=== PATIENT | female | born 1945 | race Caucasian/White ===

== ENCOUNTER → 2017-03-28 11:06 | Outpatient (CLI) | payer MEDICARE, MEDICAID, SELFPAY ==
[2017-03-28 11:49] LABS: Basophils % 0.7 % (0.1-2.0); Eosinophils # 0.1 K/mm3 (0.0-0.4); Eosinophils % 2.3 % (0.1-12.0); Hematocrit 35.1 % (37.0-47.0); Lymphocytes # 1.5 K/mm3 (0.7-4.5); Lymphocytes % 30.1 K/mm3 (10-50); Mean Corpuscular HGB Conc 31.4 g/dL (31.8-35.4); Mean Corpuscular Hemoglobin 24.8 pg (27.0-31.2); Mean Corpuscular Volume 79.1 fl (81-99); Mean Platelet Volume 8.7 fl (7.4-10.4); Monocytes # 0.4 K/mm3 (0.1-1.0); Monocytes % 7.1 % (1.7-9.3); Neutrophils # 2.9 K/mm3 (1.8-7.8); Neutrophils % 59.7 % (37.0-80.0); Platelet Count 171 K/mm3 (142-424); Red Blood Count 4.44 M/mm3 (4.20-5.40); Red Cell Distribution Width 15.2 % (11.5-17.5); White Blood Count 4.9 K/mm3 (4.8-10.8)
[2017-03-28 11:57] LABS: INR 0.99 (0.9-1.1); Prothrombin Time 10.7 seconds (9.4-11.8)
[2017-03-28 12:48] LABS: Alanine Aminotransferase 32 U/L (12-78); Albumin Level 3.7 gm/dL (3.4-5.0); Albumin/Globulin Ratio 1.1 (1.1-1.8); Alkaline Phosphatase 86 U/L (46-116); Anion Gap 10.6 mEq/L (5-15); Aspartate Amino Transferase 28 U/L (15-37); Bilirubin,Total 0.4 mg/dL (0.2-1.0); Blood Urea Nitrogen 10 mg/dL (7-18); Carbon Dioxide 30 mmol/L (21.0-32.0); Chloride 94 mmol/L (98-107); Creatinine,Serum 0.64 mg/dL (0.55-1.02); Estimated Glomerular Filt Rate > 60 ml/min (>60); GFR (African American) > 60 ML/MIN (>60); Globulin 3.5 gm/dl (1.3-3.2); Glucose 144 mg/dL (74-106); Potassium 4.6 mmoL/L (3.5-5.1); Sodium 130 mmol/L (136-145); Total Protein,Serum 7.2 gm/dL (6.4-8.2)
== END ==
PROVIDERS: PCP Nurse Practitioner Acute Care; Visit Provider Nurse Practitioner Acute Care
DX: B18.2 Chronic viral hepatitis C (principal)
CPT/HCPCS: 36415; 80053; 85025; 85610

== ENCOUNTER → 2017-04-11 14:09 | Outpatient (POV) | payer MEDICARE, MEDICAID, SELFPAY | PROVIDERS: PCP Nurse Practitioner Acute Care; Visit Provider Nurse Practitioner Acute Care | DX: Z00.00 Encounter for general adult medical examination without abnormal findings (principal) ==

== ENCOUNTER → 2017-04-19 08:02 | Outpatient (CLI) | payer MEDICARE, MEDICAID, SELFPAY ==
--- NOTE | 2017-04-19 08:07 | US_ITS ---
HISTORY: ITS.REASON: HEP C ORDERING PHYSICIAN: Symone García PATIENT AGE: 72 years COMPARISON: 01/05/2016 FINDINGS: PANCREAS: Unremarkable. No obvious mass or abnormal fluid collection. No ductal dilatation LIVER: There is heterogeneous echogenicity of the liver which may be seen with hepatitis. No focal liver lesions are evident. There is appropriate direction of blood flow within the portal vein. Portal vein is upper normal at 13 mm. RIGHT KIDNEY: 1 cm right renal cyst. No hydronephrosis GALLBLADDER: Gallbladder is filled with stones with borderline wall thickening of 4 mm. No pericholecystic fluid. Common bile duct is normal at 4 mm. IMPRESSION: 1. Heterogeneous echogenicity of the liver which may be seen with's hepatitis. Similar to 01/05/2016. 2. Cholelithiasis
== END ==
PROVIDERS: PCP Nurse Practitioner Acute Care; Visit Provider Nurse Practitioner Acute Care
DX: B18.2 Chronic viral hepatitis C (principal)
CPT/HCPCS: 76705

== ENCOUNTER 2017-05-09 07:50 | Day surgery (SDC) | payer MEDICARE, MEDICAID, SELFPAY ==
[2017-05-09] VITALS (7 sets, daily range): BP systolic 112–135; BP diastolic 54–78; PULSE 62–75; RESP 18; TEMP 36.4–36.6; O2SAT 97–100; BMI 23.8
--- NOTE | 2017-05-09 09:30 | HMH.PROC ---
[facility] Procedure Note Procedure Note:: Upper Endoscopy Procedure Report: Esophagogastroduodenoscopy with cold biopsies and TTS balloon dilation Endoscopost: Rodriguez Rajput II, MD Referring Physician: Gustavo Villagomez MD Date of Procedure: May 09, 2017 Equipment: Olympus GIF 180 standard upper endoscope Sedation: MAC sedation Indications: Mrs. Mendoza is a 72-year-old female who is here for diagnostic upper endoscopy secondary to anemia. The patient does have stage III-IV fibrosis of the liver secondary to chronic hepatitis C. She did undergo treatment with Epclusa and is in virologic/biochemical remission. She does have a history of carotid stenosis. She is on aspirin 325 mg daily. She does have intermittent dysphagia but reports no heartburn, reflux, abdominal pain or weight loss. She reports no melena. The patient has not had a colonoscopy even though she has iron deficiency. The patient's recent ultrasound of the abdomen did show evidence of probable cirrhosis as well as gallstones. Procedure: Prior to the procedure, a history and physical exam was performed, and patient's medications and allergies were reviewed. The risks, benefits and alternatives of the sedation and procedure were discussed with the patient. All questions were answered and informed consent was obtained. The patient was brought to the procedure room. Patient identification and proposed procedure were verified by the physician and the nurse. The patient was placed in a left lateral decubitus position and the scope was passed under direct vision. Throughout the procedure, the patient's blood pressure, pulse, and oxygen saturations were monitored continuously. The upper GI endoscopy was accomplished without difficulty. The patient tolerated the procedure well. Findings: The scope was passed directly into the upper esophagus and advanced to the third portion of the duodenum. The post bulbar duodenum and duodenal bulb were normal with normal mucosa and conniventes. Cold biopsies were taken from the duodenum to rule out celiac disease because of her iron deficiency anemia. The scope was withdrawn through a normal duodenal bulb and pylorus into the stomach. There was chronic gastritis of the body and fundus consistent with type A gastritis and certainly this is possibly related to H pylori. 2 biopsies were taken in the antrum and along the lesser curvature for histology to rule out gastritis and/or H pylori. The scope was then withdrawn into the esophagus. There was a serrated Z line with one tongue of salmon colored mucosa that was biopsied to rule out intestinal metaplasia. The entire esophagus was dilated to 60 German/20 mm with a TTS hydrostatic balloon was some resistance at the cricopharyngeus. The remainder of the esophageal mucosa was normal. Impression: 1. Cricopharyngeal spasm with nonerosive GERD 2. Chronic type A gastritis-rule out H. pylori Plan: I will follow up the biopsies. I do feel that the patient may have colonic pathology causing her iron deficiency and I would not rely on Cologuard testing. We will discuss need for colonoscopy.
--- NOTE | 2017-05-09 09:47 | P.PN_ITS ---
[facility] Anesthesia Checklist - Patient Identification Patient Identification: Arm Band, Verbal (Name & ) - Structural Data Admitted From: Home Planned Operative Procedure/s: egd Consent for Planned Operative Procedure(s) Verified: Yes Verified Documents: Surgical Consent - Additional verifications Patient : No Anesthesia Reactions: No Hx Blood Transfusions: No Blood Transfusion Reaction: No Cephalosporin Allergy: No Previous Colonoscopy: No - Cardiovascular Assessment Heart Sounds: S1 & S2 Pulse Strength: Baseline Pulse Rhythm: Regular Peripheral Edema: No - Airway Assessment C-Spine Mobility Assessed: Yes TMJ Mobility Assessed: Yes Dentition: Edentulous - Neurological Assessment Level of Consciousness: Awake, Alert, Appropriate Hx Seizures: No Numbness or tingling in extremities: No - Anesthesia Plan Anesthesia Risk discussed: Yes ASA Class: III Anesthesia Type: MAC [facility] Anesthesia HX I have reviewed the patient's past medical history: Yes Medical History: Reports:: Arrhythmia, Coronary Artery Disease, Diabetes Mellitus Type 2, Hepatitis, Hypertension Denies:: Diabetes Mellitus Type 1, Internal Pacemaker, Lung Disease, Seizures Other Medical History: Reports: Anemia, Liver Disease Laterality Cases: Right: Total Hip Replacement Other Surgeries: Yes: Hysterectomy-Total, Other (Jaw Sx, Eye Sx). No: Pacemaker Fractures: Yes *Family Hx:: Diabetes, Hypertension
--- NOTE | 2017-05-09 09:48 | P.PN_ITS ---
[facility] Anesthesia Checklist - Patient Identification Patient Identification: Arm Band, Verbal (Name & ) - Structural Data Admitted From: Home Planned Operative Procedure/s: egd/colon Consent for Planned Operative Procedure(s) Verified: Yes Verified Documents: Surgical Consent - NPO Status Verified Time NPO: 00:00 - Additional verifications Patient : No Anesthesia Reactions: No Hx Blood Transfusions: No Blood Transfusion Reaction: No Cephalosporin Allergy: No Previous Colonoscopy: No - Cardiovascular Assessment Heart Sounds: S1 & S2 Pulse Strength: Baseline Pulse Rhythm: Regular Peripheral Edema: No - Airway Assessment C-Spine Mobility Assessed: Yes TMJ Mobility Assessed: Yes Dentition: Edentulous - Neurological Assessment Level of Consciousness: Awake, Alert, Appropriate Hx Seizures: No Numbness or tingling in extremities: No - Anesthesia Plan Anesthesia Risk discussed: Yes ASA Class: III Anesthesia Type: MAC [facility] Anesthesia HX I have reviewed the patient's past medical history: Yes Medical History: Reports:: Arrhythmia, Coronary Artery Disease, Diabetes Mellitus Type 2, Hepatitis, Hypertension Denies:: Diabetes Mellitus Type 1, Internal Pacemaker, Lung Disease, Seizures Other Medical History: Reports: Anemia, Liver Disease. Denies: Blood Transfusion Reaction Laterality Cases: Right: Total Hip Replacement Other Surgeries: Yes: Hysterectomy-Total, Other (Jaw Sx, Eye Sx). No: Pacemaker Fractures: Yes *Family Hx:: Diabetes, Hypertension
[2017-05-19 14:59] LABS: POC Glucose,Bedside 128 mg/dL (70-110)
== END 2017-05-09 10:25 | disposition home or self-care (01) ==
LOC: OUTP 07:52
PROVIDERS: PCP Emergency Medicine; Visit Provider Internal Medicine Gastroenterology
PROC: 0DJ08ZZ Inspection of Upper Intestinal Tract, Via Natural or Artificial Opening Endoscopic (ICD-10-PCS; CPT 43235; principal; 2017-05-09 09:00)
DX: J39.2 Other diseases of pharynx (principal); K21.9 Gastro-esophageal reflux disease without esophagitis; K29.40 Chronic atrophic gastritis without bleeding; E11.9 Type 2 diabetes mellitus without complications
CPT/HCPCS: 43239; 43249; 82962; 88305; C1726

== ENCOUNTER → 2017-05-17 12:43 | Outpatient (CLI) | payer MEDICARE, MEDICAID, SELFPAY ==
--- NOTE | 2017-05-17 12:47 | XR_ITS ---
XR hip RT 2-3V w/pelvis HISTORY: ITS.REASON: right hip pain ORDERING PHYSICIAN: Liam Josue MD PATIENT AGE: 72 years COMPARISON: 10/16/2015 FINDINGS: Gamma no with long intramedullary fawad is present within the right proximal femur with the right extending to the distal femur. There is widening of the proximal aspect of the femur consistent with an old fracture. No acute fracture or dislocation evident. No evidence of orthopedic complication of the fawad. There is generalized vascular calcification. IMPRESSION: 1. No acute finding. 2. Prior ORIF old right hip fracture
== END ==
PROVIDERS: PCP Emergency Medicine; Visit Provider Orthopaedic Surgery
DX: M25.551 Pain in right hip (principal)
CPT/HCPCS: 73502

== ENCOUNTER → 2017-06-29 09:04 | Outpatient (CLI) | payer MEDICARE, MEDICAID, SELFPAY ==
[2017-06-29 09:36] LABS: Basophils % 0.5 % (0.1-2.0); Eosinophils # 0.1 K/mm3 (0.0-0.4); Eosinophils % 1.8 % (0.1-12.0); Hematocrit 33.2 % (37.0-47.0); Hemoglobin 10.5 g/dL (12.2-16.2); Lymphocytes % 27.1 K/mm3 (10-50); Mean Corpuscular HGB Conc 31.6 g/dL (31.8-35.4); Mean Corpuscular Hemoglobin 25.4 pg (27.0-31.2); Mean Corpuscular Volume 80.5 fl (81-99); Mean Platelet Volume 9.4 fl (7.4-10.4); Monocytes # 0.4 K/mm3 (0.1-1.0); Monocytes % 9.7 % (1.7-9.3); Neutrophils # 2.3 K/mm3 (1.8-7.8); Neutrophils % 60.9 % (37.0-80.0); Platelet Count 179 K/mm3 (142-424); Red Blood Count 4.13 M/mm3 (4.20-5.40); Red Cell Distribution Width 14.8 % (11.5-17.5); White Blood Count 3.8 K/mm3 (4.8-10.8)
[2017-06-29 09:42] LABS: Alanine Aminotransferase 32 U/L (12-78); Albumin Level 3.5 gm/dL (3.4-5.0); Albumin/Globulin Ratio 0.9 (1.1-1.8); Alkaline Phosphatase 80 U/L (46-116); Anion Gap 11.8 mEq/L (5-15); Aspartate Amino Transferase 30 U/L (15-37); Bilirubin,Total 0.3 mg/dL (0.2-1.0); Blood Urea Nitrogen 13 mg/dL (7-18); Calcium 9.3 mg/dL (8.5-10.1); Carbon Dioxide 30 mmol/L (21.0-32.0); Chloride 98 mmol/L (98-107); Creatinine,Serum 0.76 mg/dL (0.55-1.02); Estimated Glomerular Filt Rate 75 ml/min (>60); GFR (African American) 91 ML/MIN (>60); Globulin 3.9 gm/dl (1.3-3.2); Glucose 252 mg/dL (74-106); Potassium 4.8 mmoL/L (3.5-5.1); Sodium 135 mmol/L (136-145); Total Protein,Serum 7.4 gm/dL (6.4-8.2)
== END ==
PROVIDERS: Visit Provider Internal Medicine Gastroenterology
DX: B18.2 Chronic viral hepatitis C (principal)
CPT/HCPCS: 36415; 80053; 85025; 87522

== ENCOUNTER → 2017-08-17 12:35 | Outpatient (POV) | payer MEDICARE, MEDICAID, SELFPAY | PROVIDERS: PCP Emergency Medicine | DX: Z00.00 Encounter for general adult medical examination without abnormal findings (principal) ==

== ENCOUNTER → 2017-08-22 10:09 | Outpatient (POV) | payer MEDICARE, MEDICAID, SELFPAY | PROVIDERS: Visit Provider Nurse Practitioner Acute Care | DX: Z00.00 Encounter for general adult medical examination without abnormal findings (principal) ==

== ENCOUNTER → 2017-08-23 07:44 | Outpatient (CLI) | payer MEDICARE, MEDICAID, SELFPAY ==
[2017-08-23 08:39] LABS: Basophils % 0.9 % (0.1-2.0); Eosinophils # 0.1 K/mm3 (0.0-0.4); Eosinophils % 2.4 % (0.1-12.0); Lymphocytes # 1.2 K/mm3 (0.7-4.5); Lymphocytes % 39.5 K/mm3 (10-50); Mean Corpuscular HGB Conc 30.6 g/dL (31.8-35.4); Mean Corpuscular Volume 78.4 fl (81-99); Mean Platelet Volume 8.7 fl (7.4-10.4); Monocytes # 0.2 K/mm3 (0.1-1.0); Monocytes % 7.3 % (1.7-9.3); Neutrophils # 1.6 K/mm3 (1.8-7.8); Neutrophils % 49.9 % (37.0-80.0); Platelet Count 169 K/mm3 (142-424); Red Cell Distribution Width 15.4 % (11.5-17.5); White Blood Count 3.1 K/mm3 (4.8-10.8)
[2017-08-23 09:10] LABS: Red Blood Count 4.12 M/mm3 (4.20-5.40)
[2017-08-23 09:11] LABS: Hematocrit 32.3 % (37.0-47.0)
[2017-08-23 09:43] LABS: Alanine Aminotransferase 31 U/L (12-78); Albumin Level 3.6 gm/dL (3.4-5.0); Albumin/Globulin Ratio 1.1 (1.1-1.8); Alkaline Phosphatase 82 U/L (46-116); Anion Gap 8.9 mEq/L (5-15); Aspartate Amino Transferase 31 U/L (15-37); Bilirubin,Total 0.6 mg/dL (0.2-1.0); Blood Urea Nitrogen 11 mg/dL (7-18); Calcium 9.3 mg/dL (8.5-10.1); Carbon Dioxide 30 mmol/L (21.0-32.0); Chloride 98 mmol/L (98-107); Creatinine,Serum 0.53 mg/dL (0.55-1.02); Estimated Glomerular Filt Rate 114 ml/min (>60); GFR (African American) 138 ML/MIN (>60); Globulin 3.2 gm/dl (1.3-3.2); Glucose 111 mg/dL (74-106); Potassium 3.9 mmoL/L (3.5-5.1); Sodium 133 mmol/L (136-145); Total Protein,Serum 6.8 gm/dL (6.4-8.2)
[2017-08-25 06:29] LABS: H. pylori Breath Test Negative (Negative)
== END ==
PROVIDERS: Surgery; Visit Provider Nurse Practitioner Acute Care
DX: B19.20 Unspecified viral hepatitis C without hepatic coma (principal); B96.81 Helicobacter pylori [H. pylori] as the cause of diseases classified elsewhere
CPT/HCPCS: 36415; 80053; 82378; 83013; 85025; 87522

== ENCOUNTER → 2017-09-01 08:18 | Outpatient (CLI) | payer MEDICARE, MEDICAID, SELFPAY ==
--- NOTE | 2017-09-01 08:20 | CT_ITS ---
CT abdomen pelvis w con CLINICAL INDICATION: Status post polypectomy. Evaluate Hemoclip ITS.REASON: polypectomy hemoclip evaulation ORDERING PHYSICIAN: Gustavo Villagomez MD PATIENT AGE: 72 years COMPARISON: None TECHNIQUE: Axial images obtained with sagittal and coronal reformats. All CT scans at the facility use one or more dose reduction, viz: automated exposure control; ma/kV adjustment per patient size (including targeted exams where dose is matched to indication; i.e. head); or iterative reconstruction technique. PROCEDURE: Oral Contrast: Redicat IV Contrast: 75 mL's of Isovue-370. FINDINGS: No acute finding in the lung bases. There is dense calcification of the mitral valve annulus. Coronary artery calcification also noted. The liver, spleen, adrenal glands, and pancreas have a unremarkable appearance. Small hiatal hernia. The gallbladder is contracted with stones and mild thickening of the gallbladder wall. There is a 9 mm calcific density in the region of the neck of the gallbladder or cystic duct There is mild prominence of both renal pelves nonspecific. There is also minimal ectasia right ureter to the pelvic inlet. No intestinal obstruction or free air. There is a mild amount of retained colonic feces. There is a metallic density noted in the proximal to mid transverse colon may represent a Hemoclip. This is at the level of the umbilicus. No intestinal obstruction or free air. No evidence of diverticulitis or appendicitis. There is a small umbilical hernia which contains a blood vessel. Prior hysterectomy. No pelvic mass abnormal fluid collection or focal inflammatory change. Artifact is present from right hip decompression screw. IMPRESSION: 1. Metallic density is present in the proximal to mid transverse colon consistent with a Hemoclip 2. Constipation. 3. Cholelithiasis with contracted gallbladder and thickened gallbladder wall. A stone is also suspected in the region of the neck of the gallbladder versus cystic duct.
== END ==
PROVIDERS: PCP Emergency Medicine; Visit Provider Surgery
DX: Z86.010 Personal history of colon polyps (principal)
CPT/HCPCS: 74177; Q9967

== ENCOUNTER → 2018-01-04 14:03 | Outpatient (REF) | payer MEDICARE, MEDICAID, SELFPAY ==
[2018-01-04 20:53] LABS: Anion Gap 12.1 mEq/L (5-15); Blood Urea Nitrogen 13 mg/dL (7-18); Calcium 9.2 mg/dL (8.5-10.1); Carbon Dioxide 26 mmol/L (21.0-32.0); Chloride 100 mmol/L (98-107); Creatinine,Serum 0.74 mg/dL (0.55-1.02); Estimated Glomerular Filt Rate 77 ml/min (>60); GFR (African American) 94 ML/MIN (>60); Glucose 214 mg/dL (74-106); Potassium 5.1 mmoL/L (3.5-5.1); Sodium 133 mmol/L (136-145)
== END ==
LOC: LAB 14:03
PROVIDERS: PCP Emergency Medicine; Visit Provider Emergency Medicine
DX: E11.9 Type 2 diabetes mellitus without complications (principal)
CPT/HCPCS: 80048

== ENCOUNTER → 2018-02-15 14:31 | Outpatient (CLI) | payer MEDICARE, MEDICAID, SELFPAY ==
[2018-02-15 14:52] LABS: Basophils % 0.2 % (0.1-2.0); Eosinophils % 0.6 % (0.1-12.0); Hematocrit 27.9 % (37.0-47.0); Hemoglobin 8.6 g/dL (12.2-16.2); Lymphocytes # 0.7 K/mm3 (0.7-4.5); Lymphocytes % 19.7 % (10-50); Mean Corpuscular HGB Conc 30.8 g/dL (31.8-35.4); Mean Corpuscular Hemoglobin 23.2 pg (27.0-31.2); Mean Corpuscular Volume 75.4 fl (81-99); Mean Platelet Volume 9.3 fl (7.4-10.4); Monocytes # 0.2 K/mm3 (0.1-1.0); Monocytes % 6.7 % (1.7-9.3); Neutrophils # 2.6 K/mm3 (1.8-7.8); Neutrophils % 72.9 % (37.0-80.0); Platelet Count 175 K/mm3 (142-424); Red Cell Distribution Width 16.8 % (11.5-17.5); White Blood Count 3.5 K/mm3 (4.8-10.8)
[2018-02-15 15:15] LABS: Alanine Aminotransferase 44 U/L (12-78); Albumin Level 3.1 gm/dL (3.4-5.0); Albumin/Globulin Ratio 0.8 (1.1-1.8); Alkaline Phosphatase 117 U/L (46-116); Anion Gap 12.5 mEq/L (5-15); Aspartate Amino Transferase 33 U/L (15-37); Bilirubin,Total 0.3 mg/dL (0.2-1.0); Blood Urea Nitrogen 10 mg/dL (7-18); Carbon Dioxide 29 mmol/L (21.0-32.0); Chloride 95 mmol/L (98-107); Chol/HDL Ratio 1.9 (1-3.5); Cholesterol 127 mg/dL (140-200); Creatinine,Serum 0.59 mg/dL (0.55-1.02); Estimated Glomerular Filt Rate 100 ml/min (>60); GFR (African American) 121 ML/MIN (>60); Globulin 3.9 gm/dl (1.3-3.2); Glucose 83 mg/dL (74-106); HDL Cholesterol 66 mg/dL (29-89); LDL Cholesterol 52 mg/dL (0-130); Potassium 4.5 mmoL/L (3.5-5.1); Sodium 132 mmol/L (136-145); T4 (Thyroxine) 6.2 ug/dl (4.7-13.3); Thyroid Stimulating Hormone 0.53 uIU/ml (0.358-3.740); Triglycerides 46 mg/dL (30-200); VLDL Cholesterol 9 mg/dL (0-40)
[2018-02-17 10:54] LABS: Vitamin D 25 Hydroxy 23.7 ng/mL (30.0-100.0)
[2018-02-17 10:58] LABS: Microalbumin, Urine <3.0 ug/mL (Not Estab.)
== END ==
PROVIDERS: Visit Provider Emergency Medicine
DX: E11.9 Type 2 diabetes mellitus without complications (principal); I10 Essential (primary) hypertension; Z98.890 Other specified postprocedural states; C17.9 Malignant neoplasm of small intestine, unspecified; I63.9 Cerebral infarction, unspecified
CPT/HCPCS: 80053; 80061; 82043; 82652; 83036; 84436; 84443; 85025

== ENCOUNTER → 2018-02-20 08:38 | Outpatient (POV) | payer MEDICARE, MEDICAID, SELFPAY ==
[2018-02-20 10:28] LABS: Ammonia 17 umol/L (19-54)
[2018-02-20 10:32] LABS: INR 1.11 (0.9-1.1); Prothrombin Time 11.4 seconds (9.4-11.8)
[2018-02-20 11:39] LABS: Ferritin 21 ng/mL (8-388)
[2018-02-21 08:26] LABS: Iron 22 ug/dL (27-139); UIBC 417 ug/dL (118-369)
[2018-02-21 10:32] LABS: Iron Saturation 5 % (15-55)
[2018-02-22 06:26] LABS: AFP, Tumor Marker 1.6 ng/mL (0.0-8.3)
== END ==
PROVIDERS: Visit Provider Nurse Practitioner Acute Care
DX: K74.60 Unspecified cirrhosis of liver (principal)
CPT/HCPCS: 36415; 82105; 82140; 82728; 83540; 83550; 85610

== ENCOUNTER → 2018-02-21 10:14 | Outpatient (CLI) | payer MEDICARE, MEDICAID, SELFPAY ==
--- NOTE | 2018-02-21 10:15 | XR_ITS ---
XR DEXA axial skeleton HISTORY: ITS.REASON: post menopausal ORDERING PHYSICIAN: Maksim Mcfadden MD PATIENT AGE: 73 years COMPARISON: None FINDINGS: The BMD measured at the Forearm radius 33%t is 0.528 g/cm squared with a T score of -4.1. This is considered Osteoporotic according to the World Health Organization criteria. Fracture risk is High. Treatment is advised. L1 L4 density has a T score of -2.6. Left hip density is 0.607 with a T score of -3.2 IMPRESSION: Osteoporosis with high fracture risk. Treatment is suggested. Recommend follow-up exam February 2019.
== END ==
PROVIDERS: PCP Emergency Medicine; Visit Provider Emergency Medicine
DX: E11.9 Type 2 diabetes mellitus without complications (principal); Z78.0 Asymptomatic menopausal state
CPT/HCPCS: 77080

== ENCOUNTER → 2018-02-27 09:08 | Outpatient (CLI) | payer MEDICARE, MEDICAID, SELFPAY ==
--- NOTE | 2018-02-27 09:14 | US_ITS ---
US abdomen limited History: Cirrhosis Ordering Physician:Symone García Patient Age: 73 years Comparison:None Findings: Pancreas:Unremarkable. No obvious mass or abnormal fluid collection. No ductal dilatation Liver:No focal liver lesions demonstrated. Homogeneous echogenicity. No intrahepatic biliary ductal dilatation evident. There is appropriate direction of blood flow within the portal vein and the portal vein is upper normal at 13 mm. Common bile duct is normal at 2 mm. There is some coarse echogenicity of the liver. No focal liver lesions are evident. Right Kidney:Unremarkable. Normal size and echogenicity. No hydronephrosis Gallbladder: The gallbladder has an abnormal appearance with heterogeneous echogenicity fills the lumen of the gallbladder with some areas of increased echogenicity. This may be due to stones and sludge filling the gallbladder. No pericholecystic fluid. A small amount of free fluid is present along the anterior edge of the liver. IMPRESSION: 1. Coarse echogenicity of the liver suggesting cirrhosis. There is appropriate directional blood flow within the mildly prominent portal vein. 2. The gallbladder has an abnormal appearance and may be related to sludge filled gallbladder with stones. Consider follow-up with abdominal CT without and with contrast and with delayed images as neoplasm could have a similar appearance and to better compared to the previous CT scan of 09/01/17
== END ==
PROVIDERS: PCP Emergency Medicine; Visit Provider Nurse Practitioner Acute Care
DX: K74.60 Unspecified cirrhosis of liver (principal); Z85.038 Personal history of other malignant neoplasm of large intestine
CPT/HCPCS: 76705

== ENCOUNTER → 2018-03-24 08:19 | Outpatient (CLI) | payer MEDICARE, MEDICAID, SELFPAY ==
[2018-03-24 08:50] LABS: Blood Urea Nitrogen 13 mg/dL (7-18); Creatinine,Serum 0.63 mg/dL (0.55-1.02); Estimated Glomerular Filt Rate 93 ml/min (>60); GFR (African American) 112 ML/MIN (>60)
--- NOTE | 2018-03-24 09:10 | CT_ITS ---
CT abdomen w con CLINICAL INDICATION: Cancer of the intestines, Cirrhosis, colon polyps ITS.REASON: ABNORMAL FINDINGS GI TRACT,CIRRHOSIS ORDERING PHYSICIAN: Rodriguez Rajput MD PATIENT AGE: 73 years COMPARISON: None TECHNIQUE: 30 seconds, 60 seconds, and 5 minute delayed post enhanced images are obtained Axial images obtained with sagittal and coronal reformats. All CT scans at the facility use one or more dose reduction, viz: automated exposure control, ma/kV adjustment per patient size (including targeted exams where dose is matched to indication, i.e. head), or iterative reconstruction technique. PROCEDURE: Oral Contrast: None IV Contrast: 75 mL's of Isovue-370. FINDINGS: No acute finding in the lung bases. Coronary artery calcifications are noted There are findings consistent with cirrhosis and portal hypertension with irregularity of the liver margin as well as enlarged portal vein measuring 19 mm. There is splenomegaly at 13 cm. Gallstones are present. Gallbladder wall is slightly thickened. No focal liver lesion is evident. The adrenal glands and pancreas have an unremarkable appearance. No obvious renal mass. There is mild prominence of the right renal collecting system and ureter. The distal ureter and pelvis are included in this exam. There has been an interval right hemicolectomy with right lower quadrant ileostomy. All amount fluid is present in the perisplenic region and perihepatic area consistent with mild ascites. No obvious upper abdominal adenopathy or retroperitoneal adenopathy. Degenerative changes are present in the lumbar spine. The pelvis is not included in this exam. There are postsurgical changes of the anterior abdominal wall. Mild stranding of the subcutaneous fat is noted. IMPRESSION: 1. Cirrhosis and portal hypertension with small amount of ascites. No focal liver lesion. 2. Cholelithiasis with mildly thickened gallbladder wall. 3. Interval right hemicolectomy with right lower quadrant ileostomy
== END ==
PROVIDERS: Visit Provider Internal Medicine Gastroenterology
DX: R93.3 Abnormal findings on diagnostic imaging of other parts of digestive tract (principal); K74.60 Unspecified cirrhosis of liver
CPT/HCPCS: 36415; 74160; 82565; 84520; Q9967

== ENCOUNTER → 2018-04-17 14:32 | Outpatient (POV) | payer MEDICARE, MEDICAID, SELFPAY ==
[2018-04-17 16:02] LABS: Basophils % 0.5 % (0.1-2.0); Eosinophils # 0.1 K/mm3 (0.0-0.4); Eosinophils % 1.9 % (0.1-12.0); Hematocrit 32.7 % (37.0-47.0); Hemoglobin 10.2 g/dL (12.2-16.2); Lymphocytes # 1.2 K/mm3 (0.7-4.5); Lymphocytes % 31.5 % (10-50); Mean Corpuscular HGB Conc 31.1 g/dL (31.8-35.4); Mean Corpuscular Hemoglobin 25.4 pg (27.0-31.2); Mean Corpuscular Volume 81.6 fl (81-99); Mean Platelet Volume 9.9 fl (7.4-10.4); Monocytes # 0.2 K/mm3 (0.1-1.0); Monocytes % 5.6 % (1.7-9.3); Neutrophils # 2.3 K/mm3 (1.8-7.8); Neutrophils % 60.5 % (37.0-80.0); Platelet Count 119 K/mm3 (142-424); Red Blood Count 4.01 M/mm3 (4.20-5.40); Red Cell Distribution Width 18.6 % (11.5-17.5); White Blood Count 3.9 K/mm3 (4.8-10.8)
[2018-04-17 16:15] LABS: INR 1.07 (0.9-1.1)
[2018-04-17 18:13] LABS: Alanine Aminotransferase 33 U/L (12-78); Albumin Level 3.6 gm/dL (3.4-5.0); Albumin/Globulin Ratio 1.1 (1.1-1.8); Alkaline Phosphatase 84 U/L (46-116); Anion Gap 12.3 mEq/L (5-15); Aspartate Amino Transferase 26 U/L (15-37); Bilirubin,Total 0.6 mg/dL (0.2-1.0); Blood Urea Nitrogen 13 mg/dL (7-18); Carbon Dioxide 29 mmol/L (21.0-32.0); Chloride 95 mmol/L (98-107); Creatinine,Serum 0.72 mg/dL (0.55-1.02); Estimated Glomerular Filt Rate 80 ml/min (>60); Ferritin 27 ng/mL (8-388); GFR (African American) 96 ML/MIN (>60); Globulin 3.4 gm/dl (1.3-3.2); Glucose 183 mg/dL (74-106); Potassium 4.3 mmoL/L (3.5-5.1); Sodium 132 mmol/L (136-145)
[2018-04-19 05:11] LABS: Iron 44 ug/dL (27-139); UIBC 357 ug/dL (118-369)
[2018-04-19 08:38] LABS: Iron Saturation 11 % (15-55)
== END ==
PROVIDERS: Visit Provider Nurse Practitioner Acute Care
DX: D64.9 Anemia, unspecified (principal); K74.60 Unspecified cirrhosis of liver
CPT/HCPCS: 36415; 80053; 82728; 83540; 83550; 85025; 85610

== ENCOUNTER 2018-04-26 09:00 | Outpatient (RCR) | payer MEDICARE, MEDICAID, SELFPAY ==
--- NOTE | 2018-02-21 09:46 | HMH.PTOPWND ---
Rehab Outpt Wound Evaluation Rehab OP Wound Evaluation Start: 02/21/18 09:22 Freq: Status: Active Protocol: Document 02/21/18 09:31 FLORENCIO (Rec: 02/21/18 09:46 FLORENCIO [id number]) Electronically Signed By Jason Hansene, PT 02/21/18 09:31 Subjective/History History History Pt is a 73 yowf who presents with c/o sena LE edema x ~ 5 mos after long hospital/rehab stay. 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 She had prior polyp removals during colonoscopy with one polyp positive for adenocarcinoma and she was apparently scheduled for a possible hemicolectomy. She is very unsure of what procedure she had due to multiple complications after her surgery. 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 She was immobile for some time due to all of her complications, but is now walking again. She reports pain in sena lower legs when her edema is increased. She has PMH of hysterectomy x 2, right hip IMN due to fx, HTN, poorly controlled DM, remission of HEP-C, left LE DVT, former smoker x 50 yrs. Subjective Subjective Currently only mild c/o pain, but does reports pain increases with edema, 6/10 at worst. Lymphedema Eval Classification of Lymphedema Secondary Lymphedema Yes Stemmer's sign Stemmer's Sign no Stage of Lymphedema Lymphedema stages Stage I (Pitting edema, reduces w/ elevation, no fibrosis) Skin Changes Dry Skin Yes Taut, Shiny Skin Yes Redness Yes Wounds Yes Brittle Uneven Nails Yes Discoloration of Skin Yes Pain Sc
== END 2018-04-26 09:05 | disposition home or self-care (01) ==
LOC: PT 09:00
PROVIDERS: Visit Provider Emergency Medicine
DX: R60.0 Localized edema (principal); E11.9 Type 2 diabetes mellitus without complications
CPT/HCPCS: 97140; 97163; 97760

== ENCOUNTER → 2018-05-16 14:40 | Outpatient (CLI) | payer MEDICARE, MEDICAID, SELFPAY ==
[2018-05-18 09:20] LABS: Creatinine, Urine 29.1 mg/dL (Not Estab.); Microalbumin, Urine <3.0 ug/mL (Not Estab.)
== END ==
PROVIDERS: Visit Provider Emergency Medicine
DX: E11.9 Type 2 diabetes mellitus without complications (principal); Z79.4 Long term (current) use of insulin; Z79.84 Long term (current) use of oral hypoglycemic drugs
CPT/HCPCS: 82043; 82570

== ENCOUNTER → 2018-05-17 13:59 | Outpatient (POV) | payer MEDICARE, MEDICAID, SELFPAY | DX: Z00.00 Encounter for general adult medical examination without abnormal findings (principal) ==

== ENCOUNTER → 2018-06-01 13:21 | Outpatient (CLI) | payer MEDICARE, MEDICAID, SELFPAY ==
--- NOTE | 2018-06-01 13:27 | XR_ITS ---
XR wrist LT min 3V HISTORY ITS.REASON: left wrist pain ORDERING PHYSICIAN: Mars Cadet MD PATIENT AGE: 73 years Comparison: None FINDINGS: No fracture or dislocation. No lytic or blastic change. Lucency is noted at the tip of the ulnar styloid process. No other significant anomalies are evident. IMPRESSION: There is lucency/erosion at the tip of the ulnar styloid process. This may be seen with rheumatoid arthritis. Transient ulnar styloid erosion is also a consideration.
== END ==
PROVIDERS: PCP Emergency Medicine; Visit Provider Orthopaedic Surgery
DX: M25.532 Pain in left wrist (principal)
CPT/HCPCS: 73110

== ENCOUNTER → 2018-06-22 14:57 | Outpatient (CLI) | payer MEDICARE, MEDICAID, SELFPAY ==
--- NOTE | 2018-06-22 15:11 | XR_ITS ---
XR chest 2V HISTORY: Hypertension previous. Smoker. ITS.REASON: HTN ORDERING PHYSICIAN: Mars Cadet MD PATIENT AGE: 73 years Technique: PA and lateral chest. COMPARISON: No previous chest film . Reviewing PACS there is a previous CT chest from December [address] abdomen which includes lung bases from March 2018. FINDINGS: Nothing definitely acute. Mild chronic changes bilaterally... Mild hyperexpansion. Calcified granuloma towards left base as well as medial right base. Upper normal markings at the right infrahilar region I believe merely reflect the slight crowding of vessels markings here with some minimal scarring. This area appeared satisfactory on the March 2015 CT abdomen which included the lung bases The heart appears normal in size thea and mediastinal structures satisfactory. Calcified aortic knob. Chest wall unremarkable. No pleural effusion. IMPRESSION. Nothing definitely acute.. Lungs clear Mild chronic changes.. Heart upper normal size.
[2018-06-22 15:28] LABS: Basophils % 0.3 % (0.1-2.0); Eosinophils # 0.1 K/mm3 (0.0-0.4); Eosinophils % 1.7 % (0.1-12.0); Hematocrit 35.1 % (37.0-47.0); Hemoglobin 12.1 g/dL (12.2-16.2); Lymphocytes # 1.3 K/mm3 (0.7-4.5); Lymphocytes % 25.9 % (10-50); Mean Corpuscular HGB Conc 34.4 g/dL (31.8-35.4); Mean Corpuscular Hemoglobin 27.8 pg (27.0-31.2); Mean Corpuscular Volume 80.8 fl (81-99); Mean Platelet Volume 8.5 fl (7.4-10.4); Monocytes # 0.4 K/mm3 (0.1-1.0); Monocytes % 6.9 % (1.7-9.3); Neutrophils # 3.3 K/mm3 (1.8-7.8); Neutrophils % 65.2 % (37.0-80.0); Platelet Count 120 K/mm3 (142-424); Red Blood Count 4.34 M/mm3 (4.20-5.40); Red Cell Distribution Width 15.5 % (11.5-17.5)
[2018-06-22 17:58] LABS: Anion Gap 15.9 mEq/L (5-15); Blood Urea Nitrogen 15 mg/dL (7-18); Calcium 9.3 mg/dL (8.5-10.1); Carbon Dioxide 26 mmol/L (21.0-32.0); Chloride 94 mmol/L (98-107); Creatinine,Serum 0.68 mg/dL (0.55-1.02); Estimated Glomerular Filt Rate 85 ml/min (>60); GFR (African American) 103 ML/MIN (>60); Glucose 92 mg/dL (74-106); Potassium 3.9 mmoL/L (3.5-5.1); Sodium 132 mmol/L (136-145)
[2018-06-23 10:03] LABS: Hemoglobin A1C 6.9 % (0.0-7.0)
== END ==
PROVIDERS: Visit Provider Orthopaedic Surgery
DX: Z01.818 Encounter for other preprocedural examination (principal); S52.561A Barton's fracture of right radius, initial encounter for closed fracture; E11.9 Type 2 diabetes mellitus without complications; Z79.4 Long term (current) use of insulin
CPT/HCPCS: 36415; 71046; 80048; 83036; 85025

== ENCOUNTER → 2018-07-06 09:01 | Outpatient (CLI) | payer MEDICARE, MEDICAID, SELFPAY ==
--- NOTE | 2018-07-06 09:08 | XR_ITS ---
XR wrist RT min 3V HISTORY follow-up fracture ITS.REASON: sp ORIF right distal radius ORDERING PHYSICIAN: Mars Cadet MD PATIENT AGE: 73 years Comparison: 06/21/2018 FINDINGS: Status post ORIF radial fracture with anterior bone plate placed with good alignment of the fracture fragments. IMPRESSION: Good alignment nondisplaced comminuted distal radial fracture status post ORIF
== END ==
PROVIDERS: PCP Emergency Medicine; Visit Provider Orthopaedic Surgery
DX: S52.501A Unspecified fracture of the lower end of right radius, initial encounter for closed fracture (principal); Z48.89 Encounter for other specified surgical aftercare
CPT/HCPCS: 73110

== ENCOUNTER → 2018-07-28 08:41 | Outpatient (CLI) | payer MEDICARE, MEDICAID, SELFPAY ==
--- NOTE | 2018-07-28 09:04 | XR_ITS ---
XR wrist RT min 3V HISTORY follow-up fracture ITS.REASON: ORIF wrist/ XRAYS OUT OF CAST ORDERING PHYSICIAN: Mars Cadet MD PATIENT AGE: 73 years Comparison: 07/06/2018 FINDINGS: Anterior bone plate once again noted stabilizing the comminuted distal radial fracture. Longitudinal anterior fracture line is once again noted which extends into the articular surface. On the frontal view there is some lucency around the most superior and lateral screw raising the question of loosening or infection. Fracture line is also somewhat more prominent on the frontal view laterally. IMPRESSION: Comminuted distal radial fracture is in good alignment with the fracture lines appear slightly more prominent. While this could be technical factors, nonunion is also a consideration. There is some lucency around the most distal and radial screw which may also be due to loosening or infection. Follow-up is suggested.
== END ==
PROVIDERS: PCP Emergency Medicine; Visit Provider Orthopaedic Surgery
DX: S62.101A Fracture of unspecified carpal bone, right wrist, initial encounter for closed fracture (principal)
CPT/HCPCS: 73110

== ENCOUNTER 2018-07-28 09:39 | Outpatient (RCR) | payer MEDICARE, MEDICAID, SELFPAY | END 2018-07-28 09:45 | disposition home or self-care (01) | LOC: OT 09:39 | PROVIDERS: Visit Provider Orthopaedic Surgery | DX: M25.531 Pain in right wrist (principal) | CPT/HCPCS: 97763 ==

== ENCOUNTER → 2018-08-31 08:32 | Outpatient (CLI) | payer MEDICARE, MEDICAID, SELFPAY ==
--- NOTE | 2018-08-31 08:43 | XR_ITS ---
XR wrist RT min 3V HISTORY follow-up surgery/fracture, pain ITS.REASON: sp ORIF RT wrist sx 06/27/18 ORDERING PHYSICIAN: Mars Cadet MD PATIENT AGE: 73 years Comparison: 07/28/2018 FINDINGS Status post ORIF comminuted distal radial fracture. Bone plate remains in place. There remains a zone of lucency around the most distal screws at the radial and ulnar margins. This does raise a question of prosthesis loosening or infection. Fracture lines are still visible. There is good alignment. IMPRESSION: Status post ORIF distal radial fracture with zone of lucency around the distal most screws in the distal radius raising the question of prosthesis loosening or infection.
[2018-08-31 10:01] LABS: Basophils % 0.5 % (0.1-2.0); Eosinophils # 0.1 K/mm3 (0.0-0.4); Eosinophils % 2.4 % (0.1-12.0); Hematocrit 37.4 % (37.0-47.0); Lymphocytes # 1.3 K/mm3 (0.7-4.5); Lymphocytes % 27.5 % (10-50); Mean Corpuscular HGB Conc 31.9 g/dL (31.8-35.4); Mean Corpuscular Hemoglobin 28.6 pg (27.0-31.2); Mean Corpuscular Volume 89.7 fl (81-99); Mean Platelet Volume 10.2 fl (7.4-10.4); Monocytes # 0.3 K/mm3 (0.1-1.0); Monocytes % 5.8 % (1.7-9.3); Neutrophils # 2.9 K/mm3 (1.8-7.8); Neutrophils % 63.7 % (37.0-80.0); Platelet Count 126 K/mm3 (142-424); Red Blood Count 4.17 M/mm3 (4.20-5.40); Red Cell Distribution Width 14.7 % (11.5-17.5); White Blood Count 4.6 K/mm3 (4.8-10.8)
[2018-08-31 10:33] LABS: Erythrocyte Sedimentation Rate 19 mm/hr (0-30)
[2018-08-31 10:49] LABS: Alanine Aminotransferase 38 U/L (12-78); Albumin Level 3.8 gm/dL (3.4-5.0); Albumin/Globulin Ratio 1.2 (1.1-1.8); Alkaline Phosphatase 73 U/L (46-116); Anion Gap 8.5 mEq/L (5-15); Aspartate Amino Transferase 27 U/L (15-37); Bilirubin,Total 0.7 mg/dL (0.2-1.0); Blood Urea Nitrogen 13 mg/dL (7-18); C-Reactive Protein < 0.2 mg/L (0.0-0.9); Calcium 9.2 mg/dL (8.5-10.1); Carbon Dioxide 32 mmol/L (21.0-32.0); Chloride 96 mmol/L (98-107); Creatinine,Serum 0.63 mg/dL (0.55-1.02); Estimated Glomerular Filt Rate 93 ml/min (>60); GFR (African American) 112 ML/MIN (>60); Globulin 3.3 gm/dl (1.3-3.2); Glucose 96 mg/dL (74-106); Potassium 4.5 mmoL/L (3.5-5.1); Sodium 132 mmol/L (136-145); Total Protein,Serum 7.1 gm/dL (6.4-8.2)
[2018-08-31 11:02] LABS: Hemoglobin A1C 6.5 % (0.0-7.0)
== END ==
PROVIDERS: PCP Emergency Medicine; Visit Provider Orthopaedic Surgery
DX: Z09 Encounter for follow-up examination after completed treatment for conditions other than malignant neoplasm (principal); B99.9 Unspecified infectious disease; E11.9 Type 2 diabetes mellitus without complications; Z79.4 Long term (current) use of insulin
CPT/HCPCS: 36415; 73110; 80053; 83036; 85025; 85651; 86140

== ENCOUNTER → 2018-08-31 09:47 | Outpatient (CLI) | payer MEDICARE, MEDICAID, SELFPAY | PROVIDERS: Visit Provider Orthopaedic Surgery | DX: Z79.899 Other long term (current) drug therapy (principal) | CPT/HCPCS: 36415; 73110; 80053; 83036; 85025; 85651; 86140 ==

== ENCOUNTER → 2018-09-07 10:39 | Outpatient (CLI) | payer MEDICARE, MEDICAID, SELFPAY ==
--- NOTE | 2018-09-07 10:41 | CT_ITS ---
CT wrist RT wo con HISTORY status post ORIF of the wrist with developing lucency at the screws. Evaluate for any areas of bony union. ITS.REASON: sp ORIF rt wrist dos06/27/18 ORDERING PHYSICIAN: Mars Cadet MD PATIENT AGE: 73 years Comparison: 08/31/2018 TECHNIQUE: Axial images were obtained. Sagittal and coronal reformatted images are reviewed as well. All CT scans at the facility use one or more dose reduction, viz: automated exposure control, ma/kV adjustment per patient size (including targeted exams where dose is matched to indication, i.e. head), or iterative reconstruction technique. FINDINGS: There is an anterior bone plate present with multiple stabilizing screws. A sonolucency is present around the lateral and distal screw and the distal and most medial screw. There is also lucency noted along the most distal and central screw. This lucency however is along the proximal aspect of the longitudinal axis of the screw in good be related to residual fracture line. There does appear to be some bony union noted along H aspect of the cortex on the sagittal reformatted image #22. There is considerable artifact from the prosthesis. Persistent fracture lines are noted some of which are extending into the articular surface There is a small well-circumscribed lucency along the anterior aspect of the trapezium suggesting a nondisplaced fracture. IMPRESSION: 1. Persistent lucency surrounding the most distal lateral and medial screw at the bone plate suggesting loosening or infection. 2. There may be some minimal bony union anteriorly at the fracture site. Persistent fracture lines are noted some which extend into the articular surface 3. Possible nondisplaced fracture of the trapezium anteriorly
== END ==
PROVIDERS: PCP Emergency Medicine; Visit Provider Orthopaedic Surgery
DX: S52.501A Unspecified fracture of the lower end of right radius, initial encounter for closed fracture (principal); Z09 Encounter for follow-up examination after completed treatment for conditions other than malignant neoplasm
CPT/HCPCS: 73200

== ENCOUNTER → 2018-09-27 11:24 | Outpatient (CLI) | payer MEDICARE, MEDICAID, SELFPAY ==
--- NOTE | 2018-09-27 11:29 | XR_ITS ---
XR wrist RT min 3V HISTORY follow-up ORIF/fracture ITS.REASON: sp ORIF RT distal radius, dos 06/27/18 ORDERING PHYSICIAN: Mars Cadet MD PATIENT AGE: 73 years Comparison: 08/31/2018 FINDINGS: Status post ORIF comminuted distal radial fracture. There remains good alignment with anterior bone plate present. Fracture line still visible with some persistent lucency noted around the distal 2 most screws as previously described. IMPRESSION: No change status post ORIF distal radial fracture with persistent lucency around the distal 2 most screws as previously described not significant changed
[2018-09-27 12:00] LABS: Basophils % 0.7 % (0.1-2.0); Eosinophils # 0.1 K/mm3 (0.0-0.4); Eosinophils % 3.3 % (0.1-12.0); Hematocrit 34.5 % (37.0-47.0); Hemoglobin 10.9 g/dL (12.2-16.2); Lymphocytes # 0.9 K/mm3 (0.7-4.5); Lymphocytes % 29.3 % (10-50); Mean Corpuscular HGB Conc 31.6 g/dL (31.8-35.4); Mean Corpuscular Hemoglobin 29.2 pg (27.0-31.2); Mean Corpuscular Volume 92.4 fl (81-99); Mean Platelet Volume 9.9 fl (7.4-10.4); Monocytes # 0.2 K/mm3 (0.1-1.0); Monocytes % 7.2 % (1.7-9.3); Neutrophils # 1.9 K/mm3 (1.8-7.8); Neutrophils % 59.4 % (37.0-80.0); Platelet Count 102 K/mm3 (142-424); Red Blood Count 3.73 M/mm3 (4.20-5.40); Red Cell Distribution Width 14.5 % (11.5-17.5); White Blood Count 3.2 K/mm3 (4.8-10.8)
[2018-09-27 12:11] LABS: C-Reactive Protein < 0.2 mg/L (0.0-0.9)
[2018-09-27 12:27] LABS: Erythrocyte Sedimentation Rate 19 mm/hr (0-30)
== END ==
PROVIDERS: PCP Emergency Medicine; Visit Provider Orthopaedic Surgery
DX: Z09 Encounter for follow-up examination after completed treatment for conditions other than malignant neoplasm (principal); S52.501A Unspecified fracture of the lower end of right radius, initial encounter for closed fracture
CPT/HCPCS: 36415; 73110; 85025; 85651; 86140

== ENCOUNTER → 2018-09-27 11:42 | Outpatient (CLI) | payer MEDICARE, MEDICAID, SELFPAY | PROVIDERS: Visit Provider Orthopaedic Surgery | DX: S52.502A Unspecified fracture of the lower end of left radius, initial encounter for closed fracture (principal) | CPT/HCPCS: 36415; 85025; 85651; 86140 ==

== ENCOUNTER → 2018-10-10 10:08 | Outpatient (CLI) | payer MEDICARE, MEDICAID, SELFPAY ==
--- NOTE | 2018-10-10 10:17 | XR_ITS ---
XR wrist RT min 3V CLINICAL INDICATION: ITS.REASON: sp ORIF RT wrist sx 06/27/18 ORDERING PHYSICIAN: Mars Cadet MD PATIENT AGE: 73 years Comparison: 09/27/2018. FINDINGS: The degree of osteopenia stable. The appearance of the compression plate and fixation screws along the ventral aspect of the distal radius remains stable. There appears to be some mild interval osseous fusion across the visualized fracture sites at the distal radius. The remainder of the right wrist and visualized portions of the right hand are stable. IMPRESSION: Interval evidence of some healing of the distal radial fractures. Stable osteopenia. No other change.
[2018-10-10 10:38] LABS: Basophils % 0.2 % (0.1-2.0); Eosinophils # 0.1 K/mm3 (0.0-0.4); Eosinophils % 2.2 % (0.1-12.0); Hematocrit 33.9 % (37.0-47.0); Hemoglobin 11.2 g/dL (12.2-16.2); Lymphocytes # 1.1 K/mm3 (0.7-4.5); Lymphocytes % 32.1 % (10-50); Mean Corpuscular Hemoglobin 28.2 pg (27.0-31.2); Mean Corpuscular Volume 85.4 fl (81-99); Mean Platelet Volume 9.4 fl (7.4-10.4); Monocytes # 0.2 K/mm3 (0.1-1.0); Monocytes % 6.4 % (1.7-9.3); Neutrophils # 2.1 K/mm3 (1.8-7.8); Platelet Count 107 K/mm3 (142-424); Red Blood Count 3.97 M/mm3 (4.20-5.40); Red Cell Distribution Width 13.7 % (11.5-17.5); White Blood Count 3.6 K/mm3 (4.8-10.8)
[2018-10-10 11:03] LABS: Erythrocyte Sedimentation Rate 19 mm/hr (0-30)
[2018-10-10 11:07] LABS: C-Reactive Protein < 0.2 mg/L (0.0-0.9)
== END ==
PROVIDERS: PCP Emergency Medicine; Visit Provider Orthopaedic Surgery
DX: Z09 Encounter for follow-up examination after completed treatment for conditions other than malignant neoplasm (principal); S52.501A Unspecified fracture of the lower end of right radius, initial encounter for closed fracture
CPT/HCPCS: 36415; 73110; 85025; 85651; 86140

== ENCOUNTER 2018-10-12 10:00 | Outpatient (RCR) | payer MEDICARE, MEDICAID, SELFPAY ==
--- NOTE | 2018-08-04 09:33 | HMH.OTOPEV ---
OT Inpatient Evaluation Rehab OT Outpatient Eval Start: 08/03/18 11:12 Freq: Status: Active Protocol: Document 08/03/18 11:13 TFRY (Rec: 08/03/18 11:31 TFRY [id number]) Electronically Signed By Karine Welch, OT 08/03/18 11:13 Outpatient Therapy Subjective History Subjective History This is a 73 year old left handed female referred to occupational therapy as she is s/p ORIF of right wrist. Patient reports that she fell on 06/20/18 but did not come to the hospital to the following day. She saw doctor on 06/21/18 . Patient underwent surgery on 06/27/18. Patient reports that her cast was just removed approximately 1 week ago. Chief Complaint Pain Symptom Type Ache,Throb,Sharp,Numbness, Tingling,Shooting Symptoms Relieved By Rest/Positioning Symptoms Aggravated By Physical Activity Prior Functional Limitations None Current Functional Limitations Dressing Symptom Description Constant but Variable Level of pain today (0-10) 6 Pain scale - at its best (0-10) 4 Pain scale - at its worst (0-10) 10 Wrist/Hand Eval Palpation Tenderness/Visual Exam thenar eminence atrophy hand/finger exam right standard Wrist Range of Motion Right Wrist Extension Active Range of Motion ( 40 degrees) Wrist Extension Passive Range of Motion 50 (degrees) Wrist Flexion Active Range of Motion ( 48 degrees) Wrist Flexion Passive Range of Motion ( 65 degrees) Wrist Radial Deviation Active Range of 30 Motion (degrees) Wrist Radial Deviation Passive Range of 40 Motion (degrees) Wrist Ulnar Deviation Active Range of 20 Motion (degrees) Wrist Ulnar Deviation Passive Range of 28 Motion (degrees) Wrist Manual Muscle Testing Right Wrist Extension Strength Grade 3 Fair Wrist Flexion Strength Grade 3 Fair Wrist Radial Deviation Strength Grade 3 Fair Wrist Ulnar Deviation Strength Grade 3 Fair Business Office Coordinator/Pinch Strength Business Office Coordinator Strength Measurement (lbs) 2 Palmar Pinch (3-point) Ability Normal Performance Palmar Pinch (3-point) Strength 1 Measurement (lbs) Tip Pinch (2-point) Ability Normal Performance Tip Pinch (2-point) Strength Measurement 0 (lbs) Lateral Pinch Ability Normal Performance Lateral Pinch Strength Measurement (lbs) 1 OT Outpatient Assessment Impair
--- NOTE | 2018-09-14 11:43 | HMH.RHREAS ---
Rehab Reassessment Rehab OP Re-assessment Start: 09/14/18 10:45 Freq: Status: Active Protocol: Document 09/14/18 10:46 TFRY (Rec: 09/14/18 11:43 TFRY [id number]) Electronically Signed By Karine Welch OT 09/14/18 10:46 Rehab Re-assessment Subjective Subjective It's better I really don't have what I call pain. Objective Objective Notes Patient seen this date for skilled occupational therapy services. See exercise flow sheet for exercises. Reassessment of right wrist AROM: flexion - 0-73; extension - 0-54; ulnar deviation - 0-32; radial deviation - 0- 50. Reassessment right wrist strength: flexion - 4-/5; extension - 4-/5; ulnar deviation - 3+/5; radial deviation - 3+/5. Right staff nurse anesthetist strength - 10 lbs; right tip pinch - 1 lb; right palmar pinch - 2 lbs, right lateral pinch - 3 lbs. Patient reports that pain at worse is 4 on 0-10 scale. Assessment Progress Assessment Progressing as Expected Assessment Notes AROM and strength have improved with a decrease in pain report. Patient goals met STG's - 5/8 LTG's - 5/8 Goals Not Met strength goals Revised Goals Continue with all unmet goals with revised goal of right staff nurse anesthetist strength to 12 lbs. Plan Plan Continue occupational therapy working on all established goals and revised goal to improve staff nurse anesthetist strength. Frequency of Therapy 2 times per week Duration of therapy 4 weeks Time and Billing Re-Eval Time 5 Re-Eval Billing Units 0 PHYSICIAN CERTIFICATION: I certify the specified therapy services for Melissa Mendoza are required, authorized, and reviewed every 30 days.
== END 2018-10-12 10:05 | disposition home or self-care (01) ==
LOC: OT 10:00
PROVIDERS: Visit Provider Orthopaedic Surgery
DX: S62.101A Fracture of unspecified carpal bone, right wrist, initial encounter for closed fracture (principal)
CPT/HCPCS: 97014; 97110; 97140; 97164; 97165; G0283

== ENCOUNTER → 2018-10-16 11:05 | Outpatient (POV) | payer MEDICARE, MEDICAID, SELFPAY | PROVIDERS: PCP Emergency Medicine; Visit Provider Nurse Practitioner Family | DX: Z00.00 Encounter for general adult medical examination without abnormal findings (principal) ==

== ENCOUNTER → 2018-10-20 07:55 | Outpatient (CLI) | payer MEDICARE, MEDICAID, SELFPAY ==
--- NOTE | 2018-10-20 08:30 | US_ITS ---
US abdomen limited History:7 month follow-up suspected cirrhosis Ordering Physician:Kari Murillo APRN Patient Age: 73 years Comparison:[address] Findings: Pancreas:Unremarkable. No obvious mass or abnormal fluid collection. No ductal dilatation Liver: The liver is normal in size and shows somewhat coarsened and overall increased echogenicity similar to the previous exam. There is no significant nodularity of the liver capsule. The portal vein is upper limits of normal caliber and flow is hepatopedal. The gallbladder is contracted containing calcified and partially calcified gallstones and/or sludge. The common bile duct is upper lung is a normal 5 mm in diameter. There is a positive Zarate's sign. The right kidney measures 12.6 x 5.5 x 6.4 cm and appears sonographically normal. Impression: 1. Moderate hepatic steatosis without other obvious signs of cirrhosis 2. Contracted gallbladder with gallstones and/or sludge with positive Zarate's sign
[2018-10-20 09:26] LABS: Basophils % 0.6 % (0.1-2.0); Eosinophils # 0.1 K/mm3 (0.0-0.4); Eosinophils % 3.5 % (0.1-12.0); Hematocrit 36.7 % (37.0-47.0); Hemoglobin 11.7 g/dL (12.2-16.2); Lymphocytes # 0.8 K/mm3 (0.7-4.5); Lymphocytes % 23.7 % (10-50); Mean Corpuscular HGB Conc 31.9 g/dL (31.8-35.4); Mean Corpuscular Hemoglobin 28.8 pg (27.0-31.2); Mean Corpuscular Volume 90.3 fl (81-99); Mean Platelet Volume 9.4 fl (7.4-10.4); Monocytes # 0.2 K/mm3 (0.1-1.0); Neutrophils # 2.1 K/mm3 (1.8-7.8); Neutrophils % 66.2 % (37.0-80.0); Platelet Count 123 K/mm3 (142-424); Red Blood Count 4.07 M/mm3 (4.20-5.40); Red Cell Distribution Width 13.7 % (11.5-17.5); White Blood Count 3.2 K/mm3 (4.8-10.8)
[2018-10-20 09:35] LABS: INR 1.05 (0.9-1.1); Prothrombin Time 10.9 seconds (9.4-11.8)
[2018-10-20 09:37] LABS: Ammonia 14 umol/L (19-54)
[2018-10-20 11:58] LABS: Alanine Aminotransferase 39 U/L (12-78); Albumin Level 3.9 gm/dL (3.4-5.0); Albumin/Globulin Ratio 1.1 (1.1-1.8); Alkaline Phosphatase 75 U/L (46-116); Aspartate Amino Transferase 33 U/L (15-37); Bilirubin,Total 0.6 mg/dL (0.2-1.0); Blood Urea Nitrogen 10 mg/dL (7-18); Calcium 9.2 mg/dL (8.5-10.1); Carbon Dioxide 29 mmol/L (21.0-32.0); Chloride 91 mmol/L (98-107); Creatinine,Serum 0.84 mg/dL (0.55-1.02); Estimated Glomerular Filt Rate 67 ml/min (>60); Ferritin 67 ng/mL (8-388); GFR (African American) 81 ML/MIN (>60); Globulin 3.6 gm/dl (1.3-3.2); Glucose 118 mg/dL (74-106); Sodium 129 mmol/L (136-145); Total Protein,Serum 7.5 gm/dL (6.4-8.2)
[2018-10-21 08:13] LABS: Iron 97 ug/dL (27-139); Iron Saturation 25 % (15-55); UIBC 286 ug/dL (118-369)
[2018-10-21 18:47] LABS: AFP, Tumor Marker 1.4 ng/mL (0.0-8.3)
== END ==
PROVIDERS: PCP Emergency Medicine; Visit Provider Nurse Practitioner Family
DX: K74.60 Unspecified cirrhosis of liver (principal); K22.70 Barrett's esophagus without dysplasia; Z85.038 Personal history of other malignant neoplasm of large intestine
CPT/HCPCS: 36415; 76705; 80053; 82105; 82140; 82728; 83540; 83550; 85025; 85610

== ENCOUNTER → 2018-10-23 13:41 | Outpatient (POV) | payer MEDICARE, MEDICAID, SELFPAY | PROVIDERS: Visit Provider Specialist | DX: M79.601 Pain in right arm (principal); M79.602 Pain in left arm; R20.0 Anesthesia of skin | CPT/HCPCS: 95886; 95908 ==

== ENCOUNTER → 2018-10-24 08:08 | Outpatient (CLI) | payer MEDICARE, MEDICAID, SELFPAY ==
--- NOTE | 2018-10-24 08:10 | CI_ITS ---
Cerebrovascular Exam Indications: 433.10 Occlusion/stenosis of carotid artery without cerebral infarction. IMPRESSIONS 1. The bilateral vertebral arteries are patent with normal antegrade flow. 2. Study suggests less than 20% stenosis involving the right internal carotid artery and the left internal carotid artery. No change from the study of 09-Jan-2016. History: Transient ischemic attack. Risk factors: Current tobacco use. Hypertension. Carotid duplex study. Complete study and Doppler flow study including spectral analysis, color and gtz scale imaging. Height: Height: 167.6cm. Height: 66in. Weight: Weight: 66.7kg. Weight: 146.7lb. Body mass index: BMI: 23.7kg/m^2. Body surface area: BSA: 1.77m^2. Location: Vascular laboratory. Patient status: Outpatient. Tables: Arterial flow: + +--------+--------+ Location V sys V ed + +--------+--------+ Right CCA - proximal 91.9cm/s 18.9cm/s + +--------+--------+ Right CCA - distal 91.9cm/s 22cm/s + +--------+--------+ Right ECA 127cm/s -------- + +--------+--------+ Right ICA - proximal 57.9cm/s 16.5cm/s + +--------+--------+ Right ICA - mid 77.2cm/s 19.3cm/s + +--------+--------+ Right ICA - distal 83.6cm/s 22cm/s + +--------+--------+ Right vertebral 63.5cm/s -------- + +--------+--------+ Left CCA - proximal 124cm/s 16.1cm/s + +--------+--------+ Left CCA - distal 90.1cm/s 18.2cm/s + +--------+--------+ Left ECA 101cm/s -------- + +--------+--------+ Left ICA - proximal 59.9cm/s 13.3cm/s + +--------+--------+ Left ICA - mid 89.4cm/s 20.6cm/s + +--------+--------+ Left ICA - distal 89.9cm/s 25cm/s + +--------+--------+ Left vertebral 57.3cm/s -------- + +--------+--------+ Velocity ratios: + + + + + + Right, V sys Right, V ed Left, V sys Left, V ed + + + + + + Max ICA/dist CCA 0.91 1 1 1.37 + + + + + + (Report amended ) Electronically signed by: Nathan Waller [id number]
== END ==
PROVIDERS: PCP Emergency Medicine; Visit Provider Internal Medicine Cardiovascular Disease
DX: I48.91 Unspecified atrial fibrillation (principal); R09.89 Other specified symptoms and signs involving the circulatory and respiratory systems; I65.23 Occlusion and stenosis of bilateral carotid arteries
CPT/HCPCS: 93880

== ENCOUNTER → 2018-11-07 08:39 | Outpatient (CLI) | payer MEDICARE, MEDICAID, SELFPAY ==
--- NOTE | 2018-11-07 08:46 | XR_ITS ---
PROCEDURE: XR WRIST RT MIN 3V CLINICAL INDICATION: sp ORIF right wrist dos 06/27/18 Follow-up fracture, pain COMPARISON: from 10/10/2018 FINDINGS: Anterior bone plate remains in place with multiple screws stabilizing the distal radial fracture with good alignment. Lucency around the distal aspect of the screws and along the distal bone plate once again noted IMPRESSION: Good alignment status post ORIF. No change in the lucency at the distal aspect of the screws and along the distal aspect of the bone plate Dictated by: Nathan Waller MD 11/07/2018 15:26 Signed by: <Electronically signed by Nathan Waller MD in [facility]> 11/07/2018 15:26
== END ==
PROVIDERS: PCP Emergency Medicine; Visit Provider Orthopaedic Surgery
DX: Z09 Encounter for follow-up examination after completed treatment for conditions other than malignant neoplasm (principal)
CPT/HCPCS: 73110

== ENCOUNTER → 2018-11-10 08:50 | Outpatient (CLI) | payer MEDICARE, MEDICAID, SELFPAY ==
[2018-11-10 09:30] LABS: Basophils % 0.3 % (0.1-2.0); Eosinophils # 0.1 K/mm3 (0.0-0.4); Eosinophils % 2.5 % (0.1-12.0); Hematocrit 35.4 % (37.0-47.0); Hemoglobin 11.4 g/dL (12.2-16.2); Lymphocytes # 0.9 K/mm3 (0.7-4.5); Lymphocytes % 27.7 % (10-50); Mean Corpuscular HGB Conc 32.2 g/dL (31.8-35.4); Mean Corpuscular Hemoglobin 29.2 pg (27.0-31.2); Mean Corpuscular Volume 90.8 fl (81-99); Mean Platelet Volume 8.7 fl (7.4-10.4); Monocytes # 0.2 K/mm3 (0.1-1.0); Monocytes % 7.6 % (1.7-9.3); Neutrophils % 61.9 % (37.0-80.0); Platelet Count 96 K/mm3 (142-424); Red Blood Count 3.89 M/mm3 (4.20-5.40); White Blood Count 3.2 K/mm3 (4.8-10.8)
[2018-11-10 10:56] LABS: C-Reactive Protein < 0.2 mg/dL (0.0-0.9)
[2018-11-10 11:24] LABS: Hemoglobin A1C 7.1 % (0.0-7.0)
[2018-11-10 13:07] LABS: Erythrocyte Sedimentation Rate 134 mm/hr (0-30)
== END ==
PROVIDERS: Visit Provider Orthopaedic Surgery
DX: Z01.818 Encounter for other preprocedural examination (principal); G56.01 Carpal tunnel syndrome, right upper limb; E11.9 Type 2 diabetes mellitus without complications; Z79.84 Long term (current) use of oral hypoglycemic drugs
CPT/HCPCS: 36415; 83036; 85025; 85651; 86140

== ENCOUNTER → 2019-01-02 10:09 | Outpatient (CLI) | payer MEDICARE, MEDICAID, SELFPAY ==
--- NOTE | 2019-01-02 11:02 | CT_ITS ---
PROCEDURE: CT ABDOMEN PELVIS W CON CLINICAL INDICATION: COLON CA Follow-up colon cancer COMPARISON: ABDW CT abdomen w con from 03/24/2018 TECHNIQUE: IV Contrast: 75ML OPTIRAY 350 Oral Contrast 450ml Redicat Axial images obtained with sagittal and coronal reformats. All CT scans at the facility use one or more dose reduction, viz: automated exposure control, ma/kV adjustment per patient size (including targeted exams where dose is matched to indication, i.e. head), or iterative reconstruction technique. FINDINGS: There is dense calcification of the mitral valve annulus Prominent portal vein once again noted. There is mild periportal adenopathy. There is splenomegaly with upper abdominal varices. Gallbladder wall is thickened with gallbladder contracted with a stone present in the region of the neck of the gallbladder There appears to been a prior abdominal hernia repair with a small defect within the mesh in the right paracentral region of the upper abdomen with the defect containing fat. No liver lesions are evident. The adrenal glands are unremarkable. There is mild prominence of the renal pelves on both sides. No renal mass evident. There is right lower quadrant ileostomy which may be a diverting ileostomy. There are some scattered air-fluid levels within the small bowel in the mid abdominal region with some fluid-filled loops of small bowel. These are nonspecific. Artifact is present from right hip gamma nail. There is mild lumbar scoliosis convex right with facet arthritic changes with lumbar scoliosis convex right IMPRESSION: 1. No convincing evidence of metastatic disease. 2. Cirrhosis with portal hypertension 3. Cholelithiasis 4. Right hemicolectomy with right lower quadrant ileostomy. Bowel gas pattern is nonspecific with a scattered fluid-filled small bowel loops. This could be seen with ileus/enteritis or even partial obstruction. A transition point however is not identified Dictated by: Nathan Waller MD 01/03/2019 16:16 Electronically signed by Nathan Waller MD in [facility] 01/03/2019 16:16
--- NOTE | 2019-01-02 11:02 | CT_ITS ---
PROCEDURE: CT CHEST W CON CLINCAL INDICATION: COLON CA Metastatic colon cancer follow-up COMPARISON: W CT CHEST W/ CONTRAST from 01/08/2016 CT ABDOMEN PELVIS W CON from 01/02/2019 TECHNIQUE: IV Contrast: 75ml Optiray 350 Axial images obtained with sagittal and coronal reformats. All CT scans at the facility use one or more dose reduction, viz: automated exposure control, ma/kV adjustment per patient size (including targeted exams where dose is matched to indication, i.e. head), or iterative reconstruction technique. Normal heart size. Mitral annular calcification noted along with coronary artery calcification. FINDINGS: HEART: Unremarkable. Normal heart size. No significant pericardial effusion. MEDIASTINAL AND HILAR STRUCTURES: No mediastinal or hilar mass evident. No dominant adenopathy. PULMONARY ARTERIES: No pulmonary embolus evident. AORTA: No acute finding. No thoracic aortic aneurysm or dissection evident. LUNGS: There are 2 faint opacities involving the right upper lobe anteriorly on image number 32 and 35. These are similar compared to the previous exam. Small bleb is present in the left apex. No new nodules are evident. Calcified granulomas present in the left lower lobe PLEURAL SPACES: No significant effusion. No evidence of pneumothorax. BONY STRUCTURES: There is degenerative disc disease with bony sclerosis involving the anterior aspect of T7 and T8 LYMPH NODES: No enlarged lymph nodes evident. UPPER ABDOMEN: Please see abdomen CT report ADDITIONAL FINDINGS: No other significant abnormalities. IMPRESSION: No convincing evidence of metastatic disease Dictated by: Nathan Waller MD 01/03/2019 15:29 Electronically signed by Nathan Waller MD in [facility] 01/03/2019 15:29
[2019-01-02 11:39] LABS: Anion Gap 11.6 mEq/L (5-15); Blood Urea Nitrogen 12 mg/dL (7-18); Calcium 9.5 mg/dL (8.5-10.1); Carbon Dioxide 28 mmol/L (21.0-32.0); Chloride 92 mmol/L (98-107); Estimated Glomerular Filt Rate 82 ml/min (>60); GFR (African American) 100 ML/MIN (>60); Glucose 179 mg/dL (74-106); Potassium 4.6 mmoL/L (3.5-5.1); Sodium 127 mmol/L (136-145)
== END ==
PROVIDERS: PCP Emergency Medicine; Visit Provider Surgery
DX: C18.9 Malignant neoplasm of colon, unspecified (principal)
CPT/HCPCS: 36415; 71260; 74177; 80048

== ENCOUNTER → 2019-01-26 09:13 | Outpatient (CLI) | payer MEDICARE, MEDICAID, SELFPAY ==
--- NOTE | 2019-01-26 09:17 | CA_ITS ---
APPROVED REPORT EXAM: Comprehensive 2D, Doppler, and color-flow Echocardiogram Splash Line Operator: Karina Elizabeth RT(R) Ht: 5 ft 6 in Wt: 149lbs BSA: 1.76 BP: 122/45 mmHg Indications: MR, PAF, HTN, Hyperlipidemia 2D Dimensions Aortic Root 3.00 cm F: 2.7 - 3.3 Left Atrium 4.60 cm F: 2.7 - 3.8 LVOT 1.74 cm (M/F) 1.5-2.5 M-Mode Dimensions RVDd 2.25 cm (0.9-2.6) LVDd 4.65 cm (3.5-5.7) LVDs 3.22 cm (3.5-5.7) IVSd 0.82 cm (0.6-1.1) PWd 0.93 cm (0.6-1.1) EF (Teich) 58.30% FS 30.80% EDV (Teich) 99.80 mL ESV (Teich) 41.60 mL LV Diastology E/A Ratio 0.72 Mitral Valve MV A Velocity 144.00 (40-130 cm/s) Left Ventricle Left atrium is moderately enlarged, left ventricle is normal size, mild concentric left ventricular hypertrophy, visually estimated ejection fraction 55% with no regional wall motion abnormality. Doppler evidence of impaired relaxation seen, there is no tissue Doppler performed. Right Ventricle Right atrium and right ventricle mildly enlarged with normal contractility. Aortic Valve Aortic valve is thickened and calcified, there is no aortic stenosis, or significant aortic insufficiency seen. Mitral Valve Mitral valve has mitral calcification, which extends in both anterior posterior mitral leaflet. There is no mitral stenosis, there is mild mitral regurgitation. Tricuspid Valve Tricuspid valve leaflets are minimally thickened, there is mild tricuspid regurgitation, tricuspid regurgitation jet velocity is inadequate for calculation of the right ventricular systolic pressure. Pulmonic Valve Pulmonic valve is poorly visualized. Great Vessels Aortic root is normal size. Pericardium No significant pericardial effusion noted. Conclusion 1. Biatrial enlargement, normal left ventricular size, mild concentric left ventricular hypertrophy, visually estimated ejection fraction 55% with no regional wall motion abnormality, Doppler evidence of impaired LV relaxation seen, there is no tissue Doppler performed. 2. Mildly enlarged right ventricle with normal contractility. 3. Thickened and calcified aortic valve without aortic stenosis or aortic insufficiency. 4. Mild mitral and tricuspid regurgitation 5. No significant pericardial effusion noted. Electronically signed by : Ramu Cummins, 01/26/2019 12:10:51
== END ==
PROVIDERS: PCP Emergency Medicine; Visit Provider Urology
DX: E78.5 Hyperlipidemia, unspecified (principal); I05.9 Rheumatic mitral valve disease, unspecified; I10 Essential (primary) hypertension; I25.10 Atherosclerotic heart disease of native coronary artery without angina pectoris; I48.91 Unspecified atrial fibrillation; I63.9 Cerebral infarction, unspecified; I65.29 Occlusion and stenosis of unspecified carotid artery; Z98.890 Other specified postprocedural states
CPT/HCPCS: 93306

== ENCOUNTER → 2019-08-07 15:04 | Outpatient (CLI) | payer MEDICARE, MEDICAID, SELFPAY ==
[2019-08-07 15:39] LABS: Alanine Aminotransferase 19 U/L (12-78); Albumin Level 4.7 g/dl (3.5-5.0); Albumin/Globulin Ratio 1.5 (1.1-1.8); Alkaline Phosphatase 46 U/L (38-126); Anion Gap 14.2 mEq/L (5-15); Aspartate Amino Transferase 45 U/L (14-36); Bilirubin,Total 0.7 mg/dl (0.2-1.3); Blood Urea Nitrogen 12 mg/dl (7-17); Calcium 10.2 mg/dl (8.4-10.2); Carbon Dioxide 29 mmol/L (22.0-30.0); Chloride 90 mmol/L (98-107); Chol/HDL Ratio 1.7 (1-3.5); Cholesterol 104 mg/dl (140-200); Estimated Glomerular Filt Rate 98 ml/min (>60); GFR (African American) 119 ML/MIN (>60); Globulin 3.2 g/dL (1.3-3.2); Glucose 113 mg/dl (74-100); HDL Cholesterol 60 mg/dl (40-60); Potassium 5.2 mmoL/L (3.5-5.1); Sodium 128 mmol/L (136-145); Total Protein,Serum 7.9 g/dl (6.3-8.2); Triglycerides 105 mg/dl (30-150); VLDL Cholesterol 21 mg/dL (0-40)
[2019-08-07 15:45] LABS: Basophils % 0.4 % (0.1-2.0); Eosinophils # 0.1 K/mm3 (0.0-0.4); Eosinophils % 1.9 % (0.1-12.0); Hematocrit 37.4 % (37.0-47.0); Lymphocytes # 1.2 K/mm3 (0.7-4.5); Lymphocytes % 27.4 % (10-50); Mean Corpuscular HGB Conc 32.1 g/dL (31.8-35.4); Mean Corpuscular Volume 81.1 fl (81-99); Mean Platelet Volume 11.8 fl (7.4-10.4); Monocytes # 0.3 K/mm3 (0.1-1.0); Monocytes % 7.7 % (1.7-9.3); Neutrophils # 2.7 K/mm3 (1.8-7.8); Neutrophils % 62.6 % (37.0-80.0); Platelet Count 154 K/mm3 (142-424); Red Blood Count 4.62 M/mm3 (4.20-5.40); Red Cell Distribution Width 14.9 % (11.5-17.5); White Blood Count 4.4 K/mm3 (4.8-10.8)
[2019-08-07 15:57] LABS: Free T4 (Free Thyroxine) 1.05 ng/dl (0.78-2.19)
[2019-08-07 17:28] LABS: Hemoglobin A1C 6.5 % (4.0-6.0)
== END ==
PROVIDERS: Visit Provider Emergency Medicine
DX: E03.9 Hypothyroidism, unspecified (principal); E11.9 Type 2 diabetes mellitus without complications; I48.91 Unspecified atrial fibrillation; E87.6 Hypokalemia; Z79.4 Long term (current) use of insulin
CPT/HCPCS: 80053; 80061; 83036; 84439; 85025

== ENCOUNTER → 2019-11-12 08:52 | Outpatient (CLI) | payer MEDICARE, MEDICAID, SELFPAY ==
--- NOTE | 2019-11-12 08:59 | XR_ITS ---
PROCEDURE: XR FEMUR RT 2V CLINICAL INDICATION: RIGHT HIP PAIN, PREVIOUS FEMUR NAILING COMPARISON: CR XR HIP RT 2-3V W/PELVIS from 11/12/2019 FINDINGS: There is a gamma nail with a long intramedullary fawad in place which appears be in good position. There is some cortical thickening involving the proximal aspect of the femur laterally. No acute fracture or dislocation is evident. Hypertrophic changes are present at the lesser trochanter. On the AP view of the pelvis there is degenerative disc disease at L4-5. There is generalized vascular calcification. IMPRESSION: 1. No acute fracture. 2. Prior ORIF right femur with good alignment Dictated by: Nathan Waller MD 11/12/2019 11:03 Nathan Waller MD in [facility] 11/12/2019 11:03
== END ==
PROVIDERS: PCP Emergency Medicine; Visit Provider Emergency Medicine
DX: M25.551 Pain in right hip (principal)
CPT/HCPCS: 73502; 73552

== ENCOUNTER → 2019-11-26 09:42 | Outpatient (CLI) | payer MEDICARE, MEDICAID, SELFPAY ==
[2019-11-26 12:11] LABS: Coronavirus 19 IgG Antibody Negative (Negative); Coronavirus 19 IgM Antibody Negative (Negative)
== END ==
PROVIDERS: Visit Provider Ophthalmology
DX: Z01.818 Encounter for other preprocedural examination (principal)
CPT/HCPCS: 36415; 86328

== ENCOUNTER 2019-11-27 08:35 | Day surgery (SDC) | payer MEDICARE, MEDICAID, SELFPAY ==
[2019-11-22 11:14] VITALS: BMI 26.9
[2019-11-27 08:55] VITALS: BP 125/59; PULSE 58; RESP 18; TEMP 36.4; O2SAT 98
[2019-11-27 09:17] LABS: POC Glucose,Bedside 181 (70-110)
[2019-11-27 09:50] VITALS: BP 144/73; PULSE 59; RESP 20; TEMP 36.3; O2SAT 99
== END 2019-11-27 10:00 | disposition home or self-care (01) ==
LOC: OUTP 08:37
PROVIDERS: PCP Emergency Medicine; Visit Provider Ophthalmology
PROC: (CPT 66821; principal; 2019-11-27 10:00)
DX: H26.491 Other secondary cataract, right eye (principal); Z96.1 Presence of intraocular lens; H31.10 Unspecified choroidal degeneration; E11.8 Type 2 diabetes mellitus with unspecified complications; I25.10 Atherosclerotic heart disease of native coronary artery without angina pectoris; Z86.73 Personal history of transient ischemic attack (TIA), and cerebral infarction without residual deficits; Z85.038 Personal history of other malignant neoplasm of large intestine; R03.0 Elevated blood-pressure reading, without diagnosis of hypertension; K21.9 Gastro-esophageal reflux disease without esophagitis; Z82.49 Family history of ischemic heart disease and other diseases of the circulatory system; Z83.3 Family history of diabetes mellitus; Z83.518 Family history of other specified eye disorder
CPT/HCPCS: 66821; 82962

== ENCOUNTER → 2020-01-16 10:32 | Outpatient (CLI) | payer MEDICARE, MEDICAID, SELFPAY ==
--- NOTE | 2020-01-16 10:38 | XR_ITS ---
PROCEDURE: XR WRIST LT MIN 3V CLINICAL INDICATION: LT wrist pain COMPARISON: No exams were available for comparison FINDINGS: There is mild generalized osteopenia. There is no evidence of recent or old fracture. The pronator quadratus fat pad is well seen which would tend to exclude an effusion within the joint. IMPRESSION: No acute findings. Dictated by: Dr. Ryan Padgett MD 01/16/2020 11:11 Dr. Ryan Padgett MD in [facility] 01/16/2020 11:11
== END ==
PROVIDERS: PCP Emergency Medicine; Visit Provider Orthopaedic Surgery
DX: M25.532 Pain in left wrist (principal)
CPT/HCPCS: 73110

== ENCOUNTER 2020-01-16 11:43 | Outpatient (RCR) | payer MEDICARE, MEDICAID, SELFPAY | END 2020-01-16 11:45 | disposition home or self-care (01) | LOC: OT 11:43 | PROVIDERS: Visit Provider Orthopaedic Surgery | DX: G56.02 Carpal tunnel syndrome, left upper limb (principal) | CPT/HCPCS: 97763 ==

== ENCOUNTER 2020-02-06 08:00 | Outpatient (RCR) | payer MEDICARE, MEDICAID, SELFPAY | END 2020-02-06 09:00 | disposition home or self-care (01) | LOC: OT 08:00 | PROVIDERS: PCP Emergency Medicine; Visit Provider Orthopaedic Surgery | DX: G56.02 Carpal tunnel syndrome, left upper limb (principal) | CPT/HCPCS: 97014; 97018; 97035; 97110; 97140; 97165; 97530; G0283 ==

== ENCOUNTER → 2020-08-22 13:46 | Outpatient (CLI) | payer MEDICARE, MEDICAID, SELFPAY ==
[2020-08-22 13:58] LABS: Basophils % 0.7 % (0.1-2.0); Eosinophils # 0.1 K/mm3 (0.0-0.4); Eosinophils % 1.8 % (0.1-12.0); Hematocrit 39.9 % (37.0-47.0); Hemoglobin 13.7 g/dL (12.2-16.2); Lymphocytes # 1.2 K/mm3 (0.7-4.5); Lymphocytes % 28.6 % (10-50); Mean Corpuscular HGB Conc 34.4 g/dL (31.8-35.4); Mean Corpuscular Hemoglobin 28.6 pg (27.0-31.2); Mean Corpuscular Volume 83.2 fl (81-99); Mean Platelet Volume 10.2 fl (7.4-10.4); Monocytes # 0.2 K/mm3 (0.1-1.0); Monocytes % 5.7 % (1.7-9.3); Neutrophils # 2.6 K/mm3 (1.8-7.8); Neutrophils % 63.3 % (37.0-80.0); Platelet Count 158 K/mm3 (142-424); Red Blood Count 4.79 M/mm3 (4.20-5.40); White Blood Count 4.2 K/mm3 (4.8-10.8)
[2020-08-22 14:04] LABS: Alanine Aminotransferase 16 U/L (12-78); Albumin Level 4.7 g/dl (3.5-5.0); Albumin/Globulin Ratio 1.5 (1.1-1.8); Alkaline Phosphatase 66 U/L (38-126); Anion Gap 16.4 mEq/L (5-15); Aspartate Amino Transferase 33 U/L (14-36); Bilirubin,Total 1.2 mg/dl (0.2-1.3); Blood Urea Nitrogen 8 mg/dl (7-17); Calcium 9.4 mg/dl (8.4-10.2); Carbon Dioxide 28 mmol/L (22.0-30.0); Chloride 89 mmol/L (98-107); Chol/HDL Ratio 2.3 (1-3.5); Cholesterol 147 mg/dl (140-200); Estimated Glomerular Filt Rate 121 ml/min (>60); GFR (African American) 146 ML/MIN (>60); Globulin 3.1 g/dL (1.3-3.2); Glucose 140 mg/dl (74-100); HDL Cholesterol 65 mg/dl (40-60); Potassium 4.4 mmoL/L (3.5-5.1); Sodium 129 mmol/L (136-145); Total Protein,Serum 7.8 g/dl (6.3-8.2); Triglycerides 106 mg/dl (30-150); VLDL Cholesterol 21 mg/dL (0-40)
[2020-08-22 14:15] LABS: Direct LDL Cholesterol 56.11 mg/dL (100-129); Hemoglobin A1C 6.7 % (4.0-6.0)
[2020-08-22 14:23] LABS: 25-OH Vitamin D, Total 51.6 ng/mL (30-100)
[2020-08-22 14:24] LABS: Free T4 (Free Thyroxine) 1.37 ng/dl (0.78-2.19)
[2020-08-22 14:38] LABS: Thyroid Stimulating Hormone 0.83 uIU/mL (0.465-4.68)
== END ==
PROVIDERS: Visit Provider Emergency Medicine
DX: E11.9 Type 2 diabetes mellitus without complications (principal); E55.9 Vitamin D deficiency, unspecified; Z79.4 Long term (current) use of insulin
CPT/HCPCS: 80053; 80061; 82306; 83036; 84439; 84443; 85025

== ENCOUNTER → 2020-10-08 09:08 | Outpatient (CLI) | payer MEDICARE, MEDICAID, SELFPAY | PROVIDERS: Visit Provider Internal Medicine Gastroenterology | DX: Z01.812 Encounter for preprocedural laboratory examination (principal); Z20.822 Contact with and (suspected) exposure to COVID-19; Z12.11 Encounter for screening for malignant neoplasm of colon | CPT/HCPCS: U0003 ==

== ENCOUNTER 2020-10-10 09:13 | Day surgery (SDC) | payer MEDICARE, MEDICAID, SELFPAY ==
[2020-10-07 12:05] VITALS: BMI 24.7
[2020-10-10] VITALS (7 sets, daily range): BP systolic 85–168; BP diastolic 40–78; PULSE 60–72; RESP 16–18; TEMP 36.2–36.3; O2SAT 96–98
[2020-10-10 10:15] LABS: POC Glucose,Bedside 143 (70-110)
--- NOTE | 2020-10-10 10:47 | HMH.ANESCL ---
[facility] Anesthesia Checklist - Structural Data Admitted From: Home Planned Operative Procedure/s: colonoscopy Consent for Planned Operative Procedure(s) Verified: Yes - Additional verifications Anesthesia Reactions: No Hx Blood Transfusions: No Blood Transfusion Reaction: No - Airway Assessment C-Spine Mobility Assessed: Yes TMJ Mobility Assessed: Yes Dentition: Poor Dentition - Neurological Assessment Level of Consciousness: Awake, Alert, Appropriate - Anesthesia Plan Anesthesia Risk discussed: Yes Anesthesia Plan: Verified ASA Class: III Anesthesia Type: MAC [facility] History I have reviewed the patient's past medical history: Yes Medical History: Reports:: Arrhythmia, Atrial Fibrillation, Cancer, Carotid Stenosis, Coronary Artery Disease, Cerebrovascular Accident, Diabetes Mellitus Type 2, Gastroesophageal Reflux Disease(GERD), Hepatitis, Hyperlipidemia, Hypertension, Myocardial Infarction, Valvular Heart Disease Denies:: Diabetes Mellitus Type 1, Internal Pacemaker, Lung Disease, MRSA, Seizures *Have you ever received a pneumonia vaccine?: Yes *Have you received a flu vaccine this season?: Yes Other Medical History: Reports: Anemia, Cataracts, Glaucoma, Liver Disease. Denies: Blood Transfusion Reaction Anesthesia experience/problems:: none Laterality Cases: Right: Arthroscopy Hip, Carpal Tunnel Release, Total Hip Replacement, Other Other Surgeries: Yes: Cancer Surgery, Cardiac Catheterization, Colonoscopy, Colon Resection, Colostomy, Coronary Stent, Hysterectomy-Total, Other (Jaw Sx, Eye Sx). No: Pacemaker Amputation: No Fractures: Yes - *Social History Last grade of school completed: High school graduate Smoking Status: Former smoker Tobacco Type: cigarettes # Packs/Day (cigarettes): 1 #Yrs smoked (if former smoker): 40 Smoking End Date: 09/20/2015 Alcohol Intake: never Alcohol Intake Frequency:: other Substance Use Type: denies use *Occupational Status:: retired Housing: house Household Members: none *Travel in the last 8 weeks: None Family Hx:: Diabetes, Hypertension
--- NOTE | 2020-10-10 11:08 | P.PCN_ITS ---
[facility] Procedure Note Procedure Note:: Colonoscopy Procedure Report: Colonoscopy with cold snare polypectomy Endoscopist: Rodriguez Rajput II, MD Referring physician: Maksim Mcfadden MD Date of Procedure: October 10, 2020 Equipment: Olympus 190 variable stiffness pediatric colonoscope Sedation: MAC sedation Indication: Mrs. Mendoza is a 75-year-old female with a history of a malignant polyp and very advanced adenomatous polyps. The patient did have a colonoscopy with me in July 2017 and had 9 colon polyps. The largest of these was near the h epatic flexure and biopsy showed invasive adenocarcinoma. One of the cecal polyps was a tubular adenoma with high-grade dysplasia. The patient did undergo right hemicolectomy (Dr. Babar Gastelum) on October 12, 2017 and this was complicated by anastomotic dehiscence. The patient did have intra-abdominal sepsis/peritonitis and had reexploration with diverting ileostomy/colostomy. She later saw Dr. Victor Hugo Bhatti and then had reversal of the ileostomy by Dr. Kaela Lee. The patient reports normal bowel function. She has had no significant abdominal pain, weight loss, change in her bowel habits or rectal bleeding. She did have cholecystectomy at the time of her ileostomy takedown. Procedure: Prior to the procedure, a history and physical exam was performed, and patient's medications and allergies were reviewed. The risks, benefits and alternatives of the sedation and procedure were discussed with the patient. All questions were answered and informed consent was obtained. The patient was brought to the procedure room. Patient identification and proposed procedure were verified by the physician and the nurse. The patient was placed in a left lateral decubitus position and the scope was passed under direct vision. Throughout the procedure, the patient's blood pressure, pulse, and oxygen saturations were monitored continuously. The colonoscopy was accomplished without difficulty. The patient tolerated the procedure well. Findings: On digital rectal examination there was normal rectal tone. There were no external hemorrhoids. The colonoscope was introduced through the anal canal to the rectum and advanced to the ileocolonic anastomosis (side to side anastomosis). The scope was advanced a short distance into the ileum which was normal. The scope was then withdrawn. The remaining ascending and transverse colon was normal. There was a diminutive 5 to 6 mm descending colon polyp that was removed via cold snare polypectomy. There were a few scattered diverticuli in the distal descending and sigmoid colon. Upon retroflexion within the rectum there were grade 1-2 internal hemorrhoids.The preparation was excellent throughout with Neche Preparation Score of 9. Impression: 1. Diminutive descending colon polyp 2. Left-sided diverticulosis 3. Grade 1-2 internal hemorrhoids Plan: Based upon the patient's personal history of colon cancer and multiple adenomatous polyps/advanced adenomatous polyps, I would continue surveillance at a 3-year interval. I would like to determine whether prior pathology specimen was sent for MSI (microsatellite instability) testing. If not I may request that this prior tissue be sent for this to rule out Sanchez syndrome.
== END 2020-10-10 12:27 | disposition home or self-care (01) ==
LOC: OUTP 09:15
PROVIDERS: PCP Emergency Medicine; Visit Provider Internal Medicine Gastroenterology
PROC: 0DJD8ZZ Inspection of Lower Intestinal Tract, Via Natural or Artificial Opening Endoscopic (ICD-10-PCS; CPT 45378; principal; 2020-10-10 10:30)
DX: K63.5 Polyp of colon (principal); K57.30 Diverticulosis of large intestine without perforation or abscess without bleeding; K64.0 First degree hemorrhoids; Z90.49 Acquired absence of other specified parts of digestive tract; E11.9 Type 2 diabetes mellitus without complications; E78.5 Hyperlipidemia, unspecified; I10 Essential (primary) hypertension; I48.91 Unspecified atrial fibrillation; K21.9 Gastro-esophageal reflux disease without esophagitis; I25.2 Old myocardial infarction; I49.9 Cardiac arrhythmia, unspecified; Z85.038 Personal history of other malignant neoplasm of large intestine
CPT/HCPCS: 45385; 82962; 88305

== ENCOUNTER → 2020-12-20 08:58 | Outpatient (CLI) | payer MEDICARE, MEDICAID, SELFPAY ==
[2020-12-20 09:23] LABS: Basophils % 0.5 % (0.1-2.0); Eosinophils # 0.1 K/mm3 (0.0-0.4); Eosinophils % 2.3 % (0.1-12.0); Hematocrit 36.3 % (37.0-47.0); Lymphocytes # 1.1 K/mm3 (0.7-4.5); Lymphocytes % 24.2 % (10-50); Mean Corpuscular HGB Conc 33.1 g/dL (31.8-35.4); Mean Corpuscular Hemoglobin 28.5 pg (27.0-31.2); Mean Platelet Volume 9.6 fl (7.4-10.4); Monocytes # 0.3 K/mm3 (0.1-1.0); Monocytes % 7.2 % (1.7-9.3); Neutrophils # 2.9 K/mm3 (1.8-7.8); Neutrophils % 65.7 % (37.0-80.0); Platelet Count 167 K/mm3 (142-424); Red Blood Count 4.22 M/mm3 (4.20-5.40); Red Cell Distribution Width 13.7 % (11.5-17.5); White Blood Count 4.5 K/mm3 (4.8-10.8)
[2020-12-20 10:40] LABS: Anion Gap 12.9 mEq/L (5-15); Blood Urea Nitrogen 7 mg/dl (7-17); Calcium 9.1 mg/dl (8.4-10.2); Carbon Dioxide 31 mmol/L (22.0-30.0); Chloride 94 mmol/L (98-107); Estimated Glomerular Filt Rate 156 ml/min (>60); GFR (African American) 189 ML/MIN (>60); Glucose 166 mg/dl (74-100); Potassium 4.9 mmoL/L (3.5-5.1); Sodium 133 mmol/L (136-145)
== END ==
PROVIDERS: Visit Provider Surgery
DX: L72.9 Follicular cyst of the skin and subcutaneous tissue, unspecified (principal); E87.6 Hypokalemia; Z01.812 Encounter for preprocedural laboratory examination; Z20.822 Contact with and (suspected) exposure to COVID-19
CPT/HCPCS: 36415; 80048; 85025; C9803; U0003; U0005

== ENCOUNTER 2020-12-23 07:18 | Day surgery (SDC) | payer MEDICARE, MEDICAID, SELFPAY ==
[2020-12-22 09:03] VITALS: BMI 25.7
[2020-12-23] VITALS (9 sets, daily range): BP systolic 121–167; BP diastolic 56–87; PULSE 65–83; RESP 14–20; TEMP 35.9–36.9; O2SAT 95–99
[2020-12-23 07:57] LABS: POC Glucose,Bedside 152 (70-110)
--- NOTE | 2020-12-23 09:10 | P.PN_ITS ---
[facility] Anesthesia Checklist - Patient Identification Patient Identification: Arm Band - Structural Data Admitted From: Home Planned Operative Procedure/s: Excision Sebaceous Cyst Left Upper Chest Consent for Planned Operative Procedure(s) Verified: Yes Verified Documents: Surgical Consent, History and Physical - NPO Status Verified Time NPO: 00:00 - Additional verifications Anesthesia Reactions: No Hx Blood Transfusions: No Blood Transfusion Reaction: No - Airway Assessment C-Spine Mobility Assessed: Yes (mp2) TMJ Mobility Assessed: Yes Dentition: Good Dentition (Upper Dentures Removed) - Neurological Assessment Level of Consciousness: Awake, Alert - Anesthesia Plan Anesthesia Risk discussed: Yes Anesthesia Plan: Verified ASA Class: III Anesthesia Type: General [facility] History I have reviewed the patient's past medical history: Yes Medical History: Reports:: Arrhythmia, Atrial Fibrillation, Carotid Stenosis, Coronary Artery Disease, Cerebrovascular Accident, Diabetes Mellitus Type 2, Gastroesophageal Reflux Disease(GERD), Hepatitis, Hyperlipidemia, Hypertension, MRSA (ileostomy site), Myocardial Infarction, Valvular Heart Disease Denies:: Cancer, Diabetes Mellitus Type 1, Internal Pacemaker, Lung Disease, Seizures *Have you ever received a pneumonia vaccine?: Yes *Have you received a flu vaccine this season?: Yes Other Medical History: Reports: Anemia, Cataracts, Glaucoma, Liver Disease. Denies: Blood Transfusion Reaction Anesthesia experience/problems:: nac Laterality Cases: Right: Arthroscopy Hip, Carpal Tunnel Release, Total Hip Replacement, Other Other Surgeries: Yes: Cancer Surgery, Cardiac Catheterization, Colonoscopy, Colon Resection, Colostomy, Coronary Stent, Hysterectomy-Total, Other (Jaw Sx, Eye Sx). No: Pacemaker Amputation: No Fractures: Yes (jaw) - *Social History Last grade of school completed: High school graduate Smoking Status: Former smoker Tobacco Type: cigarettes # Packs/Day (cigarettes): 1 #Yrs smoked (if former smoker): 40 Alcohol Intake: former Alcohol Intake Frequency:: other Substance Use Type: marijuana *Occupational Status:: retired Housing: house Household Members: none *Travel in the last 8 weeks: None Family Hx:: Diabetes, Hypertension
--- NOTE | 2020-12-23 09:25 | HMH.OPNOTE ---
Date of procedure: 12/23/20 Pre-op Diagnosis:: Sebaceous cyst left upper chest Post-op Diagnosis:: Same Procedure performed:: Excision of sebaceous cyst left upper chest (excisional length 4 cm) with intermediate complexity closure Surgeon:: Gustavo Villagomez MD IMAGING ACCOUNT MANAGER:: Jimi Le Anesthesia: LMA Estimated blood loss (mL): 5 Clinical Note:: Patient is a 75-year-old female with a history of coronary artery disease, valvular heart disease, atrial fibrillation, carotid artery stenosis, previous stroke (left eye blindness), history of DVT, diabetes mellitus, hypertension, patent foramen ovale, 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 Of note, she has a complex history of numerous colon polyps which ultimately led to her undergoing a laparoscopic right hemicolectomy on 10/12/2017 at [facility] which was complicated by ileocolic anastomotic dehiscence with intra-abdominal sepsis which required laparotomy and creation of end ileostomy on 10/24/2017. She ultimately did have ileostomy reversal with takedown on 02/01/2019. She also had ventral hernia and open cholecystectomy performed at that time. She now presents for a cyst on her left upper chest. She states that she has had an area present for a couple of years. She states that her doctor [id number] had told her that it was an inflamed milk duct. It has occasionally somewhat enlarged in size but never to the point that it is now. She denies any purulent drainage. Patient does state that she has had some visual changes in her right eye and is seeing an cnc cutting operator. Operative findings:: Consistent with noninfected sebaceous cyst Operative note:: Patient was taken the operating room. She was positioned in supine position. General anesthesia was induced via LMA. Area was prepped and draped in the standard surgical fashion. Lesion was marked with a skin marker for planned crescent-shaped elliptical incision excising the overlying skin punctum. Local anesthetic was infiltrated. Skin incision was performed and dissection was carried down to the cyst capsule. The sebaceous cyst was dissected free from the underlying subcutaneous tissues using Metzenbaum dissection with the adherent overlying skin ellipse. It was sent off as specimen. Hemostasis was achieved with electrocautery. Local anesthetic was infiltrated. Subdermal tissues were closed with interrupted 3-0 Vicryl. Skin was closed with interrupted 4-0 nylon. Clean dry sterile dressing was applied. Condition: stable Disposition: PACU Specimens:: Sebaceous cysts Complications:: None immediate
--- NOTE | 2020-12-23 09:28 | HMH.ANESI ---
[facility] Anesthesia Record Part I Intake, IV Amount: 800 Estimated blood loss (mL): 5 Urine output (mL): 0 Blood Pressure: 134/63 SaO2: 98 Pulse Rate: 65 Respiratory Rate: 16 Temperature: 98.4 F Patient is:: Drowsy, Stable Stable to PACU at:: 09:25
--- NOTE | 2020-12-23 09:32 | SUR.PHASEI ---
0930- blood sugar taken- 154
[2020-12-23 09:34] LABS: POC Glucose,Bedside 154 (70-110)
--- NOTE | 2020-12-24 08:27 | P.PN_ITS ---
[facility] Anesthesia Record Part II Discharge Time: 09:55 Destination: [facility] PACU nurse assessment reviewed?: Yes Patient Condition:: Good Anesthesia Complications:: None Swallowing reflex intact?: Yes Cyanosis?: No Blood Pressure: 136/72 Pulse Rate: 73 Temperature: 97.2 F Mental Status: Alert & Oriented Pain level:: 0 Nausea and/or vomitting:: None Intake, IV Amount: 1,000
[2020-12-24 08:28] VITALS: BP 136/72; PULSE 73; TEMP 36.2
== END 2020-12-23 10:30 | disposition home or self-care (01) ==
LOC: OR 07:21
PROVIDERS: PCP Emergency Medicine; Visit Provider Surgery
DX: L72.3 Sebaceous cyst (principal); R52 Pain, unspecified; I48.91 Unspecified atrial fibrillation; I25.10 Atherosclerotic heart disease of native coronary artery without angina pectoris; E11.9 Type 2 diabetes mellitus without complications; K21.9 Gastro-esophageal reflux disease without esophagitis; E78.5 Hyperlipidemia, unspecified; I10 Essential (primary) hypertension; I25.2 Old myocardial infarction; I65.29 Occlusion and stenosis of unspecified carotid artery; Z86.73 Personal history of transient ischemic attack (TIA), and cerebral infarction without residual deficits; Z86.14 Personal history of Methicillin resistant Staphylococcus aureus infection; K75.9 Inflammatory liver disease, unspecified
CPT/HCPCS: 11404; 12031; 82962; 88304; 96374; J2405

== ENCOUNTER → 2021-12-21 16:09 | Outpatient (CLI) | payer MEDICARE, MEDICAID, SELFPAY ==
[2021-12-21 16:28] LABS: Basophils % 0.7 % (0.1-2.0); Eosinophils # 0.1 K/mm3 (0.0-0.4); Eosinophils % 2.1 % (0.1-12.0); Hematocrit 32.3 % (37.0-47.0); Hemoglobin 10.5 g/dL (12.2-16.2); Lymphocytes % 21.6 % (10-50); Mean Corpuscular HGB Conc 32.4 g/dL (31.8-35.4); Mean Corpuscular Hemoglobin 24.1 pg (27.0-31.2); Mean Corpuscular Volume 74.2 fl (81-99); Mean Platelet Volume 11.7 fl (7.4-10.4); Monocytes # 0.3 K/mm3 (0.1-1.0); Monocytes % 7.1 % (1.7-9.3); Neutrophils # 3.2 K/mm3 (1.8-7.8); Neutrophils % 68.6 % (37.0-80.0); Platelet Count 169 K/mm3 (142-424); Red Blood Count 4.36 M/mm3 (4.20-5.40); Red Cell Distribution Width 16.3 % (11.5-17.5); White Blood Count 4.7 K/mm3 (4.8-10.8)
[2021-12-21 16:43] LABS: Chloride 90 mmol/L (98-107); Potassium 4.5 mmoL/L (3.5-5.1); Sodium 132 mmol/L (136-145)
[2021-12-21 16:57] LABS: Direct LDL Cholesterol 49.36 mg/dL (100-129)
[2021-12-21 17:04] LABS: Free T4 (Free Thyroxine) 1.03 ng/dl (0.78-2.19)
[2021-12-21 17:14] LABS: Hemoglobin A1C 7.1 % (4.0-6.0)
[2021-12-21 17:39] LABS: Alanine Aminotransferase 18 U/L (12-78); Albumin Level 4.4 g/dl (3.5-5.0); Albumin/Globulin Ratio 1.6 (1.1-1.8); Alkaline Phosphatase 60 U/L (38-126); Anion Gap 15.5 mEq/L (5-15); Aspartate Amino Transferase 36 U/L (14-36); Bilirubin,Total 0.6 mg/dl (0.2-1.3); Blood Urea Nitrogen 9 mg/dl (7-17); Calcium 9.1 mg/dl (8.4-10.2); Carbon Dioxide 31 mmol/L (22.0-30.0); Cholesterol 129 mg/dl (140-200); Estimated Glomerular Filt Rate 97 ml/min (>60); GFR (African American) 118 ML/MIN (>60); Globulin 2.7 g/dL (1.3-3.2); Glucose 65 mg/dl (74-100); Total Protein,Serum 7.1 g/dl (6.3-8.2); Triglycerides 94 mg/dl (30-150); VLDL Cholesterol 19 mg/dL (0-40)
[2021-12-21 17:40] LABS: Chol/HDL Ratio 2.3 (1-3.5); HDL Cholesterol 56 mg/dl (40-60)
[2021-12-21 18:07] LABS: Thyroid Stimulating Hormone 0.99 uIU/mL (0.465-4.68)
== END ==
PROVIDERS: PCP Emergency Medicine; Visit Provider Emergency Medicine
DX: E11.9 Type 2 diabetes mellitus without complications (principal); Z79.4 Long term (current) use of insulin
CPT/HCPCS: 80053; 80061; 83036; 84439; 84443; 85025

== ENCOUNTER → 2022-02-03 14:24 | Outpatient (CLI) | payer MEDICARE, MEDICAID, SELFPAY ==
[2022-02-03 15:00] LABS: Basophils % 0.7 % (0.1-2.0); Eosinophils # 0.1 K/mm3 (0.0-0.4); Eosinophils % 1.7 % (0.1-12.0); Hematocrit 31.3 % (37.0-47.0); Lymphocytes # 0.8 K/mm3 (0.7-4.5); Mean Corpuscular HGB Conc 32.1 g/dL (31.8-35.4); Mean Corpuscular Volume 74.8 fl (81-99); Mean Platelet Volume 11.3 fl (7.4-10.4); Monocytes # 0.2 K/mm3 (0.1-1.0); Monocytes % 5.5 % (1.7-9.3); Neutrophils % 72.1 % (37.0-80.0); Platelet Count 181 K/mm3 (142-424); Red Blood Count 4.18 M/mm3 (4.20-5.40); Red Cell Distribution Width 17.3 % (11.5-17.5); White Blood Count 4.2 K/mm3 (4.8-10.8)
[2022-02-03 15:34] LABS: Anion Gap 15.8 mEq/L (5-15); Blood Urea Nitrogen 9 mg/dl (7-17); Calcium 9.7 mg/dl (8.4-10.2); Carbon Dioxide 31 mmol/L (22.0-30.0); Chloride 90 mmol/L (98-107); Estimated Glomerular Filt Rate 97 ml/min (>60); GFR (African American) 118 ML/MIN (>60); Glucose 259 mg/dl (74-100); Potassium 4.8 mmoL/L (3.5-5.1); Sodium 132 mmol/L (136-145)
== END ==
PROVIDERS: PCP Emergency Medicine; Visit Provider Emergency Medicine
DX: E87.1 Hypo-osmolality and hyponatremia (principal); I10 Essential (primary) hypertension; D72.9 Disorder of white blood cells, unspecified
CPT/HCPCS: 80048; 85025

== ENCOUNTER → 2022-04-19 10:37 | Outpatient (CLI) | payer MEDICARE, MEDICAID, SELFPAY ==
--- NOTE | 2022-04-19 10:42 | XR_ITS ---
FINAL REPORT CLINICAL HISTORY: back pain FINDINGS: THORACIC SPINE SERIES. AP and lateral views were obtained. There is no acute fracture. There are mild and moderate degenerative changes. There is dextroscoliosis centered in the upper lumbar spine. There is no malalignment. IMPRESSION: Mild and moderate degenerative changes. Reviewed, Interpreted and Dictated by Gustavo Ty III, MD Transcribed by Alban Quiñonez Authenticated and [facility]
--- NOTE | 2022-04-19 10:42 | XR_ITS ---
FINAL REPORT TECHNIQUE: Chest PA & Lateral CLINICAL HISTORY: shortness of breath FINDINGS: 2 views of the chest were performed. The heart size is normal. The mediastinum is within normal limits. There is no acute cardiopulmonary process. There are no pleural effusions. There is no pneumothorax. The bony thorax appears intact. IMPRESSION: No acute cardiopulmonary process. Reviewed, Interpreted and Dictated by Gustavo Ty III, MD Transcribed by Alban Quiñonez Authenticated and [facility]
[2022-04-19 12:10] LABS: Basophils % 0.7 % (0.1-2.0); Eosinophils # 0.1 K/mm3 (0.0-0.4); Eosinophils % 1.7 % (0.1-12.0); Hematocrit 31.7 % (37.0-47.0); Hemoglobin 9.9 g/dL (12.2-16.2); Lymphocytes % 24.9 % (10-50); Mean Corpuscular HGB Conc 31.3 g/dL (31.8-35.4); Mean Corpuscular Hemoglobin 22.2 pg (27.0-31.2); Mean Corpuscular Volume 70.8 fl (81-99); Mean Platelet Volume 10.3 fl (7.4-10.4); Monocytes # 0.3 K/mm3 (0.1-1.0); Monocytes % 6.4 % (1.7-9.3); Neutrophils # 2.8 K/mm3 (1.8-7.8); Neutrophils % 66.3 % (37.0-80.0); Platelet Count 177 K/mm3 (142-424); Red Blood Count 4.48 M/mm3 (4.20-5.40); Red Cell Distribution Width 17.1 % (11.5-17.5); White Blood Count 4.1 K/mm3 (4.8-10.8)
[2022-04-19 12:37] LABS: Erythrocyte Sedimentation Rate 11 mm/hr (0-30)
[2022-04-19 12:41] LABS: Chloride 98 mmol/L (98-107); Sodium 134 mmol/L (136-145)
[2022-04-19 12:44] LABS: Blood Urea Nitrogen 10 mg/dl (7-17); Estimated Glomerular Filt Rate 120 ml/min (>60); GFR (African American) 145 ML/MIN (>60); Potassium 4.3 mmoL/L (3.5-5.1)
[2022-04-19 12:45] LABS: Alanine Aminotransferase 20 U/L (12-78); Albumin Level 4.5 g/dl (3.5-5.0); Albumin/Globulin Ratio 1.9 (1.1-1.8); Alkaline Phosphatase 55 U/L (38-126); Anion Gap 11.3 mEq/L (5-15); Aspartate Amino Transferase 31 U/L (14-36); Bilirubin,Total 0.8 mg/dl (0.2-1.3); Calcium 8.9 mg/dl (8.4-10.2); Carbon Dioxide 29 mmol/L (22.0-30.0); Globulin 2.4 g/dL (1.3-3.2); Glucose 138 mg/dl (74-100); Total Protein,Serum 6.9 g/dl (6.3-8.2)
== END ==
PROVIDERS: PCP Emergency Medicine; Visit Provider Emergency Medicine
DX: R06.02 Shortness of breath (principal); M54.6 Pain in thoracic spine; R53.83 Other fatigue
CPT/HCPCS: 36415; 71046; 72072; 80053; 85025; 85651

== ENCOUNTER → 2022-11-05 14:34 | Outpatient (CLI) | payer MEDICARE, SELFPAY ==
[2022-11-05 18:51] LABS: Microalbumin/Creatinine Ratio 273.3
[2022-11-05 19:07] LABS: Creatinine,Urine Random 183 mg/dL (Not Estab.)
== END ==
PROVIDERS: PCP Emergency Medicine; Visit Provider Emergency Medicine
DX: E11.9 Type 2 diabetes mellitus without complications (principal); Z79.4 Long term (current) use of insulin
CPT/HCPCS: 82043; 82570

== ENCOUNTER → 2022-11-12 13:32 | Outpatient (CLI) | payer MEDICARE, SELFPAY ==
--- NOTE | 2022-11-12 13:34 | US_ITS ---
FINAL REPORT CLINICAL HISTORY: Claudication DM LEG WEAKNESS COMPARISON: None FINDINGS: ANKLE-BRACHIAL PRESSURE INDICES Pressure indices are as follows: RIGHT LOWER EXTREMITY: Ankle-brachial pressure index: 1.0 Comments: Normal LEFT LOWER EXTREMITY: Ankle-brachial pressure index: 0.8 Comments: Moderately depressed. IMPRESSION: Moderately depressed GUANACO on the left concerning for underlying arterial occlusive disease. Consider CT or catheter directed angiogram. Reviewed, Interpreted and Dictated by Isidro Garcia MD Transcribed by Martha Gómez Authenticated and [facility]
== END ==
PROVIDERS: PCP Emergency Medicine; Visit Provider Nurse Practitioner Family
DX: E11.9 Type 2 diabetes mellitus without complications (principal); E78.5 Hyperlipidemia, unspecified; I10 Essential (primary) hypertension; I48.91 Unspecified atrial fibrillation; R29.898 Other symptoms and signs involving the musculoskeletal system; Z87.891 Personal history of nicotine dependence; I70.213 Atherosclerosis of native arteries of extremities with intermittent claudication, bilateral legs; Z79.4 Long term (current) use of insulin
CPT/HCPCS: 93923

== ENCOUNTER → 2022-11-23 10:26 | Outpatient (CLI) | payer MEDICARE, SELFPAY | PROVIDERS: PCP Emergency Medicine; Visit Provider Nurse Practitioner Family | DX: I48.91 Unspecified atrial fibrillation (principal) | CPT/HCPCS: 93225 ==

== ENCOUNTER → 2022-12-17 11:31 | Outpatient (CLI) | payer MEDICARE, SELFPAY ==
--- NOTE | 2022-12-17 | CA_ITS ---
APPROVED REPORT Exam: Pharmacologic Technologist: Maria Elena Almazan, Ht: 5 ft 5 in Wt: 147 lbs BSA: 1.74 m2 HR: 82 bpm BP: 145/69 mmHg Rhythm: NSR,RIGHTWARD AXIS,IVCD,ST-T ABNORMALITIES INFERIORLY AND LATERALLY,PAC,PVC'S Medical History Medical History: HTN, Hyperlipidemia, Diabetic ??? Insulin Medications: Omeprazole,,,,, Metoprolol,,,,, Asa,,,,, Losartan,,,,, Atorvastatin,,,,, HCTZ,,,,, Farxiga,,,,, XaRELTO,,,,, INSULIN,,,,, Alendonate,,,,, MVA,,,,, Loperamide,,,,, Allergies: CODEINE,PCN,LISINOPRIL Cardiac Risk Factors: HTN, Hyperlipidemia, Diabetes (insulin) Stress Test Details Test: LEXISCAN HR Resting HR: 81 bpm Max Heart Rate (APMHR): 144 bpm Max HR Achieved: 102 bpm Target HR (85% APMHR): 122 bpm % of APMHR: 71 Recovery HR: 96 bpm BP Resting BP: 145.0/69.0 mmHg Max BP: 159.0/62.0 mmHg Recovery BP: 134.0/53.0 mmHg ECG Resting ECG: Normal sinus rhythm, right axis deviation, IVCD, PACs, PVCs, nonspecific T wave changes in inferolateral leads. Stress ECG: No significant ST changes Arrhythmia: PACs, PVCs Clinical Exercise duration: 04:03 min Highest Stage Achieved: Stress ECG Conclusion DURING INFUSION PATIENT HAD MILD SOA,HEADACHE AND STOMACH DISCOMFORT. NO CP. OCCASIONAL PAC,PVC. EXAGGERATION OF BASELINE ABNORMALITIES. CONCLUSION NON-DIAGNOSTIC LEXISCAN STRESS DUE TO BASELINE ABNORMALITIES. MYOVIEW IMAGES REPORTED SEPARATELY. Test Summary REST . . . . . . . Sitting REST 05:14 . . 81 . 145/ 69 . . Stage 1 . . . . . . . Myoview Injected Stage 1 01:00 . . 96 . . . . Stage 2 01:00 . . 98 . 117/ 58 . . Stage 3 01:00 . . 94 . 134/ 59 . . Stage 4 01:00 . . 93 . . . . Stage 4 01:03 . . 93 . . . Stop exercise at 04:03 RECOVERY 01:00 . . 97 . . . . RECOVERY 02:00 . . 96 . 149/ 68 . . RECOVERY 03:00 . . 92 . 159/ 62 . . RECOVERY 03:32 . . 90 . 159/ 62 . . Electronically signed by : Denise Lu MD 12/19/2022 22:50:52
--- NOTE | 2022-12-17 11:39 | NM_ITS ---
APPROVED REPORT Exam: Nuclear Stress Test Indication: M/O IL, HTN, DM, FORMER TOB USER, fm hx, sob Patient Location: Outpatient Stress Tech: Yumiko Almazan NM Tech:JUAN M Dick RT(R)(N) Ht: 5 ft 3 in Wt: 146 lbs Bra Size: 40D HR: 82 bpm BP: 145/69 mmHg BSA: 1.69 m2 Rhythm: NSR TID: 1.05 BMI: 25.8 History: M/O IL, HTN, DM, FORMER TOB USER, FM HX, SOB PT COULD NOT LAY ON STOMACH FOR PRONE IMAGES Procedure: Patient received 0.4 mg of intravenous Lexiscan, resting heart rate 82 bpm, resting blood pressure 145/69 mmHg, with Lexiscan maximum heart rate achieved was 98 bpm which is % of the maximum predicted heart rate and blood pressure was 134/59 mmHg. With Lexiscan, patient denied any complaint of chest pain. Cardiac Stress and Resting SPECT Images: Cardiac Stress and Resting SPECT images were obtained using technetium 99m Myoview 32.8 mCi stress and 10.63 mCi at rest. The patient could not lie on her abdomen. Therefore, prone stress imaging could not be performed. Also, raw images demonstrate significant radiotracer GI uptake in close proximity to the inferior LV wall. This may affect the diagnostic interpretation of the study findings. Resting and stress imaging in supine position demonstrate no definite evidence of fixed or reversible perfusion defects. Gated imaging demonstrates normal global and regional LV systolic function. LVEF is calculated at 66%. Conclusion: The patient could not lie on her abdomen. Therefore, prone stress imaging could not be performed. Also, raw images demonstrate significant radiotracer GI uptake in close proximity to the inferior LV wall. This may affect the diagnostic interpretation of the study findings. No definite evidence of fixed or reversible perfusion defects. Gated imaging demonstrates normal global and regional LV systolic function. LVEF is calculated at 66%. Electronically signed by : Denise Lu MD 12/19/2022 22:52:53
== END ==
PROVIDERS: PCP Emergency Medicine; Visit Provider Nurse Practitioner Family
DX: E11.9 Type 2 diabetes mellitus without complications (principal); E78.5 Hyperlipidemia, unspecified; I10 Essential (primary) hypertension; I48.91 Unspecified atrial fibrillation; I65.29 Occlusion and stenosis of unspecified carotid artery; I73.9 Peripheral vascular disease, unspecified; R29.898 Other symptoms and signs involving the musculoskeletal system; R94.31 Abnormal electrocardiogram [ECG] [EKG]; Z87.891 Personal history of nicotine dependence; R06.02 Shortness of breath; Z79.4 Long term (current) use of insulin
CPT/HCPCS: 78452; 93017; A9502; J2785

== ENCOUNTER → 2023-03-03 23:59 | Outpatient (CLI) | payer MEDICARE, SELFPAY | PROVIDERS: PCP Family Medicine; Visit Provider Family Medicine | DX: E11.9 Type 2 diabetes mellitus without complications (principal); Z79.4 Long term (current) use of insulin | CPT/HCPCS: 80048; 80061; 80076; 84439; 84443; 85025 ==

== ENCOUNTER 2023-05-25 08:35 | Outpatient (CLI) | payer MEDICARE, SELFPAY ==
--- NOTE | 2023-05-25 08:52 | XR_ITS ---
FINAL REPORT CLINICAL HISTORY: Right hip limited rotation..pain..surgery 10 years ago COMPARISON: None FINDINGS: RIGHT HIP 3 views of the right hip demonstrate postoperative changes with right femoral intramedullary fawad. The hardware is intact. There is no acute fracture or dislocation. There is mild degenerative change. The visualized bony structures are well aligned. Vascular calcifications are noted. No acute soft tissue abnormality is seen. IMPRESSION: Postoperative and degenerative changes without acute bony abnormality. Reviewed, Interpreted and Dictated by Gustavo Ty III, MD Transcribed by Martha Gómez Authenticated and [facility]
[2023-05-25 09:21] LABS: Basophils # 0.1 K/mm3 (0-0.2); Basophils % 1.3 % (0.1-2.0); Eosinophils # 0.1 K/mm3 (0.0-0.4); Eosinophils % 3.1 % (0.1-12.0); Hematocrit 34.2 % (37.0-47.0); Hemoglobin 10.4 g/dL (12.2-16.2); Lymphocytes # 0.9 K/mm3 (0.7-4.5); Lymphocytes % 25.2 % (10-50); Mean Corpuscular HGB Conc 30.3 g/dL (31.8-35.4); Mean Corpuscular Hemoglobin 20.6 pg (27.0-31.2); Mean Corpuscular Volume 67.8 fl (81-99); Mean Platelet Volume 7.8 fl (7.4-10.4); Monocytes # 0.2 K/mm3 (0.1-1.0); Monocytes % 6.3 % (1.7-9.3); Neutrophils # 2.3 K/mm3 (1.8-7.8); Neutrophils % 64.2 % (37.0-80.0); Platelet Count 106 K/mm3 (142-424); Red Blood Count 5.04 M/mm3 (4.20-5.40); Red Cell Distribution Width 18.6 % (11.5-17.5); White Blood Count 3.6 K/mm3 (4.8-10.8)
[2023-05-25 09:48] LABS: Hemoglobin A1C 9.9 % (4.0-6.0)
[2023-05-25 09:49] LABS: 25-OH Vitamin D, Total 31.5 ng/mL (30-100)
[2023-05-25 10:22] LABS: Thyroid Stimulating Hormone 0.45 uIU/mL (0.465-4.68)
[2023-05-25 10:41] LABS: Vitamin B12 211 pg/mL (239-931)
[2023-05-27 08:42] LABS: Peripheral Smear Review Scanned Result
== END 2023-05-25 23:59 ==
LOC: LAB 08:36
PROVIDERS: PCP Internal Medicine; Visit Provider Internal Medicine
DX: R53.83 Other fatigue (principal); D64.9 Anemia, unspecified; E05.90 Thyrotoxicosis, unspecified without thyrotoxic crisis or storm; R73.09 Other abnormal glucose; E55.9 Vitamin D deficiency, unspecified; E53.8 Deficiency of other specified B group vitamins; M25.551 Pain in right hip; R79.0 Abnormal level of blood mineral
CPT/HCPCS: 36415; 73502; 82306; 82607; 82728; 83036; 84443; 85025

== ENCOUNTER 2023-06-01 10:36 | Emergency (ER) | payer MEDICARE, SELFPAY ==
--- NOTE | 2023-06-01 10:54 | EXP.UTC ---
Discharge Plan Disposition Patient Disposition: Home, Self-Care Condition: Good Prescriptions Prescriptions: New cyanocobalamin (vitamin B-12) [Vitamin B-12] 1,000 mcg tablet 1,000 mcg PO DAILY 30 Days Qty: 30 5RF No Action vit C,E,Zn,Am--ngo-zeax 250-2.5-0.5 mg capsule 250 cap PO BID loperamide 2 mg capsule 2 mg PO BID Qty: 180 3RF atorvastatin 10 mg tablet See Rx Instructions .ROUTE .COMPLEX Qty: 90 3RF Dose Instruction: TAKE 1 TABLET BY MOUTH DAILY FOR CHOLESTEROL Rx Instructions: TAKE 1 TABLET BY MOUTH DAILY FOR CHOLESTEROL insulin asp prt-insulin aspart 100 unit/mL (70-30) insulin pen 11 unit SQ BID Qty: 15 3RF losartan 50 mg tablet See Rx Instructions .ROUTE .COMPLEX Qty: 90 0RF Dose Instruction: TAKE 1/2 TABLET BY MOUTH ONCE DAILY FOR HYPERTENSION Rx Instructions: TAKE 1/2 TABLET BY MOUTH ONCE DAILY FOR HYPERTENSION omeprazole 20 mg capsule,delayed release(DR/EC) 20 mg PO DAILY Qty: 90 3RF Xarelto 20 mg tablet See Rx Instructions .ROUTE .COMPLEX Qty: 90 0RF Dose Instruction: TAKE 1 TABLET BY MOUTH DAILY FOR BLOOD THINNER Rx Instructions: TAKE 1 TABLET BY MOUTH DAILY FOR BLOOD THINNER hydrochlorothiazide 25 mg tablet See Rx Instructions .ROUTE .COMPLEX Qty: 90 0RF Dose Instruction: TAKE 1 TABLET BY MOUTH DAILY Rx Instructions: TAKE 1 TABLET BY MOUTH DAILY Farxiga 10 mg tablet 10 mg PO DAILY Qty: 30 2RF metoprolol tartrate 50 mg tablet See Rx Instructions .ROUTE .COMPLEX Qty: 90 0RF Dose Instruction: TAKE 1 TABLET BY MOUTH DAILY FOR BLOOD PRESSURE Rx Instructions: TAKE 1 TABLET BY MOUTH DAILY FOR BLOOD PRESSURE (DME) pen needle, diabetic [BD Ultra-Fine Leena Pen Needle] 32 gauge x 5/32 needle See Rx Instructions .ROUTE .COMPLEX Qty: 100 12RF Dose Instruction: USE DIRECTED TWICE DAILY Rx Instructions: USE DIRECTED TWICE DAILY Referrals Follow up/Referrals: Aaron Gilliland DO [Staff Physician] - See instructions Kiko Gaines DO [Primary Care Provider] - See instructions Activity Restrictions/Add. Instructions Additional Instructions/Restrictions: Rest the extremity, Wear the julio césar wrap for compression, Elevate the extremity as tolerated while you are resting. Take tylenol for pain (or what you normally take for pain). Follow up with Dr. Gilliland (orthopedics her at [facility]) regarding your knee, leg and hip pain. I put in a referral but you need to call his office and schedule an appointment. His office phone number will be on this paperwork. Follow up with your regular doctor. If you don't already have a follow up appointment scheduled please call them today to get one so they can go over your labs with you and assess you further. GO TO THE ER FOR ANY WORSENING SYMPTOMS Clinical Impressions Clinical Impression: Right knee pain, Anemia, Pain of right leg, Pain in right hip, Fatigue, Vitamin B12 deficiency, Diabetes Instructions Patient Instructions: Vitamin B12 Deficiency, DI for Fatigue, DI for Knee Pain, DI for Leg Pain, How to Apply an Elastic Wrap on Knee Discharge ED Provider: Liam Marshall [facility] General Stated complaint: Pain in legs, she has had hip replacement in past Time Seen by Provider: 06/01/23 10:54 History of Present Illness Provider Complaint: She states that for the past 1 week she has had worsening bilateral leg pain. She states that her right leg hurts worse that her left. She has a history of having right hip replacement about 20 years ago. She thinks that is what makes her right leg hurt worse. She denies any injury or falls. She states that at times her legs seem to swell. The both swell equally. She states that she also has been feeling more fatigued than normal. Her pcp recently checked her vitamin b12 level and it was low. She would like to be started on vitamin b12 because her pcp has not done this yet. Related Data Home Medications Medication Instructions Recorded Confirmed vit 250 cap PO BID Supplement 07/10/21 05/24/23 C,E,zinc,Fy-lxula-5-lutein-zeaxanthin 250 mg-2.5 mg-0.5 mg capsule Previous Rx's Medication Instructions Recorded loperamide 2 mg capsule 2 mg PO BID bowels #180 caps 03/16/21 atorvastatin 10 mg tablet See Rx Instructions .Route 08/10/22 .COMPLEX #90 tabs insulin aspar prot-insulin aspart 11 unit (0.11 mL) SQ BID #15 mL 08/10/22 100 unit/mL (70-30) subcutaneous pen losartan 50 mg tablet See Rx Instructions .Route 08/10/22 .COMPLEX #90 tabs omeprazole 20 mg capsule,delayed 20 mg PO DAILY GERD #90 caps 08/10/22 release rivaroxaban 20 mg tablet (Xarelto) See Rx Instructions .Route 11/23/22 .COMPLEX #90 tabs hydrochlorothiazide 25 mg tablet See Rx Instructions .Route 12/07/22 .COMPLEX #90 tabs dapagliflozin propanediol 10 mg 10 mg PO DAILY Diabetes #30 tabs 02/28/23 tablet (Farxiga) metoprolol tartrate 50 mg tablet See Rx Instructions .Route 03/02/23 .COMPLEX #90 tabs cyanocobalamin (vitamin B-12) 1,000 mcg PO DAILY 30 days #30 tabs 06/01/23 1,000 mcg tablet (Vitamin B-12) pen needle, diabetic 32 gauge x #100 ea 06/01/23 (BD Ultra-Fine Leena Pen Needle) Allergies Allergy/AdvReac Type Severity Reaction Status Date / Time codeine [CODEINE] Allergy Unknown hallucinati Verified 06/01/23 11:13 ons Penicillins [PENICILLINS] Allergy Unknown Verified 06/01/23 11:13 lisinopril AdvReac Severe Cough Verified 06/01/23 11:13 [facility] Disclaimer: The information contained in this section may have been updated after the patient was seen, as this information can be updated by other users. Medical History Claudication Bilateral leg weakness Macular degeneration Abnormal EKG Dyspnea Recurrent falls Atrial fibrillation HLD (hyperlipidemia) Lipid panel done February 2023 reveals a triglyceride 115, total cholesterol 120, LDL of 54, and HDL 56. Will follow this is an excellent panel. She is to continue her current therapy. Carotid artery stenosis Osteoporosis This patient to my knowledge has not had a pathologic fracture from her osteoporosis. Unfortunately I was unable to put that into the diagnosis here. She does have osteoporosis, she clearly has thin bones on the x-ray she brought from 2003. She had a DEXA scan which supports a diagnosis of osteoporosis numerous years ago and has not had one since. I think a repeat would be in order and we will get that. She needs to be on vitamin D and calcium. She has stopped her vitamin D is not taking calcium will start this now. Social History Smoking Status: Former smoker tobacco type: cigarettes packs per day: 1 second hand exposure: No alcohol intake: former counseling provided: none substance use type: marijuana current occupational status: retired Travel in the last 8 weeks: None household members: none housing: house current occupational exposures/hazards: No caffeine: No ROS Obtained: Yes All systems reviewed & no additional complaints except as documented Constitutional Constitutional: Denies chills and Denies fever(s) Eyes Eyes: Denies eye discharge ENT Ears, Nose, Mouth, and Throat: Denies dizziness, Denies otalgia and Denies sore throat Cardiovascular Cardiovascular: Denies chest pain Respiratory Respiratory: Denies shortness of breath, Denies chest congestion, Denies cough, Denies stridor and Denies wheezing Gastrointestinal Gastrointestingal: Denies nausea or vomiting Musculoskeletal Musculoskeletal: Reports as per HPI Integumentary/Breasts Skin/Breast: Denies redness and Denies rash Neurologic Neurologic: Denies dizziness and Denies paresthesias Allergic/Immunologic Allergic/Immunologic: Denies wheezing Physical Exam General General appearance: alert and in no apparent distress Head Head exam: atraumatic, normocephalic and normal inspection Eye Eye exam: Present normal appearance, PERRL and EOMI ENT ENT exam: Present normal exam, normal oropharynx, mucous membranes moist, TM's normal bilaterally and normal external ear exam Neck Neck exam: Present normal inspection, full ROM and trachea midline; Absent meningismus or lymphadenopathy Chest Chest inspection: Present normal inspection and symmetric chest wall rise; Absent tenderness Respiratory Respiratory exam: Present normal lung sounds bilaterally; Absent respiratory distress Cardiovascular Cardiovascular exam: Present regular rate and normal rhythm; Absent JVD Abdominal Exam Abdominal exam: Present soft and normal bowel sounds; Absent distention, tenderness or guarding Extremities Exam Extremities exam: Present normal capillary refill; Absent calf tenderness Expanded Lower Extremity Exam Left: Hip/Pelvis exam: Present normal inspection, full ROM and pelvis stable; Absent tenderness, swelling, ecchymosis, deformity, dislocation, external rotation, internal rotation, shortening of leg, pain on hip/pelvis palpation, hip pain on leg movement, erythema, crepitus, laceration or abrasion Upper leg exam: Present normal inspection and full ROM; Absent tenderness, swelling, abrasion, laceration, ecchymosis, deformity, crepitus, dislocation or erythema Knee exam: Present normal inspection, full ROM and knee extension intact; Absent tenderness, swelling, abrasion, laceration, ecchymosis, deformity, crepitus, dislocation, erythema, effusion, anterior drawer sign, posterior draw sign, pain with valgus, laxity with valgus, pain with varus or laxity with varus Lower leg exam: Present normal inspection, full ROM and Achilles tendon intact; Absent tenderness, swelling, abrasion, laceration, ecchymosis, deformity, crepitus, dislocation, erythema, palpable cord or Homans' sign Ankle exam: Present normal inspection and full ROM; Absent tenderness, swelling, abrasion, laceration, ecchymosis, deformity, crepitus, dislocation, erythema, tenderness over talofibular lig or anterior draw sign Foot/toe exam: Present normal inspection and full ROM; Absent tenderness, swelling, abrasion, laceration or ecchymosis Neurovascular/Tendon exam: Present normal capillary refill; Absent pulse deficit, motor deficit, sensory deficit or tendon deficit Gait: observed and normal Back Exam Back exam: Present normal inspection; Absent tenderness Neurological Exam Neurological exam: Present alert and oriented X3 Psychiatric Psychiatric exam: Present normal affect and normal mood Skin Skin exam: Present warm, dry, intact and normal color Lymphatic Lymphatic Findings: no adenopathy Medical Decision Making Medical Records Medical records reviewed: No I reviewed the patient's medical records. Federico Inquiry Pt receiving controlled substance: No Lab Data Lab results reviewed: Yes I reviewed the patient's lab results.
[2023-06-01 11:00] VITALS: BP 156/74; PULSE 68; RESP 18; TEMP 36.7; O2SAT 100; BMI 24.7
[2023-06-01 11:51] LABS: Apearance,Urine Clear (Clear); Color,Urine Yellow (Yellow); PH,Urine 5.5 (5.0-8.5)
[2023-06-01 11:52] LABS: Bilirubin,Urine Negative (Negative); Blood, Urine Negative (Negative); Glucose,Urine (UA) 1000 (Negative); Ketones,Urine Negative (Negative); Protein,Urine Negative (Negative); Specific Gravity, Urine 1.005 (1.005-1.030); UTC Leukocyte Esterase,Urine Negative (Negative); UTC Nitrate,Urine Negative (Negative); Urobilinogen,Urine 0.2 EU/dl (0.2)
[2023-06-01 12:32] VITALS: BP 156/74; PULSE 68; RESP 19; TEMP 36.7; O2SAT 100
== END 2023-06-01 12:32 | disposition home or self-care (01) ==
PROVIDERS: Emergency Provider Nurse Practitioner Family; PCP Internal Medicine
DX: D51.9 Vitamin B12 deficiency anemia, unspecified (principal); M25.561 Pain in right knee; M79.604 Pain in right leg; M25.551 Pain in right hip; R53.83 Other fatigue; E11.9 Type 2 diabetes mellitus without complications; I48.91 Unspecified atrial fibrillation; E78.5 Hyperlipidemia, unspecified; I65.29 Occlusion and stenosis of unspecified carotid artery; M81.8 Other osteoporosis without current pathological fracture; Z87.891 Personal history of nicotine dependence
CPT/HCPCS: 81003; 99204; 99212; G0463

== ENCOUNTER 2023-06-09 14:18 | Outpatient (CLI) | payer MEDICARE, SELFPAY ==
--- NOTE | 2023-06-09 14:32 | XR_ITS ---
FINAL REPORT CLINICAL HISTORY: left tib fib pain FINDINGS: LEFT TIBIA AND FIBULA There is no acute fracture or dislocation. The joint spaces are intact. There are mild degenerative changes. Bones are osteopenic. There is no soft tissue abnormality. IMPRESSION: No acute fracture Reviewed, Interpreted and Dictated by Gustavo Ty III, MD Transcribed by Tena Hogan Authenticated and . [facility]
--- NOTE | 2023-06-09 14:32 | XR_ITS ---
FINAL REPORT CLINICAL HISTORY: right tib fib pain FINDINGS: RIGHT TIBIA AND FIBULA There is no acute fracture or dislocation. The joint spaces are intact. There are mild degenerative changes. There is mild osteopenia. There is no soft tissue abnormality. IMPRESSION: No acute fracture Reviewed, Interpreted and Dictated by Gustavo Ty III, MD Transcribed by Tena Hogan Authenticated and [facility]
== END 2023-06-09 23:59 ==
LOC: RAD 14:20
PROVIDERS: PCP Internal Medicine; Visit Provider Internal Medicine
DX: R29.898 Other symptoms and signs involving the musculoskeletal system (principal); M79.661 Pain in right lower leg
CPT/HCPCS: 73590

== ENCOUNTER 2023-07-03 13:48 | Emergency (ER) | payer MEDICARE, SELFPAY ==
[2023-07-03 14:30] VITALS: BP 130/75; PULSE 76; RESP 18; TEMP 36.6; O2SAT 98; BMI 25.5
--- NOTE | 2023-07-03 15:16 | EXP.UTC ---
Discharge Plan Disposition Patient Disposition: Home, Self-Care Condition: Good Prescriptions Prescriptions: No Action vit C,E,Zn,Bz-ercnv9-dhn-zeax 250-2.5-0.5 mg capsule 250 cap PO BID loperamide 2 mg capsule 2 mg PO BID Qty: 180 3RF atorvastatin 10 mg tablet See Rx Instructions .ROUTE .COMPLEX Qty: 90 3RF Dose Instruction: TAKE 1 TABLET BY MOUTH DAILY FOR CHOLESTEROL Rx Instructions: TAKE 1 TABLET BY MOUTH DAILY FOR CHOLESTEROL insulin asp prt-insulin aspart 100 unit/mL (70-30) insulin pen 11 unit SQ BID Qty: 15 3RF losartan 50 mg tablet See Rx Instructions .ROUTE .COMPLEX Qty: 90 0RF Dose Instruction: TAKE 1/2 TABLET BY MOUTH ONCE DAILY FOR HYPERTENSION Rx Instructions: TAKE 1/2 TABLET BY MOUTH ONCE DAILY FOR HYPERTENSION omeprazole 20 mg capsule,delayed release(DR/EC) 20 mg PO DAILY Qty: 90 3RF Xarelto 20 mg tablet See Rx Instructions .ROUTE .COMPLEX Qty: 90 0RF Dose Instruction: TAKE 1 TABLET BY MOUTH DAILY FOR BLOOD THINNER Rx Instructions: TAKE 1 TABLET BY MOUTH DAILY FOR BLOOD THINNER hydrochlorothiazide 25 mg tablet See Rx Instructions .ROUTE .COMPLEX Qty: 90 0RF Dose Instruction: TAKE 1 TABLET BY MOUTH DAILY Rx Instructions: TAKE 1 TABLET BY MOUTH DAILY Farxiga 10 mg tablet 10 mg PO DAILY Qty: 30 2RF metoprolol tartrate 50 mg tablet See Rx Instructions .ROUTE .COMPLEX Qty: 90 0RF Dose Instruction: TAKE 1 TABLET BY MOUTH DAILY FOR BLOOD PRESSURE Rx Instructions: TAKE 1 TABLET BY MOUTH DAILY FOR BLOOD PRESSURE (DME) pen needle, diabetic [BD Ultra-Fine Leena Pen Needle] 32 gauge x 5/32 needle See Rx Instructions .ROUTE .COMPLEX Qty: 100 12RF Dose Instruction: USE DIRECTED TWICE DAILY Rx Instructions: USE DIRECTED TWICE DAILY cyanocobalamin (vitamin B-12) [Vitamin B-12] 1,000 mcg tablet 1,000 mcg PO DAILY 30 Days Qty: 30 5RF Referrals Follow up/Referrals: Kiko Gaines DO [Primary Care Provider] - See instructions Activity Restrictions/Add. Instructions Additional Instructions/Restrictions: Follow up with your Eye Doctor for further evaluation and exam Call tomorrow for appointment Follow up immediately if any pain or vision changes Return if needed Over the counter Eye Drops like artificial tears may help if you have dryness or irritation Clinical Impressions Clinical Impression: Subconjunctival hemorrhage Instructions Patient Instructions: DI for Subconjunctival Hemorrhage Discharge ED Provider: Amy Gutierrez [facility] General Stated complaint: left eye redness Mode of Arrival: Ambulatory Source of Information: Patient Limitations: No Limitations Time Seen by Provider: 07/03/23 15:16 Description of Symptoms (Recalled from Triage Doc. by RN): PATIENT C/O REDNESS TO LEFT EYE HEENT Symptoms (Recalled from RN notes): Yes Resp Symptoms (Recalled from RN notes): No Skin Symptoms (Recalled from RN notes): No MS Symptoms (Recalled from RN notes): No Functional Status (Recalled from RN notes): WNL History of Present Illness Provider Complaint: Patient states that she has been having redness in her left eye since she was straining the other night having a bowel movement states doesnt hurt, denies drainage, denies itching just looks bad Related Data Home Medications Medication Instructions Recorded Confirmed vit 250 cap PO BID Supplement 07/10/21 06/29/23 C,E,zinc,Uu-krpyi-2-lutein-zeaxanthin 250 mg-2.5 mg-0.5 mg capsule Previous Rx's Medication Instructions Recorded loperamide 2 mg capsule 2 mg PO BID bowels #180 caps 03/16/21 atorvastatin 10 mg tablet See Rx Instructions .Route 08/10/22 .COMPLEX #90 tabs insulin aspar prot-insulin aspart 11 unit (0.11 mL) SQ BID #15 mL 08/10/22 100 unit/mL (70-30) subcutaneous pen losartan 50 mg tablet See Rx Instructions .Route 08/10/22 .COMPLEX #90 tabs omeprazole 20 mg capsule,delayed 20 mg PO DAILY GERD #90 caps 08/10/22 release rivaroxaban 20 mg tablet (Xarelto) See Rx Instructions .Route 11/23/22 .COMPLEX #90 tabs hydrochlorothiazide 25 mg tablet See Rx Instructions .Route 12/07/22 .COMPLEX #90 tabs dapagliflozin propanediol 10 mg 10 mg PO DAILY Diabetes #30 tabs 02/28/23 tablet (Farxiga) metoprolol tartrate 50 mg tablet See Rx Instructions .Route 03/02/23 .COMPLEX #90 tabs cyanocobalamin (vitamin B-12) 1,000 mcg PO DAILY 30 days #30 tabs 06/01/23 1,000 mcg tablet (Vitamin B-12) pen needle, diabetic 32 gauge x #100 ea 06/01/23 (BD Ultra-Fine Leena Pen Needle) Allergies Allergy/AdvReac Type Severity Reaction Status Date / Time codeine [CODEINE] Allergy Unknown hallucinati Verified 06/01/23 11:13 ons Penicillins [PENICILLINS] Allergy Unknown Verified 06/01/23 11:13 lisinopril AdvReac Severe Cough Verified 06/01/23 11:13 Worker's Comp Is this a Worker's Comp case?: No PFSH [facility] Disclaimer: The information contained in this section may have been updated after the patient was seen, as this information can be updated by other users. Medical History Claudication Bilateral leg weakness Macular degeneration Abnormal EKG Dyspnea Recurrent falls Atrial fibrillation HLD (hyperlipidemia) Lipid panel done February 2023 reveals a triglyceride 115, total cholesterol 120, LDL of 54, and HDL 56. Will follow this is an excellent panel. She is to continue her current therapy. Carotid artery stenosis Osteoporosis This patient to my knowledge has not had a pathologic fracture from her osteoporosis. Unfortunately I was unable to put that into the diagnosis here. She does have osteoporosis, she clearly has thin bones on the x-ray she brought from 2003. She had a DEXA scan which supports a diagnosis of osteoporosis numerous years ago and has not had one since. I think a repeat would be in order and we will get that. She needs to be on vitamin D and calcium. She has stopped her vitamin D is not taking calcium will start this now. Social History Smoking Status: Former smoker tobacco type: cigarettes packs per day: 1 second hand exposure: No alcohol intake: former counseling provided: none substance use type: marijuana current occupational status: retired Travel in the last 8 weeks: None household members: none housing: house current occupational exposures/hazards: No caffeine: No ROS Obtained: Yes All systems reviewed & no additional complaints except as documented and Yes Systems reviewed as appropriate & no additional complaints except as documented Constitutional Constitutional: Reports system reviewed and no additional complaints, except as documented, Reports as per HPI and Denies headache(s) Eyes Eyes: Reports system reviewed and no additional complaints, except as documented, Reports as per HPI, Denies blurry vision, Denies eye discharge, Denies irritation, Denies itchy eyes, Denies loss of vision and Reports other (redness to the white on inside corner of her left eye) ENT Ears, Nose, Mouth, and Throat: Reports system reviewed and no additional complaints, except as documented, Reports as per HPI, Denies dizziness and Denies headache(s) Cardiovascular Cardiovascular: Reports system reviewed and no additional complaints, except as documented and Reports as per HPI Respiratory Respiratory: Reports system reviewed and no additional complaints, except as documented and Reports as per HPI Gastrointestinal Gastrointestingal: Reports system reviewed and no additional complaints, except as documented and as per HPI Musculoskeletal Musculoskeletal: Denies numbness Neurologic Neurologic: Reports system reviewed and no additional complaints, except as documented, Reports as per HPI, Denies abnormal movements, Denies abnormal speech, Denies dizziness, Denies headache(s), Denies lack of coordination, Denies loss of vision, Denies numbness and Denies other visual disturbances Allergic/Immunologic Allergic/Immunologic: Denies itchy eyes Physical Exam General General appearance: alert and in no apparent distress Eye Eye exam: Present other (redness noted to white of left eye appears like conjunctival hemorrhage); Absent conjunctival redness, discharge, periorbital swelling or periorbital tenderness Respiratory Respiratory exam: Present normal lung sounds bilaterally; Absent respiratory distress or wheezes Cardiovascular Cardiovascular exam: Present regular rate, normal rhythm and normal heart sounds Neurological Exam Neurological exam: Present alert, oriented X3 and normal gait Medical Decision Making Federico Inquiry Pt receiving controlled substance: No Federico was queried for this patient: No Vital Signs: 07/03/23 14:30 Temperature 97.9 F Temperature Source Oral Pulse Rate [Left Brachial] 76 Respiratory Rate 18 Blood Pressure [Left Arm] 130/75 Blood Pressure Mean [Left Arm] 93 Blood Pressure Source [Left Arm] Automatic Cuff Blood Pressure Position [Left Arm] Sitting 02 Sat by Pulse Oximetry 98 Oxygen Delivery Method Room Air Medical Decision Narrative: Patient denies vision changes, denies pain, denies itching, denies drainage or matting states notice redness after she woke up yesterday and does state that she did strain to have BM the night before
[2023-07-03 15:27] VITALS: BP 130/75; PULSE 76; RESP 18; TEMP 36.6; O2SAT 98
== END 2023-07-03 15:29 | disposition home or self-care (01) ==
PROVIDERS: Emergency Provider Nurse Practitioner; PCP Internal Medicine
DX: H11.32 Conjunctival hemorrhage, left eye (principal); I48.91 Unspecified atrial fibrillation; E78.5 Hyperlipidemia, unspecified; I65.29 Occlusion and stenosis of unspecified carotid artery; M81.8 Other osteoporosis without current pathological fracture; H35.30 Unspecified macular degeneration; F17.210 Nicotine dependence, cigarettes, uncomplicated
CPT/HCPCS: 99212; 99213; G0463

== ENCOUNTER 2023-07-06 06:42 | Outpatient (CLI) | payer MEDICARE, SELFPAY ==
[2023-07-06 18:18] LABS: Basophils % 0.3 % (0.1-2.0); Eosinophils % 1.2 % (0.1-12.0); Hematocrit 29.6 % (37.0-47.0); Lymphocytes # 0.6 K/mm3 (0.7-4.5); Lymphocytes % 18.7 % (10-50); Mean Corpuscular HGB Conc 30.2 g/dL (31.8-35.4); Mean Corpuscular Hemoglobin 20.8 pg (27.0-31.2); Mean Corpuscular Volume 68.9 fl (81-99); Mean Platelet Volume 8.9 fl (7.4-10.4); Monocytes # 0.1 K/mm3 (0.1-1.0); Monocytes % 4.2 % (1.7-9.3); Neutrophils # 2.5 K/mm3 (1.8-7.8); Neutrophils % 75.7 % (37.0-80.0); Platelet Count 147 K/mm3 (142-424); Red Cell Distribution Width 19.6 % (11.5-17.5); White Blood Count 3.3 K/mm3 (4.8-10.8)
[2023-07-06 18:25] LABS: Alanine Aminotransferase 22 U/L (12-78); Albumin/Globulin Ratio 1.8 (1.1-1.8); Alkaline Phosphatase 56 U/L (38-126); Anion Gap 10.5 mEq/L (5-15); Aspartate Amino Transferase 37 U/L (14-36); Bilirubin,Total 1.2 mg/dl (0.2-1.3); Blood Urea Nitrogen 13 mg/dl (7-17); Carbon Dioxide 25 mmol/L (22.0-30.0); Chloride 107 mmol/L (98-107); Estimated Glomerular Filt Rate 97 ml/min (>60); GFR (African American) 117 ML/MIN (>60); Globulin 2.2 g/dL (1.3-3.2); Glucose 168 mg/dl (74-100); Potassium 3.5 mmoL/L (3.5-5.1); Sodium 139 mmol/L (136-145); Total Protein,Serum 6.2 g/dl (6.3-8.2)
[2023-07-06 19:04] LABS: Iron 25 ug/dL (37-170)
[2023-07-06 19:14] LABS: Total Iron Binding Capacity 424 ug/dL (265-497); Vitamin B12 410 pg/mL (239-931)
[2023-07-06 21:20] LABS: Folate > 20.00 ng/mL
== END 2023-07-06 23:59 | disposition home or self-care (01) ==
LOC: LAB.DROPOF 07-08 06:42
PROVIDERS: PCP Family Medicine; Visit Provider Family Medicine
DX: M79.604 Pain in right leg (principal); Z79.899 Other long term (current) drug therapy; I65.29 Occlusion and stenosis of unspecified carotid artery; E11.9 Type 2 diabetes mellitus without complications; D50.9 Iron deficiency anemia, unspecified
CPT/HCPCS: 80053; 82607; 82746; 83540; 83550; 85025

== ENCOUNTER 2023-08-08 14:08 | Inpatient (IN) | payer MEDICARE, SELFPAY ==
[2023-08-08] VITALS (12 sets, daily range): BP systolic 97–118; BP diastolic 52–61; PULSE 80–161; RESP 16–18; TEMP 36.7–36.9; O2SAT 94–99; BMI 22.2
--- NOTE | 2023-08-08 14:17 | ED_ITS ---
<Statement entered by Madison Moore MD - 08/10/23 14:58> I was consulted by the EMILY, and we discussed the complexity of the problems being addressed. I approved the treatment and management plan for this patient's care in the emergency department, thus performing a substantive portion of the medical decision making. Madison Moore MD, NGOZI, FACEP Discharge Plan Disposition Patient Disposition: Admitted Condition: Serious Clinical Impressions Clinical Impression: Atrial fibrillation with rapid ventricular response, Hypomagnesemia Discharge ED Provider: Renzo Pina HPI General Chief Complaint: Arrhythmia/Palpitations Stated Complaint: headache, High HR, sent from PT Time Seen by Provider: 08/08/23 14:17 History of Present Illness HPI narrative: Patient was sent from physical therapy for a high heart rate. Patient has a previous history of atrial fibrillation maintained on Xarelto chronically, history of colon cancer, atherosclerotic cardiovascular disease, hyperlipidemia, diabetes mellitus, history of hypertension. Patient himself is asymptomatic and denies chest pain shortness of breath fever chills hemoptysis hematochezia melena nausea vomiting diarrhea. Patient does not know how long she has been in atrial fibrillation nor with a high rate. My review of her home meds only shows losartan for hypertension but no rate controlling medications. She is also on atorvastatin Farxiga hydrochlorothiazide insulin and metformin. Related Data Home Medications Medication Instructions Recorded Confirmed alendronate 10 mg tablet 5 mg PO DAILY 08/08/23 08/08/23 atorvastatin 10 mg tablet 10 mg PO DAILY 08/08/23 08/08/23 cyanocobalamin (vitamin B-12) 1,000 mcg PO DAILY 08/08/23 08/08/23 1,000 mcg tablet dapagliflozin propanediol 10 mg 10 mg PO DAILY 08/08/23 08/08/23 tablet (Farxiga) ferrous sulfate 325 mg (65 mg 325 mg PO DAILY 08/08/23 08/08/23 iron) tablet (FeroSul) hydrochlorothiazide 25 mg tablet 25 mg PO DAILY 08/08/23 08/08/23 insulin aspar prot-insulin aspart 11 unit SQ BID 08/08/23 08/08/23 100 unit/mL (70-30) subcutaneous pen (Novolog Mix 70-30FlexPen U-100) losartan 50 mg tablet 25 mg PO DAILY 08/08/23 08/08/23 metformin 1,000 mg tablet 1,000 mg PO BID 08/08/23 08/08/23 omeprazole 20 mg capsule,delayed 20 mg PO DAILY 08/08/23 08/08/23 release rivaroxaban 20 mg tablet (Xarelto) 20 mg PO QPMWITHMEAL 08/08/23 08/08/23 Allergies Allergy/AdvReac Type Severity Reaction Status Date / Time codeine [CODEINE] Allergy Unknown hallucinati Verified 07/28/23 13:56 ons Penicillins [PENICILLINS] Allergy Unknown Verified 07/28/23 13:56 lisinopril AdvReac Severe Cough Verified 07/28/23 13:56 [facility] Disclaimer: The information contained in this section may have been updated after the patient was seen, as this information can be updated by other users. Medical History Claudication Bilateral leg weakness Macular degeneration Abnormal EKG Dyspnea Recurrent falls Atrial fibrillation HLD (hyperlipidemia) Lipid panel done February 2023 reveals a triglyceride 115, total cholesterol 120, LDL of 54, and HDL 56. Will follow this is an excellent panel. She is to continue her current therapy. Carotid artery stenosis Osteoporosis This patient to my knowledge has not had a pathologic fracture from her osteoporosis. Unfortunately I was unable to put that into the diagnosis here. She does have osteoporosis, she clearly has thin bones on the x-ray she brought from 2003. She had a DEXA scan which supports a diagnosis of osteoporosis numerous years ago and has not had one since. I think a repeat would be in order and we will get that. She needs to be on vitamin D and calcium. She has stopped her vitamin D is not taking calcium will start this now. Social History Smoking Status: Never smoker second hand exposure: No alcohol intake: former counseling provided: none substance use type: marijuana current occupational status: retired Travel in the last 8 weeks: None household members: none housing: house current occupational exposures/hazards: No caffeine: No ROS Obtained: Yes Systems reviewed as appropriate & no additional complaints except as documented Physical Exam General General appearance: alert and in no apparent distress Head Head exam: atraumatic and normal inspection Eye Eye exam: Present normal appearance, PERRL and EOMI ENT ENT exam: Present normal exam, normal oropharynx and mucous membranes moist Neck Neck exam: Present normal inspection, full ROM and trachea midline Chest Chest inspection: Present normal inspection and symmetric chest wall rise Respiratory Respiratory exam: Present normal lung sounds bilaterally and respiratory distress Cardiovascular Cardiovascular exam: Present tachycardia, irregular rhythm, normal heart sounds, +S1 and +S2 Abdominal Exam Abdominal exam: Present soft and normal bowel sounds; Absent tenderness, guarding or rebound Extremities Exam Extremities exam: Present normal inspection and full ROM; Absent edema Back Exam Back exam: Present normal inspection and full ROM Neurological Exam Neurological exam: Present alert, oriented X3 and CN II-XII intact Psychiatric Psychiatric exam: Present normal affect and normal mood Skin Skin exam: Present warm, dry and normal color HEART Score HEART Score HEART Score assessment performed?: No Critical Care Critical Care Time Critical Care Time: Yes Attestation: On 08/08/23, the high probability of a clinically significant, sudden or life threatening deterioration of the following system(cardiac) required my full and direct attention, intervention and personal management. The time I documented below is in addition to time spent performing reported procedures but includes the following listed in this critical care notation. Total Time Total Critical Care Time: 30 Medical Decision Making Medical Records Medical records reviewed: Yes I reviewed the patient's medical records. Federico Inquiry Pt receiving controlled substance: No Vital Signs Vital Signs: 08/08/23 14:10 08/08/23 14:24 08/08/23 14:29 Temperature 98.2 F Temperature Source Oral Pulse Rate 130 H 132 H Pulse Rate [Left] 161 H Respiratory Rate 18 18 18 Blood Pressure 100/57 L 104/55 L Blood Pressure [Right Arm] 97/57 L Blood Pressure Mean [Right Arm] 70 Blood Pressure Source Automatic Cuff Automatic Cuff Blood Pressure Source [Right Arm] Automatic Cuff Blood Pressure Position Sitting Sitting Blood Pressure Position [Right Arm] Sitting 02 Sat by Pulse Oximetry 96 95 95 Oxygen Delivery Method Room Air Room Air Room Air 08/08/23 14:35 08/08/23 14:39 08/08/23 14:45 Temperature Temperature Source Pulse Rate 125 H 118 H 117 H Pulse Rate [Left] Respiratory Rate 18 18 17 Blood Pressure 104/61 L 100/52 L 114/57 L Blood Pressure [Right Arm] Blood Pressure Mean [Right Arm] Blood Pressure Source Automatic Cuff Automatic Cuff Automatic Cuff Blood Pressure Source [Right Arm] Blood Pressure Position Sitting Sitting Sitting Blood Pressure Position [Right Arm] 02 Sat by Pulse Oximetry 94 L 95 95 Oxygen Delivery Method Room Air Room Air Room Air 08/08/23 16:01 Temperature 98.5 F Temperature Source Oral Pulse Rate 80 Pulse Rate [Left] Respiratory Rate 16 Blood Pressure 101/52 L Blood Pressure [Right Arm] Blood Pressure Mean [Right Arm] Blood Pressure Source Automatic Cuff Blood Pressure Source [Right Arm] Blood Pressure Position Sitting Blood Pressure Position [Right Arm] 02 Sat by Pulse Oximetry Oxygen Delivery Method Room Air Lab Data Lab results reviewed: Yes I reviewed the patient's lab results. Labs: Lab Results 08/08/23 14:25: WBC 3.9 L, RBC 5.20, Hgb 11.6 L, Hct 36.5 L, MCV 70.3 L, MCH 22.3 L, MCHC 31.8, RDW 21.3 H, Plt Count 144, MPV 11.6 H, Neut % (Auto) 66.1, Lymph % (Auto) 23.9, [place] % (Auto) 6.1, Eos % (Auto) 2.8, Baso % (Auto) 1.1, Neut # (Auto) 2.6, Lymph # (Auto) 0.9, [place] # (Auto) 0.2, Eos # (Auto) 0.1, Baso # (Auto) 0.0, PT 11.4, INR 1.06, Sodium 135 L, Potassium 3.5, Chloride 102, Carbon Dioxide 26, Anion Gap 10.5, BUN 16, Creatinine 0.50 L, Estimated Creat Clear 48, Estimated GFR 120, Est GFR ( Amer) 145, Glucose 245 H, Calcium 9.4, Magnesium 1.3 L, Total Bilirubin 1.0, AST 36, ALT 23, Alkaline Phosphatase 52, Troponin I 0.02, Total Protein 6.9, Albumin 4.5, Globulin 2.4, A lbumin/Globulin Ratio 1.9 H, TSH 0.31 L 08/08/23 14:25 08/08/23 14:25 Response Orders (Tests/Meds): ED MEDICATIONS Generic Name Dose Route Start Last Admin Trade Name Freq PRN Reason Stop Dose Admin Diltiazem HCl 100 mg/ Sodium 100 mls @ 5 mls/hr 08/08/23 15:30 08/08/23 16:03 Chloride IV 09/07/23 15:29 5 mg/hr .Q20H MARTIR 5 mls/hr Titration Protocol 5 MG/HR Discontinued Medications Generic Name Dose Route Start Last Admin Trade Name Freq PRN Reason Stop Dose Admin Acetaminophen 1,000 mg 08/08/23 14:19 08/08/23 14:26 Acetaminophen 1,000mg/100ml Vial IV 08/08/23 14:20 1,000 mg ONCE ONE Administration Diltiazem HCl 17.5 mg 08/08/23 15:03 08/08/23 15:17 Diltiazem 25mg/5ml Vial IV 08/08/23 15:04 17.5 mg ONCE ONE Administration Lactated Ringer's 1,000 mls @ 999 mls/hr 08/08/23 14:19 08/08/23 14:26 Lactated Ringer's 1000 Ml Bag IV 08/08/23 15:19 999 mls/hr .Q1H1M ONE Administration Magnesium Sulfate 2 gm in 50 mls @ 50 mls/hr 08/08/23 14:47 08/08/23 15:09 Magnesium Sulfate 2gm/50ml Premix IV 08/08/23 15:46 50 mls/hr ONCE ONE Administration Metoprolol Tartrate 5 mg 08/08/23 14:19 08/08/23 14:24 Metoprolol Tartrate 5mg/5ml Vial IV 08/08/23 14:20 5 mg ONCE ONE Administration Metoprolol Tartrate 5 mg 08/08/23 14:30 08/08/23 14:29 Metoprolol Tartrate 5mg/5ml Vial IV 08/08/23 14:31 5 mg ONCE ONE Administration Metoprolol Tartrate 5 mg 08/08/23 14:31 08/08/23 14:34 Metoprolol Tartrate 5mg/5ml Vial IV 08/08/23 14:32 5 mg ONCE ONE Administration ORDERS Category Date Time Status Consult to Cardiology [CONS] Routine Cons 08/08/23 15:33 Active Chest XR -- portable [XR chest portable] Stat Exams 08/08/23 14:19 Taken CBC w/Auto Diff [Complete Blood Count Auto Diff] Stat Lab 08/08/23 14:25 Completed CMP [Comprehensive Metabolic Panel] Stat Lab 08/08/23 14:25 Completed INR [Prothrombin Time INR] Stat Lab 08/08/23 14:25 Completed Magnesium Stat Lab 08/08/23 14:25 Completed TSH [Thyroid Stimulating Hormone] Stat Lab 08/08/23 14:25 Completed Trop I [Troponin I] Stat Lab 08/08/23 14:25 Completed Troponin I Q3H Lab 08/08/23 17:30 Ordered Troponin I Q3H Lab 08/08/23 20:30 Ordered MDM Narrative Medical Decision Narrative: In summary patient is a 78-year-old female who presents to the emergency department for evaluation of rapid heart rate. Patient is dynamically stable but in atrial fibrillation with rapid ventricular response on the heart monitor upon arrival, afebrile. Physical exam is unremarkable and nonfocal putting no chest pain or shortness of breath no adventitious sounds heard on auscultation.. Differential diagnosis includes atrial fibrillation with rapid ventricular response versus ACS versus electrolyte abnormality etc. Initial workup will be conducted with hematologic labs twelve-lead EKG chest x-ray. Initial interventions include metoprolol 5 mg IV push x 3 doses 5 minutes apart continuous cardiac monitoring and continuous pulse oximetry. Initial workup reviewed by me hypomagnesemia for which have ordered repletion. Upon repeat evaluation patient remains in atrial fibrillation with rapid ventricular response and has now been initiated with the diltiazem and bolus and then diltiazem drip. Given this I had interactive discussion with Dr. Ponce of cardiology who recommended admission and then had an interactive discussion with hospital medicine who is accepted the patient for admission
--- NOTE | 2023-08-08 14:19 | XR_ITS ---
FINAL REPORT TECHNIQUE: Single view chest CLINICAL HISTORY: Atrial fibrillation with rapid ventricular respons FINDINGS: A single view of the chest was obtained. The heart and mediastinum are within normal limits. There are mild chronic changes of the lung bases. There is no pneumothorax. Osseous structures are unremarkable. IMPRESSION: No acute cardiopulmonary process. Reviewed, Interpreted and Dictated by Isidro Garcia MD Transcribed by Tena Hogan Authenticated and [facility]
--- NOTE | 2023-08-08 14:19 | ECG_ITS ---
APPROVED REPORT Exam: Resting ECG HR:151 bpm ECG Measurements Heart Rate 151 AXES QRSd 102 QRS 79 QT 300 T 25 QTc 386 Conclusion ATRIAL FLUTTER/TACHYCARDIA WITH RAPID VENTRICULAR RESPONSE NONSPECIFIC ST & T-WAVE ABNORMALITY CRITICAL TEST RESULT Electronically signed by : SHWETA FERREIRA, 08/08/2023 17:06:11
[2023-08-08] MEDS: METOPROLOL TARTRATE 5MG/5ML VIAL 5 MG IV ×3 (14:24→14:34)
[2023-08-08] MEDS: LACTATED RINGERS 1000ML 1,000 ML 999 ML IV (14:26)
[2023-08-08] MEDS: ACETAMINOPHEN 1,000MG/100ML VIAL 1000 MG IV (14:26)
[2023-08-08 14:40] LABS: Chloride 102 mmol/L (98-107); Potassium 3.5 mmoL/L (3.5-5.1); Sodium 135 mmol/L (136-145)
[2023-08-08 14:43] LABS: Alanine Aminotransferase 23 U/L (12-78); Albumin Level 4.5 g/dl (3.5-5.0); Albumin/Globulin Ratio 1.9 (1.1-1.8); Alkaline Phosphatase 52 U/L (38-126); Anion Gap 10.5 mEq/L (5-15); Aspartate Amino Transferase 36 U/L (14-36); Blood Urea Nitrogen 16 mg/dl (7-17); Calcium 9.4 mg/dl (8.4-10.2); Carbon Dioxide 26 mmol/L (22.0-30.0); Creatinine Clearance Estimated 48 mL/min (50-200); Estimated Glomerular Filt Rate 120 ml/min (>60); GFR (African American) 145 ML/MIN (>60); Globulin 2.4 g/dL (1.3-3.2); Glucose 245 mg/dl (74-100); Magnesium 1.3 mg/dl (1.6-2.3); Total Protein,Serum 6.9 g/dl (6.3-8.2)
[2023-08-08 14:46] LABS: Basophils % 1.1 % (0.1-2.0); Eosinophils # 0.1 K/mm3 (0.0-0.4); Eosinophils % 2.8 % (0.1-12.0); Hematocrit 36.5 % (37.0-47.0); Hemoglobin 11.6 g/dL (12.2-16.2); Lymphocytes # 0.9 K/mm3 (0.7-4.5); Lymphocytes % 23.9 % (10-50); Mean Corpuscular HGB Conc 31.8 g/dL (31.8-35.4); Mean Corpuscular Hemoglobin 22.3 pg (27.0-31.2); Mean Corpuscular Volume 70.3 fl (81-99); Mean Platelet Volume 11.6 fl (7.4-10.4); Monocytes # 0.2 K/mm3 (0.1-1.0); Monocytes % 6.1 % (1.7-9.3); Neutrophils # 2.6 K/mm3 (1.8-7.8); Neutrophils % 66.1 % (37.0-80.0); Platelet Count 144 K/mm3 (142-424); Red Cell Distribution Width 21.3 % (11.5-17.5); White Blood Count 3.9 K/mm3 (4.8-10.8)
--- NOTE | 2023-08-08 14:50 | PC.NURSE ---
Metoprolol x3 IVP 5mg given per PAZeferino. No significant changes to heart rate per vitals tab. Verbally reported this to MEENA Guerrero. Pending new orders place.d
[2023-08-08 14:53] LABS: INR 1.06 (0.9-1.1); Prothrombin Time 11.4 seconds (10.1-12.5)
[2023-08-08 14:55] LABS: Troponin I 0.02 ng/ml (0.00-0.034)
[2023-08-08] MEDS: MAGNESIUM SULFATE IN WATER 2 GM/50 ML PIGGYBACK IV (15:09)
[2023-08-08 15:14] LABS: Thyroid Stimulating Hormone 0.31 uIU/mL (0.465-4.68)
--- NOTE | 2023-08-08 15:16 | HMH.PHAINT1 ---
Pharmacy Intervention Comments: MEDICATION RECONCILIATION COMPLETED ON PATIENT USING EXTERNAL FILL HISTORY FROM PHARMACY AND LIST FROM PCP OFFICE. -MINNA PEARSON, ISAUROD
[2023-08-08] MEDS: dilTIAZem 25MG/5ML VIAL 17.5 MG IV (15:17)
[2023-08-08] MEDS: dilTIAZem HCL 100 MG in 0.9 % SODIUM CHLORIDE 100 ML IV (15:20)
--- NOTE | 2023-08-08 15:45 | PC.NURSE ---
House notified for admission
--- NOTE | 2023-08-08 15:50 | PC.NURSE ---
Attempted report at 1550. Nurse not available and will call me back
--- NOTE | 2023-08-08 16:00 | PC.NURSE ---
Cardizem stopped for HR <100 per order policy.
--- NOTE | 2023-08-08 16:01 | PC.NURSE ---
Report called to Amy Castro RN at this time
--- NOTE | 2023-08-08 16:36 | PC.NURSE ---
arrived by stretcher from ED
--- NOTE | 2023-08-08 17:37 | EXP.HP ---
History of Present Illness *Admission Date: 08/08/23 *Reason for visit:: Afib RVR *History of present illness: Patient is a 78-year-old female with past medical history of atrial fibrillation CAD hypertension hyperlipidemia who presented to hospital due to elevated heart rate, palpitations. Patient also has a history of diabetes mellitus. Patient otherwise denied chest pain nausea vomiting diarrhea constipation dysuria. Patient was started on Cardizem drip, cardiology was consulted from the emergency department was recommended inpatient admission. [facility] Disclaimer: The information contained in this section may have been updated after the patient was seen, as this information can be updated by other users. Medical History Claudication Bilateral leg weakness Macular degeneration Abnormal EKG Dyspnea Recurrent falls Atrial fibrillation HLD (hyperlipidemia) Carotid artery stenosis Osteoporosis Surgical History History of appendectomy History of bowel resection Family History (Updated 08/08/23 @ 18:14 by Parul Ramos RN) Other COPD exacerbation Social History Smoking Status: Former smoker tobacco type: cigarettes packs per day: 1 years smoked: 50 smoking status stop date: 2015 second hand exposure: No alcohol intake: former counseling provided: none substance use type: marijuana current occupational status: retired Travel in the last 8 weeks: None household members: none housing: house marital status: current occupational exposures/hazards: No caffeine: No Review of Systems Review of Systems Review of systems:: pertinent systems reviewed and negative unless documented below Meds Home Medications and Allergies Home Medications Medication Instructions Recorded Confirmed Type alendronate 10 mg tablet 5 mg PO DAILY 08/08/23 08/08/23 History atorvastatin 10 mg tablet 10 mg PO DAILY 08/08/23 08/08/23 History cyanocobalamin (vitamin B-12) 1,000 mcg PO DAILY 08/08/23 08/08/23 History 1,000 mcg tablet dapagliflozin propanediol 10 mg 10 mg PO DAILY 08/08/23 08/08/23 History tablet (Farxiga) ferrous sulfate 325 mg (65 mg 325 mg PO DAILY 08/08/23 08/08/23 History iron) tablet (FeroSul) hydrochlorothiazide 25 mg tablet 25 mg PO DAILY 08/08/23 08/08/23 History insulin aspar prot-insulin aspart 11 unit SQ BID 08/08/23 08/08/23 History 100 unit/mL (70-30) subcutaneous pen (Novolog Mix 70-30FlexPen U-100) losartan 50 mg tablet 25 mg PO DAILY 08/08/23 08/08/23 History metformin 1,000 mg tablet 1,000 mg PO BID 08/08/23 08/08/23 History omeprazole 20 mg capsule,delayed 20 mg PO DAILY 08/08/23 08/08/23 History release rivaroxaban 20 mg tablet (Xarelto) 20 mg PO QPMWITHMEAL 08/08/23 08/08/23 History New Prescriptions to Start Prescriptions: Allergies Allergy/AdvReac Type Severity Reaction Status Date / Time codeine [CODEINE] Allergy Unknown hallucinati Verified 07/28/23 13:56 ons Penicillins [PENICILLINS] Allergy Unknown Verified 07/28/23 13:56 lisinopril AdvReac Severe Cough Verified 07/28/23 13:56 Exam Data for Last 24 hours Vital signs and Labs for Last 24 Hours: Temp Pulse Resp BP Pulse Ox O2 Del Method 98.5 F 80 16 101/52 L 95 Room Air 08/08/23 16:01 08/08/23 16:01 08/08/23 16:01 08/08/23 16:01 08/08/23 14:45 08/08/23 16:01 Laboratory Results - last 24 hr 08/08/23 14:25: WBC 3.9 L, RBC 5.20, Hgb 11.6 L, Hct 36.5 L, MCV 70.3 L, MCH 22.3 L, MCHC 31.8, RDW 21.3 H, Plt Count 144, MPV 11.6 H, Neut % (Auto) 66.1, Lymph % (Auto) 23.9, [place] % (Auto) 6.1, Eos % (Auto) 2.8, Baso % (Auto) 1.1, Neut # (Auto) 2.6, Lymph # (Auto) 0.9, [place] # (Auto) 0.2, Eos # (Auto) 0.1, Baso # (Auto) 0.0, PT 11.4, INR 1.06, Sodium 135 L, Potassium 3.5, Chloride 102, Carbon Dioxide 26, Anion Gap 10.5, BUN 16, Creatinine 0.50 L, Estimated Creat Clear 48, Estimated GFR 120, Est GFR ( Amer) 145, Glucose 245 H, Calcium 9.4, Magnesium 1.3 L, Total Bilirubin 1.0, AST 36, ALT 23, Alkaline Phosphatase 52, Troponin I 0.02, Total Protein 6.9, Albumin 4.5, Globulin 2.4, Albumin/Globulin Ratio 1.9 H, TSH 0.31 L I & O for Last 24 hours: Intake & Output 08/05/23 08/06/23 08/07/23 08/08/23 23:59 23:59 23:59 23:59 Intake Total 3.583 / 3.583 Balance 3.583 / 3.583 Weight 62.624 kg Constitutional Constitutional: no acute distress *Routine HEENT Exam Head: Present normocephalic Eye: Present EOMI and PERRL ENT: Present mucous membranes moist *Routine Neck Exam Neck: Present supple; Absent lymphadenopathy *Routine Respiratory Exam Respiratory: Present CTA bilaterally *Routine Cardiovascular Exam Cardiovascular: Present RRR *Routine Abdominal Exam Abdominal: Present soft and normoactive bowel sounds; Absent tenderness *Routine Rectal Exam Rectal:: deferred *Routine Genitalia Exam Genitalia:: deferred *Routine Extremities Exam Extremities: Absent cyanosis, clubbing or edema *Routine Skin Exam Skin: Present warm; Absent rash *Routine Neurological Exam Neurological: Present alert and oriented X3 Assessment and Plan *Assessment and plan (1) Hypomagnesemia: Status: Acute Category: Medical Code(s): E83.42 - Hypomagnesemia (2) Atrial fibrillation with rapid ventricular response: Status: Acute Category: Medical Code(s): I48.91 - Unspecified atrial fibrillation (3) Diabetes type 2, controlled: Problem Comment: Will increase her insulin to 13 units of the aspartate 100 units/mL twice daily subcu. last HbA1c was done May 24 and was 9.9. We need to be a little more aggressive in her blood sugar controls. I would shoot for in this patient who is 78 years old and may have some dementia. They are to check her blood sugars on a regular basis and bring those records back to us. Status: Acute Qualifiers: Diabetes mellitus complication status: with unspecified complications Diabetes mellitus shelter insulin use: with manager terminal use Qualified Code(s): E11.8 - Type 2 diabetes mellitus with unspecified complications; Z79.4 - exterminator termite (current) use of insulin Category: Medical Code(s): E11.9 - Type 2 diabetes mellitus without complications (4) HLD (hyperlipidemia): Problem Comment: Lipid panel done February 2023 reveals a triglyceride 115, total cholesterol 120, LDL of 54, and HDL 56. Will follow this is an excellent panel. She is to continue her current therapy. Status: Chronic Qualifiers: Hyperlipidemia type: mixed hyperlipidemia Qualified Code(s): E78.2 - Mixed hyperlipidemia Category: Medical Code(s): E78.5 - Hyperlipidemia, unspecified Plan Patient is a 78-year-old female with past medical history of atrial fibrillation CAD hypertension hyperlipidemia who presented to hospital due to elevated heart rate, palpitations. Patient also has a history of diabetes mellitus. Patient otherwise denied chest pain nausea vomiting diarrhea constipation dysuria. Patient was started on Cardizem drip, cardiology was consulted from the emergency department was recommended inpatient admission. Assessment and plan A-fib with RVR Started on IV Cardizem, continue Monitor on cardiac telemetry Consult cardiology Check TSH Resume home Xarelto Insulin sliding scale Diabetic diet Hypertension Hyperlipidemia Continue statin, HCTZ DVT PPx- xarelto
[2023-08-08 18:18] LABS: Troponin I 0.08 ng/ml (0.00-0.034)
[2023-08-08] MEDS: PANTOPRAZOLE 40MG TABLET 40 MG PO (20:47)
[2023-08-08] MEDS: humaLOG MIX 75/25 3ML FLEXPEN 11 UNIT SQ (20:48)
[2023-08-08] MEDS: PATIENT'S OWN HOME MEDICATION (Metformin 1,000 mg tablet) 1000 EACH PO (20:48)
[2023-08-08 20:53] LABS: Troponin I 0.12 ng/ml (0.00-0.034)
[2023-08-08 20:56] LABS: POC Glucose,Bedside 243 (70-110)
[2023-08-09] VITALS (13 sets, daily range): BP systolic 107–136; BP diastolic 52–67; PULSE 65–113; RESP 14–25; TEMP 36.6–37.1; O2SAT 95–99; BMI 21.9
[2023-08-09 06:14] LABS: Basophils % 1.1 % (0.1-2.0); Eosinophils # 0.1 K/mm3 (0.0-0.4); Eosinophils % 3.2 % (0.1-12.0); Hematocrit 35.2 % (37.0-47.0); Hemoglobin 10.9 g/dL (12.2-16.2); Lymphocytes % 35.7 % (10-50); Mean Corpuscular Hemoglobin 22.1 pg (27.0-31.2); Mean Corpuscular Volume 71.3 fl (81-99); Mean Platelet Volume 11.4 fl (7.4-10.4); Monocytes # 0.2 K/mm3 (0.1-1.0); Monocytes % 7.2 % (1.7-9.3); Neutrophils # 1.5 K/mm3 (1.8-7.8); Neutrophils % 52.8 % (37.0-80.0); Platelet Count 116 K/mm3 (142-424); Red Blood Count 4.94 M/mm3 (4.20-5.40); Red Cell Distribution Width 21.4 % (11.5-17.5); White Blood Count 2.8 K/mm3 (4.8-10.8)
[2023-08-09 06:52] LABS: Anion Gap 9.2 mEq/L (5-15); Blood Urea Nitrogen 12 mg/dl (7-17); Calcium 8.5 mg/dl (8.4-10.2); Carbon Dioxide 28 mmol/L (22.0-30.0); Chloride 105 mmol/L (98-107); Creatinine Clearance Estimated 46 mL/min (50-200); Estimated Glomerular Filt Rate 120 ml/min (>60); GFR (African American) 145 ML/MIN (>60); Glucose 122 mg/dl (74-100); Potassium 3.2 mmoL/L (3.5-5.1); Sodium 139 mmol/L (136-145)
--- NOTE | 2023-08-09 08:19 | CA_ITS ---
APPROVED REPORT EXAM: Comprehensive 2D, Doppler, and color-flow Echocardiogram Joiner Helper: Donna Bradford CRT Ht: 5 ft 6 in Wt: 136lbs BSA: 1.70 BP: 101/52 mmHg Indications: Murmur, Atrial Fibrillation, Diabetes, Palpitations, Peripheral Edema, CAD, Hyperlipidemia, Hypertension/HDD 2D Dimensions LA Volume 90.30 mL LA Volume Index 51.90 mL/m2 (M/F) 16-34 M-Mode Dimensions RVDd 2.44 cm (0.9-2.6) LA Diam 4.35 cm (1.9-4.0) LVDd 3.78 cm (3.5-5.7) LVDs 2.61 cm (3.5-5.7) IVSd 2.68 cm (0.6-1.1) PWd 0.50 cm (0.6-1.1) EF (Teich) 59.50% FS 31.00% EDV (Teich) 61.20 mL TAPSE 1.65 (<1.7) ESV (Teich) 24.80 mL LV Diastology E Decel Time 390 (160-240 msec) E/A Ratio 9.12 MED A' 4.10 cm/s LAT A' 3.50 cm/s Aortic Valve AO Peak GR. 6.60 mmHg Mitral Valve MV A Velocity 18.0 (40-130 cm/s) E/A Ratio 9.12 Pulmonary Valve PV Peak Velocity 83.0 (50-150 cm/s) Tricuspid Valve TR P. Velocity 304.00 cm/s RAP Estimate 10.00 mmHg RVSP 46.90 mmHg Left Ventricle The left ventricle is normal size. The left ventricular systolic function is hyperdynamic. There is marked increase in LV wall thickness. IVSd is 1.5 cm. Intracavitary gradient is present. No evidence of LVOT obstruction at rest. Diastolic function is indeterminate. LVEF is 70%. Right Ventricle The right ventricle is normal size. The right ventricular systolic function is normal. Atria The left atrium is severely dilated. Right atrium is moderately dilated. There is no Doppler evidence of interatrial shunt. Aortic Valve The aortic valve is mildly thickened. There is no aortic valvular stenosis. Trace aortic regurgitation. Mitral Valve Severe mitral annular calcification. The mitral valve leaflets are mildly thickened. There is systolic anterior motion (SILVESTRE) of the MV leaflets. Intermittent septal contact is present. Mild mitral stenosis. Mean MV gradient 6 mmHg (72 bpm). Mild mitral regurgitation. Tricuspid Valve The tricuspid valve leaflets are thin and pliable. Mild tricuspid regurgitation. RVSP is normal. Pulmonic Valve The pulmonary valve is normal in structure. Trace pulmonic regurgitation. Great Vessels The aortic root is normal in size. The ascending aorta is normal in size. IVC is normal in size and collapses >50% with inspiration. Pericardium There is no pericardial effusion. Other Information Study Quality: Fair Conclusion Hyperdynamic LV systolic funcion (LVEF 70%). Marked increase in LV wall thickness. IVSd is 1.5 cm. Intracavitary gradient is present. No evidence of LVOT obstruction at rest. Biatrial dilation. SILVESTRE of the MV leaflets, intermittent septal contact. Severe MAC. Mild MS (mean MV gradient 6 mmHg at HR 72 bpm). Mild TR. In the setting of marked increase in LV wall thickness, intracavitary gradient, and SILVESTRE, further evaluation with outpatient cardiac MRI (HCM protocol) is recommended. Electronically signed by : Denise Lu MD 08/09/2023 12:42:51
[2023-08-09] MEDS: dilTIAZem 25MG/5ML VIAL 15 MG IV (08:32)
[2023-08-09] MEDS: IRBESARTAN 75MG TABLET 37.5 MG PO (08:36)
[2023-08-09] MEDS: ATORVASTATIN 10MG TABLET 10 MG PO (08:37)
[2023-08-09] MEDS: DAPAGLIFLOZIN PROPANEDIOL 10 MG TABLET PO (08:37)
[2023-08-09] MEDS: FERROUS SULFATE 325MG TABLET 325 MG PO (08:37)
[2023-08-09] MEDS: hydroCHLOROthiazide 25MG TABLET 25 MG PO (08:37)
[2023-08-09] MEDS: METFORMIN 500MG TABLET 1000 MG PO (08:37)
[2023-08-09] MEDS: RIVAROXABAN 10MG TABLET 20 MG PO (08:38)
[2023-08-09] MEDS: humaLOG MIX 75/25 3ML FLEXPEN 11 UNIT SQ (08:39)
--- NOTE | 2023-08-09 09:02 | [facility].PTEV ---
Physical Therapy Evaluation Rehab PT IP Evaluation Start: 08/09/23 07:53 Freq: ONCE Status: Active Protocol: Document 08/09/23 08:52 LALY (Rec: 08/09/23 08:57 LALY [id number]) Subjective/History History History Per H&P: Patient is a 78-year-old female with past medical history of atrial fibrillation CAD hypertension hyperlipidemia who presented to hospital due to elevated heart rate, palpitations. Patient also has a history of diabetes mellitus. Patient otherwise denied chest pain nausea vomiting diarrhea constipation dysuria. Patient was started on Cardizem drip, cardiology was consulted from the emergency department was recommended inpatient admission. Subjective Subjective PLOF per pt report: Lives in a mobile home next to her sister. Denies falls in past 30 days. IND with mobility with use of cane and RW. Not driving prior to admission. New diagnosis of cancer in past 12 No months? Rehab PT IP Eval Objective Appearance Patient Behavior Appropriate,Cooperative Patient Orientation Person,Birthday Difficulty following instructions none Speech Pattern Clear Ambulation Patient Able to Ambulate Yes Ambulation Observation IP General Gait Pattern Observation Antalgic Gait Ambulation Distance (feet) 15 Ambulation Assistive Device Rolling Walker Ambulation Ability Supervision/Stand by,Contact Guard/Hand Hold Balance Ability to Arise Able, uses arms to help Sitting Balance Steady, safe Standing Balance Steady, wide stance Dynamic Sitting Balance Ability Good Transfers Bed Transfer Ability Contact Guard/Hand Hold Sit to Stand Bed Transfer Ability Contact Guard/Hand Hold Rehab PT IP prob,goals,plan Problems Date of Evaluation: 08/09/23 PT IP Problems Transfers,Gait,Balance,Self care,Safety Rehab Potential Rehab Potential Good Equipment Needs Assistive Devices Rolling / Wheeled Walker Plan PT Intervention Plan Transfers,Gait,Balance,Safety, Therapeutic Exercise Other Intervention Plan 1-2 times PT Plan Frequency Daily Duration LOS Discharge Goals Bed Transfer Ability Independent Sit to Stand Chair Transfer Ability Independent Ambulation Assistive Device Rolling Walker Ambulation Distance (feet) 30 Discharge Plan PT Discharge Plan Pt presents below baseline in functional mobility, strength, endurance, and gait. Pt would benefit from skilled acute care PT to address deficits and prevent further functional decline. Pt safe to d/c home when deemed medically necessary d/t current level of mobility, family support, and home set-up. PT recommending PT services upon d/c from [facility]. Eval Complexity Eval Charge Codes 21916 - Moderate Complexity PHYSICIAN CERTIFICATION: I certify the specified therapy services for Melissa D Kelly are required, authorized, and reviewed every 30 days.
[2023-08-09] MEDS: POTASSIUM CHLORIDE 20MEQ TAB 20 MEQ PO ×2 (09:30→12:15)
[2023-08-09] MEDS: dilTIAZem HCL 100 MG in 0.9 % SODIUM CHLORIDE 100 ML 10 MG IV (09:32)
--- NOTE | 2023-08-09 09:59 | EXP.CARD.CON ---
History of Present Illness History of Present Illness Consult date: 08/09/23 Requesting physician: Maryse Lock Consult reason: atrial fibrillation Chief complaint: A. fib with RVR Additional Medical History:: 1. History of hepatitis C A. Status post treatment in 2018 through [facility]. 2. Hypertension A. Echocardiogram, 01/2019, mild concentric LVH, EF 55% with no regional WMA. Diastolic dysfunction noted. Mild RV enlargement. Aortic calcification without stenosis. 3. History of patent foramen ovale A. LAYLA, 2016, left to right shunt. No evidence of right to left shunt. EF 55% with minimally thickened and fibrosed aortic valve and mitral annular calcification without stenosis noted. 4. Type 2 diabetes mellitus, treated for at least 20 years 5. History of tobacco use discontinued after 50 years 6. GERD A. EGD, Dr. Rajput, 2018, cricopharyngeal spasm with nonerosive GERD. Chronic type a gastritis 7. Diverticulosis A. Colonoscopy, 2018, Dr. Rajput, 9 colonic polyps, left-sided diverticulosis, grade 1 internal hemorrhoids. 8. History of atrial fibrillation A. Xarelto therapy B. 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 Holter monitor, 2022, sinus rhythm with PACs/PVCs, runs of SVT. 9. History of colonic mass/cancer, 2018 A. Temporary colostomy status post reversal in 2018 B. Colonoscopy through stoma and rectal, Dr. Rajput, 2018, normal C. Colonoscopy, Dr. Rajput, 2020, diminutive descending colon polyp, left-sided diverticulosis. Grade 1-2 internal hemorrhoids. 10. History of DVT A. Chronic anticoagulation 11. History of SC perioperatively around colon surgery for colon cancer A. Reported cardiac cath at that time in 2018 with no need for stenting per patient B. Lexiscan Myoview, 12/2022, no definite evidence of fixed or reversible defects. EF 66%. 12. ROCÍO A. Carotid ultrasoun, 2018, less than 20% ICA stenosis bilaterally. 13. PAD A. GUANACO showing concern for left-sided PAD, 2022 14. Iron deficiency anemia, 2023 A. Heme-onc evaluation by Dr. Lafleur felt related to chronic anticoagulation use with low-grade blood loss through the bowels. Treated with chronic iron supplementation. 15. Abnormal EKG with septal infarct noted dating back to 2019 History of present illness: 78-year-old white female sent to the ER from physical therapy due to high heart rate yesterday. Previous history of A-fib noted for which she is on chronic Xarelto therapy. Patient noted to be in A-fib for which she had no idea how long she has been in it. She was started on IV Cardizem for rate control. She denies any chest pain, pressure or tightness. She is actually concerned about going home today. Troponins are increasing from 0.02-0.08 and then 0.12 EKG from the ER shows atrial fibrillation at a rate of 151 bpm, no acute ST segment changes. Compared to 2022 tracing no significant change except heart rate. Septal infarct noted on both EKGs. This a.m. patient sitting in bed in no acute distress. Heart rate is around 100-110 bpm on diltiazem drip. [facility] Disclaimer: The information contained in this section may have been updated after the patient was seen, as this information can be updated by other users. Medical History (Updated 08/09/23 @ 10:37 by CHERELLE Stone) Claudication Bilateral leg weakness Macular degeneration Abnormal EKG Dyspnea Recurrent falls Atrial fibrillation HLD (hyperlipidemia) Carotid artery stenosis Osteoporosis Surgical History History of appendectomy History of bowel resection Family History (Updated 08/08/23 @ 18:14 by Parul Ramos RN) Other COPD exacerbation Social History Smoking Status: Former smoker tobacco type: cigarettes packs per day: 1 years smoked: 50 smoking status stop date: 2015 second hand exposure: No alcohol intake: former counseling provided: none substance use type: marijuana current occupational status: retired Travel in the last 8 weeks: None household members: none housing: house marital status: current occupational exposures/hazards: No caffeine: No Review of Systems Review of Systems Review of systems:: pertinent systems reviewed and negative unless documented below *Cardiovascular Cardiovascular: Denies chest pain and Reports dyspnea on exertion *Respiratory Respiratory: Reports dyspnea on exertion Exam Data for Last 24 hours Vital signs and Labs for Last 24 Hours: Temp Pulse Resp BP Pulse Ox O2 Del Method 97.9 F 92 H 20 129/56 L 96 Room Air 08/09/23 08:00 08/09/23 08:00 08/09/23 08:00 08/09/23 08:00 08/09/23 08:00 08/09/23 09:00 Laboratory Results - last 24 hr 08/08/23 14:25: WBC 3.9 L, RBC 5.20, Hgb 11.6 L, Hct 36.5 L, MCV 70.3 L, MCH 22.3 L, MCHC 31.8, RDW 21.3 H, Plt Count 144, MPV 11.6 H, Neut % (Auto) 66.1, Lymph % (Auto) 23.9, [place] % (Auto) 6.1, Eos % (Auto) 2.8, Baso % (Auto) 1.1, Neut # (Auto) 2.6, Lymph # (Auto) 0.9, [place] # (Auto) 0.2, Eos # (Auto) 0.1, Baso # (Auto) 0.0, PT 11.4, INR 1.06, Sodium 135 L, Potassium 3.5, Chloride 102, Carbon Dioxide 26, Anion Gap 10.5, BUN 16, Creatinine 0.50 L, Estimated Creat Clear 48, Estimated GFR 120, Est GFR ( Amer) 145, Glucose 245 H, Calcium 9.4, Magnesium 1.3 L, Total Bilirubin 1.0, AST 36, ALT 23, Alkaline Phosphatase 52, Troponin I 0.02, Total Protein 6.9, Albumin 4.5, Globulin 2.4, Albumin/Globulin Ratio 1.9 H, TSH 0.31 L 08/08/23 17:30: Troponin I 0.08 H 08/08/23 20:15: Troponin I 0.12 H 08/08/23 20:45: POC Glucose 243 H 08/09/23 05:54: WBC 2.8 L D, RBC 4.94, Hgb 10.9 L, Hct 35.2 L, MCV 71.3 L, MCH 22.1 L, MCHC 31.0 L, RDW 21.4 H, Plt Count 116 L, MPV 11.4 H, Neut % (Auto) 52.8, Lymph % (Auto) 35.7, [place] % (Auto) 7.2, Eos % (Auto) 3.2, Baso % (Auto) 1.1, Neut # (Auto) 1.5 L, Lymph # (Auto) 1.0, [place] # (Auto) 0.2, Eos # (Auto) 0.1, Baso # (Auto) 0.0, Sodium 139, Potassium 3.2 L, Chloride 105, Carbon Dioxide 28, Anion Gap 9.2, BUN 12, Creatinine 0.50 L, Estimated Creat Clear 46, Estimated GFR 120, Est GFR ( Amer) 145, Glucose 122 H D, Calcium 8.5 I & O for Last 24 hours: Intake & Output 08/06/23 08/07/23 08/08/23 08/09/23 11:59 11:59 11:59 11:59 Intake Total 1328.500 / 1328.500 Output Total 2300 / 2300 Balance -971.500 / -971.500 Weight 136 lb 6.4 oz Constitutional Constitutional: no acute distress *Routine Respiratory Exam Respiratory: Present CTA bilaterally *Routine Cardiovascular Exam Cardiovascular: Present murmur and tachycardia; Absent gallop or rubs *Routine Extremities Exam Extremities: Absent cyanosis, clubbing or edema *Routine Neurological Exam Neurological: Present alert, oriented X3 and CN II-XII intact Meds Home Medications and Allergies Home Medications Medication Instructions Recorded Confirmed Type alendronate 10 mg tablet 5 mg PO DAILY 08/08/23 08/08/23 History atorvastatin 10 mg tablet 10 mg PO DAILY 08/08/23 08/08/23 History cyanocobalamin (vitamin B-12) 1,000 mcg PO DAILY 08/08/23 08/08/23 History 1,000 mcg tablet dapagliflozin propanediol 10 mg 10 mg PO DAILY 08/08/23 08/08/23 History tablet (Farxiga) ferrous sulfate 325 mg (65 mg 325 mg PO DAILY 08/08/23 08/08/23 History iron) tablet (FeroSul) hydrochlorothiazide 25 mg tablet 25 mg PO DAILY 08/08/23 08/08/23 History insulin aspar prot-insulin aspart 11 unit SQ BID 08/08/23 08/08/23 History 100 unit/mL (70-30) subcutaneous pen (Novolog Mix 70-30FlexPen U-100) losartan 50 mg tablet 25 mg PO DAILY 08/08/23 08/08/23 History metformin 1,000 mg tablet 1,000 mg PO BID 08/08/23 08/08/23 History omeprazole 20 mg capsule,delayed 20 mg PO DAILY 08/08/23 08/08/23 History release rivaroxaban 20 mg tablet (Xarelto) 20 mg PO QPMWITHMEAL 08/08/23 08/08/23 History New Prescriptions to Start Prescriptions: Allergies Allergy/AdvReac Type Severity Reaction Status Date / Time codeine [CODEINE] Allergy Unknown hallucinati Verified 07/28/23 13:56 ons Penicillins [PENICILLINS] Allergy Unknown Verified 07/28/23 13:56 lisinopril AdvReac Severe Cough Verified 07/28/23 13:56 Assessment and Plan *Assessment and plan (1) Atrial fibrillation with rapid ventricular response: Status: Acute Category: Medical Code(s): I48.91 - Unspecified atrial fibrillation (2) Iron deficiency anemia due to chronic blood loss: Problem Comment: Patient did have a low ferritin when last checked. B12 and folate have not been checked recently but she is on B12 supplementation. She is on ferrous sulfate at 325 mg/day. Will check a CBC today. Status: Acute Category: Medical Code(s): D50.0 - Iron deficiency anemia secondary to blood loss (chronic) (3) Hypomagnesemia: Status: Acute Category: Medical Code(s): E83.42 - Hypomagnesemia (4) Hypokalemia: Status: Acute Category: Medical Code(s): E87.6 - Hypokalemia (5) Microcytic anemia: Status: Acute Category: Medical Code(s): D50.9 - Iron deficiency anemia, unspecified (6) History of colon cancer: Problem Comment: Patient was getting yearly colonoscopies. We had meant to send her to GI back in May. Apparently this has not been done. Will double check this referral. Status: Acute Category: Medical Code(s): Z85.038 - Personal history of other malignant neoplasm of large intestine (7) Diabetes type 2, controlled: Problem Comment: Will increase her insulin to 13 units of the aspartate 100 units/mL twice daily subcu. last HbA1c was done May 24 and was 9.9. We need to be a little more aggressive in her blood sugar controls. I would shoot for in this patient who is 78 years old and may have some dementia. They are to check her blood sugars on a regular basis and bring those records back to us. Status: Acute Qualifiers: Diabetes mellitus complication status: with unspecified complications Diabetes mellitus intermediate school teacher insulin use: with chcf use Qualified Code(s): E11.8 - Type 2 diabetes mellitus with unspecified complications; Z79.4 - termite control representative (current) use of insulin Category: Medical Code(s): E11.9 - Type 2 diabetes mellitus without complications (8) Coronary artery calcification seen on CAT scan: Problem Comment: Being followed by cardiology. Status: Chronic Category: Medical Code(s): I25.10 - Atherosclerotic heart disease of [place] coronary artery without angina pectoris (9) Mitral valve annular calcification: Status: Chronic Category: Medical Code(s): I05.9 - Rheumatic mitral valve disease, unspecified (10) Ex-smoker: Status: Acute Category: Social Hx Code(s): Z87.891 - Personal history of nicotine dependence (11) Hyperthyroidism: Status: Acute Category: Medical Code(s): E05.90 - Thyrotoxicosis, unspecified without thyrotoxic crisis or storm Plan 1. A. fib with RVR -improved on IV diltiazem -continue Xarelto 2. Elevated troponins -likely due to A. fib -check echo for wall motion abnormalities -recent deirdre myoview (11/2022) shows no ischemia with normal EF 3. Chronic anemia, iron deficiency, with Hgb around 10-11 -on iron replacement 4. DM, type 2 -defer to hospitalist -Hgb A1C 8.7 5. Hypokalemia and hypomagnesemia -replacement in progress 6. Hyperthyroidism -TSH 0.31 -check thyroid ultrasound Echo shows hyperdynamic EF of greater than 70% with marked increase in LV wall thickness with interventricular septal measurement in diastole 1.5 cm. Intracavitary gradient is present but no evidence of LVOT obstruction noted. Biatrial enlargement with systolic anterior motion of the mitral valve leaflets noted intermittently with septal contact. Severe mitral annular calcification noted with mild mitral stenosis. Mild TR noted. Continue with rate control with plans to switch to oral ditiazem today and possibly home in the next 24 hours. If she doesn't convert on her own then consider outpatient LAYLA/Cardioversion in the future. Continue Xarelto Planned home meds: Diltiazem CD 240 mg daily Xarelto 20 mg daily Atorvastatin 10 mg daily Farxiga 10 mg daily Losartan 25 mg daily HCTZ 25 mg daily Follow-up in our office in 1 week.
--- NOTE | 2023-08-09 10:35 | HMH.OTEV ---
OT Inpatient Evaluation Rehab OT IP Evaluation Start: 08/09/23 07:53 Freq: ONCE Status: Active Protocol: Document 08/09/23 10:05 MARLEN (Rec: 08/09/23 10: MARLEN [id number]) Rehab OT IP Assessment Subjective History Pt was admitted to this facility on 08/08/2023. Patient is a 78-year-old female with past medical history of atrial fibrillation CAD hypertension hyperlipidemia who presented to hospital due to elevated heart rate, palpitations. Patient also has a history of diabetes mellitus. Patient otherwise denied chest pain nausea vomiting diarrhea constipation dysuria. Patient was started on Cardizem drip, cardiology was consulted from the emergency department was recommended inpatient admission. PLOF: Pt lives in a mobile home with one step to enter home. Pt lives alone, but her sister lives within 20 feet from her and pt has a helper that comes 3 days a week from 9 AM-4PM. Pt was independent in all ADLs prior to being admitted. Pt has a helper to help assist in completing IADLs, home management and community mobility, along with sister. Pt states they have a standard walker and mx canes at their home and have been using them for the past month. Subjective I'm ready to go home. Pt was supine in bed when therapy entered room. Pt was agreeable to participate in initial therapy evaluation this morning. Pt was oriented x3. Pt agreed to move to EOB. Pt was able to go from supine to EOB with SBA. Pt was able to hold static sitting balance ~1 minute with SBA. Pt then completed a sit to stand transfer with walker, CGA. Pt then completed a functional mobility task of ~175 feet with walker, CGA. Therapist provided safety cues and education when using walker due to pt's use of walker. Pt was then able to sit back down EOB with walker, SBA. Pt then went from EOB to supine in bed with SBA. Pt was left with call light and all other needs within reach. Pt's sister was also present for last 4 minutes of evaluation. Objective Patient Orientation Person,Place,Age Right Upper Extremity Gross ROM WFL Left Upper Extremity Gross ROM WFL Bed Mobility bed mobility-scooting,bed mobility - supine/sit Assist Level Supervision/Stand by Transfer Training Sit/Stand Transfer Assist Level Contact Guard/Hand Hold Rehab OT IP prob,goals,plan Problems Date of Evaluation: 08/09/23 OT IP Problems Bed Mobility,Transfers,Balance ,Self care,Safety Rehab Potential Rehab Potential Good Equipment Needs Assistive Devices Straight Cane,Standard Walker, Rolling / Wheeled Walker Plan OT intervention Plan Bed Mobility,Transfers,Balance ,Self care,Safety,Therapeutic Exercise OT Plan Frequency Daily Duration LOS Discharge Goals Bed Mobility Ability Standby Assistance Sit to Stand Chair Transfer Ability Supervision/Stand by Discharge Plan OT Discharge Plan It is recommended at this time that pt can be discharged to home with home health services pending medical status and doctors orders. Pt will continue to be seen while at this facility to benefit from skilled OT services for length of stay. Eval Complexity Eval Charge Codes 12215 - Low Complexity PHYSICIAN CERTIFICATION: I certify the specified therapy services for Melissa Mendoza are required, authorized, and reviewed every 30 days.
--- NOTE | 2023-08-09 10:39 | US_ITS ---
FINAL REPORT TECHNIQUE: Limited sonographic images of the thyroid were obtained. CLINICAL HISTORY: Hyperthyroidism, A. fib with RVR FINDINGS: The right lobe of the thyroid measures 4.5 x 1.8 x 2.1 cm. The left lobe of the thyroid measures 3.7 x 1.6 x 1.1 cm. Multiple bilateral thyroid nodules are identified, the majority are subcentimeter. There is a cystic, solid nodule in the right lobe measuring 1.3 cm consistent with TI-RADS category 3. There is a 2nd nodule in the right mid thyroid lobe measuring 1.4 cm consistent with TI-RADS category 4. The isthmus measures 4 mm. IMPRESSION: Multinodular goiter as detailed above. Recommend follow-up in 1 year. Reviewed, Interpreted and Dictated by Isidro Garcia MD Transcribed by Miya Shaffer Authenticated and [facility]
[2023-08-09 10:54] LABS: Troponin I 0.09 ng/ml (0.00-0.034)
[2023-08-09 10:57] LABS: POC Glucose,Bedside 174 (70-110)
--- NOTE | 2023-08-09 12:15 | SW/DCPLANNER ---
Addendum entered by Nati Lu 08/10/23 08:13: Desiree w/ [facility] stated that services will resume for this patient. Addendum entered by Nati Lu 08/09/23 15:51: Patient information/order has been faxed to [facility]. Original Note: I spoke w/ patient, family and caregiver this AM regarding plans at time of discharge. PT evaluated patient and recommended home w/ home health services. Patient is agreeable to home health and prefers to use [facility]. I will set up home health services at time of discharge. Patient may discharge home later this afternoon.
[2023-08-09] MEDS: dilTIAZem ER 120MG CAPSULE 120 MG PO (12:16)
--- NOTE | 2023-08-09 14:29 | P.DS_ITS ---
General Admission date:: 08/08/23 Discharge date: 08/09/23 HPI HPI HPI: Patient is a 78-year-old female with past medical history of atrial fibrillation CAD hypertension hyperlipidemia who presented to hospital due to elevated heart rate, palpitations. Patient also has a history of diabetes mellitus. Patient otherwise denied chest pain nausea vomiting diarrhea constipation dysuria. Patient was started on Cardizem drip, cardiology was consulted from the emergency department was recommended inpatient admission. Hospital Course Hospital Course Hospital Course: Patient is a 78-year-old female with past medical history of atrial fibrillation CAD hypertension hyperlipidemia who presented to hospital due to elevated heart rate, palpitations. Patient also has a history of diabetes mellitus. Patient otherwise denied chest pain nausea vomiting diarrhea constipation dysuria. Patient was started on Cardizem drip, cardiology was consulted from the emergency department was recommended inpatient admission. Patient did well with improvement in heart rate. Transitioned to oral diltiazem. Patient remains asymptomatic. Given clinical stability, will discharge home to continue outpatient therapy with close follow-up with cardiology. Problems addressed as follows: A. fib with RVR -Admitted for A-fib with RVR. Heart rate improved with diltiazem drip. Transition to oral diltiazem. Will continue 240 mg orally once daily. Continue Xarelto on discharge. Asymptomatic, does not feel her heart rate when it is abnormal. Denies any PVCs or palpitations. Stable on room air Elevated troponins -likely due to A. fib. Echo obtained with no wall motion abnormalities. Echo does show EF greater than 70% with marked increase in LV wall thickness. Mild mitral stenosis. Recent myoview (11/2022) shows no ischemia with normal EF Chronic anemia, iron deficiency, with Hgb around 10-11, On iron replacement DM, type 2 -A1c 8.7. Given patient's age and comorbidities, goal of less than 8. Continue treatment with Farxiga 10 mg daily and home 70/30 combo 11 units twice daily. And metformin at 1000 mg twice daily. Defer further adjustment to PCP as outpatient. Hyperthyroidism: TSH 0.31. No treatment needed at this time. Extensive discussion with patient and sister on day of discharge about medical surrogacy and power of tax associate attorney. Discussed goals of care. Patient has cognitive impairment and early signs of dementia with memory loss. Expressed concern about her need to have surrogate decision maker in the future. She states she has a living will. Does not appear to have medical or financial POA however. Encouraged him to consider putting these in place and having conversations about these over the next couple weeks to months. Patient and sister stated understanding. Total time spent on discharge 35 minutes in counseling, documentation, chart review, and direct care with patient. Exam Data for Last 24 hours Vital signs and Labs for Last 24 Hours: Temp Pulse Resp BP Pulse Ox O2 Del Method 98.8 F 113 H 18 110/52 L 97 Room Air 08/09/23 13:00 08/09/23 14:00 08/09/23 14:00 08/09/23 14:00 08/09/23 14:00 08/09/23 14:00 Laboratory Results - last 24 hr 08/08/23 14:25: WBC 3.9 L, RBC 5.20, Hgb 11.6 L, Hct 36.5 L, MCV 70.3 L, MCH 22.3 L, MCHC 31.8, RDW 21.3 H, Plt Count 144, MPV 11.6 H, Neut % (Auto) 66.1, Lymph % (Auto) 23.9, [place] % (Auto) 6.1, Eos % (Auto) 2.8, Baso % (Auto) 1.1, Neut # (Auto) 2.6, Lymph # (Auto) 0.9, [place] # (Auto) 0.2, Eos # (Auto) 0.1, Baso # (Auto) 0.0, PT 11.4, INR 1.06, Sodium 135 L, Potassium 3.5, Chloride 102, Carbon Dioxide 26, Anion Gap 10.5, BUN 16, Creatinine 0.50 L, Estimated Creat Clear 48, Estimated GFR 120, Est GFR ( Amer) 145, Glucose 245 H, Calcium 9.4, Magnesium 1.3 L, Total Bilirubin 1.0, AST 36, ALT 23, Alkaline Phosphatase 52, Troponin I 0.02, Total Protein 6.9, Albumin 4.5, Globulin 2.4, Albumin/Globulin Ratio 1.9 H, TSH 0.31 L 08/08/23 17:30: Troponin I 0.08 H 08/08/23 20:15: Troponin I 0.12 H 08/08/23 20:45: POC Glucose 243 H 08/09/23 05:54: WBC 2.8 L D, RBC 4.94, Hgb 10.9 L, Hct 35.2 L, MCV 71.3 L, MCH 22.1 L, MCHC 31.0 L, RDW 21.4 H, Plt Count 116 L, MPV 11.4 H, Neut % (Auto) 52.8, Lymph % (Auto) 35.7, [place] % (Auto) 7.2, Eos % (Auto) 3.2, Baso % (Auto) 1.1, Neut # (Auto) 1.5 L, Lymph # (Auto) 1.0, [place] # (Auto) 0.2, Eos # (Auto) 0.1, Baso # (Auto) 0.0, Sodium 139, Potassium 3.2 L, Chloride 105, Carbon Dioxide 28, Anion Gap 9.2, BUN 12, Creatinine 0.50 L, Estimated Creat Clear 46, Estimated GFR 120, Est GFR ( Amer) 145, Glucose 122 H D, Calcium 8.5, Troponin I 0.09 H 08/09/23 10:46: POC Glucose 174 H I & O for Last 24 hours: Intake & Output 08/06/23 08/07/23 08/08/23 08/09/23 23:59 23:59 23:59 23:59 Intake Total 223.583 / 806.186 2777.250 / 1377.250 Output Total 1400 / 1400 1700 / 1700 Balance -1176.417 / -1176.417 -322.750 / -322.750 Weight 62.624 kg 61.87 kg Constitutional Constitutional: no acute distress, average body habitus and chronically ill appearing *Routine HEENT Exam Head: Present normocephalic Eye: Present EOMI and PERRL ENT: Present mucous membranes moist *Routine Neck Exam Neck: Present supple; Absent lymphadenopathy *Routine Respiratory Exam Respiratory: Present CTA bilaterally; Absent rhonchi *Routine Cardiovascular Exam Cardiovascular: Present RRR *Routine Abdominal Exam Abdominal: Present soft and normoactive bowel sounds; Absent tenderness *Routine Rectal Exam Patient deferred: visual exam *Routine Exam Patient deferred: external exam *Routine Extremities Exam Extremities: Absent cyanosis, clubbing or edema *Routine Skin Exam Skin: Present warm; Absent rash *Routine Neurological Exam Neurological: Present alert; Absent altered mental status Comments: Oriented to self and place. Results Data Completed and Pending Labs on day of discharge: Labs from last 24 hours 08/09/23 08/09/23 08/08/23 10:46 05:54 20:45 WBC 2.8 L D RBC 4.94 Hgb 10.9 L Hct 35.2 L MCV 71.3 L MCH 22.1 L MCHC 31.0 L RDW 21.4 H Plt Count 116 L MPV 11.4 H Neut % (Auto) 52.8 Lymph % (Auto) 35.7 [place] % (Auto) 7.2 Eos % (Auto) 3.2 Baso % (Auto) 1.1 Neut # (Auto) 1.5 L Lymph # (Auto) 1.0 [place] # (Auto) 0.2 Eos # (Auto) 0.1 Baso # (Auto) 0.0 PT INR Sodium 139 Potassium 3.2 L Chloride 105 Carbon Dioxide 28 Anion Gap 9.2 BUN 12 Creatinine 0.50 L Estimated Creat Clear 46 Estimated GFR 120 Est GFR ( Amer) 145 Glucose 122 H D POC Glucose 174 H 243 H Calcium 8.5 Magnesium Total Bilirubin AST ALT Alkaline Phosphatase Troponin I 0.09 H Total Protein Albumin Globulin Albumin/Globulin Ratio TSH 08/08/23 08/08/23 08/08/23 20:15 17:30 14:25 WBC 3.9 L RBC 5.20 Hgb 11.6 L Hct 36.5 L MCV 70.3 L MCH 22.3 L MCHC 31.8 RDW 21.3 H Plt Count 144 MPV 11.6 H Neut % (Auto) 66.1 Lymph % (Auto) 23.9 [place] % (Auto) 6.1 Eos % (Auto) 2.8 Baso % (Auto) 1.1 Neut # (Auto) 2.6 Lymph # (Auto) 0.9 [place] # (Auto) 0.2 Eos # (Auto) 0.1 Baso # (Auto) 0.0 PT 11.4 INR 1.06 Sodium 135 L Potassium 3.5 Chloride 102 Carbon Dioxide 26 Anion Gap 10.5 BUN 16 Creatinine 0.50 L Estimated Creat Clear 48 Estimated GFR 120 Est GFR ( Amer) 145 Glucose 245 H POC Glucose Calcium 9.4 Magnesium 1.3 L Total Bilirubin 1.0 AST 36 ALT 23 Alkaline Phosphatase 52 Troponin I 0.12 H 0.08 H 0.02 Total Protein 6.9 Albumin 4.5 Globulin 2.4 Albumin/Globulin Ratio 1.9 H TSH 0.31 L DS: Diagnosis Discharge Diagnosis (1) Atrial fibrillation with rapid ventricular response: Status: Acute Code(s): I48.91 - Unspecified atrial fibrillation (2) Iron deficiency anemia due to chronic blood loss: Status: Acute Code(s): D50.0 - Iron deficiency anemia secondary to blood loss (chronic) Problem details: Patient did have a low ferritin when last checked. B12 and folate have not been checked recently but she is on B12 supplementation. She is on ferrous sulfate at 325 mg/day. Will check a CBC today. (3) Hypomagnesemia: Status: Acute Code(s): E83.42 - Hypomagnesemia (4) Hypokalemia: Status: Acute Code(s): E87.6 - Hypokalemia (5) Microcytic anemia: Status: Acute Code(s): D50.9 - Iron deficiency anemia, unspecified (6) History of colon cancer: Status: Acute Code(s): Z85.038 - Personal history of other malignant neoplasm of large intestine Problem details: Patient was getting yearly colonoscopies. We had meant to send her to GI back in May. Apparently this has not been done. Will double check this referral. (7) Diabetes type 2, controlled: Status: Acute Code(s): E11.9 - Type 2 diabetes mellitus without complications Qualifiers: Diabetes mellitus complication status: with unspecified complications Diabetes mellitus tank terminal gauger insulin use: with residential use Qualified Code(s): E11.8 - Type 2 diabetes mellitus with unspecified complications; Z79.4 - terminal computer operator (current) use of insulin Problem details: Will increase her insulin to 13 units of the aspartate 100 units/mL twice daily subcu. last HbA1c was done May 24 and was 9.9. We need to be a little more aggressive in her blood sugar controls. I would shoot for in this patient who is 78 years old and may have some dementia. They are to check her blood sugars on a regular basis and bring those records back to us. (8) Coronary artery calcification seen on CAT scan: Status: Chronic Code(s): I25.10 - Atherosclerotic heart disease of [place] coronary artery without angina pectoris Problem details: Being followed by cardiology. (9) Mitral valve annular calcification: Status: Chronic Code(s): I05.9 - Rheumatic mitral valve disease, unspecified (10) Ex-smoker: Status: Acute Code(s): Z87.891 - Personal history of nicotine dependence (11) Hyperthyroidism: Status: Acute Code(s): E05.90 - Thyrotoxicosis, unspecified without thyrotoxic crisis or storm Meds Home Medications and Allergies Home Medications Medication Instructions Recorded Confirmed Type alendronate 10 mg tablet 5 mg PO DAILY 08/08/23 08/08/23 History atorvastatin 10 mg tablet 10 mg PO DAILY 08/08/23 08/08/23 History cyanocobalamin (vitamin B-12) 1,000 mcg PO DAILY 08/08/23 08/08/23 History 1,000 mcg tablet dapagliflozin propanediol 10 mg 10 mg PO DAILY 08/08/23 08/08/23 History tablet (Farxiga) ferrous sulfate 325 mg (65 mg 325 mg PO DAILY 08/08/23 08/08/23 History iron) tablet (FeroSul) hydrochlorothiazide 25 mg tablet 25 mg PO DAILY 08/08/23 08/08/23 History insulin aspar prot-insulin aspart 11 unit SQ BID 08/08/23 08/08/23 History 100 unit/mL (70-30) subcutaneous pen (Novolog Mix 70-30FlexPen U-100) losartan 50 mg tablet 25 mg PO DAILY 08/08/23 08/08/23 History metformin 1,000 mg tablet 1,000 mg PO BID 08/08/23 08/08/23 History omeprazole 20 mg capsule,delayed 20 mg PO DAILY 08/08/23 08/08/23 History release rivaroxaban 20 mg tablet (Xarelto) 20 mg PO QPMWITHMEAL 08/08/23 08/08/23 History diltiazem HCl 240 mg 240 mg PO DAILY 30 days #30 caps 08/09/23 Rx capsule,extended release 24 hr New Prescriptions to Start Prescriptions: diltiazem HCl Liam Horne Allergies Allergy/AdvReac Type Severity Reaction Status Date / Time codeine [CODEINE] Allergy Unknown hallucinati Verified 07/28/23 13:56 ons Penicillins [PENICILLINS] Allergy Unknown Verified 07/28/23 13:56 lisinopril AdvReac Severe Cough Verified 07/28/23 13:56 Discharge Plan Disposition Patient Disposition: Home Health Service Condition: Fair Discharge Order Discharge Orders: Discharge Order (Routine); Ordered 08/09/23 Ordered By: Liam Horne Follow up Plan Follow up with: Kiko Gaines DO [Primary Care Provider] - 08/16/23 11:30 am Chad Ponce MD [Staff Physician] - 08/17/23 2:30 pm Prescriptions/Medication Reconciliation: New diltiazem HCl 240 mg capsule,extended release 24hr 240 mg PO DAILY 30 Days Qty: 30 0RF Continued losartan 50 mg tablet 25 mg PO DAILY Patient Comments: TAKE 1/2 TABLET BY MOUTH ONCE DAILY FOR HYPERTENSION alendronate 10 mg tablet 5 mg PO DAILY Patient Comments: TAKE 1/2 TABLET BY MOUTH EVERY DAY atorvastatin 10 mg tablet 10 mg PO DAILY Patient Comments: TAKE 1 TABLET BY MOUTH DAILY FOR CHOLESTEROL cyanocobalamin (vitamin B-12) 1,000 mcg tablet 1,000 mcg PO DAILY Patient Comments: TAKE ONE TABLET BY MOUTH EVERY DAY ferrous sulfate [FeroSul] 325 mg (65 mg iron) tablet 325 mg PO DAILY Patient Comments: TAKE 1 TABLET BY MOUTH EVERY DAY metformin 1,000 mg tablet 1,000 mg PO BID Patient Comments: TAKE ONE TABLET BY MOUTH TWICE DAILY omeprazole 20 mg capsule,delayed release(DR/EC) 20 mg PO DAILY Patient Comments: TAKE 1 CAPSULE BY MOUTH DAILY FOR GERD hydrochlorothiazide 25 mg tablet 25 mg PO DAILY Patient Comments: TAKE ONE TABLET BY MOUTH EVERY DAY insulin asp prt-insulin aspart [Novolog Mix 70-30FlexPen U-100] 100 unit/mL (70-30) insulin pen 11 unit SQ BID Patient Comments: ADMINISTER 11 UNITS UNDER THE SKIN TWICE DAILY Xarelto 20 mg tablet 20 mg PO QPMWITHMEAL Patient Comments: TAKE 1 TABLET BY MOUTH DAILY FOR BLOOD THINNER dapagliflozin propanediol [Farxiga] 10 mg tablet 10 mg PO DAILY Patient Comments: TAKE 1 TABLET BY MOUTH DAILY FOR DIABETES Problem Reconciliation Problems Reviewed?: Yes Patient Discharge Instructions ACTIVITY: Continue current activity DIET: continue same diet Patient Instructions: Atrial Fibrillation, DI for Atrial Fibrillation Providers Primary Care Provider: Kiko Gaines Admit Provider: Maryse Lock Attending Provider: Maryse Lock
--- NOTE | 2023-08-10 13:17 | CARE MANAGER ---
Contacted patient related to hospital discharge. She is doing better and denies questions or concerns. She is aware of follow up appointments and has new medication. USAMA Kumar
== END 2023-08-09 15:47 | disposition home health service (06) | DRG 310 ==
LOC: ER 15:35 → 2ND 16:25
PROVIDERS: Physician Assistant; Admitting Provider Internal Medicine; Emergency Provider Emergency Medicine; PCP Internal Medicine; Visit Provider Internal Medicine
DX: I48.91 Unspecified atrial fibrillation (principal); I25.10 Atherosclerotic heart disease of native coronary artery without angina pectoris; I10 Essential (primary) hypertension; E78.5 Hyperlipidemia, unspecified; M81.0 Age-related osteoporosis without current pathological fracture; I65.29 Occlusion and stenosis of unspecified carotid artery; Z87.891 Personal history of nicotine dependence; E11.9 Type 2 diabetes mellitus without complications; E83.42 Hypomagnesemia; Z85.038 Personal history of other malignant neoplasm of large intestine; D50.0 Iron deficiency anemia secondary to blood loss (chronic); E87.6 Hypokalemia; I05.9 Rheumatic mitral valve disease, unspecified; E05.90 Thyrotoxicosis, unspecified without thyrotoxic crisis or storm; Z79.4 Long term (current) use of insulin; Z79.84 Long term (current) use of oral hypoglycemic drugs
CPT/HCPCS: 36415; 71045; 76536; 80048; 80053; 82962; 83735; 84443; 84484; 85025; 85610; 93005; 93306; 97162; 97165; 99291; J0131; J3475

== ENCOUNTER 2023-08-22 08:06 | Outpatient (CLI) | payer MEDICARE, SELFPAY ==
[2023-08-22 08:31] LABS: Basophils % 0.7 % (0.1-2.0); Eosinophils # 0.1 K/mm3 (0.0-0.4); Eosinophils % 1.7 % (0.1-12.0); Hematocrit 36.3 % (37.0-47.0); Hemoglobin 11.3 g/dL (12.2-16.2); Lymphocytes # 0.8 K/mm3 (0.7-4.5); Lymphocytes % 18.6 % (10-50); Mean Corpuscular HGB Conc 31.2 g/dL (31.8-35.4); Mean Corpuscular Hemoglobin 22.9 pg (27.0-31.2); Mean Corpuscular Volume 73.5 fl (81-99); Mean Platelet Volume 9.9 fl (7.4-10.4); Monocytes # 0.3 K/mm3 (0.1-1.0); Monocytes % 5.7 % (1.7-9.3); Neutrophils # 3.3 K/mm3 (1.8-7.8); Neutrophils % 73.2 % (37.0-80.0); Platelet Count 146 K/mm3 (142-424); Red Blood Count 4.94 M/mm3 (4.20-5.40); Red Cell Distribution Width 22.6 % (11.5-17.5); White Blood Count 4.5 K/mm3 (4.8-10.8)
[2023-08-22 09:42] LABS: Anion Gap 15.9 mEq/L (5-15); Blood Urea Nitrogen 15 mg/dl (7-17); Calcium 9.3 mg/dl (8.4-10.2); Carbon Dioxide 29 mmol/L (22.0-30.0); Chloride 99 mmol/L (98-107); Estimated Glomerular Filt Rate 97 ml/min (>60); GFR (African American) 117 ML/MIN (>60); Glucose 144 mg/dl (74-100); Potassium 3.9 mmoL/L (3.5-5.1); Sodium 140 mmol/L (136-145)
[2023-08-22 09:49] LABS: Magnesium 0.9 mg/dl (1.6-2.3)
[2023-08-22 09:57] LABS: Free Thyroxine Index 2.3 ug/dL (5.93-13.13); T4 (Thyroxine) 5.4 ug/dl (5.53-11.0); Triiodothryronine (T3) Uptake 42 % (23.5-40.5)
[2023-08-22 10:11] LABS: Thyroid Stimulating Hormone 0.27 uIU/mL (0.465-4.68)
== END 2023-08-22 23:59 | disposition home or self-care (01) ==
LOC: LAB 08:08
PROVIDERS: PCP Internal Medicine; Visit Provider Physician Assistant
DX: E05.90 Thyrotoxicosis, unspecified without thyrotoxic crisis or storm (principal); E83.42 Hypomagnesemia; E87.6 Hypokalemia; D50.0 Iron deficiency anemia secondary to blood loss (chronic)
CPT/HCPCS: 36415; 80048; 83735; 84436; 84443; 84479; 85025

== ENCOUNTER 2023-08-31 14:48 | Outpatient (CLI) | payer MEDICARE, SELFPAY ==
--- NOTE | 2023-08-31 14:55 | XR_ITS ---
FINAL REPORT CLINICAL HISTORY: bone loss COMPARISON: None FINDINGS: Using L1-4, the bone mineral density of the spine is 0.849 g/cm2, corresponding to T-score of -1.8 which is consistent with low bone density but is likely falsely elevated secondary to hypertrophic changes. Using the left hip, the bone mineral density of the femoral neck is 0.527 g/cm2, corresponding to a T-score of -3.4 which is consistent with osteoporosis. FRAX not reported because some T-score at or below-2.5. NOTE: T-score: Standard deviation compared with peak bone mass of young adult mean. *Following the recommendations of the International Society of Bone densitometry, classification of hip BMD is based on the lower of two T-scores; total hip or femoral neck. IMPRESSION: Diminished bone mineral density consistent with osteoporosis. Reviewed, Interpreted and Dictated by Gustavo Ty III, MD Transcribed by Martha Gómez Authenticated and [facility]
== END 2023-08-31 23:59 | disposition home or self-care (01) ==
LOC: RAD 14:50
PROVIDERS: PCP Internal Medicine; Visit Provider Internal Medicine
DX: M81.0 Age-related osteoporosis without current pathological fracture (principal); M19.90 Unspecified osteoarthritis, unspecified site
CPT/HCPCS: 77080

== ENCOUNTER 2023-09-15 19:30 | Outpatient (CLI) | payer MEDICARE, SELFPAY ==
[2023-09-15 20:34] LABS: Microalbumin < 6.000 mg/L (0-16.7)
[2023-09-15 21:04] LABS: Free Thyroxine Index 2.4 ug/dL (5.93-13.13); T4 (Thyroxine) 5.8 ug/dl (5.53-11.0); Triiodothryronine (T3) Uptake 42 % (23.5-40.5)
[2023-09-15 21:17] LABS: Thyroid Stimulating Hormone 0.59 uIU/mL (0.465-4.68)
[2023-09-15 22:14] LABS: Ferritin 12.1 ng/ml (11.1-264)
[2023-09-15 22:37] LABS: Vitamin B12 821 pg/mL (239-931)
[2023-09-15 22:38] LABS: Folate > 20.00 ng/mL
[2023-09-17 04:09] LABS: Thyroid Peroxidase Antibodies <9 IU/mL (0-34)
[2023-09-17 19:47] LABS: Peripheral Smear Review Scanned Result
== END 2023-09-15 23:59 | disposition home or self-care (01) ==
PROVIDERS: PCP Internal Medicine; Visit Provider Internal Medicine
DX: E61.1 Iron deficiency (principal); E07.9 Disorder of thyroid, unspecified; Z68.22 Body mass index [BMI] 22.0-22.9, adult
CPT/HCPCS: 82043; 82607; 82728; 82746; 84436; 84443; 84479; 86376

== ENCOUNTER 2023-10-10 07:29 | Outpatient (RCR) | payer MEDICARE, SELFPAY | END 2023-10-10 07:35 | disposition home or self-care (01) | LOC: PT 07:29 | PROVIDERS: Visit Provider Internal Medicine | DX: M25.561 Pain in right knee (principal) | CPT/HCPCS: 97760 ==

== ENCOUNTER 2023-10-20 13:17 | Observation (INO) | payer MEDICARE, SELFPAY ==
[2023-10-20] VITALS (12 sets, daily range): BP systolic 86–133; BP diastolic 50–70; PULSE 99–144; RESP 13–22; TEMP 36.7–37; O2SAT 93–100; BMI 21.2; BMI 21.8
--- NOTE | 2023-10-20 14:03 | PC.NURSE ---
have attempted to stick patient twice and with no success and have asked palma rn for help
--- NOTE | 2023-10-20 14:06 | PC.NURSE ---
palma rangel attempted to stick patient and ER MD notified for need of ultrasound iv access
--- NOTE | 2023-10-20 14:07 | HMH.EDGENADL ---
Discharge Plan Disposition Patient Disposition: Admitted Condition: Good Clinical Impressions Clinical Impression: Cellulitis, Atrial fibrillation with RVR, AMS (altered mental status) Discharge ED Provider: Raquel Hensley General Adult HPI <Noah Miller MD - Last Filed: 10/20/23 15:19> General Chief complaint: Altered Mental Status Stated complaint: Dementia, loss of bowels, weakness Time Seen by Provider: 10/20/23 13:29 Mode of Arrival: Wheelchair Source of Information: Patient, Relative and Medical Record Limitations: Altered Mental Status Description of Symptoms (Recalled from ER Triage Doc. by RN): pt and family are poor historians but apparently patient caregiver found patient this morning confused and hallucinating and has loss of bowels all over house, pt also had red inflamed swollen right ankle. pt has hx of afib however her and family are unable to give much info and just stated it should be in the computer History of Present Illness HPI narrative: Please note that above description of symptoms, in this electronic medical record under categorization of recalled from ER triage doctor by RN are reflective of an initial nursing assessment, however, is not reflective of my full history and physical exam that was personally taken and clarified. Consequentially, this preceding description of symptoms, which may include the patient's categorized chief complaint in the EMR, do not reflect my personal clinical impression, and the ultimate description of history of present illness and patient stated complaints should be deferred to this section of the note. Unless stated otherwise or congruent with this section of the note, additional signs, symptoms, or incongruence should be interpreted as inaccurate with my clinical impression. Related Data Home Medications ?Medication ?Instructions ?Recorded ?Confirmed cyanocobalamin (vitamin B-12) 1,000 mcg PO DAILY 08/08/23 10/20/23 1,000 mcg tablet insulin aspar prot-insulin aspart 11 unit SQ BID 08/08/23 10/20/23 100 unit/mL (70-30) subcutaneous pen (Novolog Mix 70-30FlexPen U-100) diltiazem HCl 240 mg 240 mg PO BID 09/20/23 10/20/23 capsule,extended release 24 hr, controlled (DILT-XR) magnesium oxide 400 mg (241.3 mg 400 mg PO DAILY 09/20/23 10/20/23 magnesium) tablet dapagliflozin propanediol 10 mg 10 mg PO DAILY 10/20/23 10/20/23 tablet (Farxiga) metformin 1,000 mg tablet 1,000 mg PO BID 10/20/23 10/20/23 omeprazole 20 mg capsule,delayed 20 mg PO DAILY 10/20/23 10/20/23 release Previous Rx's ?Medication ?Instructions ?Recorded apixaban 5 mg tablet (Eliquis) 5 mg PO BID #60 tabs 08/17/23 alendronate 10 mg tablet 10 mg PO DAILY #90 tabs 09/01/23 methimazole 5 mg tablet 5 mg PO TID 90 days #270 tabs 09/13/23 atorvastatin 10 mg tablet 10 mg PO DAILY #90 tabs 10/14/23 ferrous sulfate 325 mg (65 mg 325 mg PO DAILY #90 tabs 10/14/23 iron) tablet (Iron (ferrous sulfate)) hydrochlorothiazide 25 mg tablet See Rx Instructions .Route 10/14/23 .COMPLEX #90 tabs losartan 50 mg tablet 50 mg PO DAILY #90 tabs 10/14/23 Allergies Allergy/AdvReac Type Severity Reaction Status Date / Time codeine [CODEINE] Allergy Unknown hallucinati Verified 10/10/23 09:35 ons Penicillins [PENICILLINS] Allergy Unknown Verified 10/10/23 09:35 lisinopril AdvReac Severe Cough Verified 10/10/23 09:35 REPLACED BY [facility] <Noah Miller MD - Last Filed: 10/20/23 15:19> REPLACED BY [facility] Disclaimer: The information contained in this section may have been updated after the patient was seen, as this information can be updated by other users. Medical History Multinodular goiter Claudication Bilateral leg weakness Macular degeneration Abnormal EKG Dyspnea Recurrent falls Atrial fibrillation HLD (hyperlipidemia) Carotid artery stenosis Osteoporosis Surgical History History of appendectomy History of bowel resection Family History Other COPD exacerbation Social History Smoking Status: Former smoker tobacco type: cigarettes packs per day: 1 years smoked: 50 smoking status stop date: 2015 second hand exposure: No alcohol intake: former counseling provided: none substance use type: marijuana current occupational status: retired Travel in the last 8 weeks: None household members: none housing: house marital status: current occupational exposures/hazards: No caffeine: No <Noah Miller MD - Last Filed: 10/20/23 15:19> ROS Obtained: Yes All systems reviewed & no additional complaints except as documented Physical Exam <Noah Miller MD - Last Filed: 10/20/23 15:19> General General appearance: alert Head Head exam: atraumatic and normocephalic Eye Eye exam: Present normal appearance, PERRL and EOMI Neck Neck exam: Present normal inspection, full ROM and trachea midline Respiratory Respiratory exam: Present normal lung sounds bilaterally; Absent respiratory distress, wheezes, stridor, accessory muscle use or prolonged expiratory phase Cardiovascular Cardiovascular exam: Present tachycardia, irregular rhythm and other (Pulses equal symmetric in upper and lower extremities) Abdominal Exam Abdominal exam: Present soft; Absent distention, tenderness or pulsatile mass Extremities Exam Extremities exam: Present edema and other (Swelling, tenderness, erythema concern for cellulitis about dorsal aspect of right foot and ankle extending up to mid kline.) Neurological Exam Neurological exam: Present alert, oriented X3 and CN II-XII intact; Absent motor sensory deficit Skin Skin exam: Present warm, dry and erythema; Absent diaphoresis Medical Decision Making <Noah Miller MD - Last Filed: 10/20/23 15:19> Medical Records Medical records reviewed: Yes I reviewed the patient's medical records. Federico Inquiry Pt receiving controlled substance: No Federico was queried for this patient: No Vital Signs: 10/20/23 13:19 10/20/23 13:32 10/20/23 14:31 Temperature 98.4 F Temperature Source Oral Pulse Rate 120 H 144 H Pulse Rate [Right Radial] 130 H Respiratory Rate 20 18 16 Blood Pressure 133/63 104/61 L Blood Pressure [Right Arm] 133/63 Blood Pressure Mean 86 Blood Pressure Mean [Right Arm] 86 02 Sat by Pulse Oximetry 100 100 97 Oxygen Delivery Method Room Air 10/20/23 15:00 10/20/23 15:31 10/20/23 16:00 Temperature Temperature Source Pulse Rate 115 H 110 H 120 H Pulse Rate [Right Radial] Respiratory Rate 22 13 19 Blood Pressure 112/60 110/55 L 108/59 L Blood Pressure [Right Arm] Blood Pressure Mean 85 75 Blood Pressure Mean [Right Arm] 02 Sat by Pulse Oximetry 96 97 96 Oxygen Delivery Method 10/20/23 16:30 10/20/23 17:01 10/20/23 17:30 Temperature Temperature Source Pulse Rate 102 H 120 H 110 H Pulse Rate [Right Radial] Respiratory Rate 16 19 14 Blood Pressure 105/56 L 103/56 L 86/50 L Blood Pressure [Right Arm] Blood Pressure Mean 72 72 62 Blood Pressure Mean [Right Arm] 02 Sat by Pulse Oximetry 96 96 93 L Oxygen Delivery Method 10/20/23 17:54 Temperature 98.0 F Temperature Source Oral Pulse Rate 110 H Pulse Rate [Right Radial] Respiratory Rate 20 Blood Pressure 103/56 L Blood Pressure [Right Arm] Blood Pressure Mean Blood Pressure Mean [Right Arm] 02 Sat by Pulse Oximetry Oxygen Delivery Method Room Air Lab Data Lab Results 10/20/23 14:20: WBC 7.0, RBC 5.40, Hgb 13.9, Hct 43.1, MCV 79.7 L, MCH 25.7 L, MCHC 32.2, RDW 19.6 H, Plt Count 111 L, MPV 12.8 H, Neut % (Auto) 93.8 H, Lymph % (Auto) 3.5 L, Kimble % (Auto) 1.7, Eos % (Auto) 0.9, Baso % (Auto) 0.2, Neut # (Auto) 6.5, Lymph # (Auto) 0.2 L, Kimble # (Auto) 0.1, Eos # (Auto) 0.1, Baso # (Auto) 0.0, Total Counted 100, Neutrophils % (Manual) 88 H, Lymphocytes % (Manual) 10, Monocytes % (Manual) 2, Platelet Estimate Slight decrease, Hypochromasia 1+, PT 11.7, INR 1.05, APTT 24.2, Sodium 134 L, Potassium 4.0, Chloride 99, Carbon Dioxide 28, Anion Gap 11.0, BUN 27 H, Creatinine 0.60, Estimated Creat Clear 46, Estimated GFR 97, Est GFR ( Amer) 117, Glucose 133 H, Hemoglobin A1c 6.8 H, Lactate 1.7, Calcium 9.0, Total Bilirubin 1.4 H, AST 69 H, ALT 31, Alkaline Phosphatase 40, Troponin I 0.03, C-Reactive Protein 2.5, Total Protein 7.1, Albumin 4.3, Globulin 2.8, Albumin/Globulin Ratio 1.5, Lipase 24, Procalcitonin 0.146 10/20/23 14:57: Urine Color Yellow, Urine Appearance Clear, Urine pH 5.5, Ur Specific [place] >= 1.030, Urine Protein 2+, Urine Glucose (UA) 1+, Urine Ketones 1+, Urine Blood Trace-i, Urine Nitrate Negative, Urine Bilirubin Negative, Urine Urobilinogen 0.2, Ur Leukocyte Esterase Negative, Urine RBC Occasional, Urine WBC 3-5, Ur Squamous Epith Cells 5-10, Urine Bacteria Trace, Urine Mucus 1+ 10/20/23 17:00: Troponin I 0.03 10/20/23 14:20 10/20/23 14:20 Orders (Tests/Meds): ED MEDICATIONS Generic Name Dose Route Start Last Admin Trade Name Freq PRN Reason Stop Dose Admin Apixaban 5 mg 10/20/23 21:00 10/20/23 20:47 Apixaban 5mg Tablet PO 11/19/23 20:59 5 mg BID MARTIR Administration Atorvastatin Calcium 10 mg 10/21/23 09:00 Atorvastatin 10mg Tablet PO 11/20/23 08:59 DAILY MARTIR Calcium Polycarbophil 1,250 mg 10/21/23 09:00 Calcium Polycarbophil 625mg Tab PO 11/20/23 08:59 DAILY MARTIR Dapagliflozin 10 mg 10/21/23 09:00 Dapagliflozin Propanediol 10 Mg Tablet PO 11/20/23 08:59 DAILY MARTIR Furosemide 40 mg 10/21/23 09:00 Furosemide 40mg/4ml Vial IV 11/20/23 08:59 DAILY MARTIR Hydrochlorothiazide 25 mg 10/21/23 09:00 Hydrochlorothiazide 25mg Tablet PO 11/20/23 08:59 DAILY M[facility]IR Ceftriaxone Sodium 1 gm/ 50 mls @ 100 mls/hr 10/20/23 22:15 10/20/23 22:15 Sodium Chloride IV 10/30/23 22:14 100 mls/hr Q24H MARTIR Administration Insulin Human Lispro 0 unit 10/20/23 21:00 10/20/23 21:05 Humalog 100 Units/Ml 10ml Vial (Ssi) SQ 11/19/23 20:59 2 unit ACHS MARTIR Administration Protocol Magnesium Oxide 400 mg 10/21/23 09:00 Magnesium Oxide 400mg Tablet PO 11/20/23 08:59 DAILY [facility] Metoprolol Tartrate 5 mg 10/20/23 20:21 10/20/23 21:06 Metoprolol Tartrate 5mg/5ml Vial IV 10/20/23 20:22 5 mg ONCE ONE Administration Miscellaneous 1 each 10/20/23 14:15 10/20/23 14:35 Vancomycin Consult Request NOTAPPLIC 11/19/23 14:14 1 each CONSULT PHARMACY [facility] Administration Non-Formulary Medication 1,000 mg 10/20/23 21:00 10/20/23 20:48 Metformin PO 11/19/23 20:59 1,000 mg BID MARTIR Administration Pantoprazole Sodium 40 mg 10/20/23 21:00 10/20/23 20:47 Pantoprazole 40mg Tablet PO 11/19/23 20:59 40 mg HS MARTIR Administration Discontinued Medications Generic Name Dose Route Start Last Admin Trade Name Freq PRN Reason Stop Dose Admin Diltiazem HCl 10 mg 10/20/23 16:16 10/20/23 16:24 Diltiazem 25mg/5ml Vial IV 10/20/23 16:17 10 mg ONCE ONE Administration Diltiazem HCl 60 mg 10/20/23 16:16 10/20/23 16:24 Diltiazem 30mg Tablet PO 10/20/23 16:17 60 mg ONCE ONE Administration Cefepime HCl 2 gm/ Sodium 100 mls @ 200 mls/hr 10/20/23 14:02 10/20/23 14:34 Chloride IV 10/20/23 14:31 200 mls/hr ONCE ONE Administration Lactated Ringer's 1,000 mls @ 999 mls/hr 10/20/23 14:02 10/20/23 14:34 Lactated Ringer's 1000 Ml Bag IV 10/20/23 15:02 999 mls/hr .Q1H1M ONE Administration Vancomycin HCl 1,000 mg/ 250 mls @ 125 mls/hr 10/20/23 14:15 10/20/23 15:02 Sodium Chloride IV 10/20/23 16:14 125 mls/hr ONCE ONE Administration Non-Formulary Medication 5 mg 10/20/23 21:00 Methimazole PO 11/19/23 20:59 TID [facility] ORDERS Category Date Time Status CT head/brain wo con Stat Cat Scan 10/20/23 15:17 Completed Ankle XR -Right minimum 3 Views [XR ankle RT min 3V] Exams 10/20/23 14:10 Completed Stat CXR --portable [XR chest portable] Stat Exams 10/20/23 15:18 Completed CBC w/Auto Diff [Complete Blood Count Auto Diff] Stat Lab 10/20/23 14:20 Completed CMP [Comprehensive Metabolic Panel] Stat Lab 10/20/23 14:20 Completed CRP [C-Reactive Protein] Stat Lab 10/20/23 14:20 Completed Complete Blood Count Auto Diff AMLAB Lab 10/21/23 06:00 Ordered Comprehensive Metabolic Panel AMLAB Lab 10/21/23 06:00 Ordered Hemoglobin A1C Routine Lab 10/20/23 14:20 Completed Lactic Acid Stat Lab 10/20/23 14:20 Completed Lipase Stat Lab 10/20/23 14:20 Completed Magnesium AMLAB Lab 10/21/23 06:00 Ordered PT INR [Prothrombin Time INR] Stat Lab 10/20/23 14:20 Completed PTT [Activated Partial Thrombo Time] Stat Lab 10/20/23 14:20 Completed Procalcitonin Stat Lab 10/20/23 14:20 Completed Trop I [Troponin I] Stat Lab 10/20/23 14:20 Completed Troponin I Q3H Lab 10/20/23 17:00 Completed UA [Urinalysis and Microscopic] Stat Lab 10/20/23 14:57 Completed Blood Culture Stat Micro 10/20/23 14:20 Received CA venous doppler LE RT Stat Y 10/20/23 16:18 Completed Medical Decision Narrative: 78-year-old female history of hypertension, hyperlipidemia, CKD, atrial fibrillation on Eliquis, presenting with multiple complaints. Family states that patient is usually taken care of by her caregiver who visits every day. Today, patient caregiver arrived and patient was sitting in bowel movement, confused, house was a mess. Patient states she intermittently remembers the last few hours, but denies any other symptoms. Denies chest pain, shortness of breath, nausea, vomiting. She states that her stool today was black, but states this is completely normal for her. Has not taken any of her medications today. Patient also complaining of right lower extremity pain and swelling about her right ankle that is associated with redness. Difficult to bear weight, but no injury was sustained. History was obtained via conversation with patient and family. On arrival, patient hemodynamically stable, alert, oriented x4, appropriate, GCS 15, moving all extremities spontaneously, pupils equal and reactive to light. Full physical exam performed and significant for tachycardic woman in no acute distress. Chronically ill. Not acutely ill. Answering questions appropriately, but sluggish to respond. No murmurs, gallops, rubs. Patient's lungs are clear to auscultation anterior and posterior bilaterally. Pulses equal and symmetric in upper and lower extremities. Abdomen soft, nontender, nondistended. She does have swelling, redness, cellulitis of right ankle. Differential includes sepsis, medication noncompliance, ACS, NM, pneumothorax, pneumonia, UTI, among others. Patient placed on continuous cardiac monitoring and continuous pulse ox with initial blood pressure 112/60, heart rate A-fib 115, saturation 96% on room air. Ankle x-ray without acute bony abnormality. Chest x-ray pending. Independent rotation of workup with no leukocytosis. Patient's coags normal. Lactate negative. Prior to results and disposition, care ended up to oncoming physician. Hospice Spiritual Care Coordinator disclaimer Much of this encounter note is an electronic broadcast maintenance technician spoken language to printed text. Electronic broadcast maintenance technician of the spoken language may permit errors. Although I have reviewed the note, some errors may still exist. <Raquel Hensley, DO - Last Filed: 10/20/23 22:21> Vital Signs: 10/20/23 13:19 10/20/23 13:32 10/20/23 14:31 Temperature 98.4 F Temperature Source Oral Pulse Rate 120 H 144 H Pulse Rate [Right Radial] 130 H Respiratory Rate 20 18 16 Blood Pressure 133/63 104/61 L Blood Pressure [Right Arm] 133/63 Blood Pressure Mean 86 Blood Pressure Mean [Right Arm] 86 02 Sat by Pulse Oximetry 100 100 97 Oxygen Delivery Method Room Air 10/20/23 15:00 10/20/23 15:31 10/20/23 16:00 Temperature Temperature Source Pulse Rate 115 H 110 H 120 H Pulse Rate [Right Radial] Respiratory Rate 22 13 19 Blood Pressure 112/60 110/55 L 108/59 L Blood Pressure [Right Arm] Blood Pressure Mean 85 75 Blood Pressure Mean [Right Arm] 02 Sat by Pulse Oximetry 96 97 96 Oxygen Delivery Method 10/20/23 16:30 10/20/23 17:01 10/20/23 17:30 Temperature Temperature Source Pulse Rate 102 H 120 H 110 H Pulse Rate [Right Radial] Respiratory Rate 16 19 14 Blood Pressure 105/56 L 103/56 L 86/50 L Blood Pressure [Right Arm] Blood Pressure Mean 72 72 62 Blood Pressure Mean [Right Arm] 02 Sat by Pulse Oximetry 96 96 93 L Oxygen Delivery Method 10/20/23 17:54 Temperature 98.0 F Temperature Source Oral Pulse Rate 110 H Pulse Rate [Right Radial] Respiratory Rate 20 Blood Pressure 103/56 L Blood Pressure [Right Arm] Blood Pressure Mean Blood Pressure Mean [Right Arm] 02 Sat by Pulse Oximetry Oxygen Delivery Method Room Air Lab Data Lab Results 10/20/23 14:20: WBC 7.0, RBC 5.40, Hgb 13.9, Hct 43.1, MCV 79.7 L, MCH 25.7 L, MCHC 32.2, RDW 19.6 H, Plt Count 111 L, MPV 12.8 H, Neut % (Auto) 93.8 H, Lymph % (Auto) 3.5 L, Kimble % (Auto) 1.7, Eos % (Auto) 0.9, Baso % (Auto) 0.2, Neut # (Auto) 6.5, Lymph # (Auto) 0.2 L, Kimble # (Auto) 0.1, Eos # (Auto) 0.1, Baso # (Auto) 0.0, Total Counted 100, Neutrophils % (Manual) 88 H, Lymphocytes % (Manual) 10, Monocytes % (Manual) 2, Platelet Estimate Slight decrease, Hypochromasia 1+, PT 11.7, INR 1.05, APTT 24.2, Sodium 134 L, Potassium 4.0, Chloride 99, Carbon Dioxide 28, Anion Gap 11.0, BUN 27 H, Creatinine 0.60, Estimated Creat Clear 46, Estimated GFR 97, Est GFR ( Amer) 117, Glucose 133 H, Hemoglobin A1c 6.8 H, Lactate 1.7, Calcium 9.0, Total Bilirubin 1.4 H, AST 69 H, ALT 31, Alkaline Phosphatase 40, Troponin I 0.03, C-Reactive Protein 2.5, Total Protein 7.1, Albumin 4.3, Globulin 2.8, Albumin/Globulin Ratio 1.5, Lipase 24, Procalcitonin 0.146 10/20/23 14:57: Urine Color Yellow, Urine Appearance Clear, Urine pH 5.5, Ur Specific [place] >= 1.030, Urine Protein 2+, Urine Glucose (UA) 1+, Urine Ketones 1+, Urine Blood Trace-i, Urine Nitrate Negative, Urine Bilirubin Negative, Urine Urobilinogen 0.2, Ur Leukocyte Esterase Negative, Urine RBC Occasional, Urine WBC 3-5, Ur Squamous Epith Cells 5-10, Urine Bacteria Trace, Urine Mucus 1+ 10/20/23 17:00: Troponin I 0.03 Orders (Tests/Meds): ED MEDICATIONS Generic Name Dose Route Start Last Admin Trade Name Jeanq PRN Reason Stop Dose Admin Apixaban 5 mg 10/20/23 21:00 10/20/23 20:47 Apixaban 5mg Tablet PO 11/19/23 20:59 5 mg BID MARTIR Administration Atorvastatin Calcium 10 mg 10/21/23 09:00 Atorvastatin 10mg Tablet PO 11/20/23 08:59 DAILY [facility] Calcium Polycarbophil 1,250 mg 10/21/23 09:00 Calcium Polycarbophil 625mg Tab PO 11/20/23 08:59 DAILY [facility] Dapagliflozin 10 mg 10/21/23 09:00 Dapagliflozin Propanediol 10 Mg Tablet PO 11/20/23 08:59 DAILY [facility] Furosemide 40 mg 10/21/23 09:00 Furosemide 40mg/4ml Vial IV 11/20/23 08:59 DAILY [facility] Hydrochlorothiazide 25 mg 10/21/23 09:00 Hydrochlorothiazide 25mg Tablet PO 11/20/23 08:59 DAILY [facility] Ceftriaxone Sodium 1 gm/ 50 mls @ 100 mls/hr 10/20/23 22:15 10/20/23 22:15 Sodium Chloride IV 10/30/23 22:14 100 mls/hr Q24H MARTIR Administration Insulin Human Lispro 0 unit 10/20/23 21:00 10/20/23 21:05 Humalog 100 Units/Ml 10ml Vial (Ssi) SQ 11/19/23 20:59 2 unit ACHS MARTIR Administration Protocol Magnesium Oxide 400 mg 10/21/23 09:00 Magnesium Oxide 400mg Tablet PO 11/20/23 08:59 DAILY [facility] Metoprolol Tartrate 5 mg 10/20/23 20:21 10/20/23 21:06 Metoprolol Tartrate 5mg/5ml Vial IV 10/20/23 20:22 5 mg ONCE ONE Administration Miscellaneous 1 each 10/20/23 14:15 10/20/23 14:35 Vancomycin Consult Request NOTAPPLIC 11/19/23 14:14 1 each CONSULT PHARMACY [facility] Administration Non-Formulary Medication 1,000 mg 10/20/23 21:00 10/20/23 20:48 Metformin PO 11/19/23 20:59 1,000 mg BID MARTIR Administration Pantoprazole Sodium 40 mg 10/20/23 21:00 10/20/23 20:47 Pantoprazole 40mg Tablet PO 11/19/23 20:59 40 mg HS MARTIR Administration Discontinued Medications Generic Name Dose Route Start Last Admin Trade Name Freq PRN Reason Stop Dose Admin Diltiazem HCl 10 mg 10/20/23 16:16 10/20/23 16:24 Diltiazem 25mg/5ml Vial IV 10/20/23 16:17 10 mg ONCE ONE Administration Diltiazem HCl 60 mg 10/20/23 16:16 10/20/23 16:24 Diltiazem 30mg Tablet PO 10/20/23 16:17 60 mg ONCE ONE Administration Cefepime HCl 2 gm/ Sodium 100 mls @ 200 mls/hr 10/20/23 14:02 10/20/23 14:34 Chloride IV 10/20/23 14:31 200 mls/hr ONCE ONE Administration Lactated Ringer's 1,000 mls @ 999 mls/hr 10/20/23 14:02 10/20/23 14:34 Lactated Ringer's 1000 Ml Bag IV 10/20/23 15:02 999 mls/hr .Q1H1M ONE Administration Vancomycin HCl 1,000 mg/ 250 mls @ 125 mls/hr 10/20/23 14:15 10/20/23 15:02 Sodium Chloride IV 10/20/23 16:14 125 mls/hr ONCE ONE Administration Non-Formulary Medication 5 mg 10/20/23 21:00 Methimazole PO 11/19/23 20:59 TID [facility] ORDERS Category Date Time Status CT head/brain wo con Stat Cat Scan 10/20/23 15:17 Completed Ankle XR -Right minimum 3 Views [XR ankle RT min 3V] Exams 10/20/23 14:10 Completed Stat CXR --portable [XR chest portable] Stat Exams 10/20/23 15:18 Completed CBC w/Auto Diff [Complete Blood Count Auto Diff] Stat Lab 10/20/23 14:20 Completed CMP [Comprehensive Metabolic Panel] Stat Lab 10/20/23 14:20 Completed CRP [C-Reactive Protein] Stat Lab 10/20/23 14:20 Completed Complete Blood Count Auto Diff AMLAB Lab 10/21/23 06:00 Ordered Comprehensive Metabolic Panel AMLAB Lab 10/21/23 06:00 Ordered Hemoglobin A1C Routine Lab 10/20/23 14:20 Completed Lactic Acid Stat Lab 10/20/23 14:20 Completed Lipase Stat Lab 10/20/23 14:20 Completed Magnesium AMLAB Lab 10/21/23 06:00 Ordered PT INR [Prothrombin Time INR] Stat Lab 10/20/23 14:20 Completed PTT [Activated Partial Thrombo Time] Stat Lab 10/20/23 14:20 Completed Procalcitonin Stat Lab 10/20/23 14:20 Completed Trop I [Troponin I] Stat Lab 10/20/23 14:20 Completed Troponin I Q3H Lab 10/20/23 17:00 Completed UA [Urinalysis and Microscopic] Stat Lab 10/20/23 14:57 Completed Blood Culture Stat Micro 10/20/23 14:20 Received CA venous doppler LE RT Stat Y 10/20/23 16:18 Completed ECG Data Tracing #1: I reviewed this ECG and interpreted as documented below: Atrial fibrillation with rapid ventricular response with a ventricular rate of [address] changes concerning for ischemia. ECG initial impression date: 10/20/23 ECG initial impression time: 15:30 Medical Decision Narrative: 78-year-old female history of hypertension, hyperlipidemia, CKD, atrial fibrillation on Eliquis, presenting with multiple complaints. Family states that patient is usually taken care of by her caregiver who visits every day. Today, patient caregiver arrived and patient was sitting in bowel movement, confused, house was a mess. Patient states she intermittently remembers the last few hours, but denies any other symptoms. Denies chest pain, shortness of breath, nausea, vomiting. She states that her stool today was black, but states this is completely normal for her. Has not taken any of her medications today. Patient also complaining of right lower extremity pain and swelling about her right ankle that is associated with redness. Difficult to bear weight, but no injury was sustained. History was obtained via conversation with patient and family. On arrival, patient hemodynamically stable, alert, oriented x4, appropriate, GCS 15, moving all extremities spontaneously, pupils equal and reactive to light. Full physical exam performed and significant for tachycardic woman in no acute distress. Chronically ill. Not acutely ill. Answering questions appropriately, but sluggish to respond. No murmurs, gallops, rubs. Patient's lungs are clear to auscultation anterior and posterior bilaterally. Pulses equal and symmetric in upper and lower extremities. Abdomen soft, nontender, nondistended. She does have swelling, redness, cellulitis of right ankle. Differential includes sepsis, medication noncompliance, ACS, NM, pneumothorax, pneumonia, UTI, among others. Patient placed on continuous cardiac monitoring and continuous pulse ox with initial blood pressure 112/60, heart rate A-fib 115, saturation 96% on room air. Ankle x-ray without acute bony abnormality. Chest x-ray pending. Independent rotation of workup with no leukocytosis. Patient's coags normal. Lactate negative. Prior to results and disposition, care ended up to oncoming physician. Hospice Spiritual Care Coordinator disclaimer Much of this encounter note is an electronic broadcast maintenance technician spoken language to printed text. Electronic broadcast maintenance technician of the spoken language may permit errors. Although I have reviewed the note, some errors may still exist. DO Ayden: I assumed care of the patient at 1500. On my assessment, she is resting comfortably in bed. Right ankle is red, warm, and swollen. Patient notes that she has not been taking her medications as she ran out. She states she is been out of couple of days. This would explain why she is in atrial fibrillation with rapid ventricular response. This is confirmed on EKG. I gave her 10 mg of IV diltiazem and then gave her 60 mg of oral to make sure that she tolerates it well in the setting of acute infection. I did not give her her long-acting of 240 mg, as I did not want to risk taking her blood pressure potentially. Will continue to monitor her. Previous provider started her on broad-spectrum antibiotics with concern for cellulitis of the right ankle. I ordered a DVT ultrasound to further assess, especially since the patient has not been taking her Eliquis. She does have intact pulses distally and good perfusion, so doubt arterial thrombus. DVT ultrasound did not demonstrate any acute clot. It is concerning for cellulitis, independent interpretation. Please see radiology read for final interpretation. CT scan not concerning for any acute pathology, and x-ray does not demonstrate any significant pneumonia. At this time, I feel she likely has altered mental status in the setting of cellulitis as well as medication noncompliance. I feel she would benefit from admission for continued antibiotics and monitoring. I had an interactive discussion with the hospitalist who admitted the patient in stable condition. Critical Care <Noah Miller MD - Last Filed: 10/20/23 15:19> Critical Care Time Critical Care Time: No
--- NOTE | 2023-10-20 14:10 | XR_ITS ---
FINAL REPORT CLINICAL HISTORY: redness swelling FINDINGS: Right ankle Four views were obtained. There is no acute fracture or dislocation. The joint spaces appear normal. There is moderate diffuse soft tissue edema about the ankle. The mortise is intact. The bones are osteopenic. IMPRESSION: Soft tissue swelling without acute bony abnormality. Reviewed, Interpreted and Dictated by Isidro Garcia MD Transcribed by Miya Shaffer Authenticated and . [facility]
[2023-10-20] MEDS: LACTATED RINGERS 1000ML 1,000 ML 999 ML IV (14:34)
[2023-10-20] MEDS: CEFEPIME HCL 2 GM in 0.9 % SODIUM CHLORIDE 100 ML IV (14:34)
[2023-10-20] MEDS: VANCOMYCIN CONSULT REQUEST 1 EACH NOTAPPLIC (14:35)
[2023-10-20 14:43] LABS: Basophils % 0.2 % (0.1-2.0); Eosinophils # 0.1 K/mm3 (0.0-0.4); Eosinophils % 0.9 % (0.1-12.0); Hematocrit 43.1 % (37.0-47.0); Hemoglobin 13.9 g/dL (12.2-16.2); Lymphocytes # 0.2 K/mm3 (0.7-4.5); Lymphocytes % 3.5 % (10-50); Mean Corpuscular HGB Conc 32.2 g/dL (31.8-35.4); Mean Corpuscular Hemoglobin 25.7 pg (27.0-31.2); Mean Corpuscular Volume 79.7 fl (81-99); Mean Platelet Volume 12.8 fl (7.4-10.4); Monocytes # 0.1 K/mm3 (0.1-1.0); Monocytes % 1.7 % (1.7-9.3); Neutrophils # 6.5 K/mm3 (1.8-7.8); Neutrophils % 93.8 % (37.0-80.0); Platelet Count 111 K/mm3 (142-424); Red Cell Distribution Width 19.6 % (11.5-17.5)
[2023-10-20 14:46] LABS: MANUAL DIFFERENTIAL MANUAL DIFFERENTIAL (MANUAL DIFF)
[2023-10-20 14:49] LABS: Alanine Aminotransferase 31 U/L (12-78); Albumin Level 4.3 g/dl (3.5-5.0); Albumin/Globulin Ratio 1.5 (1.1-1.8); Alkaline Phosphatase 40 U/L (38-126); Aspartate Amino Transferase 69 U/L (14-36); Bilirubin,Total 1.4 mg/dl (0.2-1.3); Blood Urea Nitrogen 27 mg/dl (7-17); Carbon Dioxide 28 mmol/L (22.0-30.0); Chloride 99 mmol/L (98-107); Creatinine Clearance Estimated 46 mL/min (50-200); Estimated Glomerular Filt Rate 97 ml/min (>60); GFR (African American) 117 ML/MIN (>60); Globulin 2.8 g/dL (1.3-3.2); Glucose 133 mg/dl (74-100); Lipase 24 U/L (23-300); Sodium 134 mmol/L (136-145); Total Protein,Serum 7.1 g/dl (6.3-8.2)
[2023-10-20 14:50] LABS: Activated Partial Thrombo Time 24.2 seconds (22.8-30.6); INR 1.05 (0.9-1.1); Prothrombin Time 11.7 seconds (10.1-12.5)
[2023-10-20 14:51] LABS: Lactic Acid 1.7 mmol/L (0.7-2.1)
[2023-10-20 14:54] LABS: C-Reactive Protein 2.5 mg/L (0-4)
[2023-10-20 15:00] LABS: Microscopic, Urine URINE MICROSCOPIC (MICROSCOPIC)
[2023-10-20] MEDS: VANCOMYCIN HCL 1,000 MG in 0.9 % SODIUM CHLORIDE 250 ML 125 MG IV (15:02)
[2023-10-20 15:08] LABS: Procalcitonin 0.146 ng/mL (0.0-2.0)
[2023-10-20 15:08] LABS: Appearance,Urine CLEAR (Clear); Blood, Urine TRACE-I (Negative); Color,Urine YELLOW (Yellow); Glucose,Urine (UA) 1+ (Negative); Ketones,Urine 1+ (Negative); Leukocyte Esterase,Urine Negative (Negative); Nitrate,Urine Negative (Negative); PH,Urine 5.5 (5.0-8.5); Protein,Urine 2+ (Negative); Specific Gravity, Urine >= 1.030 (1.005-1.030); Urobilinogen,Urine 0.2 EU/dl (0.2)
--- NOTE | 2023-10-20 15:17 | CT_ITS ---
FINAL REPORT TECHNIQUE: multiple axial CT images were performed from the foramen magnum to the vertex without enhancement. CLINICAL HISTORY: AMS FINDINGS: There is mild atrophy with proportional ventriculomegaly. There is extensive decreased attenuation throughout the deep white matter which may represent chronic microvascular ischemia. There is asymmetric enlargement of the posterior horn and occipital horn of the right lateral ventricle. There is no evidence of hemorrhage. No masses are identified. No extra-axial fluid is seen. The sinuses are normal. IMPRESSION: Atrophy and chronic changes without acute process. Reviewed, Interpreted and Dictated by Isidro Garcia MD Transcribed by Miya Shaffer Authenticated and [facility]
--- NOTE | 2023-10-20 15:18 | XR_ITS ---
FINAL REPORT CLINICAL HISTORY: ams, tachycardia COMPARISON: 08/08/2023 FINDINGS: SINGLE-VIEW CHEST There is mild cardiomegaly. The mediastinum is normal. There are mild chronic changes at the lung bases. There is no pneumothorax. IMPRESSION: No acute cardiopulmonary process. Reviewed, Interpreted and Dictated by Isidro Garcia MD Transcribed by Miya Shaffer Authenticated and [facility]
[2023-10-20 15:27] LABS: Hypochromasia 1+; Lymphocytes % 10 % (10-50); Monocytes % 2 % (2-9); Neutrophils % 88 % (42-76); Total Cells Counted 100
--- NOTE | 2023-10-20 15:27 | ECG_ITS ---
APPROVED REPORT Exam: Resting ECG HR:120 bpm ECG Measurements Heart Rate 120 AXES QRSd 103 QRS 85 QT 327 T 88 QTc 398 Conclusion ATRIAL FIBRILLATION WITH RAPID VENTRICULAR RESPONSE NONSPECIFIC ST & T-WAVE ABNORMALITY ABNORMAL RHYTHM ECG Electronically signed by : RASHID SALAS, 10/20/2023 23:56:32
[2023-10-20 15:28] LABS: Platelet Estimate Slight Decrease
[2023-10-20 15:30] LABS: Bilirubin,Urine Negative (Negative)
[2023-10-20 15:32] LABS: RBC,Urine Occasional #/hpf (0-3)
[2023-10-20 15:33] LABS: Bacteria,Urine Trace /lpf; Mucus,Urine 1+ /lpf
[2023-10-20 16:14] LABS: Troponin I 0.03 ng/ml (0.00-0.034)
--- NOTE | 2023-10-20 16:18 | CA_ITS ---
FINAL REPORT TECHNIQUE: Multiple transverse and longitudinal images were performed of the right femoral-popliteal deep venous system with augmentation and compression maneuvers. CLINICAL HISTORY: swelling/redness. Patient is a poor historian with dementia. States her leg has been red for a few days but has had knee trouble for a long time. Presents to ER today with dementia, weakness, and swollen right lower leg. Family found her down possibly from fall. HLD, AFIB, ex smoker on Eliquis daily for AFIB. COMPARISON: None FINDINGS: Right lower extremity duplex ultrasound demonstrates normal flow in the deep venous system. There is no abnormal echogenicity to suggest thrombus. There is normal compression and augmentation. IMPRESSION: No evidence of visible thrombosis in the right lower extremity. Reviewed, Interpreted and Dictated by Isidro Garcia MD Transcribed by Martha Gómez Authenticated and [facility]
[2023-10-20] MEDS: dilTIAZem 30MG TABLET 60 MG PO (16:24)
[2023-10-20] MEDS: dilTIAZem 25MG/5ML VIAL 10 MG IV (16:24)
--- NOTE | 2023-10-20 16:54 | PC.NURSE ---
per dialysis equipment technician patient is negative for dvt per scan and patient sitting up in bed easting diabetic tray that nursing staff ordered for her
--- NOTE | 2023-10-20 17:11 | EXP.HP ---
History of Present Illness *Admission Date: 10/20/23 *Reason for visit:: confusion, fast heart rate *History of present illness: Ms. Mendoza is a 78-year-old female with history of hypertension, hyperlipidemia, CKD, A-fib on Eliquis. [place] with family close by. Has a caregiver that checks on her daily. There have been concerns previously about some cognitive impairment or memory changes. Patient presents with family to the ER after being found today by her caregiver and she was sitting on the floor having had bowel movements soiling the floor through her house. She seemed more confused and the house is a mess. States that she has been having some hallucinations at night and sleepwalking. Denies any chest pain, shortness of breath, nausea, vomiting. Has chronic diarrhea after abdominal surgeries due to cancer. Reports stool being dark. Afebrile. Reports her right ankle is also sore and swollen today. Family adds that she has been out of her meds for the past couple days and her caregivers bring her meds to her today. Workup in the ER with normal white count, right ankle with no fracture (just swelling). Found to be in A-fib with RVR. Initiated on antibiotics for possible cellulitis of ankle and medicine consulted for admission for further management and therapy eval. Upon arrival to the floor, patient is pleasant. She is oriented to self and place but forgets during our conversation that she is at the hospital and has been admitted to stay the night. Stated she would be able to come back tomorrow for further testing, reminded her she was at the hospital and admitted. She seemed confused by this. Family complaining of worsening weakness in her right leg, right knee soreness and stooped walking. Concern for declining functional status. On room air. [facility] Disclaimer: The information contained in this section may have been updated after the patient was seen, as this information can be updated by other users. Medical History Multinodular goiter Claudication Bilateral leg weakness Macular degeneration Abnormal EKG Dyspnea Recurrent falls Atrial fibrillation HLD (hyperlipidemia) Carotid artery stenosis Osteoporosis Surgical History History of appendectomy History of bowel resection Family History Other COPD exacerbation Social History Smoking Status: Former smoker tobacco type: cigarettes packs per day: 1 years smoked: 50 smoking status stop date: 2015 second hand exposure: No alcohol intake: former counseling provided: none substance use type: marijuana current occupational status: retired Travel in the last 8 weeks: None household members: none housing: house marital status: current occupational exposures/hazards: No caffeine: No Review of Systems Review of Systems Review of systems (narrative): 14 point review of systems performed, pertinent positives and negatives as per [facility] Meds Home Medications and Allergies Home Medications ?Medication ?Instructions ?Recorded ?Confirmed ?Type cyanocobalamin (vitamin B-12) 1,000 mcg PO DAILY 08/08/23 10/20/23 History 1,000 mcg tablet insulin aspar prot-insulin aspart 11 unit SQ BID 08/08/23 10/20/23 History 100 unit/mL (70-30) subcutaneous pen (Novolog Mix 70-30FlexPen U-100) apixaban 5 mg tablet (Eliquis) 5 mg PO BID #60 tabs 08/17/23 10/20/23 Rx alendronate 10 mg tablet 10 mg PO DAILY #90 tabs 09/01/23 10/20/23 Rx methimazole 5 mg tablet 5 mg PO TID 90 days #270 tabs 09/13/23 10/20/23 Rx diltiazem HCl 240 mg 240 mg PO BID 09/20/23 10/20/23 History capsule,extended release 24 hr, controlled (DILT-XR) magnesium oxide 400 mg (241.3 mg 400 mg PO DAILY 09/20/23 10/20/23 History magnesium) tablet atorvastatin 10 mg tablet 10 mg PO DAILY #90 tabs 10/14/23 10/20/23 Rx ferrous sulfate 325 mg (65 mg 325 mg PO DAILY #90 tabs 10/14/23 10/20/23 Rx iron) tablet (Iron (ferrous sulfate)) hydrochlorothiazide 25 mg tablet See Rx Instructions .Route 10/14/23 10/20/23 Rx .COMPLEX #90 tabs losartan 50 mg tablet 50 mg PO DAILY #90 tabs 10/14/23 10/20/23 Rx dapagliflozin propanediol 10 mg 10 mg PO DAILY 10/20/23 10/20/23 History tablet (Farxiga) metformin 1,000 mg tablet 1,000 mg PO BID 10/20/23 10/20/23 History omeprazole 20 mg capsule,delayed 20 mg PO DAILY 10/20/23 10/20/23 History release New Prescriptions to Start Prescriptions: Allergies Allergy/AdvReac Type Severity Reaction Status Date / Time codeine [CODEINE] Allergy Unknown hallucinati Verified 10/10/23 09:35 ons Penicillins [PENICILLINS] Allergy Unknown Verified 10/10/23 09:35 lisinopril AdvReac Severe Cough Verified 10/10/23 09:35 Exam Data for Last 24 hours Vital signs and Labs for Last 24 Hours: Temp Pulse Resp BP Pulse Ox O2 Del Method 98.4 F 115 H 22 112/60 96 Room Air 10/20/23 13:19 10/20/23 15:00 10/20/23 15:00 10/20/23 15:00 10/20/23 15:00 10/20/23 13:19 Laboratory Results - last 24 hr 10/20/23 14:20: WBC 7.0, RBC 5.40, Hgb 13.9, Hct 43.1, MCV 79.7 L, MCH 25.7 L, MCHC 32.2, RDW 19.6 H, Plt Count 111 L, MPV 12.8 H, Neut % (Auto) 93.8 H, Lymph % (Auto) 3.5 L, Beauregard % (Auto) 1.7, Eos % (Auto) 0.9, Baso % (Auto) 0.2, Neut # (Auto) 6.5, Lymph # (Auto) 0.2 L, Beauregard # (Auto) 0.1, Eos # (Auto) 0.1, Baso # (Auto) 0.0, Total Counted 100, Neutrophils % (Manual) 88 H, Lymphocytes % (Manual) 10, Monocytes % (Manual) 2, Platelet Estimate Slight decrease, Hypochromasia 1+, PT 11.7, INR 1.05, APTT 24.2, Sodium 134 L, Potassium 4.0, Chloride 99, Carbon Dioxide 28, Anion Gap 11.0, BUN 27 H, Creatinine 0.60, Estimated Creat Clear 46, Estimated GFR 97, Est GFR ( Amer) 117, Glucose 133 H, Lactate 1.7, Calcium 9.0, Total Bilirubin 1.4 H, AST 69 H, ALT 31, Alkaline Phosphatase 40, Troponin I 0.03, C-Reactive Protein 2.5, Total Protein 7.1, Albumin 4.3, Globulin 2.8, Albumin/Globulin Ratio 1.5, Lipase 24, Procalcitonin 0.146 10/20/23 14:57: Urine Color Yellow, Urine Appearance Clear, Urine pH 5.5, Ur Specific Gordon >= 1.030, Urine Protein 2+, Urine Glucose (UA) 1+, Urine Ketones 1+, Urine Blood Trace-i, Urine Nitrate Negative, Urine Bilirubin Negative, Urine Urobilinogen 0.2, Ur Leukocyte Esterase Negative, Urine RBC Occasional, Urine WBC 3-5, Ur Squamous Epith Cells 5-10, Urine Bacteria Trace, Urine Mucus 1+ I & O for Last 24 hours: Intake & Output 10/17/23 10/18/23 10/19/23 10/20/23 23:59 23:59 23:59 23:59 Weight 61.689 kg Constitutional Constitutional: no acute distress, average body habitus and cooperative *Routine HEENT Exam Head: Present normocephalic Eye: Present EOMI and PERRL ENT: Present mucous membranes moist *Routine Neck Exam Neck: Present supple; Absent lymphadenopathy *Routine Respiratory Exam Respiratory: Present CTA bilaterally; Absent rhonchi, wheezes or crackles *Routine Cardiovascular Exam Cardiovascular: Present tachycardia and irregularly irregular *Routine Abdominal Exam Abdominal: Present soft and normoactive bowel sounds; Absent tenderness *Routine Rectal Exam Rectal:: deferred *Routine Genitalia Exam Genitalia:: deferred *Routine Extremities Exam Extremities: Present edema (Right ankle with 2+ edema. Mild erythema but no warmth.); Absent cyanosis or clubbing *Routine Skin Exam Skin: Present intact and warm; Absent rash *Routine Neurological Exam Neurological: Present alert and moving all extremities; Absent altered mental status Comments: Alert and oriented x 2, conversational. Difficulty with recall, tangential speech. Forgetful from start of conversation to the end of conversation that she is at the hospital. Did not recall that she was told she was staying in the night/being admitted. Routine Psychiatric Exam Psychiatric: Present normal affect and cooperative; Absent good insight Assessment and Plan *Assessment and plan (1) Atrial fibrillation with RVR: Status: Acute Category: Medical Code(s): I48.91 - Unspecified atrial fibrillation (2) Cellulitis: Status: Acute Category: Medical Code(s): L03.90 - Cellulitis, unspecified (3) Diabetes type 2, controlled: Status: Acute Qualifiers: Diabetes mellitus complication status: with unspecified complications Diabetes mellitus skilled nursing insulin use: with skilled nursing use Qualified Code(s): E11.8 - Type 2 diabetes mellitus with unspecified complications; Z79.4 - intermediate designer (current) use of insulin Category: Medical Code(s): E11.9 - Type 2 diabetes mellitus without complications (4) HTN (hypertension): Status: Chronic Qualifiers: Hypertension type: essential hypertension Qualified Code(s): I10 - Essential (primary) hypertension Category: Medical Code(s): I10 - Essential (primary) hypertension (5) AMS (altered mental status): Status: Acute Category: Medical Code(s): R41.82 - Altered mental status, unspecified (6) Right knee pain: Status: Acute Qualifiers: Chronicity: acute Qualified Code(s): M25.561 - Pain in right knee Category: Medical Code(s): M25.561 - Pain in right knee Plan 78-year-old female who was found at home having increased confusion and having defecated around the house. Brought to the ER for evaluation. Found to have findings concerning for encephalopathy, questionable cellulitis of right ankle, and in A-fib with RVR. Discussed case with ER physician, request admission for further management and evaluation by therapy. I agreed to admit for further management. Received diltiazem 60 mg p.o. once in the ER, patient has missed her meds today. Has family with her at bedside after arriving to the floor. She is oriented to self but got confused during conversation that she was at the hospital and staying the night. Complaining of pain in her right knee and right ankle. No fever. Further workup pending. Therapy to evaluate in the morning. Problems addressed as follows: A-fib with RVR Hypertension Hyperlipidemia -Will admit for additional 5 mg dose IV metoprolol as rate is still above 100. -Resume home diltiazem 240 mg in the morning -Continue Eliquis 5 mg twice daily -Continue Lipitor 10 mg daily -Holding losartan due to soft blood pressure Patient started on methimazole 3 times a day, review of chart does not show antibodies consistent with Graves'. Unclear where her hyperthyroid diagnosis came from. Will hold methimazole at this time. TSH and T4 ordered and pending Diabetes: A1c ordered and pending. Continue sliding scale insulin with fingersticks ACHS. Continue metformin 100 mg twice daily and Farxiga 10 mg daily Chronic diarrhea Status post bowel surgery for colon cancer -Fiber supplement daily Right knee pain and right ankle swelling. Concern for edema in right ankle. Chest x-ray with no fracture per my review. Will obtain x-ray of right knee to evaluate for arthritis. Continue ceftriaxone 1 g daily for possible infection. Reevaluate need tomorrow. Diurese x 1 with Lasix in the morning 40 mg IV to help with swelling. Full code Eliquis 5 mg twice daily Cardiac diet Therapy to evaluate in the morning, concern patient needs placement. Case management to assist with next site of care
--- NOTE | 2023-10-20 17:12 | PC.NURSE ---
called subwarehouse supervisor for bed assignment patient is admitted per dr galvan for afib, ams, and cellulitis
[2023-10-20 17:28] LABS: Troponin I 0.03 ng/ml (0.00-0.034)
--- NOTE | 2023-10-20 18:46 | PC.NURSE ---
told nurse about heartrate
--- NOTE | 2023-10-20 18:56 | XR_ITS ---
FINAL REPORT CLINICAL HISTORY: pain COMPARISON: None FINDINGS: Two images of the right knee were obtained. An intramedullary fawad is present in the distal femur. There is no evidence of fracture or dislocation. The joint spaces are intact. Moderate vascular calcifications are present in the superficial femoral artery and popliteal artery. IMPRESSION: No acute bony abnormality. Intramedullary fawad is present in the distal femur. Reviewed, Interpreted and Dictated by Isidro Garcia MD Transcribed by Gi Palencia Authenticated and [facility]
[2023-10-20] MEDS: APIXABAN 5MG TABLET 5 MG PO (20:47)
[2023-10-20] MEDS: PANTOPRAZOLE 40MG TABLET 40 MG PO (20:47)
[2023-10-20] MEDS: PATIENT'S OWN HOME MEDICATION (Metformin 1,000 mg tablet) 1000 EACH PO (20:48)
[2023-10-20] MEDS: humaLOG 100 UNITS/ML 10ML VIAL (SSI) SQ (21:05)
[2023-10-20] MEDS: METOPROLOL TARTRATE 5MG/5ML VIAL 5 MG IV (21:06)
[2023-10-20 21:07] LABS: POC Glucose,Bedside 158 (70-110)
[2023-10-20 21:27] LABS: Hemoglobin A1C 6.8 % (4.0-6.0)
[2023-10-20] MEDS: CEFTRIAXONE SODIUM 1 GM in 0.9 % SODIUM CHLORIDE 50 ML IV (22:15)
[2023-10-21] VITALS (7 sets, daily range): BP systolic 92–123; BP diastolic 53–90; PULSE 81–135; RESP 16–20; TEMP 36.4–37.7; O2SAT 92–99; BMI 22.4; BMI 19.8
[2023-10-21] MEDS: ACETAMINOPHEN 325MG TAB 650 MG PO (01:44)
--- NOTE | 2023-10-21 04:09 | PC.NURSE ---
78 yo female pt admitted with encephalopathy, a fib with RVR and cellulitis . Pt has been confused most of the shift. She knows her name and where she is at times but has difficulty with word selection and stated her age as 67. Carmen was placed on pt on admission however, pt had difficulty understanding concept. She also was unable to void in brief. Assisted pt X 2 to [facility] where she was able to void without difficulty. Pt has been medicated for complaints of headache and backache X 1. Antibiotics given per MAY. RLE red with no open areas noted
[2023-10-21 06:28] LABS: POC Glucose,Bedside 104 (70-110)
[2023-10-21 07:01] LABS: Chloride 106 mmol/L (98-107)
[2023-10-21 07:02] LABS: Albumin Level 3.1 g/dl (3.5-5.0); Sodium 135 mmol/L (136-145)
[2023-10-21 07:04] LABS: Blood Urea Nitrogen 15 mg/dl (7-17); Creatinine Clearance Estimated 45 mL/min (50-200); Estimated Glomerular Filt Rate 120 ml/min (>60); GFR (African American) 145 ML/MIN (>60)
[2023-10-21 07:05] LABS: Alanine Aminotransferase 27 U/L (12-78); Albumin/Globulin Ratio 1.4 (1.1-1.8); Alkaline Phosphatase 47 U/L (38-126); Anion Gap 4.9 mEq/L (5-15); Aspartate Amino Transferase 54 U/L (14-36); Bilirubin,Total 0.7 mg/dl (0.2-1.3); Carbon Dioxide 27 mmol/L (22.0-30.0); Globulin 2.2 g/dL (1.3-3.2); Glucose 104 mg/dl (74-100); Magnesium 1.4 mg/dl (1.6-2.3); Total Protein,Serum 5.3 g/dl (6.3-8.2)
[2023-10-21 07:20] LABS: Basophils % 0.2 % (0.1-2.0); Eosinophils % 0.1 % (0.1-12.0); Hematocrit 39.6 % (37.0-47.0); Hemoglobin 12.6 g/dL (12.2-16.2); Lymphocytes # 0.3 K/mm3 (0.7-4.5); Lymphocytes % 8.3 % (10-50); Mean Corpuscular HGB Conc 31.9 g/dL (31.8-35.4); Mean Corpuscular Hemoglobin 25.8 pg (27.0-31.2); Mean Corpuscular Volume 80.8 fl (81-99); Mean Platelet Volume 9.9 fl (7.4-10.4); Monocytes # 0.1 K/mm3 (0.1-1.0); Monocytes % 3.4 % (1.7-9.3); Neutrophils # 3.2 K/mm3 (1.8-7.8); Platelet Count 78 K/mm3 (142-424); Red Cell Distribution Width 19.7 % (11.5-17.5); White Blood Count 3.7 K/mm3 (4.8-10.8)
[2023-10-21 07:23] LABS: Free T4 (Free Thyroxine) 0.83 ng/dl (0.78-2.19)
[2023-10-21 07:32] LABS: Potassium 2.9 mmoL/L (3.5-5.1)
[2023-10-21 07:37] LABS: MANUAL DIFFERENTIAL MANUAL DIFFERENTIAL (MANUAL DIFF)
--- NOTE | 2023-10-21 07:40 | HMH.PHAINT1 ---
Pharmacy Intervention Comments: MEDICATION RECONCILIATION COMPLETED ON PATIENT USING EXTERNAL FILL HISTORY FROM PHARMACY AND LIST FROM CARDIOLOGY OFFICE. -MINNA PEARSON, ISAUROD
[2023-10-21 08:18] LABS: Thyroid Stimulating Hormone 2.88 uIU/mL (0.465-4.68)
[2023-10-21] MEDS: CALCIUM POLYCARBOPHIL 625MG TAB 1250 MG PO (08:34)
[2023-10-21] MEDS: dilTIAZem ER 240MG CAPSULE 240 MG PO (08:34)
[2023-10-21] MEDS: METFORMIN 500MG TABLET 1000 MG PO ×2 (08:34→17:16)
[2023-10-21] MEDS: POTASSIUM CHLORIDE 20MEQ TAB 40 MEQ PO ×3 (08:34→20:31)
[2023-10-21] MEDS: FUROSEMIDE 40MG/4ML VIAL 40 MG IV (08:35)
[2023-10-21] MEDS: hydroCHLOROthiazide 25MG TABLET 25 MG PO (08:35)
[2023-10-21] MEDS: APIXABAN 5MG TABLET 5 MG PO ×2 (08:35→20:31)
[2023-10-21] MEDS: MAGNESIUM OXIDE 400MG TABLET 400 MG PO (08:35)
[2023-10-21] MEDS: DAPAGLIFLOZIN PROPANEDIOL 10 MG TABLET PO (08:35)
[2023-10-21] MEDS: MAGNESIUM SULFATE IN WATER 2 GM/50 ML PIGGYBACK IV ×2 (08:35→13:28)
[2023-10-21 08:57] LABS: Hypochromasia 1+; Lymphocytes % 12 % (10-50); Monocytes % 2 % (2-9); Neutrophils % 86 % (42-76); Platelet Estimate Moderate Decrease; Total Cells Counted 100
--- NOTE | 2023-10-21 09:53 | SW/DCPLANNER ---
Addendum entered by Nati Lu 10/21/23 15:06: Per Jace this patient has been approved SNF level of care. I have updated MD: plan of pending no setbacks discharge tomorrow. Addendum entered by Nati Lu 10/21/23 13:23: Jace w/ [facility] stated that she is able to accept this patient and start precert. Patient/family are agreeable w/ this plan. Original Note: I spoke w/ patient and her nephew this AM regarding plans once medically stable for discharge. PT/OT evaluated patient and recommended SNF level of care at time of discharge. Patient/nephew are agreeable to short term placement. Patient/nephew prefer [facility] but stated if [facility] could not accept they would be interested in [facility], [facility], [facility] or [facility]. I will fax patient information to all facilities and continue to follow up w/ MD and patient/family. Discharge date is unknown at this time.
--- NOTE | 2023-10-21 10:03 | HMH.PTEV ---
Physical Therapy Evaluation Rehab PT IP Evaluation Start: 10/20/23 17:32 Freq: ONCE Status: Active Protocol: Document 10/21/23 09:45 LALY (Rec: 10/21/23 09:50 LALY [id number]) Subjective/History History History Per H&P: Ms. Mendoza is a 78-year-old female with history of hypertension, hyperlipidemia, CKD, A-fib on Eliquis. [place] with family close by. Has a caregiver that checks on her daily. There have been concerns previously about some cognitive impairment or memory changes. Patient presents with family to the ER after being found today by her caregiver and she was sitting on the floor having had bowel movements soiling the floor through her house. She seemed more confused and the house is a mess. States that she has been having some hallucinations at night and sleepwalking. Denies any chest pain, shortness of breath, nausea, vomiting. Has chronic diarrhea after abdominal surgeries due to cancer. Reports stool being dark. Afebrile. Reports her right ankle is also sore and swollen today. Family adds that she has been out of her meds for the past couple days and her caregivers bring her meds to her today. Workup in the ER with normal white count , right ankle with no fracture (just swelling). Found to be in A-fib with RVR. Initiated on antibiotics for possible cellulitis of ankle and medicine consulted for admission for further management and therapy eval. Subjective Subjective PLOF per pt report: Lives alone in a mobile home with 0 [place]SON. Used a RW for IND ambulation. Has a sister that lives 20 feet away . Sister is able to physically assist per pt report. New diagnosis of cancer in past 12 No months? Rehab PT IP Eval Objective Appearance Patient Behavior Appropriate,Cooperative Patient Orientation Person,Place Difficulty following instructions none Speech Pattern Clear Ambulation Patient Able to Ambulate No Balance Ability to Arise Able, uses arms to help Sitting Balance Steady, safe Standing Balance Unsteady Transfers Bed Transfer Ability Minimal x 1 (25% assist) Sit to Stand Bed Transfer Ability Moderate x 2 (50% assist) Rehab PT IP prob,goals,plan Problems Date of Evaluation: 10/21/23 PT IP Problems Bed Mobility,Transfers,Gait, Balance,Self care,Safety Rehab Potential Rehab Potential Good Equipment Needs Assistive Devices Rolling / Wheeled Walker Plan PT Intervention Plan Bed Mobility,Transfers,Gait, Balance,Self care,Safety, Therapeutic Exercise Other Intervention Plan 1-2 times PT Plan Frequency Daily Duration LOS Discharge Goals Bed Transfer Ability Supervision/Stand by Sit to Stand Chair Transfer Ability Minimal x 2 (25% assist) Ambulation Assistive Device Rolling Walker Ambulation Distance (feet) 10 Discharge Plan PT Discharge Plan Initial physical therapy evaluation performed. Patient presents below baseline at this time in functional mobility, transfers, and strength. Pt not safe to return home at this time d/t current level of functional mobility. PT recommending short-term rehabilitation stay upon d/c from [facility]. Pt would benefit from skilled PT while at [facility] to prevent further functional decline and maximize safety with mobility. Eval Complexity Eval Charge Codes 62588 - Moderate Complexity PHYSICIAN CERTIFICATION: I certify the specified therapy services for Melissa Mendoza are required, authorized, and reviewed every 30 days.
--- NOTE | 2023-10-21 10:55 | HMH.OTEV ---
OT Inpatient Evaluation Rehab OT IP Evaluation Start: 10/20/23 17:32 Freq: ONCE Status: Active Protocol: Document 10/21/23 10:49 [facility] (Rec: 10/21/23 10:55 [facility] [id number]) Rehab OT IP Assessment Subjective History Pt oriented x 3 on arrival. Pt agreeable to engage in therapy evaluation. Pt admitted for cellulitis, A-fib , and AMA. Per H&P: Ms. Mendoza is a 78-year-old female with history of hypertension, hyperlipidemia, CKD, A-fib on Eliquis. [place] family close by. Has a caregiver that checks on her daily. There have been concerns previously about some cognitive impairment or memory changes. Patient presents with family to the ER after being found today by her caregiver and she was sitting on the floor having had bowel movements soiling the floor through her house. She seemed more confused and the house is a mess. States that she has been having some hallucinations at night and sleepwalking. Denies any chest pain, shortness of breath, nausea, vomiting. Has chronic diarrhea after abdominal surgeries due to cancer. Reports stool being dark. Afebrile. Reports her right ankle is also sore and swollen today. Family adds that she has been out of her meds for the past couple days and her caregivers bring her meds to her today. Workup in the ER with normal white count , right ankle with no fracture (just swelling). Found to be in A-fib with RVR. Initiated on antibiotics for possible cellulitis of ankle and medicine consulted for admission for further management and therapy eval. Subjective PLOF per pt report: Lives alone in a mobile home with 0 SAMSON. Used a RW for IND ambulation. Has a sister that lives 20 feet away . Sister is able to physically assist per pt report. Pt claims normally she is independent with all ADLs and IADLs. Objective Patient Orientation Person,Place,Birthday Bed Mobility bed mobility-scooting,bed mobility - supine/sit Assist Level Minimal x 1 (25% assist) Transfer Training Sit/Stand/Step Transfer Assist Level Minimal x 1 (25% assist) Lower Body Dressing Ability Moderate Assistance Performing Toilet Hygiene Ability Moderate Assistance Commode/Toilet Transfer Technique Sit to/from Ambulatory Rehab OT IP prob,goals,plan Problems Date of Evaluation: 10/21/23 OT IP Problems Bed Mobility,Transfers,Balance ,Self care,Safety Rehab Potential Rehab Potential Good Equipment Needs Assistive Devices Rolling / Wheeled Walker Plan OT intervention Plan Bed Mobility,Transfers,Balance ,Self care,Safety,Therapeutic Exercise OT Plan Frequency Daily Duration LOS Discharge Goals Bed Mobility Ability Standby Assistance Sit to Stand Chair Transfer Ability Contact Guard/Hand Hold Chair Transfer Ability Supervision/Stand by Chair Transfer Technique Sit to/from Ambulatory Chair Transfer Assistive Devices Rolling Walker Feeding Ability Assist with Tray Set Up Lower Body Dressing Ability Minimal Assistance Upper Body Dressing Ability Contact Guard Bathing Ability Minimal Assistance Performing Toilet Hygiene Ability Minimal Assistance Overall Commode/Toilet Transfer Ability Contact Guard Commode/Toilet Transfer Technique Sit to/from Ambulatory Commode/Toilet Transfer Assistive Grab Bars Devices Discharge Plan OT Discharge Plan At this time, pt presents below baseline with functional transfers and ADL independence. Pt would benefit most from short term rehab at SNF following hospital stay. Continued skilled therapy is important in order for patient to improve strength, safety, endurance, ADL independence, and functional transfers to reach PLOF. If pt is reluctant to rehab stay, pt would required 24/ assistance at home with OT HH evaluation . Pt will continue to be seen for OT services while at [facility]. Eval Complexity Eval Charge Codes 13205 - Moderate Complexity PHYSICIAN CERTIFICATION: I certify the specified therapy services for Melissa Mendoza are required, authorized, and reviewed every 30 days.
[2023-10-21 11:37] LABS: POC Glucose,Bedside 165 (70-110)
[2023-10-21] MEDS: humaLOG 100 UNITS/ML 10ML VIAL (SSI) SQ ×2 (12:01→20:30)
[2023-10-21 16:42] LABS: POC Glucose,Bedside 139 (70-110)
[2023-10-21] MEDS: METOPROLOL TARTRATE 5MG/5ML VIAL 5 MG IV ×2 (17:41→21:16)
--- NOTE | 2023-10-21 17:45 | PC.NURSE ---
PT IS RESTING IN BED. ALERT AND ORIENTED X2. PT HAS BEEN CONFUSED OFF AND ON T/O THE SHIFT. PT STATES SHE HAS BEEN HAVING HALLUCINATIONS. 1 ASSIST TO GET TO THE BSC. REDNESS/SWELLING NOTED TO RLE. ABRASION NOTED TO LLE. UNCONTROLLED AFIB ON TELEMETRY. PHYSICIAN ORDERED 5MG METOPROLOL IV Q6H PRN. LUNG SOUNDS CLEAR. ABDOMEN SOFT/NON TENDER WITH ACTIVE BOWEL SOUNDS. WILL CONTINUE TO MONITOR.
--- NOTE | 2023-10-21 17:58 | P.PN_ITS ---
Subjective *Date: 10/21/23 *Time: 17:58 Interval history: Patient pleasant on exam, appears somewhat confused., Hard of hearing. Denies chest pain, shortness of breath, nausea or vomiting. Had some visions overnight. Tolerating p.o. intake. Afebrile. On room air. Medical Exam Vital signs and Labs for Last 24 Hours: Vital Signs Temp Pulse Pulse Resp BP Pulse Ox O2 Del Method 10/21/23 17:00 Room Air 10/21/23 16:00 98.3 F 120 H 20 120/84 99 Room Air 10/21/23 16:00 135 H 10/21/23 14:30 Room Air 10/21/23 12:43 Room Air 10/21/23 12:00 130 H 10/21/23 08:00 Room Air 10/21/23 08:00 115 H 10/21/23 08:00 97.6 F 81 17 123/53 L 95 Room Air 10/21/23 07:42 Room Air 10/21/23 06:46 Room Air 10/21/23 05:00 Room Air 10/21/23 04:00 98.2 F 108 H 16 115/56 L 92 L Room Air 10/21/23 04:00 100 H 10/21/23 03:00 Room Air 10/21/23 01:00 Room Air 10/21/23 00:00 99.9 F H 111 H 16 123/90 96 Room Air 10/21/23 00:00 90 10/20/23 23:00 Room Air 10/20/23 21:00 Room Air 10/20/23 20:00 98.4 F 99 H 18 121/70 97 Room Air 10/20/23 20:00 Room Air 10/20/23 18:45 98.6 F 120 H 20 100/52 L 97 Room Air 10/20/23 18:35 Room Air Intake and Output 10/21/23 10/21/23 10/21/23 07:59 15:59 23:59 Intake Total 640 / 740 100 / 740 Output Total 800 / 3150 1800 / 3150 550 / 3150 Balance -800 / -2410 -1160 / -2410 -450 / -2410 Intake: Intake, Oral Amount 640 / 640 Intake, Total IV Amount 100 / 100 Magnesium Sulfate in Water 2 gm 100 / 100 In 50 ml @ 50 mls/hr IV Q6H [facility] Rx#:[id number] Output: Output, Urine Amount 800 / 3150 1800 / 3150 550 / 3150 Other: Number of Unmeasured Voids 2 Weight 60.872 kg 60.8 kg Patient Weight 10/21/23 23:59 Weight 60.8 kg Laboratory Results - last 24 hr 10/20/23 14:20: Hemoglobin A1c 6.8 H 10/20/23 20:52: POC Glucose 158 H 10/21/23 06:13: WBC 3.7 L D, RBC 4.90, Hgb 12.6, Hct 39.6, MCV 80.8 L, MCH 25.8 L, MCHC 31.9, RDW 19.7 H, Plt Count 78 L D, MPV 9.9, Neut % (Auto) 88.0 H, Lymph % (Auto) 8.3 L, Martin % (Auto) 3.4, Eos % (Auto) 0.1, Baso % (Auto) 0.2, Neut # (Auto) 3.2, Lymph # (Auto) 0.3 L, Martin # (Auto) 0.1, Eos # (Auto) 0.0, Baso # (Auto) 0.0, Total Counted 100, Neutrophils % (Manual) 86 H, Lymphocytes % (Manual) 12, Monocytes % (Manual) 2, Platelet Estimate Moderate decrease, Hypochromasia 1+, Sodium 135 L, Potassium 2.9 L* D, Chloride 106, Carbon Dioxide 27, Anion Gap 4.9 L, BUN 15 D, Creatinine 0.50 L, Estimated Creat Clear 45, Estimated GFR 120, Est GFR ( Amer) 145 D, Glucose 104 H D, Calcium 8.0 L , Magnesium 1.4 L, Total Bilirubin 0.7, AST 54 H, ALT 27, Alkaline Phosphatase 47, Total Protein 5.3 L D, Albumin 3.1 L D, Globulin 2.2, Albumin/Globulin Ratio 1.4, TSH 2.88, Free T4 0.83 10/21/23 06:21: POC Glucose 104 10/21/23 11:16: POC Glucose 165 H 10/21/23 16:34: POC Glucose 139 H I & O for Labs for Last 24 Hours: Intake & Output 10/18/23 10/19/23 10/20/23 10/21/23 23:59 23:59 23:59 23:59 Intake Total 740 / 740 Output Total 3150 / 3150 Balance -2410 / -2410 Weight 59.466 kg 60.8 kg Microbiology Reports for the Last 24 Hours: Microbiology 10/20/23 14:20 Blood Blood Culture - Preliminary 10/20/23 14:20 Blood Blood Culture - Preliminary Constitutional: Present no acute distress, thin and chronically ill appearing Head: Present atraumatic and normocephalic Neck: Present normal inspection Respiratory: Present normal respiratory effort; Absent rhonchi, wheezes or crackles Cardiac: Present Tachycardia Comment:: Irregularly irregular GI: Present soft and normal bowel sounds; Absent distention or tenderness Extremities: Present normal inspection and full ROM Skin: Present intact; Absent erythema Neuro: Present Grossly Intact, alert, awake and moves all extremities Comment:: Oriented to self and place and time, poor recall. Mini-Mental performed with score of 19 out of 28. Patient's vision and hearing complicated testing however had poor recall with inability to remember 3 objects. Difficulty with attention and calculation. Fairly well oriented, did not know the day of the week or floor the hospital but otherwise past orientation with 8 out of 10 points. Concerned about patient's cognition, suggestive of cognitive impairment. Assessment and Plan *Assessment and plan (1) Atrial fibrillation with RVR: Status: Acute Category: Medical Code(s): I48.91 - Unspecified atrial fibrillation (2) Cellulitis: Status: Acute Category: Medical Code(s): L03.90 - Cellulitis, unspecified (3) Diabetes type 2, controlled: Status: Acute Qualifiers: Diabetes mellitus terminal makeup operator insulin use: with terminal makeup operator use Diabetes mellitus complication status: with unspecified complications Qualified Code(s): E11.8 - Type 2 diabetes mellitus with unspecified complications; Z79.4 - skilled nursing (current) use of insulin Category: Medical Code(s): E11.9 - Type 2 diabetes mellitus without complications (4) HTN (hypertension): Status: Chronic Qualifiers: Hypertension type: essential hypertension Qualified Code(s): I10 - Essential (primary) hypertension Category: Medical Code(s): I10 - Essential (primary) hypertension (5) AMS (altered mental status): Status: Acute Category: Medical Code(s): R41.82 - Altered mental status, unspecified (6) Right knee pain: Status: Acute Qualifiers: Chronicity: acute Qualified Code(s): M25.561 - Pain in right knee Category: Medical Code(s): M25.561 - Pain in right knee (7) Hypomagnesemia: Status: Acute Category: Medical Code(s): E83.42 - Hypomagnesemia (8) Hypokalemia: Status: Acute Category: Medical Code(s): E87.6 - Hypokalemia Plan 78-year-old female who was found at home having increased confusion and having defecated around the house. Brought to the ER for evaluation. Found to have findings concerning for encephalopathy, questionable cellulitis of right ankle, and in A-fib with RVR. Discussed case with ER physician, request admission for further management and evaluation by therapy. I agreed to admit for further management. Received diltiazem 60 mg p.o. once in the ER, patient has missed her meds today. Has family with her at bedside after arriving to the floor. She is oriented to self but got confused during conversation that she was at the hospital and staying the night. Complaining of pain in her right knee and right ankle. No fever. Confused overnight. Had some hallucinations. Pleasant on exam. Needs electrolytes replaced. Awaiting placement. Problems addressed as follows: A-fib with RVR Hypertension Hyperlipidemia -Continuing diltiazem 240 mg daily. Continue 5 mg metoprolol IV as needed every 6 hours for rate above 110. Continuing Eliquis 5 mg twice daily. Patient asymptomatic from A-fib -Continue Lipitor 10 mg daily -Holding losartan due to soft blood pressure Electrolyte disturbances -Potassium 2.9, magnesium 1.4. -Kidney function normal BUN 15, creatinine 0.5 -Replacing magnesium and potassium orally and IV. Repeat labs ordered for this afternoon. Repeat CBC, CMP, magnesium ordered for the morning as well. Replacing aggressively. Patient started on methimazole 3 times a day, review of chart does not show antibodies consistent with Graves'. Unclear where her hyperthyroid diagnosis came from. Will hold methimazole at this time. TSH and T4 ordered and pending Diabetes: A1c at goal of 6.8. Continue sliding scale insulin with fingersticks ACHS. Continue metformin 100 mg twice daily and Farxiga 10 mg daily Chronic diarrhea Status post bowel surgery for colon cancer -Fiber supplement daily Right knee pain and right ankle swelling. Concern for edema in right ankle. Chest x-ray with no fracture per my review. Will obtain x-ray of right knee to evaluate for arthritis. Continue ceftriaxone 1 g daily for possible infection. -Improvement in swelling. Lasix 40 mg IV once today. -X-ray of knee shows arthritis per my review. No acute process Full code Eliquis 5 mg twice daily Cardiac diet Therapy evaluated, would benefit from placement. Referred to [facility] in [place]. Anticipate discharge when accepted
[2023-10-21 19:36] LABS: Chloride 100 mmol/L (98-107)
[2023-10-21 19:37] LABS: Potassium 3.5 mmoL/L (3.5-5.1); Sodium 134 mmol/L (136-145)
[2023-10-21 19:39] LABS: Blood Urea Nitrogen 17 mg/dl (7-17); Creatinine Clearance Estimated 45 mL/min (50-200); Estimated Glomerular Filt Rate 81 ml/min (>60); GFR (African American) 98 ML/MIN (>60)
[2023-10-21 19:40] LABS: Anion Gap 10.5 mEq/L (5-15); Calcium 8.4 mg/dl (8.4-10.2); Carbon Dioxide 27 mmol/L (22.0-30.0); Glucose 200 mg/dl (74-100); Magnesium 2.1 mg/dl (1.6-2.3)
[2023-10-21] MEDS: CEFTRIAXONE SODIUM 1 GM in 0.9 % SODIUM CHLORIDE 50 ML IV (20:30)
[2023-10-21] MEDS: PANTOPRAZOLE 40MG TABLET 40 MG PO (20:31)
[2023-10-21] MEDS: ATORVASTATIN 10MG TABLET 10 MG PO (20:31)
[2023-10-21 20:32] LABS: POC Glucose,Bedside 215 (70-110)
--- NOTE | 2023-10-21 22:11 | PC.NURSE ---
2115 MEDICATED WITH METOPROLOL T. 5 MG IVP OVER 3 MINS. FOR HR 120. HR CLIMBS TO 150s WHEN UP MOVING. DENIES CP BUT SAYS SHE GETS SOA WITH MOVEMENT. AFIB/RVR ON TELE. PATIENT IS CONFUSED AND IMPULSIVE. CAN BE LOUD AND ANGRY IF STAFF TRIES TO GET HER TO USE CALL [facility] AND REMIND HER OF FALL RISKS. PATIENT SAYS SHE HALLUCINATES. ASSISTED TO BSC AND RETURNED TO BED. BED ALARM ACTIVATED.
--- NOTE | 2023-10-21 22:17 | PC.NURSE ---
2130 HR 93.
[2023-10-22] VITALS: PULSE 98
[2023-10-22 00:53] VITALS: BP 104/70; PULSE 90; RESP 16; TEMP 36.8; O2SAT 97
[2023-10-22 04:00] VITALS: PULSE 111; BMI 18.8
[2023-10-22] MEDS: ACETAMINOPHEN 325MG TAB 650 MG PO (04:53)
--- NOTE | 2023-10-22 04:58 | PC.NURSE ---
PATIENT VERY DISAGREEABLE. ORIENTED TO SELF AND PLACE. DEMANDING. EXAGGERATES. REQUESTED TYLENOL FOR H/A. 5 MINS LATER I ARRIVED WITH THE TYLENOL AND SHE COMPLAINED STATING SHE HAD BEEN WAITING FOR HER TYLENOL FOR OVER AN HOUR WHEN IT WAS ADMINISTERED IN 5 MINS. HR JUMPS INTO 130s WHEN UP TO BSC. AFIB.
[2023-10-22 05:03] LABS: POC Glucose,Bedside 105 (70-110)
[2023-10-22 05:21] VITALS: BP 130/63; PULSE 111; RESP 16; TEMP 36.6; O2SAT 98
[2023-10-22 07:25] LABS: Basophils % 0.2 % (0.1-2.0); Eosinophils % 0.5 % (0.1-12.0); Hematocrit 42.1 % (37.0-47.0); Hemoglobin 13.3 g/dL (12.2-16.2); Lymphocytes # 0.5 K/mm3 (0.7-4.5); Lymphocytes % 12.2 % (10-50); Mean Corpuscular HGB Conc 31.6 g/dL (31.8-35.4); Mean Corpuscular Volume 82.5 fl (81-99); Mean Platelet Volume 10.5 fl (7.4-10.4); Monocytes # 0.3 K/mm3 (0.1-1.0); Monocytes % 6.3 % (1.7-9.3); Neutrophils # 3.4 K/mm3 (1.8-7.8); Neutrophils % 80.8 % (37.0-80.0); Platelet Count 77 K/mm3 (142-424); Red Cell Distribution Width 19.7 % (11.5-17.5); White Blood Count 4.3 K/mm3 (4.8-10.8)
[2023-10-22 07:30] LABS: Chloride 101 mmol/L (98-107)
[2023-10-22 07:31] LABS: Albumin Level 3.4 g/dl (3.5-5.0); Potassium 3.9 mmoL/L (3.5-5.1); Sodium 134 mmol/L (136-145)
--- NOTE | 2023-10-22 07:32 | P.DS_ITS ---
General Admission date:: 10/20/23 Discharge date: 10/22/23 HPI HPI HPI: Ms. Mendoza is a 78-year-old female with history of hypertension, hyperlipidemia, CKD, A-fib on Eliquis. [place] with family close by. Has a caregiver that checks on her daily. There have been concerns previously about some cognitive impairment or memory changes. Patient presents with family to the ER after being found today by her caregiver and she was sitting on the floor having had bowel movements soiling the floor through her house. She seemed more confused and the house is a mess. States that she has been having some hallucinations at night and sleepwalking. Denies any chest pain, shortness of breath, nausea, vomiting. Has chronic diarrhea after abdominal surgeries due to cancer. Reports stool being dark. Afebrile. Reports her right ankle is also sore and swollen today. Family adds that she has been out of her meds for the past couple days and her caregivers bring her meds to her today. Workup in the ER with normal white count, right ankle with no fracture (just swelling). Found to be in A-fib with RVR. Initiated on antibiotics for possible cellulitis of ankle and medicine consulted for admission for further management and therapy eval. Upon arrival to the floor, patient is pleasant. She is oriented to self and place but forgets during our conversation that she is at the hospital and has been admitted to stay the night. Stated she would be able to come back tomorrow for further testing, reminded her she was at the hospital and admitted. She seemed confused by this. Family complaining of worsening weakness in her right leg, right knee soreness and stooped walking. Concern for declining functional status. On room air. Hospital Course Hospital Course Hospital Course: 78-year-old female who was found at home having increased confusion and having defecated around the house. Brought to the ER for evaluation. Found to have findings concerning for encephalopathy, questionable cellulitis of right ankle, and in A-fib with RVR. Discussed case with ER physician, request admission for further management and evaluation by therapy. I agreed to admit for further management. Received diltiazem 60 mg p.o. once in the ER, patient has missed her meds today. Has family with her at bedside after arriving to the floor. She is oriented to self but got confused during conversation that she was at the hospital and staying the night. Complaining of pain in her right knee and right ankle. No fever. Confused overnight. Had some hallucinations. Pleasant on exam. Needs electrolytes replaced. Awaiting placement. Problems addressed as follows: A-fib with RVR Hypertension Hyperlipidemia -Patient presented with fast heart rate after being found at home having had accident of stool around her house. Received metoprolol 5 mg IV. After much clarification, able to determine the patient is supposed to be on diltiazem 240 mg twice daily. Received it daily during admission. Heart rates varied from 90-120. Patient is asymptomatic, denies chest pain or shortness of breath. Recommend resuming diltiazem extended release 240 mg twice daily. Heart rate may be variable, as long as it is below 120 bpm or she is symptomatic, would continue to make outpatient adjustments to regime. Continuing Eliquis 5 mg twice daily. Patient asymptomatic from A-fib. Continue Lipitor 10 mg daily for hyperlipidemia. Holding losartan as blood pressure has been normal on m edications for A-fib. Continue HCTZ and addition of Lasix 40 mg every other day for fluid management. Electrolyte disturbances -Electrolytes low on admission. Improved with replacement. Potassium 3.4 magnesium 1.9 on day of discharge. Kidney function remained normal. Recommend repeat CBC, CMP, magnesium in 1 week to monitor electrolytes. Continue magnesium and potassium replacement. Hypothyroid? -Review of patient's chart shows low normal TSH is but normal T4 levels. Has a multinodular goiter. Has been started on methimazole but does not have any evidence of thyroid antibodies or louie hyperthyroidism. At this time as she has been on it for an extended period of time (greater than a few years) will discontinue and monitor. Recommend repeat TSH and T4 in 4 weeks to evaluate for hyperthyroid presents. Diabetes: A1c at goal of 6.8. Treated with sliding scale insulin during admission. Resume metformin and Farxiga at discharge. Decrease metformin to 500 mg twice daily. Continue Farxiga 10 mg daily. Chronic diarrhea Status post bowel surgery for colon cancer. Initiated on fiber supplement to help with loose stools and to bulk stool. Continue at discharge Right knee pain and right ankle swelling. Concern for edema in right ankle. Ankle x-ray and knee x-ray with no fracture per my review. Appears to have arthritis in her knee. Continue Tylenol as needed for pain. Treated empirically with ceftriaxone. White cell count remains normal. Empiric antibiotics during admission, no indication to continue, low concern for louie cellulitis. Therapy evaluated during admission, would benefit from rehab. Additionally evaluated patient's cognition. Family was concern for confusion. Have had discussion about this on previous admissions. Patient's Mini-Mental score was 19 out of 28 (discarded to questions due to her macular degeneration and difficulty seeing). Strong concern for mild cognitive impairment/early dementia. Sister and nephew are her medical surrogates. Discussed POA during admission, I encouraged them to investigate this and establish formal legal POA status. Total time spent on discharge 35 minutes in counseling, documentation, chart review, and direct care with patient. Exam Data for Last 24 hours Vital signs and Labs for Last 24 Hours: Temp Pulse Resp BP Pulse Ox O2 Del Method 97.8 F 111 H 16 130/63 98 Room Air 10/22/23 05:21 10/22/23 05:21 10/22/23 05:21 10/22/23 05:21 10/22/23 05:21 10/22/23 06:48 Laboratory Results - last 24 hr 10/21/23 06:13: WBC 3.7 L D, RBC 4.90, Hgb 12.6, Hct 39.6, MCV 80.8 L, MCH 25.8 L, MCHC 31.9, RDW 19.7 H, Plt Count 78 L D, MPV 9.9, Neut % (Auto) 88.0 H, Lymph % (Auto) 8.3 L, [place] % (Auto) 3.4, Eos % (Auto) 0.1, Baso % (Auto) 0.2, Neut # (Auto) 3.2, Lymph # (Auto) 0.3 L, [place] # (Auto) 0.1, Eos # (Auto) 0.0, Baso # (Auto) 0.0, Total Counted 100, Neutrophils % (Manual) 86 H, Lymphocytes % (Manual) 12, Monocytes % (Manual) 2, Platelet Estimate Moderate decrease, Hypochromasia 1+, Sodium 135 L, Potassium 2.9 L* D, Chloride 106, Carbon Dioxide 27, Anion Gap 4.9 L, BUN 15 D, Creatinine 0.50 L, Estimated Creat Clear 45, Estimated GFR 120, Est GFR ( Amer) 145 D, Glucose 104 H D, Calcium 8.0 L , Magnesium 1.4 L, Total Bilirubin 0.7, AST 54 H, ALT 27, Alkaline Phosphatase 47, Total Protein 5.3 L D, Albumin 3.1 L D, Globulin 2.2, Albumin/Globulin Ratio 1.4, TSH 2.88 10/21/23 11:16: POC Glucose 165 H 10/21/23 16:34: POC Glucose 139 H 10/21/23 19:10: Sodium 134 L, Potassium 3.5 D, Chloride 100, Carbon Dioxide 27, Anion Gap 10.5, BUN 17, Creatinine 0.70 D, Estimated Creat Clear 45, Estimated GFR 81, Est GFR ( Amer) 98 D, Glucose 200 H D, Calcium 8.4, Magnesium 2.1 D 10/21/23 20:25: POC Glucose 215 H 10/22/23 04:56: POC Glucose 105 10/22/23 06:40: WBC 4.3 L, RBC 5.10, Hgb 13.3, Hct 42.1, MCV 82.5, MCH 26.0 L, MCHC 31.6 L, RDW 19.7 H, Plt Count 77 L, MPV 10.5 H, Neut % (Auto) 80.8 H, Lymph % (Auto) 12.2, [place] % (Auto) 6.3, Eos % (Auto) 0.5, Baso % (Auto) 0.2, Neut # (Auto) 3.4, Lymph # (Auto) 0.5 L, [place] # (Auto) 0.3, Eos # (Auto) 0.0, Baso # (Auto) 0.0 I & O for Last 24 hours: Intake & Output 10/19/23 10/20/23 10/21/23 10/22/23 23:59 23:59 23:59 23:59 Intake Total 980 / 1320 340 / 340 Output Total 3150 / 3150 Balance -2170 / -1830 339 / 339 Weight 59.466 kg 60.8 kg 57.833 kg Microbiology Reports for the Last 24 Hours: Microbiology 10/20/23 14:20 Blood Blood Culture - Preliminary 10/20/23 14:20 Blood Blood Culture - Preliminary Constitutional Constitutional: no acute distress, average body habitus and chronically ill appearing *Routine HEENT Exam Head: Present normocephalic Eye: Present EOMI and PERRL ENT: Present mucous membranes moist *Routine Neck Exam Neck: Present supple; Absent lymphadenopathy *Routine Respiratory Exam Respiratory: Present CTA bilaterally; Absent rhonchi *Routine Cardiovascular Exam Cardiovascular: Present irregularly irregular *Routine Abdominal Exam Abdominal: Present soft and normoactive bowel sounds; Absent tenderness *Routine Rectal Exam Patient deferred: visual exam *Routine Exam Patient deferred: external exam *Routine Extremities Exam Extremities: Absent cyanosis, clubbing or edema *Routine Skin Exam Skin: Present warm; Absent rash *Routine Neurological Exam Neurological: Present alert and moving all extremities; Absent altered mental status Comments: Oriented to to self place and month, short-term recall deficits. Mini-Mental performed during admission score of 19 out of 28 (throughout reading instructions and drawing due to patient's vision: Macular degeneration and inability to perform these) Routine Psychiatric Exam Psychiatric: Present normal affect Comments: Tangential speech, loses train of thought during conversation and rambles Results Data Completed and Pending Labs on day of discharge: Labs from last 24 hours 10/22/23 10/22/23 10/21/23 06:40 04:56 20:25 WBC 4.3 L RBC 5.10 Hgb 13.3 Hct 42.1 MCV 82.5 MCH 26.0 L MCHC 31.6 L RDW 19.7 H Plt Count 77 L MPV 10.5 H Neut % (Auto) 80.8 H Lymph % (Auto) 12.2 [place] % (Auto) 6.3 Eos % (Auto) 0.5 Baso % (Auto) 0.2 Neut # (Auto) 3.4 Lymph # (Auto) 0.5 L [place] # (Auto) 0.3 Eos # (Auto) 0.0 Baso # (Auto) 0.0 Total Counted Neutrophils % (Manual) Lymphocytes % (Manual) Monocytes % (Manual) Platelet Estimate Hypochromasia Sodium Potassium Chloride Carbon Dioxide Anion Gap BUN Creatinine Estimated Creat Clear Estimated GFR Est GFR ( Amer) Glucose POC Glucose 105 215 H Calcium Magnesium Total Bilirubin AST ALT Alkaline Phosphatase Total Protein Albumin Globulin Albumin/Globulin Ratio TSH 10/21/23 10/21/23 10/21/23 19:10 16:34 11:16 WBC RBC Hgb Hct MCV MCH MCHC RDW Plt Count MPV Neut % (Auto) Lymph % (Auto) [place] % (Auto) Eos % (Auto) Baso % (Auto) Neut # (Auto) Lymph # (Auto) [place] # (Auto) Eos # (Auto) Baso # (Auto) Total Counted Neutrophils % (Manual) Lymphocytes % (Manual) Monocytes % (Manual) Platelet Estimate Hypochromasia Sodium 134 L Potassium 3.5 D Chloride 100 Carbon Dioxide 27 Anion Gap 10.5 BUN 17 Creatinine 0.70 D Estimated Creat Clear 45 Estimated GFR 81 Est GFR ( Amer) 98 D Glucose 200 H D POC Glucose 139 H 165 H Calcium 8.4 Magnesium 2.1 D Total Bilirubin AST ALT Alkaline Phosphatase Total Protein Albumin Globulin Albumin/Globulin Ratio TSH 10/21/23 06:13 WBC 3.7 L D RBC 4.90 Hgb 12.6 Hct 39.6 MCV 80.8 L MCH 25.8 L MCHC 31.9 RDW 19.7 H Plt Count 78 L D MPV 9.9 Neut % (Auto) 88.0 H Lymph % (Auto) 8.3 L [place] % (Auto) 3.4 Eos % (Auto) 0.1 Baso % (Auto) 0.2 Neut # (Auto) 3.2 Lymph # (Auto) 0.3 L [place] # (Auto) 0.1 Eos # (Auto) 0.0 Baso # (Auto) 0.0 Total Counted 100 Neutrophils % (Manual) 86 H Lymphocytes % (Manual) 12 Monocytes % (Manual) 2 Platelet Estimate Moderate decrease Hypochromasia 1+ Sodium 135 L Potassium 2.9 L* D Chloride 106 Carbon Dioxide 27 Anion Gap 4.9 L BUN 15 D Creatinine 0.50 L Estimated Creat Clear 45 Estimated GFR 120 Est GFR ( Amer) 145 D Glucose 104 H D POC Glucose Calcium 8.0 L Magnesium 1.4 L Total Bilirubin 0.7 AST 54 H ALT 27 Alkaline Phosphatase 47 Total Protein 5.3 L D Albumin 3.1 L D Globulin 2.2 Albumin/Globulin Ratio 1.4 TSH 2.88 Preliminary micro results at discharge 10/20/23 14:20 Blood Culture - Preliminary Blood 10/20/23 14:20 Blood Culture - Preliminary Blood DS: Diagnosis Discharge Diagnosis (1) Atrial fibrillation with RVR: Status: Acute Code(s): I48.91 - Unspecified atrial fibrillation (2) Cellulitis: Status: Acute Code(s): L03.90 - Cellulitis, unspecified (3) Diabetes type 2, controlled: Status: Acute Code(s): E11.9 - Type 2 diabetes mellitus without complications Qualifiers: Diabetes mellitus complication status: with unspecified complications Diabetes mellitus termite helper insulin use: with penitentiary use Qualified Code(s): E11.8 - Type 2 diabetes mellitus with unspecified complications; Z79.4 - terminal press operator (current) use of insulin (4) HTN (hypertension): Status: Chronic Code(s): I10 - Essential (primary) hypertension Qualifiers: Hypertension type: essential hypertension Qualified Code(s): I10 - Essential (primary) hypertension (5) AMS (altered mental status): Status: Acute Code(s): R41.82 - Altered mental status, unspecified (6) Right knee pain: Status: Acute Code(s): M25.561 - Pain in right knee Qualifiers: Chronicity: acute Qualified Code(s): M25.561 - Pain in right knee (7) Hypomagnesemia: Status: Acute Code(s): E83.42 - Hypomagnesemia (8) Hypokalemia: Status: Acute Code(s): E87.6 - Hypokalemia Meds Home Medications and Allergies Home Medications ?Medication ?Instructions ?Recorded ?Confirmed ?Type cyanocobalamin (vitamin B-12) 1,000 mcg PO DAILY 08/08/23 10/20/23 History 1,000 mcg tablet insulin aspar prot-insulin aspart 11 unit SQ BID 08/08/23 10/20/23 History 100 unit/mL (70-30) subcutaneous pen (Novolog Mix 70-30FlexPen U-100) apixaban 5 mg tablet (Eliquis) 5 mg PO BID #60 tabs 08/17/23 10/20/23 Rx alendronate 10 mg tablet 10 mg PO DAILY #90 tabs 09/01/23 10/20/23 Rx diltiazem HCl 240 mg 240 mg PO BID 09/20/23 10/20/23 History capsule,extended release 24 hr, controlled (DILT-XR) magnesium oxide 400 mg (241.3 mg 400 mg PO DAILY 09/20/23 10/20/23 History magnesium) tablet atorvastatin 10 mg tablet 10 mg PO DAILY #90 tabs 10/14/23 10/20/23 Rx ferrous sulfate 325 mg (65 mg 325 mg PO DAILY #90 tabs 10/14/23 10/20/23 Rx iron) tablet (Iron (ferrous sulfate)) dapagliflozin propanediol 10 mg 10 mg PO DAILY 10/20/23 10/20/23 History tablet (Farxiga) omeprazole 20 mg capsule,delayed 20 mg PO DAILY 10/20/23 10/20/23 History release hydrochlorothiazide 25 mg tablet 25 mg PO DAILY 10/21/23 10/21/23 History acetaminophen 325 mg tablet 650 mg (2 x 325 mg) PO Q4HP PRN 10/22/23 Rx Fever Or Mild Pain (1-3) #0 tabs calcium polycarbophil 625 mg 1,250 mg (2 x 625 mg) PO DAILY for 10/22/23 Rx tablet (FiberCon) her chronic diarrhea #0 tabs furosemide 40 mg tablet (Lasix) 40 mg PO .qod 30 days #15 tabs 10/22/23 Rx metformin 1,000 mg tablet 500 mg (1/2 x 1,000 mg) PO BID 30 10/22/23 10/20/23 Rx days #0 tabs New Prescriptions to Start Prescriptions: furosemide [Lasix] Liam Horne Allergies Allergy/AdvReac Type Severity Reaction Status Date / Time codeine [CODEINE] Allergy Unknown hallucinati Verified 10/10/23 09:35 ons Penicillins [PENICILLINS] Allergy Unknown Verified 10/10/23 09:35 lisinopril AdvReac Severe Cough Verified 10/10/23 09:35 Discharge Plan Disposition Patient Disposition: [facility] Condition: Fair Discharge Order Discharge Orders: Discharge Order (Routine); Ordered 10/22/23 Ordered By: Liam Horne Follow up Plan Prescriptions/Medication Reconciliation: New acetaminophen 325 mg Tablet 650 mg PO Q4HP PRN (Reason: Fever Or Mild Pain (1-3)) Qty: 0 0RF calcium polycarbophil [FiberCon] 625 mg Tablet 1,250 mg PO DAILY Qty: 0 0RF furosemide [Lasix] 40 mg tablet 40 mg PO .qod 30 Days Qty: 15 0RF Continued Eliquis 5 mg tablet 5 mg PO BID Qty: 60 3RF diltiazem HCl [DILT-XR] 240 mg capsule,ext.rel 24h degradable 240 mg PO BID magnesium oxide 400 mg (241.3 mg magnesium) tablet 400 mg PO DAILY Patient Comments: TAKE ONE TABLET BY MOUTH EVERY DAY alendronate 10 mg tablet 10 mg PO DAILY Qty: 90 2RF atorvastatin 10 mg tablet 10 mg PO DAILY Qty: 90 1RF Patient Comments: TAKE 1 TABLET BY MOUTH DAILY FOR CHOLESTEROL ferrous sulfate [Iron (ferrous sulfate)] 325 mg (65 mg iron) tablet 325 mg PO DAILY Qty: 90 0RF cyanocobalamin (vitamin B-12) 1,000 mcg tablet 1,000 mcg PO DAILY Patient Comments: TAKE ONE TABLET BY MOUTH EVERY DAY insulin asp prt-insulin aspart [Novolog Mix 70-30FlexPen U-100] 100 unit/mL (70-30) insulin pen 11 unit SQ BID Patient Comments: ADMINISTER 11 UNITS UNDER THE SKIN TWICE DAILY dapagliflozin propanediol [Farxiga] 10 mg tablet 10 mg PO DAILY omeprazole 20 mg capsule,delayed release(DR/EC) 20 mg PO DAILY hydrochlorothiazide 25 mg tablet 25 mg PO DAILY Patient Comments: TAKE ONE TABLET BY MOUTH EVERY DAY Changed metformin 1,000 mg tablet 500 mg PO BID 30 Days Qty: 0 0RF Discontinued methimazole 5 mg tablet 5 mg PO TID 90 Days Qty: 270 3RF losartan 50 mg tablet 50 mg PO DAILY Qty: 90 0RF Problem Reconciliation Problems Reviewed?: Yes Patient Discharge Instructions ACTIVITY: Continue current activity DIET: continue same diet Patient Instructions: DI for Cellulitis -- Adult, DI for Atrial Fibrillation Print Language: Malagasy Providers Primary Care Provider: Kiko Gaines Admit Provider: Liam Horne Attending Provider: Liam Horne
[2023-10-22 07:34] LABS: Alanine Aminotransferase 28 U/L (12-78); Albumin/Globulin Ratio 1.4 (1.1-1.8); Alkaline Phosphatase 57 U/L (38-126); Anion Gap 6.9 mEq/L (5-15); Aspartate Amino Transferase 51 U/L (14-36); Blood Urea Nitrogen 14 mg/dl (7-17); Calcium 7.8 mg/dl (8.4-10.2); Carbon Dioxide 30 mmol/L (22.0-30.0); Creatinine Clearance Estimated 43 mL/min (50-200); Estimated Glomerular Filt Rate 81 ml/min (>60); GFR (African American) 98 ML/MIN (>60); Globulin 2.4 g/dL (1.3-3.2); Glucose 119 mg/dl (74-100); Magnesium 1.9 mg/dl (1.6-2.3); Total Protein,Serum 5.8 g/dl (6.3-8.2)
[2023-10-22 08:00] VITALS: BP 106/52; PULSE 110; PULSE 114; PULSE 120; RESP 22; TEMP 37.3; O2SAT 98
[2023-10-22] MEDS: CALCIUM POLYCARBOPHIL 625MG TAB 1250 MG PO (08:53)
[2023-10-22] MEDS: MAGNESIUM OXIDE 400MG TABLET 400 MG PO (08:53)
[2023-10-22] MEDS: METFORMIN 500MG TABLET 1000 MG PO (08:53)
[2023-10-22] MEDS: dilTIAZem ER 240MG CAPSULE 240 MG PO (08:53)
[2023-10-22] MEDS: hydroCHLOROthiazide 25MG TABLET 25 MG PO (08:53)
[2023-10-22] MEDS: DAPAGLIFLOZIN PROPANEDIOL 10 MG TABLET PO (08:53)
[2023-10-22] MEDS: FUROSEMIDE 40MG/4ML VIAL 40 MG IV (08:53)
[2023-10-22] MEDS: POTASSIUM CHLORIDE 20MEQ TAB 40 MEQ PO (08:53)
[2023-10-22] MEDS: APIXABAN 5MG TABLET 5 MG PO (08:53)
--- NOTE | 2023-10-22 10:28 | PC.NURSE ---
report called to [facility] @ [facility] in [place]
--- NOTE | 2023-10-22 10:37 | PC.NURSE ---
pt has been discharged with family to [facility]. took all of her belongigns with her. family and pt voiced understanding of all discahrge education.
== END 2023-10-22 10:37 ==
LOC: ER 17:19 → 2ND 17:27
PROVIDERS: Emergency Medicine; Admitting Provider Internal Medicine Adolescent Medicine; Emergency Provider Emergency Medicine; PCP Internal Medicine; Visit Provider Internal Medicine Adolescent Medicine
DX: I48.91 Unspecified atrial fibrillation (principal); L03.115 Cellulitis of right lower limb; E11.22 Type 2 diabetes mellitus with diabetic chronic kidney disease; Z79.4 Long term (current) use of insulin; I13.0 Hypertensive heart and chronic kidney disease with heart failure and stage 1 through stage 4 chronic kidney disease, or unspecified chronic kidney disease; R41.82 Altered mental status, unspecified; M25.561 Pain in right knee; E83.42 Hypomagnesemia; E87.6 Hypokalemia; N18.9 Chronic kidney disease, unspecified; R29.6 Repeated falls; Z79.899 Other long term (current) drug therapy; Z60.2 Problems related to living alone; Z73.89 Other problems related to life management difficulty; Z79.01 Long term (current) use of anticoagulants; K52.9 Noninfective gastroenteritis and colitis, unspecified
CPT/HCPCS: 36415; 70450; 71045; 73560; 73610; 80048; 80050; 80053; 81001; 82962; 83036; 83605; 83690; 83735; 84145; 84439; 84443; 84484; 85007; 85025; 85027; 85610; 85730; 86140; 87040; 87077; 87186; 93005; 93971; 97110; 97116; 97162; 97166; 97530; 97535; 99285; G0378; J0696; J1940; J3370; J3475; J7030; J7120

== ENCOUNTER 2024-02-28 11:51 | Outpatient (CLI) | payer MEDICARE, SELFPAY ==
[2024-02-28 12:19] LABS: Basophils % 0.9 % (0.1-2.0); Eosinophils # 0.1 K/mm3 (0.0-0.4); Eosinophils % 2.1 % (0.1-12.0); Hemoglobin 15.8 g/dL (12.2-16.2); Lymphocytes % 27.5 % (10-50); Mean Corpuscular HGB Conc 33.6 g/dL (31.8-35.4); Mean Corpuscular Hemoglobin 30.1 pg (27.0-31.2); Mean Corpuscular Volume 89.6 fl (81-99); Monocytes # 0.2 K/mm3 (0.1-1.0); Monocytes % 6.1 % (1.7-9.3); Neutrophils # 2.2 K/mm3 (1.8-7.8); Neutrophils % 63.3 % (37.0-80.0); Platelet Count 95 K/mm3 (142-424); Red Blood Count 5.24 M/mm3 (4.20-5.40); Red Cell Distribution Width 15.8 % (11.5-17.5); White Blood Count 3.5 K/mm3 (4.8-10.8)
[2024-02-28 12:38] LABS: Activated Partial Thrombo Time 25.7 seconds (22.8-30.6); INR 1.09 (0.9-1.1); Prothrombin Time 12.1 seconds (10.1-12.5)
[2024-02-28 13:00] LABS: Albumin Level 4.8 g/dl (3.5-5.0); Chloride 102 mmol/L (98-107); Potassium 3.4 mmoL/L (3.5-5.1); Sodium 140 mmol/L (136-145)
[2024-02-28 13:03] LABS: Alanine Aminotransferase 23 U/L (12-78); Albumin/Globulin Ratio 2.3 (1.1-1.8); Alkaline Phosphatase 46 U/L (38-126); Anion Gap 11.4 mEq/L (5-15); Aspartate Amino Transferase 37 U/L (14-36); Bilirubin,Total 1.6 mg/dl (0.2-1.3); Blood Urea Nitrogen 20 mg/dl (7-17); Carbon Dioxide 30 mmol/L (22.0-30.0); Estimated Glomerular Filt Rate 97 ml/min (>60); GFR (African American) 117 ML/MIN (>60); Globulin 2.1 g/dL (1.3-3.2); Total Protein,Serum 6.9 g/dl (6.3-8.2)
[2024-02-28 13:04] LABS: Calcium 9.6 mg/dl (8.4-10.2); Glucose 127 mg/dl (74-100)
[2024-02-28 13:16] LABS: C-Reactive Protein < 0.3 mg/L (0-4)
[2024-02-28 13:21] LABS: 25-OH Vitamin D, Total 24.2 ng/mL (30-100)
== END 2024-02-28 23:59 | disposition home or self-care (01) ==
LOC: LAB 11:51
PROVIDERS: PCP Internal Medicine; Visit Provider Internal Medicine
DX: D64.9 Anemia, unspecified (principal); E87.6 Hypokalemia; D50.9 Iron deficiency anemia, unspecified; E55.9 Vitamin D deficiency, unspecified; D50.0 Iron deficiency anemia secondary to blood loss (chronic); I48.91 Unspecified atrial fibrillation
CPT/HCPCS: 36415; 80053; 82306; 85025; 85610; 85730; 86140

== ENCOUNTER 2024-04-04 10:08 | Outpatient (CLI) | payer MEDICARE, SELFPAY ==
--- NOTE | 2024-04-04 10:17 | XR_ITS ---
FINAL REPORT TECHNIQUE: 5 views right tibia and fibula CLINICAL HISTORY: right leg pain COMPARISON: None FINDINGS: RIGHT TIBIA FIBULA: There is no acute fracture or dislocation. The joint spaces are intact. There is no soft tissue abnormality. Severe osteopenia is noted. IMPRESSION: Severe osteopenia without acute bony abnormality. Reviewed, Interpreted and Dictated by Sabine Liriano MD Transcribed by Gi Palencia Authenticated and [facility]
== END 2024-04-04 23:59 | disposition home or self-care (01) ==
PROVIDERS: PCP Internal Medicine; Visit Provider Physician Assistant
DX: M79.604 Pain in right leg (principal)
CPT/HCPCS: 73590

== ENCOUNTER 2024-04-11 14:41 | Outpatient (CLI) | payer MEDICARE, SELFPAY ==
[2024-04-11 15:04] LABS: Basophils % 0.4 % (0.1-2.0); Eosinophils # 0.1 K/mm3 (0.0-0.4); Eosinophils % 1.2 % (0.1-12.0); Hematocrit 45.6 % (37.0-47.0); Hemoglobin 15.7 g/dL (12.2-16.2); Lymphocytes # 1.3 K/mm3 (0.7-4.5); Lymphocytes % 26.5 % (10-50); Mean Corpuscular HGB Conc 34.4 g/dL (31.8-35.4); Mean Corpuscular Hemoglobin 30.7 pg (27.0-31.2); Mean Corpuscular Volume 89.1 fl (81-99); Mean Platelet Volume 12.2 fl (7.4-10.4); Monocytes # 0.4 K/mm3 (0.1-1.0); Monocytes % 7.8 % (1.7-9.3); Neutrophils # 3.1 K/mm3 (1.8-7.8); Neutrophils % 63.7 % (37.0-80.0); Platelet Count 121 K/mm3 (142-424); Red Blood Count 5.12 M/mm3 (4.20-5.40); Red Cell Distribution Width 13.6 % (11.5-17.5); White Blood Count 4.9 K/mm3 (4.8-10.8)
[2024-04-11 15:43] LABS: Alanine Aminotransferase 28 U/L (12-78); Albumin Level 4.7 g/dl (3.5-5.0); Alkaline Phosphatase 47 U/L (38-126); Anion Gap 13.7 mEq/L (5-15); Aspartate Amino Transferase 35 U/L (14-36); Bilirubin,Direct 0.2 mg/dl (0.0-0.4); Bilirubin,Indirect 1.2 mg/dL (0.0-0.9); Bilirubin,Total 1.4 mg/dl (0.2-1.3); Bilirubin,Unconjugated 1.2 mg/dL (0.0-1.1); Blood Urea Nitrogen 29 mg/dl (7-17); Calcium 10.3 mg/dl (8.4-10.2); Carbon Dioxide 28 mmol/L (22.0-30.0); Chloride 101 mmol/L (98-107); Chol/HDL Ratio 1.8 (1-3.5); Cholesterol 134 mg/dl (140-200); Estimated Glomerular Filt Rate 119 ml/min (>60); GFR (African American) 144 ML/MIN (>60); Glucose 126 mg/dl (74-100); HDL Cholesterol 76 mg/dl (40-60); Magnesium 1.3 mg/dl (1.6-2.3); Potassium 3.7 mmoL/L (3.5-5.1); Sodium 139 mmol/L (136-145); Total Protein,Serum 6.7 g/dl (6.3-8.2); Triglycerides 81 mg/dl (30-150); VLDL Cholesterol 16 mg/dL (0-40)
[2024-04-11 15:54] LABS: Direct LDL Cholesterol 52.94 mg/dL (100-129)
[2024-04-11 16:00] LABS: Free Thyroxine Index 2.3 ug/dL (5.93-13.13); T4 (Thyroxine) 6.1 ug/dl (5.53-11.0); Triiodothryronine (T3) Uptake 37 % (23.5-40.5)
[2024-04-11 16:13] LABS: Thyroid Stimulating Hormone 1.76 uIU/mL (0.465-4.68)
== END 2024-04-11 23:59 | disposition home or self-care (01) ==
LOC: LAB 14:42
PROVIDERS: PCP Internal Medicine; Visit Provider Physician Assistant
DX: E05.90 Thyrotoxicosis, unspecified without thyrotoxic crisis or storm (principal); E87.6 Hypokalemia; E83.42 Hypomagnesemia; D50.0 Iron deficiency anemia secondary to blood loss (chronic); D64.9 Anemia, unspecified; E78.2 Mixed hyperlipidemia; I65.23 Occlusion and stenosis of bilateral carotid arteries; I48.91 Unspecified atrial fibrillation
CPT/HCPCS: 36415; 80048; 80061; 80076; 83735; 84436; 84443; 84479; 85025

== ENCOUNTER 2024-05-03 11:42 | Outpatient (CLI) | payer MEDICARE, SELFPAY ==
[2024-05-03 13:03] LABS: Chloride 95 mmol/L (98-107)
[2024-05-03 13:04] LABS: Potassium 3.5 mmoL/L (3.5-5.1); Sodium 138 mmol/L (136-145)
[2024-05-03 13:07] LABS: Anion Gap 12.5 mEq/L (5-15); Blood Urea Nitrogen 22 mg/dl (7-17); Calcium 9.8 mg/dl (8.4-10.2); Carbon Dioxide 34 mmol/L (22.0-30.0); Estimated Glomerular Filt Rate 69 ml/min (>60); GFR (African American) 84 ML/MIN (>60); Glucose 98 mg/dl (74-100)
[2024-05-03 13:24] LABS: Free T4 (Free Thyroxine) 0.73 ng/dl (0.78-2.19)
[2024-05-03 14:40] LABS: Magnesium 0.9 mg/dl (1.6-2.3)
== END 2024-05-03 23:59 | disposition home or self-care (01) ==
LOC: LAB 11:43
PROVIDERS: PCP Internal Medicine; Visit Provider Physician Assistant
DX: I65.23 Occlusion and stenosis of bilateral carotid arteries (principal); I48.0 Paroxysmal atrial fibrillation; R06.00 Dyspnea, unspecified; R94.31 Abnormal electrocardiogram [ECG] [EKG]; E78.2 Mixed hyperlipidemia
CPT/HCPCS: 36415; 80048; 83735; 84439; 84443

== ENCOUNTER 2024-05-25 16:28 | Inpatient (IN) | payer MEDICARE, MEDICAID, SELFPAY ==
[2024-05-25] VITALS (9 sets, daily range): BP systolic 108–155; BP diastolic 52–71; PULSE 49–68; RESP 12–20; TEMP 36.1–37; O2SAT 96–100; BMI 21.1; BMI 20.7
--- NOTE | 2024-05-25 16:35 | PC.NURSE ---
pt placed in room 7. POC glucose assessed at 85 and an NIH of 0
--- NOTE | 2024-05-25 16:44 | ED_ITS ---
Discharge Plan Disposition Patient Disposition: Admitted Condition: Fair Clinical Impressions Clinical Impression: Hypoglycemia associated with type 2 diabetes mellitus, Hypokalemia, Hypomagnesemia, Therapeutic misadventure Discharge ED Provider: Noah Miller General Adult HPI <CHERELLE Keys - Last Filed: 05/25/24 23:25> General Chief complaint: Weakness Stated complaint: sugar fluxuating, confusion Time Seen by Provider: 05/25/24 16:44 History of Present Illness HPI narrative: Patient presents for evaluation of weakness initially. Patient herself has no recollection of events however story related from her relative at bedside states that they were grocery shopping and patient was riding in a motorized scooter and seem to slump in her chair and seemed to be less responsive. Family members gave her apple juice and she perked up. They unfortunately did not check her blood sugar. Patient at baseline may have dementia but makes all of her decisions for herself and lives alone. She currently denies chest pain fever chills hemoptysis hematochezia melena nausea vomiting diarrhea. Patient reports compliance with her medication. She is however an insulin-dependent type 2 diabetic and takes 70/30 insulin twice a day. Patient cannot tell me whether or not she is taking her insulin correctly today nor what dose however she states that she has not eaten since breakfast. Related Data Home Medications ?Medication ?Instructions ?Recorded ?Confirmed pen needle, diabetic 32 gauge x #1,200 ea 04/11/24 05/10/24 (BD Ultra-Fine Leena Pen Needle) Previous Rx's ?Medication ?Instructions ?Recorded alendronate 10 mg tablet 10 mg PO DAILY #90 tabs 09/01/23 acetaminophen 325 mg tablet 650 mg (2 x 325 mg) PO Q4HP PRN 10/22/23 Fever Or Mild Pain (1-3) #0 tabs calcium polycarbophil 625 mg 1,250 mg (2 x 625 mg) PO DAILY for 10/22/23 tablet (FiberCon) her chronic diarrhea #0 tabs furosemide 40 mg tablet (Lasix) 40 mg PO .qod 30 days #15 tabs 10/22/23 diltiazem HCl 240 mg See Rx Instructions .Route 02/13/24 capsule,extended release 24 hr, .COMPLEX #180 caps controlled (DILT-XR) insulin aspar prot-insulin aspart 11 unit (0.11 mL) SQ BID Diabetes 02/13/24 100 unit/mL (70-30) subcutaneous #15 mL pen (Novolog Mix 70-30FlexPen U-100) cholecalciferol (vitamin D3) 250 250 mcg PO DAILY #30 caps 02/29/24 mcg (10,000 unit) capsule donepezil 5 mg tablet (Aricept) 5 mg PO DAILY #30 tabs 03/07/24 thiamine mononitrate (vit B1) 250 500 mg (2 x 250 mg) PO DAILY 90 03/07/24 mg tablet days #180 tabs blood-glucose sensor (FreeStyle #1 kit 03/15/24 Pattie 3 Sensor device) Farxiga 10 mg tablet See Rx Instructions .Route 04/11/24 (dapagliflozin propanediol) .COMPLEX #90 tabs apixaban 5 mg tablet (Eliquis) See Rx Instructions .Route 04/11/24 .COMPLEX #180 tabs atorvastatin 10 mg tablet See Rx Instructions .Route 04/11/24 .COMPLEX #90 tabs cyanocobalamin (vitamin B-12) See Rx Instructions .Route 04/11/24 1,000 mcg tablet .COMPLEX #90 tabs hydrochlorothiazide 25 mg tablet See Rx Instructions .Route 04/11/24 .COMPLEX #90 tabs metoprolol succinate 50 mg 50 mg PO BID #60 tabs 04/11/24 tablet,extended release 24 hr omeprazole 20 mg capsule,delayed See Rx Instructions .Route 04/11/24 release .COMPLEX #90 caps digoxin 125 mcg (0.125 mg) tablet 125 mcg PO DAILY #30 tabs 04/12/24 magnesium oxide 400 mg (241.3 mg 400 mg PO DAILY #30 tabs 04/13/24 magnesium) tablet ferrous sulfate 325 mg (65 mg See Rx Instructions .Route 05/07/24 iron) tablet (FeroSul) .COMPLEX #30 tabs metformin 1,000 mg tablet See Rx Instructions .Route 05/07/24 .COMPLEX #60 tabs methimazole 5 mg tablet 2.5 mg (1/2 x 5 mg) PO TID #90 tabs 05/10/24 Allergies Allergy/AdvReac Type Severity Reaction Status Date / Time codeine (CODEINE) Allergy Unknown hallucinati Verified 05/10/24 13:32 ons Penicillins (PENICILLINS) Allergy Unknown Verified 05/10/24 13:32 lisinopril AdvReac Severe Cough Verified 05/10/24 13:32 PFSH <CHERELLE Keys - Last Filed: 05/25/24 23:25> [facility] Disclaimer: The information contained in this section may have been updated after the patient was seen, as this information can be updated by other users. Medical History Distal radius fracture Viral hepatitis C Multinodular goiter Claudication Bilateral leg weakness Macular degeneration Abnormal EKG Dyspnea Recurrent falls Atrial fibrillation HLD (hyperlipidemia) Carotid artery stenosis Osteoporosis Surgical History History of appendectomy History of bowel resection Family History Other COPD exacerbation Social History (Updated 05/25/24 @ 20:30 by Nilda Bellamy RN) Smoking Status: Unknown if ever smoked years smoked: 50 smoking status stop date: 2015 second hand exposure: No alcohol intake: former counseling provided: none substance use type: marijuana current occupational status: retired Travel in the last 8 weeks: None household members: none housing: house marital status: current occupational exposures/hazards: No caffeine: No Contact w/someone who lives/traveled outside [place] past 30 days?: No Exposure to someone with infectious disease in past 14 days?: No Do you have a fever (greater than 100.4 F or 38 C)?: No Have you tested positive for COVID-19: No Exposed to someone with COVID-19 in past 14 days?: No Do you have a sore throat?: No Do you have a cough?: No Do you have any weakness?: No Are you experiencing any nausea/vomitting?: No Do you have any diarrhea?: No Are you experiencing any unusual bleeding?: No Do you have any muscle aches/pain?: No Do you have any abdominal pain?: No Are you experiencing loss of taste or smell?: No Other Medical History Have you received the Flu Vaccine for this season: No Have you received the Pneumonia Vaccine: Yes <CHERELLE Keys - Last Filed: 05/25/24 23:25> ROS Obtained: Yes Systems reviewed as appropriate & no additional complaints except as documented Physical Exam <CHERELLE Keys - Last Filed: 05/25/24 23:25> General General appearance: alert and in no apparent distress Respiratory Respiratory exam: Present normal lung sounds bilaterally Cardiovascular Cardiovascular exam: Present regular rate Neurological Exam Neurological exam: Present alert and oriented X3 Medical Decision Making <CHERELLE Keys - Last Filed: 05/25/24 23:25> Medical Records Medical records reviewed: Yes I reviewed the patient's medical records. Screening: Per USPSTF and CDC recommendations, given the prevalence of disease in our region, it is our hospital?s policy to screen for HIV and viral Hepatitis for all patients aged 18 and over and those with ongoing risk factors. Federico Inquiry Pt receiving controlled substance: No Vital Signs: 05/25/24 16:35 05/25/24 16:44 05/25/24 17:08 Temperature 98.6 F Temperature Source Oral Pulse Rate 50 L Pulse Rate [Left Radial] 68 Respiratory Rate 17 16 Blood Pressure 155/68 H 132/69 Blood Pressure [Right Arm] 155/68 H Blood Pressure Mean 125 96 Blood Pressure Mean [Right Arm] 97 Blood Pressure Source [Right Arm] Automatic Cuff Blood Pressure Position [Right Arm] Sitting 02 Sat by Pulse Oximetry 100 99 Oxygen Delivery Method Room Air 05/25/24 17:30 05/25/24 18:00 05/25/24 19:01 Temperature Temperature Source Pulse Rate 52 L 49 L 56 L Pulse Rate [Left Radial] Respiratory Rate 18 16 12 Blood Pressure 127/52 L 131/66 146/66 H Blood Pressure [Right Arm] Blood Pressure Mean 77 86 Blood Pressure Mean [Right Arm] Blood Pressure Source [Right Arm] Blood Pressure Position [Right Arm] 02 Sat by Pulse Oximetry 97 96 97 Oxygen Delivery Method 05/25/24 19:50 Temperature 98.2 F Temperature Source Pulse Rate 63 Pulse Rate [Left Radial] Respiratory Rate 13 Blood Pressure 140/71 Blood Pressure [Right Arm] Blood Pressure Mean Blood Pressure Mean [Right Arm] Blood Pressure Source [Right Arm] Blood Pressure Position [Right Arm] 02 Sat by Pulse Oximetry Oxygen Delivery Method Room Air Lab Data Lab results reviewed: Yes I reviewed the patient's lab results. Lab Results 05/25/24 16:39: Urine Color Yellow, Urine Appearance Clear, Urine pH 6.5, Ur Specific Alexander 1.020, Urine Protein 2+ A, Urine Glucose (UA) 2+, Urine Ketones Negative, Urine Blood Trace-i, Urine Nitrate Negative, Urine Bilirubin Negative, Urine Urobilinogen 0.2, Ur Leukocyte Esterase Trace, Urine RBC 5-10, Urine WBC 10-20, Ur Squamous Epith Cells 3-5, Urine Bacteria 1+ 05/25/24 16:45: POC Glucose 85 05/25/24 16:53: WBC 6.8, RBC 5.12, Hgb 15.9, Hct 46.9, MCV 91.6, MCH 31.1, MCHC 33.9, RDW 13.4, Plt Count 112 L, MPV 12.0 H, Neut % (Auto) 82.3 H, Lymph % (Auto) 11.1, Jessamine % (Auto) 5.6, Eos % (Auto) 0.1, Baso % (Auto) 0.3, Neut # (Auto) 5.6, Lymph # (Auto) 0.8, Jessamine # (Auto) 0.4, Eos # (Auto) 0.0, Baso # (Auto) 0.0, PT 12.4, INR 1.12 H, Sodium 138, Potassium 3.0 L, Chloride 95 L, C arbon Dioxide 33 H, Anion Gap 13.0, BUN 21 H, Creatinine 0.60, Estimated GFR 97, Est GFR ( Amer) 117, Glucose 70 L, Hemoglobin A1c 6.8 H, Calcium 9.6, M agnesium 1.2 L, Total Bilirubin 1.0, AST 38 H, ALT 36, Alkaline Phosphatase 38, Troponin I 0.02, NT-Pro-B Natriuret Pep 2740 H, Total Protein 7.1, Albumin 5.1 H , Globulin 2.0, Albumin/Globulin Ratio 2.6 H, Procalcitonin 0.032, TSH 3.05, F ree T4 Index 2.4 L, Thyroxine (T4) 6.6, T3 Uptake 36, Digoxin 0.50 05/25/24 16:53 05/25/24 16:53 Orders (Tests/Meds): ED MEDICATIONS Generic Name Dose Route Start Last Admin Trade Name Freq PRN Reason Stop Dose Admin Apixaban 5 mg 05/25/24 21:00 05/25/24 22:45 Apixaban 5mg Tablet PO 06/24/24 20:59 5 mg BID MARTIR Administration Digoxin 125 mcg 05/26/24 09:00 Digoxin 0.125mg Tablet PO 06/25/24 08:59 DAILY MARTIR Potassium Chloride/Water 100 mls @ 50 mls/hr 05/25/24 17:39 05/25/24 22:45 Potassium Chloride 20meq/100ml Ivpb IV 05/25/24 23:38 50 mls/hr Q2H MARTIR Administration Dextrose/Water 500 mls @ 25 mls/hr 05/25/24 18:00 05/25/24 22:40 Dextrose 10% In Water 500ml IV 06/24/24 17:59 Not Given .Q20H MARTIR Magnesium Oxide 400 mg 05/26/24 09:00 Magnesium Oxide 400mg Tablet PO 06/25/24 08:59 DAILY MARTIR Potassium Chloride 20 meq 05/25/24 20:00 05/25/24 22:41 Potassium Chloride 20meq Tab PO 05/25/24 20:01 Not Given TID ONE Discontinued Medications Generic Name Dose Route Start Last Admin Trade Name Freq PRN Reason Stop Dose Admin Magnesium Sulfate 2 gm in 50 mls @ 50 mls/hr 05/25/24 17:39 05/25/24 17:41 Magnesium Sulfate 2gm/50ml Premix IV 05/25/24 18:38 50 mls/hr ONCE ONE Administration Sodium Chloride 1,000 mls @ 999 mls/hr 05/25/24 17:54 05/25/24 17:55 Sod Chlor 0.9% 1000ml Bag IV 05/25/24 18:54 999 mls/hr .Q1H1M ONE Administration Potassium Chloride 40 meq 05/25/24 17:39 05/25/24 17:54 Potassium Chloride 20meq Tab PO 05/25/24 17:40 40 meq ONCE ONE Administration ORDERS Category Date Time Status BNP [NT Pro Brain Natriuretic Pep.] Stat Lab 05/25/24 16:53 Completed CBC w/Auto Diff [Complete Blood Count Auto Diff] Stat Lab 05/25/24 16:53 Completed CMP [Comprehensive Metabolic Panel] Stat Lab 05/25/24 16:53 Completed Complete Blood Count Auto Diff AMLAB Lab 05/26/24 06:00 Ordered Comprehensive Metabolic Panel AMLAB Lab 05/26/24 06:00 Ordered Digoxin Stat Lab 05/25/24 16:53 Completed Hemoglobin A1C Stat Lab 05/25/24 16:53 Completed INR [Prothrombin Time INR] Stat Lab 05/25/24 16:53 Completed Magnesium AMLAB Lab 05/26/24 06:00 Ordered Magnesium Stat Lab 05/25/24 16:53 Completed POC Glucose,Bedside Routine Lab 05/25/24 16:45 Completed Procalcitonin Stat Lab 05/25/24 16:53 Completed Rapid PCR Covid and Flu A/B Stat Lab 05/25/24 16:53 Ordered Thyroid Panel Stat Lab 05/25/24 16:53 Completed Trop I [Troponin I] Stat Lab 05/25/24 16:53 Completed Troponin I Q3H Lab 05/25/24 20:20 Completed Troponin I Q3H Lab 05/25/24 23:09 Received UA [Urinalysis and Microscopic] Stat Lab 05/25/24 16:39 Completed Urine Culture Stat Micro 05/25/24 16:39 Received Medical Decision Narrative: In summary patient is a 79-year-old female who presents to the emergency department for evaluation of weakness and possibly hypoglycemia versus accidental insulin overdose. Patient is hemodynamically stable upon arrival, febrile. Zickel exam is unremarkable nonfocal including Faina Coma Score 15 patient is awake alert and oriented person place and circumstance breath sounds clear equal bilaterally to the bases without adventitious sounds abdomen soft nontender no rebound no guarding no rigidity. Patient is normal sinus rhythm on the bedside monitor.. Differential diagnosis includes insulin overdose versus infection versus electrolyte abnormality versus DKA etc. Initial workup will be conducted with hematologic labs urinalysis. Initial interventions include crystalloid bolus until workup is complete. Initial workup reviewed by me shows that her hematologic labs are nonactionable with no neutrophilic shift normal H&H, INR is 1.12, potassium is 3.0 chloride 95 CO2 33 anion gap 13 BUN is 21 GFR is 97 creatinine 0.60 hemoglobin A1c is 6.8 magnesium is critically low at 1.2 troponins are normal and the delta is flat at 0.02, NT proBNP is 2740, procalcitonin 0.032 TSH 3.05 urinalysis shows 2+ of protein 2+ of glucose trace blood trace leukocyte Estrace microscopic exam shows 5-10 red cells 10-20 white cells 3-5 epithelial cells 1+ bacteria. Patient was started on potassium replacement IV magnesium replacement IV Rocephin for the urinary tract infection and the 10 at 25 cc an hour.. Upon repeat evaluation patient reported symptomatic improvement. Given this I had a shared decision-making discussion with the patient recommending admission. Patient initially was resistant however given the fact that her blood sugars continue to trend downward and the likelihood of an adverse event patient is agreeable to admission. Given that I have had interactive discussion with hospital medicine regarding patient presentation [facility] management and she has been admitted for further evaluation and care. <Noah Miller MD - Last Filed: 05/25/24 23:37> Vital Signs: 05/25/24 16:35 05/25/24 16:44 05/25/24 17:08 Temperature 98.6 F Temperature Source Oral Pulse Rate 50 L Pulse Rate [Left Radial] 68 Respiratory Rate 17 16 Blood Pressure 155/68 H 132/69 Blood Pressure [Right Arm] 155/68 H Blood Pressure Mean 125 96 Blood Pressure Mean [Right Arm] 97 Blood Pressure Source [Right Arm] Automatic Cuff Blood Pressure Position [Right Arm] Sitting 02 Sat by Pulse Oximetry 100 99 Oxygen Delivery Method Room Air 05/25/24 17:30 05/25/24 18:00 05/25/24 19:01 Temperature Temperature Source Pulse Rate 52 L 49 L 56 L Pulse Rate [Left Radial] Respiratory Rate 18 16 12 Blood Pressure 127/52 L 131/66 146/66 H Blood Pressure [Right Arm] Blood Pressure Mean 77 86 Blood Pressure Mean [Right Arm] Blood Pressure Source [Right Arm] Blood Pressure Position [Right Arm] 02 Sat by Pulse Oximetry 97 96 97 Oxygen Delivery Method 05/25/24 19:50 Temperature 98.2 F Temperature Source Pulse Rate 63 Pulse Rate [Left Radial] Respiratory Rate 13 Blood Pressure 140/71 Blood Pressure [Right Arm] Blood Pressure Mean Blood Pressure Mean [Right Arm] Blood Pressure Source [Right Arm] Blood Pressure Position [Right Arm] 02 Sat by Pulse Oximetry Oxygen Delivery Method Room Air Lab Data Lab Results 05/25/24 16:39: Urine Color Yellow, Urine Appearance Clear, Urine pH 6.5, Ur Specific Alexander 1.020, Urine Protein 2+ A, Urine Glucose (UA) 2+, Urine Ketones Negative, Urine Blood Trace-i, Urine Nitrate Negative, Urine Bilirubin Negative, Urine Urobilinogen 0.2, Ur Leukocyte Esterase Trace, Urine RBC 5-10, Urine WBC 10-20, Ur Squamous Epith Cells 3-5, Urine Bacteria 1+ 05/25/24 16:45: POC Glucose 85 05/25/24 16:53: WBC 6.8, RBC 5.12, Hgb 15.9, Hct 46.9, MCV 91.6, MCH 31.1, MCHC 33.9, RDW 13.4, Plt Count 112 L, MPV 12.0 H, Neut % (Auto) 82.3 H, Lymph % (Auto) 11.1, Jessamine % (Auto) 5.6, Eos % (Auto) 0.1, Baso % (Auto) 0.3, Neut # (Auto) 5.6, Lymph # (Auto) 0.8, Jessamine # (Auto) 0.4, Eos # (Auto) 0.0, Baso # (Auto) 0.0, PT 12.4, INR 1.12 H, Sodium 138, Potassium 3.0 L, Chloride 95 L, C arbon Dioxide 33 H, Anion Gap 13.0, BUN 21 H, Creatinine 0.60, Estimated GFR 97, Est GFR ( Amer) 117, Glucose 70 L, Hemoglobin A1c 6.8 H, Calcium 9.6, M agnesium 1.2 L, Total Bilirubin 1.0, AST 38 H, ALT 36, Alkaline Phosphatase 38, Troponin I 0.02, NT-Pro-B Natriuret Pep 2740 H, Total Protein 7.1, Albumin 5.1 H , Globulin 2.0, Albumin/Globulin Ratio 2.6 H, Procalcitonin 0.032, TSH 3.05, F ree T4 Index 2.4 L, Thyroxine (T4) 6.6, T3 Uptake 36, Digoxin 0.50 Orders (Tests/Meds): ED MEDICATIONS Generic Name Dose Route Start Last Admin Trade Name Freq PRN Reason Stop Dose Admin Apixaban 5 mg 05/25/24 21:00 05/25/24 22:45 Apixaban 5mg Tablet PO 06/24/24 20:59 5 mg BID MARTIR Administration Digoxin 125 mcg 05/26/24 09:00 Digoxin 0.125mg Tablet PO 06/25/24 08:59 DAILY MARTIR Potassium Chloride/Water 100 mls @ 50 mls/hr 05/25/24 17:39 05/25/24 22:45 Potassium Chloride 20meq/100ml Ivpb IV 05/25/24 23:38 50 mls/hr Q2H MARTIR Administration Dextrose/Water 500 mls @ 25 mls/hr 05/25/24 18:00 05/25/24 22:40 Dextrose 10% In Water 500ml IV 06/24/24 17:59 Not Given .Q20H MARTIR Magnesium Oxide 400 mg 05/26/24 09:00 Magnesium Oxide 400mg Tablet PO 06/25/24 08:59 DAILY MARTIR Potassium Chloride 20 meq 05/25/24 20:00 05/25/24 22:41 Potassium Chloride 20meq Tab PO 05/25/24 20:01 Not Given TID ONE Discontinued Medications Generic Name Dose Route Start Last Admin Trade Name Freq PRN Reason Stop Dose Admin Magnesium Sulfate 2 gm in 50 mls @ 50 mls/hr 05/25/24 17:39 05/25/24 17:41 Magnesium Sulfate 2gm/50ml Premix IV 05/25/24 18:38 50 mls/hr ONCE ONE Administration Sodium Chloride 1,000 mls @ 999 mls/hr 05/25/24 17:54 05/25/24 17:55 Sod Chlor 0.9% 1000ml Bag IV 05/25/24 18:54 999 mls/hr .Q1H1M ONE Administration Potassium Chloride 40 meq 05/25/24 17:39 05/25/24 17:54 Potassium Chloride 20meq Tab PO 05/25/24 17:40 40 meq ONCE ONE Administration ORDERS Category Date Time Status BNP [NT Pro Brain Natriuretic Pep.] Stat Lab 05/25/24 16:53 Completed CBC w/Auto Diff [Complete Blood Count Auto Diff] Stat Lab 05/25/24 16:53 Completed CMP [Comprehensive Metabolic Panel] Stat Lab 05/25/24 16:53 Completed Complete Blood Count Auto Diff AMLAB Lab 05/26/24 06:00 Ordered Comprehensive Metabolic Panel AMLAB Lab 05/26/24 06:00 Ordered Digoxin Stat Lab 05/25/24 16:53 Completed Hemoglobin A1C Stat Lab 05/25/24 16:53 Completed INR [Prothrombin Time INR] Stat Lab 05/25/24 16:53 Completed Magnesium AMLAB Lab 05/26/24 06:00 Ordered Magnesium Stat Lab 05/25/24 16:53 Completed POC Glucose,Bedside Routine Lab 05/25/24 16:45 Completed Procalcitonin Stat Lab 05/25/24 16:53 Completed Rapid PCR Covid and Flu A/B Stat Lab 05/25/24 16:53 Ordered Thyroid Panel Stat Lab 05/25/24 16:53 Completed Trop I [Troponin I] Stat Lab 05/25/24 16:53 Completed Troponin I Q3H Lab 05/25/24 20:20 Completed Troponin I Q3H Lab 05/25/24 23:09 Received UA [Urinalysis and Microscopic] Stat Lab 05/25/24 16:39 Completed Urine Culture Stat Micro 05/25/24 16:39 Received ECG Data Tracing #1: I reviewed this ECG and interpreted as documented below: (A-fib with slow ventricular response 56 bpm with QRS 88, QTc 191. Wandering electrical baseline, but no obvious appreciable ischemia. Intermittent PVCs. Rightward leaning axis) Medical Decision Narrative: In summary patient is a 79-year-old female who presents to the emergency department for evaluation of weakness and possibly hypoglycemia versus accidental insulin overdose. Patient is hemodynamically stable upon arrival, febrile. Zickel exam is unremarkable nonfocal including Faina Coma Score 15 patient is awake alert and oriented person place and circumstance breath sounds clear equal bilaterally to the bases without adventitious sounds abdomen soft nontender no rebound no guarding no rigidity. Patient is normal sinus rhythm on the bedside monitor.. Differential diagnosis includes insulin overdose versus infection versus electrolyte abnormality versus DKA etc. Initial workup will be conducted with hematologic labs urinalysis. Initial interventions include crystalloid bolus until workup is complete. Initial workup reviewed by me shows that her hematologic labs are nonactionable with no neutrophilic shift normal H&H, INR is 1.12, potassium is 3.0 chloride 95 CO2 33 anion gap 13 BUN is 21 GFR is 97 creatinine 0.60 hemoglobin A1c is 6.8 magnesium is critically low at 1.2 troponins are normal and the delta is flat at 0.02, NT proBNP is 2740, procalcitonin 0.032 TSH 3.05 urinalysis shows 2+ of protein 2+ of glucose trace blood trace leukocyte Estrace microscopic exam shows 5-10 red cells 10-20 white cells 3-5 epithelial cells 1+ bacteria. Patient was started on potassium replacement IV magnesium replacement IV Rocephin for the urinary tract infection and the 10 at 25 cc an hour.. Upon repeat evaluation patient reported symptomatic improvement. Given this I had a shared decision-making discussion with the patient recommending admission. Patient initially was resistant however given the fact that her blood sugars continue to trend downward and the likelihood of an adverse event patient is agreeable to admission. Given that I have had interactive discussion with hospital medicine regarding patient presentation [facility] management and she has been admitted for further evaluation and care. I was consulted by the EMILY, and we discussed the complexity of the problems being addressed. I approved the treatment and management plan for this patient's care in the Emergency Department, thus performing a substantive portion of the medical decision making. Noah Miller MD Critical Care <CHERELLE Keys - Last Filed: 05/25/24 23:25> Critical Care Time Critical Care Time: Yes Attestation: On 05/25/24, the high probability of a clinically significant, sudden or life threatening deterioration of the following system(s) required my full and direct attention, intervention and personal management. The time I documented below is in addition to time spent performing reported procedures but includes the following listed in this critical care notation. Total Time Total Critical Care Time: 60
[2024-05-25 16:56] LABS: Microscopic, Urine URINE MICROSCOPIC (MICROSCOPIC)
[2024-05-25 16:58] LABS: Appearance,Urine CLEAR (Clear); Bilirubin,Urine Negative (Negative); Blood, Urine TRACE-I (Negative); Color,Urine YELLOW (Yellow); Glucose,Urine (UA) 2+ (Negative); Ketones,Urine Negative (Negative); Leukocyte Esterase,Urine TRACE (Negative); Nitrate,Urine Negative (Negative); PH,Urine 6.5 (5.0-8.5); Protein,Urine 2+ (Negative); Urobilinogen,Urine 0.2 EU/dl (0.2)
--- NOTE | 2024-05-25 17:04 | ECG_ITS ---
APPROVED REPORT Exam: Resting ECG HR:56 bpm ECG Measurements Heart Rate 56 AXES QRSd 88 QRS 95 QT 199 T 0 QTc 191 Conclusion A-fib with bradycardic response Right axis deviation Electronically signed by : ZAID CALLOWAY, 05/26/2024 00:01:56
[2024-05-25 17:14] LABS: Basophils % 0.3 % (0.1-2.0); Eosinophils % 0.1 % (0.1-12.0); Hematocrit 46.9 % (37.0-47.0); Hemoglobin 15.9 g/dL (12.2-16.2); INR 1.12 (0.9-1.1); Lymphocytes # 0.8 K/mm3 (0.7-4.5); Lymphocytes % 11.1 % (10-50); Mean Corpuscular HGB Conc 33.9 g/dL (31.8-35.4); Mean Corpuscular Hemoglobin 31.1 pg (27.0-31.2); Mean Corpuscular Volume 91.6 fl (81-99); Monocytes # 0.4 K/mm3 (0.1-1.0); Monocytes % 5.6 % (1.7-9.3); Neutrophils # 5.6 K/mm3 (1.8-7.8); Neutrophils % 82.3 % (37.0-80.0); Platelet Count 112 K/mm3 (142-424); Prothrombin Time 12.4 seconds (10.1-12.5); Red Blood Count 5.12 M/mm3 (4.20-5.40); Red Cell Distribution Width 13.4 % (11.5-17.5); White Blood Count 6.8 K/mm3 (4.8-10.8)
[2024-05-25 17:15] LABS: Bacteria,Urine 1+ /lpf
[2024-05-25 17:35] LABS: Alanine Aminotransferase 36 U/L (12-78); Albumin Level 5.1 g/dl (3.5-5.0); Albumin/Globulin Ratio 2.6 (1.1-1.8); Alkaline Phosphatase 38 U/L (38-126); Aspartate Amino Transferase 38 U/L (14-36); Blood Urea Nitrogen 21 mg/dl (7-17); Calcium 9.6 mg/dl (8.4-10.2); Carbon Dioxide 33 mmol/L (22.0-30.0); Chloride 95 mmol/L (98-107); Estimated Glomerular Filt Rate 97 ml/min (>60); GFR (African American) 117 ML/MIN (>60); Glucose 70 mg/dl (74-100); Magnesium 1.2 mg/dl (1.6-2.3); Sodium 138 mmol/L (136-145); Total Protein,Serum 7.1 g/dl (6.3-8.2)
[2024-05-25] MEDS: MAGNESIUM SULFATE IN WATER 2 GM/50 ML PIGGYBACK IV (17:41)
[2024-05-25 17:46] LABS: NT Pro Brain Natriuretic Pep. 2740 pg/mL (0-450); Troponin I 0.02 ng/ml (0.00-0.034)
[2024-05-25 17:50] LABS: Procalcitonin 0.032 ng/mL (0.0-2.0)
[2024-05-25 17:54] LABS: Free Thyroxine Index 2.4 ug/dL (5.93-13.13); T4 (Thyroxine) 6.6 ug/dl (5.53-11.0); Triiodothryronine (T3) Uptake 36 % (23.5-40.5)
[2024-05-25 17:54] LABS: POC Glucose,Bedside 85 (70-110)
[2024-05-25] MEDS: KCl 20mEq/100ml 100 ML 50 MEQ IV ×2 (17:54→22:45)
[2024-05-25] MEDS: POTASSIUM CHLORIDE 20MEQ TAB 40 MEQ PO (17:54)
[2024-05-25] MEDS: 0.9 % SODIUM CHLORIDE 1000ML 1,000 ML 999 ML IV (17:55)
[2024-05-25 18:08] LABS: Thyroid Stimulating Hormone 3.05 uIU/mL (0.465-4.68)
--- NOTE | 2024-05-25 18:13 | PC.NURSE ---
pt ref covid/flu swab
--- NOTE | 2024-05-25 18:23 | PC.NURSE ---
SERGIO VILLARREAL-, ATTEMPTED TO SPEAK WITH DR WHITE FOR ADMISSION
--- NOTE | 2024-05-25 18:29 | PC.NURSE ---
SAFETY SPEC NOTIFIED OF ADMISSION
[2024-05-25 19:23] LABS: Hemoglobin A1C 6.8 % (4.0-6.0)
--- NOTE | 2024-05-25 19:39 | P.HP_ITS ---
History of Present Illness *Admission Date: 05/25/24 *Reason for visit:: Syncope *History of present illness: Ms. Mendoza is a 79-year-old female with history of hypertension, hyperlipidemia, A-fib, CKD, diabetes. [place] and family close by. Caregiver checks on her daily. Family helps to organize her medications but she administers her own insulin. She was reportedly at the store today when she had an episode where she became confused. Her family had to give history in the ER. He states she was at the grocery store shopping and she was riding on a motorized scooter when she seemed to slump in her chair and became less responsive. They gave her apple juice and she perked up. Blood sugar was not checked at that time. Concern for some cognitive impairment at baseline but she still makes all of her decisions and lives by herself. She denied chest pain, cough, shortness of breath, fever, nausea or vomiting on arrival. No changes to any medications as of late. On initial evaluation in the ER, glucose was 70. Was found to be bradycardic with heart rate in the 40s and normotensive. Appears back to baseline mentation on workup in the ER. In the ER with white count normal. Chemistry with low potassium of 3.0, slight elevation of BUN at 21 and creatinine 0.6 concerning for some mild dehydration. Magnesium also low at 1.2. BNP elevated at 2700. Medicine was consulted for admission and further management of her weakness and suspected hypoglycemia causing her event at the grocery store along with electrolyte disturbances. Patient had a similar episode in October of last year where she was found sitting on the floor confused where she had soiled herself. She had been having some hallucinations and sleepwalking. Discussed further assistance and support given her mentation at that time. Her social situation however has not changed and she continues to be supported at home by herself. When asked questions today, she will answer partially appropriately but then answers wonder to other subjects. States she is feeling better. Minimizes the situation and downplays how she is feeling. [facility] Disclaimer: The information contained in this section may have been updated after the patient was seen, as this information can be updated by other users. Medical History Distal radius fracture Viral hepatitis C Multinodular goiter Claudication Bilateral leg weakness Macular degeneration Abnormal EKG Dyspnea Recurrent falls Atrial fibrillation HLD (hyperlipidemia) Carotid artery stenosis Osteoporosis Surgical History History of appendectomy History of bowel resection Family History Other COPD exacerbation Social History Smoking Status: Unknown if ever smoked years smoked: 50 smoking status stop date: 2015 second hand exposure: No alcohol intake: former counseling provided: none substance use type: marijuana current occupational status: retired Travel in the last 8 weeks: None household members: none housing: house marital status: current occupational exposures/hazards: No caffeine: No Contact w/someone who lives/traveled outside [place] past 30 days?: No Exposure to someone with infectious disease in past 14 days?: No Do you have a fever (greater than 100.4 F or 38 C)?: No Have you tested positive for COVID-19: No Exposed to someone with COVID-19 in past 14 days?: No Do you have a sore throat?: No Do you have a cough?: No Do you have any weakness?: No Are you experiencing any nausea/vomitting?: No Do you have any diarrhea?: No Are you experiencing any unusual bleeding?: No Do you have any muscle aches/pain?: No Do you have any abdominal pain?: No Are you experiencing loss of taste or smell?: No Other Medical History Have you received the Flu Vaccine for this season: Yes Have you received the Pneumonia Vaccine: Yes Review of Systems Review of Systems Review of systems (narrative): 14 point review of systems performed, pertinent positives and negatives as per HPI Meds Home Medications and Allergies Home Medications ?Medication ?Instructions ?Recorded ?Confirmed ?Type alendronate 10 mg tablet 10 mg PO DAILY #90 tabs 09/01/23 05/26/24 Rx insulin aspar prot-insulin aspart 11 unit (0.11 mL) SQ BID Diabetes 02/13/24 05/26/24 Rx 100 unit/mL (70-30) subcutaneous #15 mL pen (Novolog Mix 70-30FlexPen U-100) donepezil 5 mg tablet (Aricept) 5 mg PO DAILY #30 tabs 03/07/24 05/26/24 Rx blood-glucose sensor (FreeStyle #1 kit 03/15/24 05/26/24 Rx Pattie 3 Sensor device) metoprolol succinate 50 mg 50 mg PO BID #60 tabs 04/11/24 05/26/24 Rx tablet,extended release 24 hr pen needle, diabetic 32 gauge x #1,200 ea 04/11/24 05/26/24 History /32 (BD Ultra-Fine Leena Pen Needle) digoxin 125 mcg (0.125 mg) tablet 125 mcg PO DAILY #30 tabs 04/12/24 05/26/24 Rx magnesium oxide 400 mg (241.3 mg 400 mg PO DAILY #30 tabs 04/13/24 05/26/24 Rx magnesium) tablet methimazole 5 mg tablet 2.5 mg (1/2 x 5 mg) PO TID #90 tabs 05/10/24 05/26/24 Rx apixaban 5 mg tablet (Eliquis) 5 mg PO BID 05/26/24 05/26/24 History atorvastatin 10 mg tablet 10 mg PO HS 05/26/24 05/26/24 History cyanocobalamin (vitamin B-12) 1,000 mcg PO DAILY 05/26/24 05/26/24 History 1,000 mcg tablet dapagliflozin propanediol 10 mg 10 mg PO DAILY 05/26/24 05/26/24 History tablet (Farxiga) diltiazem HCl 240 mg 240 mg PO DAILY 05/26/24 05/26/24 History capsule,extended release 24 hr, controlled (DILT-XR) ferrous sulfate 325 mg (65 mg 325 mg PO DAILY 05/26/24 05/26/24 History iron) tablet (FeroSul) hydrochlorothiazide 25 mg tablet 25 mg PO DAILY 05/26/24 05/26/24 History metformin 1,000 mg tablet 1,000 mg PO BID 05/26/24 05/26/24 History omeprazole 20 mg capsule,delayed 20 mg PO DAILY 05/26/24 05/26/24 History release New Prescriptions to Start Prescriptions: Allergies Allergy/AdvReac Type Severity Reaction Status Date / Time codeine (CODEINE) Allergy Unknown hallucinati Verified 05/10/24 13:32 ons Penicillins (PENICILLINS) Allergy Unknown Verified 05/10/24 13:32 lisinopril AdvReac Severe Cough Verified 05/10/24 13:32 Exam Data for Last 24 hours Vital signs and Labs for Last 24 Hours: Temp Pulse Resp BP Pulse Ox O2 Del Method 97.9 F 66 17 136/53 L 97 Room Air 05/26/24 04:00 05/26/24 06:00 05/26/24 06:00 05/26/24 06:00 05/26/24 06:00 05/26/24 06:16 Laboratory Results - last 24 hr 05/25/24 16:39: Urine Color Yellow, Urine Appearance Clear, Urine pH 6.5, Ur Specific [place] 1.020, Urine Protein 2+ A, Urine Glucose (UA) 2+, Urine Ketones Negative, Urine Blood Trace-i, Urine Nitrate Negative, Urine Bilirubin Negative, Urine Urobilinogen 0.2, Ur Leukocyte Esterase Trace, Urine RBC 5-10, Urine WBC 10-20, Ur Squamous Epith Cells 3-5, Urine Bacteria 1+ 05/25/24 16:45: POC Glucose 85 05/25/24 16:53: WBC 6.8, RBC 5.12, Hgb 15.9, Hct 46.9, MCV 91.6, MCH 31.1, MCHC 33.9, RDW 13.4, Plt Count 112 L, MPV 12.0 H, Neut % (Auto) 82.3 H, Lymph % (Auto) 11.1, [place] % (Auto) 5.6, Eos % (Auto) 0.1, Baso % (Auto) 0.3, Neut # (Auto) 5.6, Lymph # (Auto) 0.8, [place] # (Auto) 0.4, Eos # (Auto) 0.0, Baso # (Auto) 0.0, PT 12.4, INR 1.12 H, Sodium 138, Potassium 3.0 L, Chloride 95 L, Carbon Dioxide 33 H, Anion Gap 13.0, BUN 21 H, Creatinine 0.60, Estimated GFR 97, Est GFR ( Amer) 117, Glucose 70 L, Hemoglobin A1c 6.8 H, Calcium 9.6, Magnesium 1.2 L, Total Bilirubin 1.0, AST 38 H, ALT 36, Alkaline Phosphatase 38, Troponin I 0.02, NT-Pro-B Natriuret Pep 2740 H, Total Protein 7.1, Albumin 5.1 H , Globulin 2.0, Albumin/Globulin Ratio 2.6 H, Procalcitonin 0.032, TSH 3.05, Free T4 Index 2.4 L, Thyroxine (T4) 6.6, T3 Uptake 36, Digoxin 0.50 05/25/24 20:20: Troponin I 0.02 05/25/24 23:09: Troponin I 0.03 05/25/24 23:50: SARS-CoV-2 (PCR) Not detected, Influenza A Untype (PCR) Not detected, Influenza Type B (PCR) Not detected 05/26/24 06:07: POC Glucose 210 H I & O for Last 24 hours: Intake & Output 05/23/24 05/24/24 05/25/24 05/26/24 23:59 23:59 23:59 23:59 Intake Total 250 / 250 Output Total 0 / 0 Balance 250 / 250 Weight 56.608 kg 56.608 kg Constitutional Constitutional: no acute distress, thin, chronically ill appearing and cooperative *Routine HEENT Exam Head: Present normocephalic Eye: Present EOMI and PERRL ENT: Present mucous membranes moist *Routine Neck Exam Neck: Present supple; Absent lymphadenopathy *Routine Respiratory Exam Respiratory: Present CTA bilaterally; Absent rhonchi, wheezes or crackles *Routine Cardiovascular Exam Cardiovascular: Present RRR *Routine Abdominal Exam Abdominal: Present soft and normoactive bowel sounds; Absent tenderness *Routine Rectal Exam Rectal:: deferred *Routine Genitalia Exam Genitalia:: deferred *Routine Extremities Exam Extremities: Present edema (Right ankle with 2+ edema. Mild erythema but no warmth.); Absent cyanosis or clubbing *Routine Skin Exam Skin: Present intact and warm; Absent rash *Routine Neurological Exam Neurological: Present alert and moving all extremities; Absent altered mental status Comments: Alert and oriented x 2, conversational. Difficulty with recall, tangential speech. Forgetful from start of conversation to the end of conversation that she is at the hospital. Routine Psychiatric Exam Psychiatric: Present normal affect and cooperative; Absent good insight Assessment and Plan *Assessment and plan (1) Hypoglycemia associated with type 2 diabetes mellitus: Status: Acute Category: Medical Code(s): E11.649 - Type 2 diabetes mellitus with hypoglycemia without coma (2) Hypomagnesemia: Status: Acute Category: Medical Code(s): E83.42 - Hypomagnesemia (3) Diabetes type 2, controlled: Status: Acute Qualifiers: Diabetes mellitus complication status: with unspecified complications Diabetes mellitus lobsterman insulin use: with lobsterman use Qualified Code(s): E11.8 - Type 2 diabetes mellitus with unspecified complications; Z79.4 - [facility] (current) use of insulin Category: Medical Code(s): E11.9 - Type 2 diabetes mellitus without complications (4) Hypokalemia: Status: Acute Category: Medical Code(s): E87.6 - Hypokalemia (5) HTN (hypertension): Status: Chronic Qualifiers: Hypertension type: essential hypertension Qualified Code(s): I10 - Essential (primary) hypertension Category: Medical Code(s): I10 - Essential (primary) hypertension (6) AMS (altered mental status): Status: Resolved Qualifiers: Altered mental status type: unspecified Qualified Code(s): R41.82 - Altered mental status, unspecified Category: Medical Code(s): R41.82 - Altered mental status, unspecified (7) Right knee pain: Status: Acute Qualifiers: Chronicity: acute Qualified Code(s): M25.561 - Pain in right knee Category: Medical Code(s): M25.561 - Pain in right knee (8) Atrial fibrillation: Status: Chronic Qualifiers: Atrial fibrillation type: paroxysmal Qualified Code(s): I48.0 - Paroxysmal atrial fibrillation Category: Medical Code(s): I48.91 - Unspecified atrial fibrillation Plan 79-year-old female who presented with syncopal event concerning for hypoglycemia. Extensive conversation with the ER about further workup need for admission. I agreed to admit for further care. Patient's glucoses remained stable since presentation. Bradycardic at this time. Will admit overnight and evaluate for further etiologies along with close monitoring on telemetry. Problems addressed as follows: A-fib Hypertension Hyperlipidemia -Bradycardic on presentation. Will hold blood pressure and rate controlling meds this evening. Reevaluate in the morning. -Continue Eliquis 5 mg twice daily -Digoxin level ordered. -Holding HCTZ due to concern for patient being somewhat dry on presentation. Does not appear to be edematous or overloaded today. Electrolyte disturbances - Sodium 138, potassium 3.0, BUN 21 with creatinine 0.6. Elevated BUN/creatinine ratio concerning for being slightly dry. Magnesium low at 1.2 -Aggressive replacing potassium magnesium per electrolyte protocol - Repeat CBC, CMP, magnesium ordered for the morning. Suspected hyperthyroidism: -Review of chart does not show antibodies for Graves', unsure what her diagnosis came from - TSH normal at 3, methimazole recently decreased last month to 2.5mg TID. Will hold methimazole during admission. Diabetes: - A1c at goal of 6.8. concern she is overcontrolled. Will transition to Lantus 5 units once daily for now. Monitor fingerstick ACHS with sliding scale insulin. Glucose 70 on presentation -Holding metformin 100 mg twice daily and Farxiga 10 mg daily, consider resuming in the morning Chronic diarrhea Status post bowel surgery for colon cancer -Fiber supplement daily Evaluated for cognitive impairment at last admission. Had a Mini-Mental score of 19 out of 30. Encouraged patient and family to establish POA. Expressed concern about her ability to be at home by herself. She has been at home since performing ADLs as best she can with family checking on her daily. Full code Eliquis 5 mg twice daily Diabetic diet
[2024-05-25 20:53] LABS: Troponin I 0.02 ng/ml (0.00-0.034)
[2024-05-25] MEDS: APIXABAN 5MG TABLET 5 MG PO (22:45)
[2024-05-25 23:39] LABS: Troponin I 0.03 ng/ml (0.00-0.034)
[2024-05-25 23:56] LABS: Coronavirus 19, PCR Not Detected (NotDetected); Influenza A, PCR Not Detected (NotDetected); Influenza B, PCR Not Detected (NotDetected)
[2024-05-26] VITALS (11 sets, daily range): BP systolic 123–177; BP diastolic 53–74; PULSE 48–77; RESP 12–20; TEMP 36.6–36.9; O2SAT 93–97; BMI 20.7
[2024-05-26] MEDS: MAGNESIUM SULFATE IN WATER 2 GM/50 ML PIGGYBACK IV (00:30)
[2024-05-26] MEDS: KCl 20mEq/100ml 100 ML 50 MEQ IV (00:56)
--- NOTE | 2024-05-26 01:32 | PC.NURSE ---
home med rec completed by external pharm
[2024-05-26 06:15] LABS: POC Glucose,Bedside 210 (70-110)
--- NOTE | 2024-05-26 07:41 | EXP.ACUTE.PN ---
Subjective *Date: 05/26/24 *Time: 21:59 Interval history: Patient feeling somewhat better today. Blood pressure is normal. Blood sugar Janes in the 300s. Heart rate improved. Denies any chest pain, shortness of breath, nausea and vomiting. On discussion, sister is at bedside. Patient confabulates. Has tangential answers. Seems to lose her train of thought but continues to talk as though she is trying to make up for her confusion. Knows her name and date of . Knows she is at the hospital. Gets help with her meds and other basic care needs at home but lives by herself still. Medical Exam Vital signs and Labs for Last 24 Hours: Vital Signs Temp Pulse Pulse Resp BP BP Pulse Ox 05/26/24 06:16 05/26/24 06:00 66 17 136/53 L 97 05/26/24 05:00 05/26/24 04:00 70 05/26/24 04:00 97.9 F 05/26/24 03:00 05/26/24 02:00 48 L 16 123/62 95 05/26/24 01:33 05/26/24 01:00 05/26/24 00:00 50 L 05/26/24 00:00 98.4 F 05/25/24 23:00 05/25/24 22:00 55 L 20 108/53 L 97 05/25/24 21:00 05/25/24 20:30 05/25/24 20:00 50 L 05/25/24 20:00 97 F L 65 18 140/71 97 05/25/24 19:50 98.2 F 63 13 140/71 05/25/24 19:01 56 L 12 146/66 H 97 05/25/24 18:00 49 L 16 131/66 96 05/25/24 17:30 52 L 18 127/52 L 97 05/25/24 17:08 50 L 16 132/69 99 05/25/24 16:44 155/68 H 05/25/24 16:35 98.6 F 68 17 155/68 H 100 O2 Del Method 05/26/24 06:16 Room Air 05/26/24 06:00 Room Air 05/26/24 05:00 Room Air 05/26/24 04:00 05/26/24 04:00 05/26/24 03:00 Room Air 05/26/24 02:00 Room Air 05/26/24 01:33 Room Air 05/26/24 01:00 Room Air 05/26/24 00:00 05/26/24 00:00 05/25/24 23:00 Room Air 05/25/24 22:00 Room Air 05/25/24 21:00 Room Air 05/25/24 20:30 Room Air 05/25/24 20:00 05/25/24 20:00 Room Air 05/25/24 19:50 Room Air 05/25/24 19:01 05/25/24 18:00 05/25/24 17:30 05/25/24 17:08 05/25/24 16:44 05/25/24 16:35 Room Air Intake and Output 05/25/24 05/25/24 05/26/24 15:59 23:59 07:59 Intake Total 250 / 250 Output Total 0 / 0 Balance 250 / 250 Intake: Intake, Total IV Amount 250 / 250 KCl 20mEq/100ml 100 ml @ 50 mls 200 / 200 /hr IV Q2H [facility] Rx#:[id number] Magnesium Sulfate in Water 2 gm 50 / 50 In 50 ml @ 50 mls/hr IV ONCE ONE Rx#:[id number] Output: Output, Urine Amount 0 / 0 Other: Number of Unmeasured Voids 1 Weight 56.608 kg 56.608 kg Patient Weight 05/26/24 23:59 Weight 56.608 kg Laboratory Results - last 24 hr 05/25/24 16:39: Urine Color Yellow, Urine Appearance Clear, Urine pH 6.5, Ur Specific [place] 1.020, Urine Protein 2+ A, Urine Glucose (UA) 2+, Urine Ketones Negative, Urine Blood Trace-i, Urine Nitrate Negative, Urine Bilirubin Negative, Urine Urobilinogen 0.2, Ur Leukocyte Esterase Trace, Urine RBC 5-10, Urine WBC 10-20, Ur Squamous Epith Cells 3-5, Urine Bacteria 1+ 05/25/24 16:45: POC Glucose 85 05/25/24 16:53: WBC 6.8, RBC 5.12, Hgb 15.9, Hct 46.9, MCV 91.6, MCH 31.1, MCHC 33.9, RDW 13.4, Plt Count 112 L, MPV 12.0 H, Neut % (Auto) 82.3 H, Lymph % (Auto) 11.1, [place] % (Auto) 5.6, Eos % (Auto) 0.1, Baso % (Auto) 0.3, Neut # (Auto) 5.6, Lymph # (Auto) 0.8, [place] # (Auto) 0.4, Eos # (Auto) 0.0, Baso # (Auto) 0.0, PT 12.4, INR 1.12 H, Sodium 138, Potassium 3.0 L, Chloride 95 L, Carbon Dioxide 33 H, Anion Gap 13.0, BUN 21 H, Creatinine 0.60, Estimated GFR 97, Est GFR ( Amer) 117, Glucose 70 L, Hemoglobin A1c 6.8 H, Calcium 9.6, Magnesium 1.2 L, Total Bilirubin 1.0, AST 38 H, ALT 36, Alkaline Phosphatase 38, Troponin I 0.02, NT-Pro-B Natriuret Pep 2740 H, Total Protein 7.1, Albumin 5.1 H, Globulin 2.0, Albumin/Globulin Ratio 2.6 H, Procalcitonin 0.032, TSH 3.05, Free T4 Index 2.4 L, Thyroxine (T4) 6.6, T3 Uptake 36, Digoxin 0.50 05/25/24 20:20: Troponin I 0.02 05/25/24 23:09: Troponin I 0.03 05/25/24 23:50: SARS-CoV-2 (PCR) Not detected, Influenza A Untype (PCR) Not detected, Influenza Type B (PCR) Not detected 05/26/24 06:07: POC Glucose 210 H I & O for Labs for Last 24 Hours: Intake & Output 05/23/24 05/24/24 05/25/24 05/26/24 23:59 23:59 23:59 23:59 Intake Total 250 / 250 Output Total 0 / 0 Balance 250 / 250 Weight 56.608 kg 56.608 kg Constitutional: Present no acute distress, thin and chronically ill appearing Head: Present atraumatic and normocephalic Neck: Present normal inspection Respiratory: Present normal respiratory effort; Absent rhonchi, wheezes or crackles Cardiac: Present Tachycardia Comment:: Irregularly irregular GI: Present soft and normal bowel sounds; Absent distention or tenderness Extremities: Present normal inspection and full ROM Skin: Present intact; Absent erythema Neuro: Present Grossly Intact, alert, awake and moves all extremities Comment:: Oriented to self and place and time, poor recall. Assessment and Plan *Assessment and plan (1) Hypoglycemia associated with type 2 diabetes mellitus: Status: Acute Category: Medical Code(s): E11.649 - Type 2 diabetes mellitus with hypoglycemia without coma (2) Hypomagnesemia: Status: Acute Category: Medical Code(s): E83.42 - Hypomagnesemia (3) Diabetes type 2, controlled: Status: Acute Qualifiers: Diabetes mellitus complication status: with unspecified complications Diabetes mellitus group home insulin use: with continuous churn buttermaker use Qualified Code(s): E11.8 - Type 2 diabetes mellitus with unspecified complications; Z79.4 - [facility] (current) use of insulin Category: Medical Code(s): E11.9 - Type 2 diabetes mellitus without complications (4) Hypokalemia: Status: Acute Category: Medical Code(s): E87.6 - Hypokalemia (5) HTN (hypertension): Status: Chronic Qualifiers: Hypertension type: essential hypertension Qualified Code(s): I10 - Essential (primary) hypertension Category: Medical Code(s): I10 - Essential (primary) hypertension (6) AMS (altered mental status): Status: Resolved Qualifiers: Altered mental status type: unspecified Qualified Code(s): R41.82 - Altered mental status, unspecified Category: Medical Code(s): R41.82 - Altered mental status, unspecified (7) Right knee pain: Status: Acute Qualifiers: Chronicity: acute Qualified Code(s): M25.561 - Pain in right knee Category: Medical Code(s): M25.561 - Pain in right knee (8) Atrial fibrillation: Status: Chronic Qualifiers: Atrial fibrillation type: paroxysmal Qualified Code(s): I48.0 - Paroxysmal atrial fibrillation Category: Medical Code(s): I48.91 - Unspecified atrial fibrillation Plan 79-year-old female who presented with syncopal event concerning for hypoglycemia. Showing some improvement this morning. Glucose improved. Back to baseline mentation per family at bedside. Making further adjustments to medications today. Patient denies any chest pain or shortness of breath. Extensive discussion about patient living at home by herself and concern for need for assistance and support. Therapy to evaluate patient today. Problems addressed as follows: A-fib Hypertension Hyperlipidemia -Continuing diltiazem 240 mg daily. Holding metoprolol today. Continue Eliquis 5 mg twice daily. Continue Lipitor 10 mg daily. -Continue digoxin 125 mcg daily. Heart rate in the 60s. -Holding HCTZ due to concern for patient being somewhat dry on presentation. Does not appear to be edematous or overloaded today. Electrolyte disturbances -Potassium 4.2, magnesium 1.8. Replacing per protocol. Kidney function normal with BUN 16, creatinine 0.8. Repeat CBC, CMP, magnesium ordered for the morning. Suspected hyperthyroidism: -Review of chart does not show antibodies for Graves', unsure what her diagnosis came from - TSH normal at 3, methimazole recently decreased last month to 2.5mg TID. Will hold methimazole during admission. Diabetes: -No further hypoglycemia - A1c at goal of 6.8. concern she is overcontrolled. Will transition to Lantus 5 units once daily for now. Monitor fingerstick ACHS with sliding scale insulin. Morning glucose 271 - Continue metformin 100 mg twice daily and Farxiga 10 mg daily Chronic diarrhea Status post bowel surgery for colon cancer -Fiber supplement daily Cognitive impairment: Mini-Mental performed October of last year with score of 19 out of 30. Strongly encourage patient to have discussions with family about POA and goals of care. Concerned about her ability to continue to live independently given her need for assistance with ADLs and her worsening confusion. Patient resistant to being at a alf. High risk for readmission Full code Eliquis 5 mg twice daily Diabetic diet
[2024-05-26 09:02] LABS: Basophils % 0.3 % (0.1-2.0); Eosinophils % 1.2 % (0.1-12.0); Hematocrit 39.2 % (37.0-47.0); Lymphocytes # 0.8 K/mm3 (0.7-4.5); Lymphocytes % 22.4 % (10-50); Mean Corpuscular HGB Conc 33.9 g/dL (31.8-35.4); Mean Corpuscular Hemoglobin 30.9 pg (27.0-31.2); Mean Corpuscular Volume 91.2 fl (81-99); Mean Platelet Volume 12.4 fl (7.4-10.4); Monocytes # 0.2 K/mm3 (0.1-1.0); Monocytes % 6.7 % (1.7-9.3); Neutrophils # 2.4 K/mm3 (1.8-7.8); Neutrophils % 69.1 % (37.0-80.0); Platelet Count 108 K/mm3 (142-424); Red Cell Distribution Width 13.8 % (11.5-17.5); White Blood Count 3.4 K/mm3 (4.8-10.8)
[2024-05-26 09:06] LABS: Albumin Level 3.9 g/dl (3.5-5.0); Chloride 102 mmol/L (98-107); Sodium 136 mmol/L (136-145)
[2024-05-26 09:07] LABS: Potassium 4.2 mmoL/L (3.5-5.1)
[2024-05-26] MEDS: APIXABAN 5MG TABLET 5 MG PO ×2 (09:07→21:54)
[2024-05-26] MEDS: MAGNESIUM OXIDE 400MG TABLET 400 MG PO (09:07)
[2024-05-26] MEDS: INSULIN GLARGINE 100 UNITS/ML 3ML FLEXPEN 5 UNIT SUBCUT (09:07)
[2024-05-26 09:09] LABS: Alanine Aminotransferase 28 U/L (12-78); Albumin/Globulin Ratio 2.3 (1.1-1.8); Alkaline Phosphatase 43 U/L (38-126); Anion Gap 11.2 mEq/L (5-15); Aspartate Amino Transferase 34 U/L (14-36); Bilirubin,Total 0.8 mg/dl (0.2-1.3); Blood Urea Nitrogen 16 mg/dl (7-17); Calcium 8.8 mg/dl (8.4-10.2); Carbon Dioxide 27 mmol/L (22.0-30.0); Creatinine Clearance Estimated 41 mL/min (50-200); Estimated Glomerular Filt Rate 69 ml/min (>60); GFR (African American) 84 ML/MIN (>60); Globulin 1.7 g/dL (1.3-3.2); Glucose 271 mg/dl (74-100); Total Protein,Serum 5.6 g/dl (6.3-8.2)
[2024-05-26 09:10] LABS: Magnesium 1.5 mg/dl (1.6-2.3)
[2024-05-26 09:17] LABS: Hemoglobin 13.3 g/dL (12.2-16.2)
[2024-05-26 09:19] LABS: POC Glucose,Bedside 322 (70-110)
--- NOTE | 2024-05-26 10:00 | PC.NURSE ---
i spoke to MD regarding pt heart rate. wanted me to give medications as ordered.
[2024-05-26] MEDS: DIGOXIN 0.125MG TABLET 125 MCG PO (11:55)
[2024-05-26] MEDS: DAPAGLIFLOZIN PROPANEDIOL 10 MG TABLET PO (11:56)
[2024-05-26] MEDS: dilTIAZem ER 240MG CAPSULE 240 MG PO (11:56)
[2024-05-26 12:56] LABS: POC Glucose,Bedside 131 (70-110)
--- NOTE | 2024-05-26 13:08 | HMH.PTEV ---
Physical Therapy Evaluation Rehab PT IP Evaluation Start: 05/26/24 11:35 Freq: ONCE Status: Active Protocol: Document 05/26/24 13:02 PHORNE (Rec: 05/26/24 13:08 PHORNE [id number]) Subjective/History History History 79 yowf adm to [facility] with general weakness and possible syncopal event. She reports she lives alone, family right nest door, is generally independent with all mobility with a cane or RW, and has 1 SAMSON the home. Subjective Subjective Pt is A&O x 3, but requires cues for donning socks and appears pleasantly confused with likely worsening dementia . [facility] How much help from another person do you currently need... Turning from your back to your side None while in a flat bed without using bedrails? Moving from lying on back to sitting on None the side of a flat bed without using bedrails? Moving to and from a bed to a chair ( None including a wheelchair)? Standing up from a chair using your arms None ? (e.g., wheelchair, bedside chair) Walking in hospital room? None Climbing 3-5 steps with a railing? A little Mobility Score 23 Mobility Level [facility] Mobility Calculator Mobility 7 Walk 25 feet or more Rehab PT IP Eval Objective Appearance Patient Behavior Appropriate Patient Orientation Person,Place,Month Difficulty following instructions mild Speech Pattern Clear Ambulation Patient Able to Ambulate Yes Ambulation Observation IP General Gait Pattern Observation Shuffling Step Ambulation Distance (feet) 150 Ambulation Assistive Device Rolling Walker Ambulation Ability Supervision/Stand by Balance Ability to Arise Able, uses arms to help Sitting Balance Steady, safe Standing Balance Steady, wide stance Dynamic Sitting Balance Ability Good Dynamic Standing Balance Ability Fair Transfers Bed Transfer Ability Supervision/Stand by Chair Transfer Ability Supervision/Stand by Sit to Stand Bed Transfer Ability Supervision/Stand by Sit to Stand Chair Transfer Ability Supervision/Stand by ROM All Extremities PT ROM Status WFL MMT All Extremities PT MMT WFL Rehab PT IP prob,goals,plan Problems Date of Evaluation: 05/26/24 Discharge Plan PT Discharge Plan Pt currently appears most appropriate for [facility] or increased daily assistance after d/c from hospital. Physically she is appropriate to return home once medically stable, but cognition waxes and wanes regarding her ability to care for herself independently and in a safe manner. No current inpatient therapy needs at this time. Eval Complexity Eval Charge Codes 22918 - High Complexity PHYSICIAN CERTIFICATION: I certify the specified therapy services for Melissa D Kelly are required, authorized, and reviewed every 30 days.
[2024-05-26] MEDS: METFORMIN 500MG TABLET 1000 MG PO (17:02)
[2024-05-26 17:10] LABS: POC Glucose,Bedside 107 (70-110)
--- NOTE | 2024-05-26 17:50 | PC.NURSE ---
pt has gotten increasingly confused as the shift has progressed. She is redirectable @ this time. bed alarm is in place for pt safety
[2024-05-26 20:55] LABS: POC Glucose,Bedside 200 (70-110)
[2024-05-26] MEDS: OLANZapine 10 MG VIAL IM (23:45)
[2024-05-27] VITALS (9 sets, daily range): BP systolic 136–177; BP diastolic 71–98; PULSE 59–90; RESP 14–16; TEMP 36.6–36.8; O2SAT 94–97; BMI 20.5
[2024-05-27 03:12] LABS: POC Glucose,Bedside 121 (70-110)
[2024-05-27] MEDS: OLANZapine 10 MG VIAL IM (03:22)
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
[2024-05-27 05:03] LABS: Basophils % 0.6 % (0.1-2.0); Eosinophils % 1.2 % (0.1-12.0); Hematocrit 44.1 % (37.0-47.0); Lymphocytes # 0.8 K/mm3 (0.7-4.5); Lymphocytes % 24.9 % (10-50); Mean Corpuscular HGB Conc 33.8 g/dL (31.8-35.4); Mean Corpuscular Hemoglobin 30.5 pg (27.0-31.2); Mean Corpuscular Volume 90.4 fl (81-99); Mean Platelet Volume 11.7 fl (7.4-10.4); Monocytes # 0.2 K/mm3 (0.1-1.0); Monocytes % 5.9 % (1.7-9.3); Neutrophils # 2.3 K/mm3 (1.8-7.8); Neutrophils % 66.5 % (37.0-80.0); Platelet Count 101 K/mm3 (142-424); Red Blood Count 4.88 M/mm3 (4.20-5.40); Red Cell Distribution Width 13.7 % (11.5-17.5); White Blood Count 3.4 K/mm3 (4.8-10.8)
[2024-05-27 05:06] LABS: Hemoglobin 14.9 g/dL (12.2-16.2)
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
[2024-05-27 05:32] LABS: Alanine Aminotransferase 32 U/L (12-78); Albumin Level 4.3 g/dl (3.5-5.0); Alkaline Phosphatase 45 U/L (38-126); Anion Gap 7.3 mEq/L (5-15); Aspartate Amino Transferase 34 U/L (14-36); Bilirubin,Total 1.1 mg/dl (0.2-1.3); Blood Urea Nitrogen 15 mg/dl (7-17); Calcium 9.1 mg/dl (8.4-10.2); Carbon Dioxide 29 mmol/L (22.0-30.0); Chloride 109 mmol/L (98-107); Creatinine Clearance Estimated 41 mL/min (50-200); Estimated Glomerular Filt Rate 119 ml/min (>60); GFR (African American) 144 ML/MIN (>60); Globulin 2.1 g/dL (1.3-3.2); Glucose 151 mg/dl (74-100); Magnesium 1.6 mg/dl (1.6-2.3); Potassium 3.3 mmoL/L (3.5-5.1); Sodium 142 mmol/L (136-145); Total Protein,Serum 6.4 g/dl (6.3-8.2)
[2024-05-27 06:03] LABS: Thyroid Stimulating Hormone 1.32 uIU/mL (0.465-4.68)
[2024-05-27 06:11] LABS: POC Glucose,Bedside 145 (70-110)
[2024-05-27 06:15] LABS: Hepatitis C Ab Qual. W/ RFX REACTIVE (Negative)
--- NOTE | 2024-05-27 09:56 | PC.NURSE ---
Tried to obtain patients vital signs and supervisor molding to tele monitor, patient swung her arms and said leave me alone. RN Tresa Archer aware.
--- NOTE | 2024-05-27 10:00 | P.PN_ITS ---
Subjective *Date: 05/27/24 *Time: 16:34 Interval history: Patient initially asleep on exam. Did not awaken to stimuli. Has wraps on arms from skin tears. Family at bedside, discussed patient's case and dispo planning. Medically speaking her kidney functions at baseline, stable on room air, glucose stabilized on current regimen. At baseline physical function as far as mobility. Concerned about safety going home given her mental status with forgetfulness and orientation. Will have case management evaluate in the morning and discuss options with family. Medical Exam Vital signs and Labs for Last 24 Hours: Vital Signs Temp Pulse Pulse Resp BP Pulse Ox O2 Del Method 05/27/24 08:55 Room Air 05/27/24 06:23 Room Air 05/27/24 05:00 Room Air 05/27/24 04:00 97.9 F 59 L 16 136/71 97 Room Air 05/27/24 03:00 Room Air 05/27/24 01:16 62 94 L Room Air 05/27/24 01:00 Room Air 05/26/24 23:00 Room Air 05/26/24 20:25 Room Air 05/26/24 20:00 98.4 F 63 16 130/74 95 05/26/24 20:00 70 05/26/24 19:48 Room Air 05/26/24 17:00 Room Air 05/26/24 16:13 98.0 F 05/26/24 16:00 60 05/26/24 15:00 Room Air 05/26/24 15:00 Room Air 05/26/24 13:00 Room Air 05/26/24 12:00 60 05/26/24 11:55 66 05/26/24 11:51 98.2 F 67 20 177/72 H 97 05/26/24 11:00 Room Air 05/26/24 09:31 Room Air Intake and Output 05/26/24 05/27/24 05/27/24 23:59 08:59 15:59 Intake Total 250 / 1190 240 / 240 Output Total 800 / 2714 1999 Balance -550 / -1524 -1760 / -1760 Intake: Intake, Oral Amount 250 / 940 240 / 240 Output: Output, Urine Amount 800 / 2714 1999 Other: Number of Unmeasured Voids 0 Weight 55.928 kg Patient Weight 05/28/24 00:59 Weight 55.928 kg Laboratory Results - last 24 hr 05/26/24 06:53: WBC 3.4 L D, RBC 4.30, Hgb 13.3 D, Hct 39.2, MCV 91.2, MCH 30.9, MCHC 33.9, RDW 13.8, Plt Count 108 L, MPV 12.4 H, Neut % (Auto) 69.1, Lymph % (Auto) 22.4, [place] % (Auto) 6.7, Eos % (Auto) 1.2, Baso % (Auto) 0.3, Neut # (Auto) 2.4, Lymph # (Auto) 0.8, [place] # (Auto) 0.2, Eos # (Auto) 0.0, Baso # (Auto) 0.0, Sodium 136, Potassium 4.2 D, Chloride 102, Carbon Dioxide 27, Anion Gap 11.2, BUN 16, Creatinine 0.80 D, Estimated Creat Clear 41, Estimated GFR 69, Est GFR ( Amer) 84 D, Glucose 271 H D, Calcium 8.8, Magnesium 1.5 L D, Total Bilirubin 0.8, AST 34, ALT 28, Alkaline Phosphatase 43, Total Protein 5.6 L, Albumin 3.9 D, Globulin 1.7, Albumin/Globulin Ratio 2.3 H 05/26/24 08:58: POC Glucose 322 H* 05/26/24 12:49: POC Glucose 131 H 05/26/24 16:59: POC Glucose 107 05/26/24 20:47: POC Glucose 200 H 05/26/24 23:51: POC Glucose 121 H 05/27/24 05:00: WBC 3.4 L, RBC 4.88, Hgb 14.9 D, Hct 44.1, MCV 90.4, MCH 30.5, MCHC 33.8, RDW 13.7, Plt Count 101 L, MPV 11.7 H, Neut % (Auto) 66.5, Lymph % (Auto) 24.9, [place] % (Auto) 5.9, Eos % (Auto) 1.2, Baso % (Auto) 0.6, Neut # (Auto) 2.3, Lymph # (Auto) 0.8, [place] # (Auto) 0.2, Eos # (Auto) 0.0, Baso # (Auto) 0.0, Sodium 142, Potassium 3.3 L D, Chloride 109 H, Carbon Dioxide 29, Anion Gap 7.3, BUN 15, Creatinine 0.50 L D, Estimated Creat Clear 41, Estimated GFR 119, Est GFR ( Amer) 144 D, Glucose 151 H D, Calcium 9.1, Magnesium 1.6, Total Bilirubin 1.1, AST 34, ALT 32, Alkaline Phosphatase 45, Total Protein 6.4, Albumin 4.3 D, Globulin 2.1, Albumin/Globulin Ratio 2.0 H, TSH 1.32 D, HCV Ab GEOVANI w/Rflx PCR Qn Reactive, HIV Ag/Ab Combo Qual Negative 05/27/24 06:04: POC Glucose 145 H I & O for Labs for Last 24 Hours: Intake & Output 05/24/24 05/25/24 05/26/24 05/28/24 23:59 23:59 23:59 00:59 Intake Total 950 / 1190 240 / 240 Output Total 2414 / 2714 1999 Balance -1464 / -1524 -1760 / -1760 Weight 56.608 kg 56.608 kg 55.928 kg Constitutional: Present no acute distress, thin, chronically ill appearing and obtunded Head: Present atraumatic and normocephalic Neck: Present normal inspection Respiratory: Present normal respiratory effort; Absent rhonchi, wheezes or crackles Cardiac: Present Tachycardia Comment:: Irregularly irregular GI: Present soft and normal bowel sounds; Absent distention or tenderness Extremities: Present full ROM Comment:: Bilateral arms in Curlex wraps, clean dry and intact Skin: Present wounds; Absent erythema Comment:: Skin tears on bilateral forearms sustained in her delirium last night Neuro: Present Grossly Intact, alert, awake and moves all extremities Comment:: Oriented to self only after awakening and being reevaluated in bedside chair. Does not know where she is or why Assessment and Plan *Assessment and plan (1) AMS (altered mental status): Status: Resolved Qualifiers: Altered mental status type: unspecified Qualified Code(s): R41.82 - Altered mental status, unspecified Category: Medical Code(s): R41.82 - Altered mental status, unspecified (2) Hypoglycemia associated with type 2 diabetes mellitus: Status: Acute Category: Medical Code(s): E11.649 - Type 2 diabetes mellitus with hypoglycemia without coma (3) Hypomagnesemia: Status: Acute Category: Medical Code(s): E83.42 - Hypomagnesemia (4) Diabetes type 2, controlled: Status: Acute Qualifiers: Diabetes mellitus skilled nursing insulin use: with skilled nursing use Diabetes mellitus complication status: with unspecified complications Qualified Code(s): E11.8 - Type 2 diabetes mellitus with unspecified complications; Z79.4 - adjunct faculty for medical terminology (current) use of insulin Category: Medical Code(s): E11.9 - Type 2 diabetes mellitus without complications (5) Hypokalemia: Status: Acute Category: Medical Code(s): E87.6 - Hypokalemia (6) HTN (hypertension): Status: Chronic Qualifiers: Hypertension type: essential hypertension Qualified Code(s): I10 - Essential (primary) hypertension Category: Medical Code(s): I10 - Essential (primary) hypertension (7) Right knee pain: Status: Acute Qualifiers: Chronicity: acute Qualified Code(s): M25.561 - Pain in right knee Category: Medical Code(s): M25.561 - Pain in right knee (8) Atrial fibrillation: Status: Chronic Qualifiers: Atrial fibrillation type: paroxysmal Qualified Code(s): I48.0 - Paroxysmal atrial fibrillation Category: Medical Code(s): I48.91 - Unspecified atrial fibrillation Plan 79-year-old female who presented with syncopal event concerning for hypoglycemia. Had an episode of louie confusion/delirium overnight. Necessitated Zyprexa to calm patient as she was being aggressive with staff. Somewhat more calm and cooperative this morning. Currently has one-on-one sitter. Afebrile and hemodynamically stable. Continues to require inpatient management pending safe disposition plan. Problems addressed as follows: A-fib Hypertension Hyperlipidemia -Continuing diltiazem 240 mg daily. Continue to hold Toprol all. Heart rate remains in the 70s. Continue Eliquis 5 mg twice daily. Continue Lipitor 10 mg daily. -Continue digoxin 125 mcg daily. -Holding HCTZ due to concern for patient being slightly dehydrated on presentation. Not edematous or in volume overload today, having ample urine output Electrolyte disturbances -Potassium 3.3, magnesium 1.6. Sodium 142. Kidney function normal with BUN 15, creatinine 0.5. Repeat CBC, CMP, magnesium ordered for the morning. -Replace per electrolyte protocol Suspected hyperthyroidism: -Review of chart does not show antibodies for Graves', unsure what her diagnosis came from - TSH normal at 3, methimazole recently decreased last month to 2.5mg TID. Will hold methimazole during admission. Diabetes: -No further hypoglycemia - A1c at goal of 6.8. concern she is overcontrolled. Tolerating Lantus. Morning glucose 151. Increase to 8 units daily. -Monitor fingerstick ACHS - Continue metformin 1000 mg twice daily and Farxiga 10 mg daily Chronic diarrhea Status post bowel surgery for colon cancer -Fiber supplement daily Cognitive impairment: Mini-Mental performed October of last year with score of 19 out of 30. Strongly encourage patient to have discussions with family about POA and goals of care. Patient had delirium overnight. Necessitated Zyprexa. Concern for delirium in the setting of dementia. Will initiate mirtazapine 15 mg nightly. Concerned about her ability to continue to live independently given her need for assistance with ADLs and her worsening confusion. Patient resistant to being at a skilled nursing. Would benefit from memory care unit versus assisted living. Further goals of care and disposition planning discussions with family and case management in the morning high risk for readmission Full code Eliquis 5 mg twice daily Diabetic diet
--- NOTE | 2024-05-27 10:56 | PC.NURSE ---
Pt was assisted to the bedside commode but did not void at this time.
--- NOTE | 2024-05-27 11:55 | PC.NURSE ---
Pt assisted to the bathroom. Pt voided. Void unmeasured, the hat in the toilet did not catch it.
[2024-05-27] MEDS: dilTIAZem ER 240MG CAPSULE 240 MG PO (12:19)
[2024-05-27] MEDS: DAPAGLIFLOZIN PROPANEDIOL 10 MG TABLET PO (12:19)
[2024-05-27] MEDS: MAGNESIUM OXIDE 400MG TABLET 400 MG PO (12:19)
[2024-05-27] MEDS: DIGOXIN 0.125MG TABLET 125 MCG PO (12:19)
[2024-05-27] MEDS: APIXABAN 5MG TABLET 5 MG PO ×2 (12:20→21:11)
--- NOTE | 2024-05-27 12:23 | PC.NURSE ---
Pt. refused iv.
--- NOTE | 2024-05-27 14:26 | PC.NURSE ---
Aox 1, on RA, executive director of nursing one on one, CM consult, diabetic diet, up with assistance times one, pt again refused iv.
[2024-05-27] MEDS: METFORMIN 500MG TABLET 1000 MG PO (16:14)
[2024-05-27 16:16] LABS: POC Glucose,Bedside 137 (70-110)
[2024-05-27] MEDS: POTASSIUM CHLORIDE 20MEQ TAB 40 MEQ PO ×2 (17:20→22:15)
--- NOTE | 2024-05-27 17:31 | PC.NURSE ---
Md. lares for patient not to have an iv. . hold magnesium iv dose with no iv.
[2024-05-27] MEDS: MIRTAZAPINE 15 MG TABLET PO (21:11)
[2024-05-27] MEDS: DONEPEZIL 5MG TAB 5 MG PO (21:11)
[2024-05-28] VITALS: BP 199/80; PULSE 87; RESP 17; O2SAT 95
--- NOTE | 2024-05-28 01:52 | PC.NURSE ---
Late entry- at 2100 called to bedside due to patient smacking phone on table aggressively, Sylvester MAHMOOD stated to attempt PO medications, after 45 minutes of sitting with patient and having conversations, gave patient med cup with pills, patient took these medications, did drop on own, but easily found and patient took them easily. During conversation, patient would not make sense with sentences and heard voices coming from outlet and talked to an object in the floor next to her. Patient does not like to be touched, minimal physical touch to keep patient calm. Fingerstick not obtained due to patient agitation, Sylvester MAHMOOD aware and okay with this.
--- NOTE | 2024-05-28 01:57 | PC.NURSE ---
0045- Sylvester MAHMOOD made aware of BP 199/80. No new orders at this time.
[2024-05-28 04:00] VITALS: BP 160/76; PULSE 67; RESP 18; TEMP 36.7; O2SAT 96; BMI 19.8
[2024-05-28 08:00] VITALS: BP 169/92; PULSE 77; RESP 20; TEMP 36.7; O2SAT 96
[2024-05-28] MEDS: APIXABAN 5MG TABLET 5 MG PO ×2 (11:08→19:12)
[2024-05-28] MEDS: DAPAGLIFLOZIN PROPANEDIOL 10 MG TABLET PO (11:08)
[2024-05-28 11:09] VITALS: PULSE 90
[2024-05-28] MEDS: DIGOXIN 0.125MG TABLET 125 MCG PO (11:09)
[2024-05-28] MEDS: dilTIAZem ER 240MG CAPSULE 240 MG PO (11:09)
[2024-05-28] MEDS: MAGNESIUM OXIDE 400MG TABLET 400 MG PO (11:10)
[2024-05-28 11:25] LABS: Hepatitis B Core Antibody, IgM Negative (Negative); Hepatitis B Surface Antigen Negative (Negative)
[2024-05-28] MEDS: levoFLOXacin 500MG TAB 500 MG PO (11:55)
[2024-05-28 11:57] VITALS: BP 150/86; PULSE 79; RESP 20; O2SAT 96
--- NOTE | 2024-05-28 12:22 | SW/DCPLANNER ---
Addendum entered by [facility] 05/29/24 12:37: Per Zulma patient can admit to [facility] level of care today. I will update Lizzy w/ Hospice once patient discharges. Addendum entered by [facility] 05/29/24 12:13: Per Zulma w/ [facility] additional paperwork is needed at this time. Zulma has also stated that patient will require to be private pay 1-3 months before applying for SAMM pending. Patient's family is working on this process now and gathering additional information. Addendum entered by [facility] 05/29/24 09:53: Zulma w/ [facility] is able to accept this patient pending paperwork from nephew. I have provided nephew w/ phone number to contact [facility]. I have also updated Josephine w/ [facility]. I will update Lizzy aguirre/ [facility] as well. Addendum entered by [facility] 05/29/24 08:11: Family has stated this AM they prefer for patient to go to [facility] w/ Hospice. Zulma w/ [facility] will be at bedside this AM to evaluate patient. If [facility] is not able to accept they then prefer to discharge to [facility] LTC w/ Hospice services. I will continue to update patient, family, MD and facilities. Addendum entered by [facility] 05/29/24 07:35: Lety w/ [facility] completed bedside evaluation and stated they could accept patient for services once medically stable for discharge. I will follow up w/ family this AM regarding home w/ Hospice vs LTC w/ Hospice. Addendum entered by [facility] 05/28/24 14:45: Hospice will be at bedside around 3:30 to speak w/ patient, nephew and sister. Addendum entered by [facility] 05/28/24 13:49: [facility] and [facility] are interested in this patient's referral. I am currently waiting Hospice evaluation. Original Note: Dr Horne and I had a lengthy discussion w/ patient, sister and nephew regarding plans once medically stable for discharge. Nephew assist w/ most decision making for this patient. Dr Horne and I discussed options of LTC under Medicaid vs home w/ possibly Hospice services. Family has requested to speak w/ Hospice. Patient information has been faxed to Lizzy aguirre/ [facility]. Lizzy stated that she will arrange a time to meet w/ patient and family today at bedside. Family prefers for patient to return back home to her normal environment if Hospice is able to provide services. Family is also agreeable for information to be faxed to LTC facilities at this time. The following facilities confirmed they do have a female [facility] bed and patient information will be faxed: [facility], [place], [facility], [facility], [facility], [place] and [facility]. I will continue to follow up w/ patient, family, MD, Hospice and facilities. Discharge date is unknown at this time.
--- NOTE | 2024-05-28 14:44 | P.PN_ITS ---
Subjective *Date: 05/28/24 *Time: 15:04 Interval history: Patient slept better overnight. Somewhat irritable this morning however. Refusing to have labs drawn. Not wanting to eat breakfast. When family showed up, she took meds for her nephew. Would not take them for anyone else. Stable on room air. Afebrile. No nausea or vomiting. Unsteady on her feet, getting around with a walker. Continues to have one-on-one sitter. Medical Exam Vital signs and Labs for Last 24 Hours: Vital Signs Temp Pulse Pulse Resp BP Pulse Ox O2 Del Method 05/28/24 12:51 Room Air 05/28/24 11:57 79 20 150/86 H 96 Room Air 05/28/24 11:09 90 05/28/24 11:00 Room Air 05/28/24 08:01 Room Air 05/28/24 08:00 98.1 F 77 20 169/92 H 96 Room Air 05/28/24 06:55 Room Air 05/28/24 05:00 Room Air 05/28/24 04:00 98.0 F 67 18 160/76 H 96 Room Air 05/28/24 03:00 Room Air 05/28/24 01:00 Room Air 05/28/24 00:00 87 17 199/80 H 95 Room Air 05/27/24 23:00 Room Air 05/27/24 21:00 Room Air 05/27/24 20:00 Room Air 05/27/24 19:30 98.0 F 78 16 167/98 H 95 Room Air 05/27/24 17:59 Room Air 05/27/24 16:26 Room Air 05/27/24 16:00 90 05/27/24 15:58 97.8 F 75 16 167/80 H 96 Room Air Intake and Output 05/27/24 05/28/24 05/28/24 23:59 07:59 15:59 Intake Total 480 / 1540 180 / 560 380 / 560 Output Total 200 / 2400 0 / 0 0 / 0 Balance 280 / -860 180 / 560 380 / 560 Intake: Intake, Oral Amount 480 / 1540 180 / 560 380 / 560 Output: Output, Urine Amount 200 / 2400 0 / 0 0 / 0 Other: Number of Unmeasured Voids 1 1 Number of Bowel Movements 1 1 Weight 55.928 kg 53.932 kg Patient Weight 05/28/24 23:59 Weight 53.932 kg Laboratory Results - last 24 hr 05/25/24 16:39: Urine Color Yellow, Urine Appearance Clear, Urine pH 6.5, Ur Specific [place] 1.020, Urine Protein 2+ A, Urine Glucose (UA) 2+, Urine Ketones Negative, Urine Blood Trace-i, Urine Nitrate Negative, Urine Bilirubin Negative, Urine Urobilinogen 0.2, Ur Leukocyte Esterase Trace, Urine RBC 5-10, Urine WBC 10-20, Ur Squamous Epith Cells 3-5, Urine Bacteria 1+ 05/27/24 05:00: Hep Bs Antigen Negative, Hep B Core IgM Ab Negative 05/27/24 16:09: POC Glucose 137 H I & O for Labs for Last 24 Hours: Intake & Output 05/25/24 05/26/24 05/28/24 05/28/24 23:59 23:59 00:59 23:59 Intake Total 950 / 1190 1360 / 1540 560 / 560 Output Total 2414 / 2714 2400 / 2400 0 / 0 Balance -1464 / -1524 -1040 / -860 560 / 560 Weight 56.608 kg 56.608 kg 55.928 kg 53.932 kg Microbiology Reports for the Last 24 Hours: Microbiology 05/25/24 16:39 Urine,Clean Catch Urine Culture - Preliminary Gram Negative Rods Gram Negative Rods#2 Constitutional: Present no acute distress, thin, chronically ill appearing and obtunded Head: Present atraumatic and normocephalic Neck: Present normal inspection Respiratory: Present normal respiratory effort; Absent rhonchi, wheezes or crackles Cardiac: Present Tachycardia Comment:: Irregularly irregular GI: Present soft and normal bowel sounds; Absent distention or tenderness Extremities: Present full ROM Comment:: Bilateral arms in Curlex wraps, clean dry and intact Skin: Present wounds; Absent erythema Comment:: Skin tears on bilateral forearms sustained in her delirium last night Neuro: Present Grossly Intact, alert, awake and moves all extremities Comment:: Oriented to self only after awakening and being reevaluated in bedside chair. Does not know where she is or why. Answers to questions are tangential. Assessment and Plan *Assessment and plan (1) AMS (altered mental status): Status: Resolved Qualifiers: Altered mental status type: unspecified Qualified Code(s): R41.82 - Altered mental status, unspecified Category: Medical Code(s): R41.82 - Altered mental status, unspecified (2) Hypoglycemia associated with type 2 diabetes mellitus: Status: Acute Category: Medical Code(s): E11.649 - Type 2 diabetes mellitus with hypoglycemia without coma (3) Hypomagnesemia: Status: Acute Category: Medical Code(s): E83.42 - Hypomagnesemia (4) Diabetes type 2, controlled: Status: Acute Qualifiers: Diabetes mellitus complication status: with unspecified complications 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 Qualified Code(s): E11.8 - Type 2 diabetes mellitus with unspecified complications; Z79.4 - jail (current) use of insulin Category: Medical Code(s): E11.9 - Type 2 diabetes mellitus without complications (5) Hypokalemia: Status: Acute Category: Medical Code(s): E87.6 - Hypokalemia (6) HTN (hypertension): Status: Chronic Qualifiers: Hypertension type: essential hypertension Qualified Code(s): I10 - Essential (primary) hypertension Category: Medical Code(s): I10 - Essential (primary) hypertension (7) Right knee pain: Status: Acute Qualifiers: Chronicity: acute Qualified Code(s): M25.561 - Pain in right knee Category: Medical Code(s): M25.561 - Pain in right knee (8) Atrial fibrillation: Status: Chronic Qualifiers: Atrial fibrillation type: paroxysmal Qualified Code(s): I48.0 - Paroxysmal atrial fibrillation Category: Medical Code(s): I48.91 - Unspecified atrial fibrillation Plan 79-year-old female who presented with syncopal event concerning for hypoglycemia. No further delirious episodes. Tolerating mirtazapine. Irritable however today. Refusing lab draws. Not wanting to eat breakfast. Continues to have one-on-one. Family at bedside after rounds for goals of care discussion. Afebrile and hemodynamically stable. Continues to require inpatient management pending safe disposition plan. Problems addressed as follows: A-fib Hypertension Hyperlipidemia -Continuing diltiazem 240 mg daily. Continue to hold metoprolol. Heart rate remains in the 70s. Continue Eliquis 5 mg twice daily. Continue Lipitor 10 mg daily. -Continue digoxin 125 mcg daily. -Holding HCTZ due to concern for patient being slightly dehydrated on presentation. Not edematous or in volume overload today, having ample urine output Electrolyte disturbances -Refused labs this morning. Will evaluate for replacement when patient allows lab draw. Repeat CBC, CMP, magnesium ordered for the morning. -Replace per electrolyte protocol Suspected hyperthyroidism: -Review of chart does not show antibodies for Graves', unsure what her diagnosis came from - TSH normal at 3, methimazole recently decreased last month to 2.5mg TID. Will hold methimazole during admission. Diabetes: -No further hypoglycemia - A1c at goal of 6.8. concern she is overcontrolled. Tolerating Lantus, continue 8 units nightly. -Monitor fingerstick ACHS - Continue metformin 1000 mg twice daily and Farxiga 10 mg daily Chronic diarrhea Status post bowel surgery for colon cancer -Fiber supplement daily Cognitive impairment: Sleep disturbance: - Mini-Mental performed October of last year with score of 19 out of 30. Strongly encourage patient to have discussions with family about POA and goals of care. Patient had delirium overnight. Necessitated Zyprexa. Concern for delirium in the setting of dementia. Tolerated mirtazapine 15 mg last night, little groggy this morning. Will decrease to 7.5 mg tonight. - Concerned about her ability to continue to live independently given her need for assistance with ADLs and her worsening confusion. Patient resistant to being at a half-way. Would benefit from memory care unit versus assisted living. Further goals of care and disposition planning discussions with family and case management in the morning high risk for readmission. Discussed potentially home with hospice for additional help. Hospice to consult today and discuss options. Also referring to placement for long-term care. Social work assisting Full code Eliquis 5 mg twice daily Diabetic diet
--- NOTE | 2024-05-28 14:59 | EXP.EVENT.NO ---
Advance care planning note: Active diagnosis: Dementia, diabetes, hypertension, history of colon cancer, hypothyroid, A-fib, iron deficiency anemia CKD The patient's active diagnoses are of sufficient risk that focused discussion on advanced care planning is indicated in order to allow the patient to thoughtfully consider personal goals of care; and, if situations arise that prevent the ability to personally give input, to ensure appropriate representation of their personal desires through documentation or informed surrogate decision makers. Discussion: Persons present and participating in discussion: Patient, nephew, sister Discussion: Extensive discussion about patient's condition, memory, safety going home. Medically speaking her syncopal event has resolved. Blood pressure and blood sugar doing better. Heart rate controlled. Adjustments made to medications. At this time however given her confusion worsening her underlying dementia, we had extensive discussion about next site of care. Patient has been resistant for a long time to go to nursing facility. At this time she would either need assisted living, long-term memory care, or considering home with hospice. Discussed pros and cons of these 3 options. We will pursue referral to nursing facilities for memory care unit center Medicaid. We will also consult hospice to evaluate patient and discuss with family services they can provide to support patient at home. Home with support would essentially be the same as assisted living given the support that family currently provides with medication management and grocery shopping along with helping with cooking. Further discussion pending information from referral to long-term care and hospice Time spent: Total time spent [id number] in education and discussion directly related to advance care plannin minutes Liam Horne 05/28/2024 11:30 to 12:00
--- NOTE | 2024-05-28 16:20 | PC.NURSE ---
PT IS SITTING UP IN THE CHAIR. ALERT TO SELF ONLY. PT HAS BEEN UNCOOPERATIVE WITH CARE T/O THE SHIFT. PT HAS CURSED AND ATTEMPTED TO HIT STAFF SEVERAL TIMES. PT UNSTEADILY AMBULATED IN THE [place] THIS SHIFT WITH STAFF NEAR BY HOWEVER IF STAFF ATTEMPTED TO ASSIST PT WITH AMBULATING PT WOULD THROW HER ARMS AT STAFF AND YELL DON'T TOUCH ME OR GET YOUR HANDS OFF ME . AFTER SEVERAL ATTEMPTS PT FINALLY TOOK HER PO MEDICATIONS LATE THIS MORNING WHEN HER NEPHEW HANDED THEM TO HER. UNABLE TO GET A THOROUGH ASSESSMENT THIS SHIFT DUE TO PT BEING UNCOOPERATIVE AND COMBATIVE. PT REFUSED LAB WORK AND FINGER STICKS. APPETITE HAS BEEN POOR. CONTINUING 1:1 OBSERVATION AT THIS TIME. WILL CONTINUE TO MONITOR.
[2024-05-28] MEDS: DONEPEZIL 5MG TAB 5 MG PO (19:12)
[2024-05-28] MEDS: MIRTAZAPINE 15 MG TABLET PO (19:12)
[2024-05-28 19:33] VITALS: BP 175/68; PULSE 90; RESP 17; TEMP 37; O2SAT 95
--- NOTE | 2024-05-28 22:29 | PC.NURSE ---
This RN was able to change dressings to right arm, 2 small skin tears noted, rewrapped with Vaseline gauge and kerlix, patient is fatigued, patient did attempt to elbow this RN, but relaxed after explaining again what this RN was doing, patient resting in chair at this time.
--- NOTE | 2024-05-29 03:36 | PC.NURSE ---
Patient got up to walk in room, hit right leg on chair, new small skin tear noticed, dressing applied.
--- NOTE | 2024-05-29 05:32 | PC.NURSE ---
Alert to name only. Patient did rest some throughout shift. Patient would wake up and walk around room, has been able to get back to chair safely. Patient is very unsteady while walking. Refuses care and will swing at staff when approached. Chair/bed alarm on. 1:1 observation. Uses bedside commode.
--- NOTE | 2024-05-29 06:46 | PC.NURSE ---
Called into room by tech, patient up slinging walker, then proceeded to moving bedside table to corner herself, patient began swinging at staff while trying to get table out of corner to be able to reach patient safely, patient beat hands on table, new small skin tear noted to left hand. Assisted patient back to chair safely, cleaned skin tear.
[2024-05-29] MEDS: APIXABAN 5MG TABLET 5 MG PO (09:15)
[2024-05-29] MEDS: dilTIAZem ER 240MG CAPSULE 240 MG PO (09:15)
[2024-05-29] MEDS: DAPAGLIFLOZIN PROPANEDIOL 10 MG TABLET PO (09:15)
[2024-05-29] MEDS: MAGNESIUM OXIDE 400MG TABLET 400 MG PO (09:16)
[2024-05-29] MEDS: CALCIUM POLYCARBOPHIL 625MG TAB 1250 MG PO (09:17)
[2024-05-29 09:35] VITALS: PULSE 98
[2024-05-29] MEDS: DIGOXIN 0.125MG TABLET 125 MCG PO (09:35)
--- NOTE | 2024-05-29 10:15 | PC.NURSE ---
PT WAS UNCOOPERATIVE WITH MY MORNING ASSESSMENT. PT HAS REFUSED LAB STICKS AND VITAL SIGNS THIS AM. WILL OCCASIONALLY TELL STAFF TO GET OUT AND LEAVE ME ALONE SISTER IS AT BEDSIDE. 1:1 SITTER REMAINS AT BEDSIDE WITH IN ARMS REACH FOR PT SAFETY. MANY ATTEMPTS BY ALL STAFF INTERACTING WITH PT TO ORIENT HER TO SURROUNDINGS. PT DOES APPEAR TO RESPOND BETTER TO MALE STAFF.
--- NOTE | 2024-05-29 11:22 | EXP.DC.SUM ---
General Admission date:: 05/25/24 HPI HPI HPI: Ms. Mendoza is a 79-year-old female with history of hypertension, hyperlipidemia, A-fib, CKD, diabetes. [place] and family close by. Caregiver checks on her daily. Family helps to organize her medications but she administers her own insulin. She was reportedly at the store today when she had an episode where she became confused. Her family had to give history in the ER. He states she was at the grocery store shopping and she was riding on a motorized scooter when she seemed to slump in her chair and became less responsive. They gave her apple juice and she perked up. Blood sugar was not checked at that time. Concern for some cognitive impairment at baseline but she still makes all of her decisions and lives by herself. She denied chest pain, cough, shortness of breath, fever, nausea or vomiting on arrival. No changes to any medications as of late. On initial evaluation in the ER, glucose was 70. Was found to be bradycardic with heart rate in the 40s and normotensive. Appears back to baseline mentation on workup in the ER. In the ER with white count normal. Chemistry with low potassium of 3.0, slight elevation of BUN at 21 and creatinine 0.6 concerning for some mild dehydration. Magnesium also low at 1.2. BNP elevated at 2700. Medicine was consulted for admission and further management of her weakness and suspected hypoglycemia causing her event at the grocery store along with electrolyte disturbances. Patient had a similar episode in October of last year where she was found sitting on the floor confused where she had soiled herself. She had been having some hallucinations and sleepwalking. Discussed further assistance and support given her mentation at that time. Her social situation however has not changed and she continues to be supported at home by herself. When asked questions today, she will answer partially appropriately but then answers wonder to other subjects. States she is feeling better. Minimizes the situation and downplays how she is feeling. Hospital Course Hospital Course Hospital Course: Melissa Mendoza is a 79-year-old female who presented with syncopal event concerning for hypoglycemia in the setting of poor oral intake, worsening dementia and continuing her diabetic regimen including insulin at home. No further hypoglycemic events during admission. #A-fib #Hypertension #Hyperlipidemia - Continuing diltiazem 240 mg daily, digoxin 125 mcg, Eliquis 5 mg twice daily, Lipitor 10 mg daily. Discontinue hydrochlorothiazide, metoprolol. #Moderate dementia #Cognitive impairment #Sleep disturbance #UTI - Mini-Mental performed October of last year with score of 19 out of 30 indicating moderate dementia. Patient has been intermittently confused and agitated (resulting in mild self-induced abrasions over arms and legs) during hospitalization, likely induced by UTI, sundowning, and hospital-acquired delirium. Improving. - Family concerned about her ability to continue to live independently given her need for assistance with ADLs and her worsening dementia. After extensive conversations with family, they elected to pursue hospice care for progressive dementia with long-term assisted living. [facility] graciously accepted patient for the services. ? Continue mirtazapine 7.5 mg nightly. ? Continue levofloxacin for 3 more days for UTI. #Suspected hyperthyroidism: - Review of chart does not show antibodies for Graves', unsure what her diagnosis came from - TSH normal at 3, free T4 low at 0.73. Methimazole recently decreased last month to 2.5mg TID. ? Will hold methimazole, recommend repeating TSH, T4 in 2 weeks. #Diabetes - No further hypoglycemia - A1c at goal of 6.8. concern she is overcontrolled. ? Discontinue home insulin, metformin (due to diarrhea). Continue home Farxiga 10 mg. #Chronic diarrhea - Status post bowel surgery for colon cancer - Psyllium husk as needed. Discontinue metformin as above. Total time spent on discharge: 32 minutes on chart review, counseling, documentation, and direct care with patient. Exam Data for Last 24 hours Vital signs and Labs for Last 24 Hours: Temp Pulse Resp BP Pulse Ox O2 Del Method 98.6 F 98 H 17 175/68 H 95 Room Air 05/28/24 19:33 05/29/24 09:35 05/28/24 19:33 05/28/24 19:33 05/28/24 19:33 05/29/24 09:47 Laboratory Results - last 24 hr 05/27/24 05:00: Hep Bs Antigen Negative, Hep B Core IgM Ab Negative, HIV Ag/Ab Combo Qual Cancelled I & O for Last 24 hours: Intake & Output 05/26/24 05/28/24 05/28/2405/29/25 23:59 00:59 23:59 23:59 Intake Total 950 / 1190 1360 / 1540 920 / 1100 280 / 280 Output Total 2414 / 2714 2400 / 2400 0 / 0 0 / 0 Balance -1464 / -1524 -1040 / -860 920 / 1100 280 / 280 Weight 56.608 kg 55.928 kg 53.932 kg Microbiology Reports for the Last 24 Hours: Microbiology 05/25/24 16:39 Urine,Clean Catch Urine Culture - Final Klebsiella pneumoniae Escherichia coli Constitutional Constitutional: no acute distress *Routine HEENT Exam Head: Present normocephalic Eye: Present EOMI and PERRL ENT: Present mucous membranes moist *Routine Neck Exam Neck: Present supple; Absent lymphadenopathy *Routine Respiratory Exam Respiratory: Present CTA bilaterally *Routine Cardiovascular Exam Cardiovascular: Present RRR *Routine Abdominal Exam Abdominal: Present soft and normoactive bowel sounds; Absent tenderness *Routine Extremities Exam Extremities: Absent cyanosis, clubbing or edema *Routine Skin Exam Skin: Present warm; Absent rash *Routine Neurological Exam Neurological: Present alert Results Data Completed and Pending Labs on day of discharge: Labs from last 24 hours 05/27/24 05:00 Hep Bs Antigen Negative Hep B Core IgM Ab Negative HIV Ag/Ab Combo Qual Cancelled DS: Diagnosis Discharge Diagnosis (1) AMS (altered mental status): Status: Resolved Code(s): R41.82 - Altered mental status, unspecified Qualifiers: Altered mental status type: unspecified Qualified Code(s): R41.82 - Altered mental status, unspecified (2) Hypoglycemia associated with type 2 diabetes mellitus: Status: Acute Code(s): E11.649 - Type 2 diabetes mellitus with hypoglycemia without coma (3) Hypomagnesemia: Status: Acute Code(s): E83.42 - Hypomagnesemia (4) Diabetes type 2, controlled: Status: Acute Code(s): E11.9 - Type 2 diabetes mellitus without complications Qualifiers: Diabetes mellitus usp insulin use: with remote computer terminal operator use Diabetes mellitus complication status: with unspecified complications Qualified Code(s): E11.8 - Type 2 diabetes mellitus with unspecified complications; Z79.4 - long term care administrator (current) use of insulin (5) Hypokalemia: Status: Acute Code(s): E87.6 - Hypokalemia (6) HTN (hypertension): Status: Chronic Code(s): I10 - Essential (primary) hypertension Qualifiers: Hypertension type: essential hypertension Qualified Code(s): I10 - Essential (primary) hypertension (7) Right knee pain: Status: Acute Code(s): M25.561 - Pain in right knee Qualifiers: Chronicity: acute Qualified Code(s): M25.561 - Pain in right knee (8) Atrial fibrillation: Status: Chronic Code(s): I48.91 - Unspecified atrial fibrillation Qualifiers: Atrial fibrillation type: paroxysmal Qualified Code(s): I48.0 - Paroxysmal atrial fibrillation Meds Home Medications and Allergies Home Medications ?Medication ?Instructions ?Recorded ?Confirmed ?Type donepezil 5 mg tablet (Aricept) 5 mg PO DAILY #30 tabs 03/07/24 05/26/24 Rx digoxin 125 mcg (0.125 mg) tablet 125 mcg PO DAILY #30 tabs 04/12/24 05/26/24 Rx magnesium oxide 400 mg (241.3 mg 400 mg PO DAILY #30 tabs 04/13/24 05/26/24 Rx magnesium) tablet methimazole 5 mg tablet 2.5 mg (1/2 x 5 mg) PO TID #90 tabs 05/10/24 05/26/24 Rx apixaban 5 mg tablet (Eliquis) 5 mg PO BID 05/26/24 05/26/24 History atorvastatin 10 mg tablet 10 mg PO HS 05/26/24 05/26/24 History cyanocobalamin (vitamin B-12) 1,000 mcg PO DAILY 05/26/24 05/26/24 History 1,000 mcg tablet dapagliflozin propanediol 10 mg 10 mg PO DAILY 05/26/24 05/26/24 History tablet (Farxiga) diltiazem HCl 240 mg 240 mg PO DAILY 05/26/24 05/26/24 History capsule,extended release 24 hr, controlled (DILT-XR) ferrous sulfate 325 mg (65 mg 325 mg PO DAILY 05/26/24 05/26/24 History iron) tablet (FeroSul) levofloxacin 500 mg tablet 500 mg PO 1100 3 days #3 tabs 05/29/24 Rx pantoprazole 40 mg tablet,delayed 40 mg PO DAILY #30 tabs 05/29/24 Rx release (Protonix) New Prescriptions to Start Prescriptions: levofloxacin Kiko Costello pantoprazole [Protonix] Kiko Costello Allergies Allergy/AdvReac Type Severity Reaction Status Date / Time codeine (CODEINE) Allergy Unknown hallucinati Verified 05/10/24 13:32 ons Penicillins (PENICILLINS) Allergy Unknown Verified 05/10/24 13:32 lisinopril AdvReac Severe Cough Verified 05/10/24 13:32 Discharge Plan Disposition Patient Disposition: Hospice - Medical Facility Condition: Fair Discharge Order Discharge Orders: Discharge Order (Routine); Ordered 05/29/24 Ordered By: Kiko Costello Follow up Plan Prescriptions/Medication Reconciliation: New pantoprazole [Protonix] 40 mg tablet,delayed release (DR/EC) 40 mg PO DAILY Qty: 30 0RF levofloxacin 500 mg Tablet 500 mg PO 1100 3 Days Qty: 3 0RF Continued donepezil [Aricept] 5 mg tablet 5 mg PO DAILY Qty: 30 2RF methimazole 5 mg tablet 2.5 mg PO TID Qty: 90 3RF digoxin 125 mcg (0.125 mg) tablet 125 mcg PO DAILY Qty: 30 5RF magnesium oxide 400 mg (241.3 mg magnesium) tablet 400 mg PO DAILY Qty: 30 5RF diltiazem HCl [DILT-XR] 240 mg capsule,ext.rel 24h degradable 240 mg PO DAILY Patient Comments: TAKE ONE CAPSULE BY MOUTH TWICE DAILY atorvastatin 10 mg tablet 10 mg PO HS cyanocobalamin (vitamin B-12) 1,000 mcg tablet 1,000 mcg PO DAILY Patient Comments: TAKE ONE TABLET BY MOUTH EVERY DAY ferrous sulfate [FeroSul] 325 mg (65 mg iron) tablet 325 mg PO DAILY Patient Comments: TAKE ONE TABLET BY MOUTH EVERY DAY Eliquis 5 mg tablet 5 mg PO BID dapagliflozin propanediol [Farxiga] 10 mg tablet 10 mg PO DAILY Discontinued (DME) pen needle, diabetic [BD Ultra-Fine Leena Pen Needle] 32 gauge x needle See Rx Instructions .ROUTE .MEDSUPPLY Qty: 1200 Patient Comments: USE DIRECTED TWICE DAILY Rx Instructions: As directed metoprolol succinate 50 mg tablet extended release 24 hr 50 mg PO BID Qty: 60 5RF alendronate 10 mg tablet 10 mg PO DAILY Qty: 90 2RF insulin asp prt-insulin aspart [Novolog Mix 70-30FlexPen U-100] 100 unit/mL (70-30) insulin pen 11 unit SQ BID Qty: 15 3RF (DME) FreeStyle Pattie 3 Sensor Device See Rx Instructions .ROUTE .COMPLEX Qty: 1 6RF Dose Instruction: USE DIRECTED TO TEST BLOOD GLUCOSE (CHANGE SENSOR EVERY 14 DAYS) Rx Instructions: USE DIRECTED TO TEST BLOOD GLUCOSE (CHANGE SENSOR EVERY 14 DAYS) metformin 1,000 mg tablet 1,000 mg PO BID Patient Comments: TAKE ONE TABLET BY MOUTH TWICE DAILY omeprazole 20 mg capsule,delayed release(DR/EC) 20 mg PO DAILY Patient Comments: TAKE ONE CAPSULE BY MOUTH EVERY DAY hydrochlorothiazide 25 mg tablet 25 mg PO DAILY Patient Comments: TAKE ONE TABLET BY MOUTH EVERY DAY Problem Reconciliation Problems Reviewed?: Yes Patient Discharge Instructions Patient Instructions: Hypoglycemia, Fainting, DI for Hypokalemia, DI for Hypoglycemia, DI for Hypomagnesemia Print Language: Greek Providers Primary Care Provider: Kiko Gaines Admit Provider: Liam Horne Attending Provider: Liam Horne
[2024-05-29] MEDS: levoFLOXacin 500MG TAB 500 MG PO (11:51)
[2024-05-29 12:15] VITALS: BP 128/97
== END 2024-05-29 13:49 | disposition hospice, inpatient (51) | DRG 638 ==
LOC: ER 18:32 → 2ND 18:51
PROVIDERS: Nurse Practitioner Family; Physician Assistant; Admitting Provider Internal Medicine Adolescent Medicine; Emergency Provider Emergency Medicine; PCP Internal Medicine; Visit Provider Internal Medicine Adolescent Medicine
DX: E11.649 Type 2 diabetes mellitus with hypoglycemia without coma (principal); F03.B11 Unspecified dementia, moderate, with agitation; F05 Delirium due to known physiological condition; N39.0 Urinary tract infection, site not specified; M81.0 Age-related osteoporosis without current pathological fracture; E11.22 Type 2 diabetes mellitus with diabetic chronic kidney disease; I12.9 Hypertensive chronic kidney disease with stage 1 through stage 4 chronic kidney disease, or unspecified chronic kidney disease; K52.89 Other specified noninfective gastroenteritis and colitis; N18.9 Chronic kidney disease, unspecified; E78.5 Hyperlipidemia, unspecified; E83.42 Hypomagnesemia; T38.3X5A Adverse effect of insulin and oral hypoglycemic [antidiabetic] drugs, initial encounter; B96.20 Unspecified Escherichia coli [E. coli] as the cause of diseases classified elsewhere; I48.0 Paroxysmal atrial fibrillation; B96.1 Klebsiella pneumoniae [K. pneumoniae] as the cause of diseases classified elsewhere; M25.561 Pain in right knee; Z60.2 Problems related to living alone; Z79.4 Long term (current) use of insulin; Z87.891 Personal history of nicotine dependence; Z79.899 Other long term (current) drug therapy; Z88.5 Allergy status to narcotic agent; Z88.0 Allergy status to penicillin; Z88.8 Allergy status to other drugs, medicaments and biological substances; Z79.84 Long term (current) use of oral hypoglycemic drugs; Z85.038 Personal history of other malignant neoplasm of large intestine; Z99.3 Dependence on wheelchair
CPT/HCPCS: 36415; 80053; 80162; 81001; 82962; 83036; 83735; 83880; 84145; 84436; 84443; 84479; 84484; 85025; 85610; 86705; 86803; 87086; 87088; 87186; 87340; 87389; 87522; 87636; 93005; 97163; 99291; J3475; J7030

== ENCOUNTER 2024-06-16 09:17 | Outpatient (CLI) | payer MEDICARE, MEDICAID, SELFPAY ==
[2024-06-16 10:36] LABS: Thyroid Stimulating Hormone 0.31 uIU/mL (0.465-4.68)
== END 2024-06-16 23:59 | disposition home or self-care (01) ==
PROVIDERS: PCP Family Medicine; Visit Provider Family Medicine
DX: E05.90 Thyrotoxicosis, unspecified without thyrotoxic crisis or storm (principal)
CPT/HCPCS: 84439; 84443

== ENCOUNTER 2024-07-09 07:26 | Outpatient (CLI) | payer MEDICARE, MEDICAID, SELFPAY ==
[2024-07-09 07:31] LABS: Microscopic, Urine URINE MICROSCOPIC (MICROSCOPIC)
[2024-07-09 07:43] LABS: Basophils % 0.7 % (0.1-2.0); Eosinophils % 0.7 % (0.1-12.0); Hematocrit 41.4 % (37.0-47.0); Lymphocytes # 0.6 K/mm3 (0.7-4.5); Lymphocytes % 13.4 % (10-50); Mean Corpuscular HGB Conc 33.8 g/dL (31.8-35.4); Mean Corpuscular Hemoglobin 31.9 pg (27.0-31.2); Mean Corpuscular Volume 94.3 fl (81-99); Mean Platelet Volume 11.6 fl (7.4-10.4); Monocytes # 0.4 K/mm3 (0.1-1.0); Monocytes % 9.6 % (1.7-9.3); Neutrophils # 3.1 K/mm3 (1.8-7.8); Neutrophils % 75.1 % (37.0-80.0); Nucleated Red Blood Cells # 0 10^3/uL; Nucleated Red Blood Cells % 0 %; Platelet Count 105 K/mm3 (142-424); Red Blood Count 4.39 M/mm3 (4.20-5.40); Red Cell Distribution Width 14.1 % (11.5-17.5); Red Cell Distribution Width-SD 49.5 fL; White Blood Count 4.2 K/mm3 (4.8-10.8)
[2024-07-09 07:44] LABS: Appearance,Urine CLEAR (Clear); Bilirubin,Urine Negative (Negative); Blood, Urine Negative (Negative); Color,Urine YELLOW (Yellow); Glucose,Urine (UA) 3+ (Negative); Ketones,Urine Negative (Negative); Leukocyte Esterase,Urine Negative (Negative); Nitrate,Urine Negative (Negative); Protein,Urine Negative (Negative); Specific Gravity, Urine <= 1.005 (1.005-1.030); Urobilinogen,Urine 0.2 EU/dl (0.2)
[2024-07-09 08:22] LABS: Anion Gap 12.9 mEq/L (5-15); Blood Urea Nitrogen 15 mg/dl (7-17); Calcium 9.4 mg/dl (8.4-10.2); Carbon Dioxide 27 mmol/L (22.0-30.0); Chloride 103 mmol/L (98-107); Estimated Glomerular Filt Rate 97 ml/min (>60); GFR (African American) 117 ML/MIN (>60); Potassium 3.9 mmoL/L (3.5-5.1); Sodium 139 mmol/L (136-145)
[2024-07-09 08:58] LABS: Glucose 509 mg/dl (74-100)
== END 2024-07-09 23:59 | disposition home or self-care (01) ==
PROVIDERS: Nurse Practitioner Family; PCP Family Medicine; Visit Provider Family Medicine
DX: E87.6 Hypokalemia (principal); D69.6 Thrombocytopenia, unspecified
CPT/HCPCS: 36415; 80048; 81001; 83036; 85025

== ENCOUNTER 2024-07-21 13:29 | Inpatient (IN) | payer MEDICARE, MEDICAID, SELFPAY ==
[2024-07-21] VITALS (9 sets, daily range): BP systolic 100–125; BP diastolic 35–83; PULSE 80–112; RESP 14–19; TEMP 36.3–36.8; O2SAT 9–99; BMI 21.5; BMI 19.8
--- NOTE | 2024-07-21 13:28 | XR_ITS ---
PROCEDURE INFORMATION: Exam: XR Chest Exam date and time: 07/21/2024 3:18 PM Age: 79 years old Clinical indication: Injury or trauma; Fall; Other: Pain; Additional info: Low o2 TECHNIQUE: Imaging protocol: Radiologic exam of the chest. Views: 1 view. COMPARISON: CT ANGIO CHEST PE PROTOCOL 07/21/2024 3:12 PM FINDINGS: Lungs: Multiple small calcific nodules are seen in the perihilar regions bilaterally as well as the left lower lobe, consistent with sequela of chronic pulmonary granulomatous disease. Pleural spaces: Unremarkable. No pleural effusion. No pneumothorax. Heart/Mediastinum: The heart size is normal. Bones/joints: Unremarkable. Soft tissues: An irregular density overlies the mid shaft of the left humerus likely representing IV contrast extravasation into the soft tissues, as seen in the prior CT angiogram of the chest. IMPRESSION: 1. Multiple small calcific nodules are seen in the perihilar regions bilaterally as well as the left lower lobe, consistent with sequela of chronic pulmonary granulomatous disease. 2. The heart size is normal. 3. An irregular density overlies the mid shaft of the left humerus likely representing IV contrast extravasation into the soft tissues, as seen in the prior CT angiogram of the chest.
--- NOTE | 2024-07-21 13:28 | ECG_ITS ---
APPROVED REPORT Exam: Resting ECG HR:108 bpm ECG Measurements Heart Rate 108 AXES QRSd 82 QRS 87 QT 301 T 270 QTc 364 Conclusion ATRIAL FIBRILLATION Rate of [address] axis No noted ST elevation Electronically signed by : Jesus Aguilar, 07/22/2024 07:01:57
--- NOTE | 2024-07-21 13:33 | CT_ITS ---
PROCEDURE INFORMATION: Exam: CTA Head With Contrast, Arteriography Exam date and time: 07/21/2024 2:39 PM Age: 79 years old Clinical indication: Injury or trauma; Fall; Additional info: Confusion TECHNIQUE: Imaging protocol: Computed tomographic angiography of the head with contrast. Exam focused on the arteries. 3D rendering (Not supervised by radiologist): MIP and/or 3D reconstructed images were created by the technologist. Radiation optimization: All CT scans at this facility use at least one of these dose optimization techniques: automated exposure control; mA and/or kV adjustment per patient size (includes targeted exams where dose is matched to clinical indication); or iterative reconstruction. Contrast material: ISOVUE; Contrast volume: 80 ml; Contrast route: INTRAVENOUS (IV); COMPARISON: CT HEAD/BRAIN WO CON 07/21/2024 2:22 PM FINDINGS: ANTERIOR CIRCULATION: Right internal carotid artery: Intracranial segment is patent with no significant stenosis. No aneurysm. Right middle cerebral artery: No occlusion or significant stenosis. No aneurysm. Right anterior cerebral artery: No occlusion or significant stenosis. No aneurysm. Left internal carotid artery: Intracranial segment is patent with no significant stenosis. No aneurysm. Left middle cerebral artery: No occlusion or significant stenosis. No aneurysm. Left anterior cerebral artery: No occlusion or significant stenosis. No aneurysm. POSTERIOR CIRCULATION: Right vertebral artery: No occlusion or significant stenosis. No aneurysm. Left vertebral artery: No occlusion or significant stenosis. No aneurysm. Basilar artery: No occlusion or significant stenosis. No aneurysm. Right posterior cerebral artery: There is origin of the right posterior cerebral artery. A small right P1 segment is observed with areas of stenosis approaching the junction with the posterior communicating artery. Left posterior cerebral artery: No occlusion or significant stenosis. No aneurysm. Brain: There is no evidence of any other intracranial large vessel stenosis or occlusion. There is moderate atrophy and chronic white matter microangiopathic changes. Cerebral ventricles: There is compensatory ventricular dilation. Bones/joints: Unremarkable. No acute fracture. Soft tissues: Unremarkable. IMPRESSION: 1. There is origin of the right posterior cerebral artery. A small right P1 segment is observed with areas of stenosis approaching the junction with the posterior communicating artery. 2. There is no evidence of any other intracranial large vessel stenosis or occlusion.
--- NOTE | 2024-07-21 13:33 | CT_ITS ---
PROCEDURE INFORMATION: Exam: CTA Abdomen and Pelvis With Contrast Exam date and time: 07/21/2024 3:12 PM Age: 79 years old Clinical indication: Injury or trauma; Fall; Additional info: Confusion TECHNIQUE: Imaging protocol: Computed tomographic angiography of the abdomen and pelvis with contrast. Exam focused on the arteries. 3D rendering (Not supervised by radiologist): MIP and/or 3D reconstructed images were created by the technologist. Radiation optimization: All CT scans at this facility use at least one of these dose optimization techniques: automated exposure control; mA and/or kV adjustment per patient size (includes targeted exams where dose is matched to clinical indication); or iterative reconstruction. Contrast material: ISOVUE; Contrast volume: 70 ml; Contrast route: INTRAVENOUS (IV); COMPARISON: CT BONY PELVIS 07/21/2024 2:31 PM FINDINGS: Lungs: Small cluster of nodules in the left lower lobe. Left lower lobe calcified granuloma. Heart: Cardiomegaly. Aorta: Normal caliber of the abdominal aorta with moderate to severe diffuse atherosclerosis. Major visceral branches are patent. Celiac trunk and mesenteric arteries: No occlusion or significant stenosis. Renal arteries: No occlusion or significant stenosis. Right iliac arteries: Moderate stenosis of the ostium of the right common iliac artery secondary to atherosclerosis. Otherwise mild stenosis to widely patent. Moderate atherosclerosis of the left common iliac artery, without significant stenosis. Right femoral/popliteal arteries: Moderate atherosclerosis and [id number] stenosis of the right common femoral artery. Moderate atherosclerosis and multifocal stenosis of the right superficial femoral artery. Left iliac arteries: See Right iliac arteries finding. Left femoral/popliteal arteries: Moderate atherosclerosis without significant stenosis in the left common femoral artery. Left superficial femoral artery is occluded from ostium along its entire visible proximal course, likely due to atherosclerosis. No acute traumatic abnormality.. The left profunda femoris is patent. Liver: See Gallbladder and biliary ducts finding. Gallbladder and biliary ducts: Unremarkable gallbladder. There is mild cystic change in the liver immediately cephalad to the gallbladder. Nonspecific. Recommend clinical correlation. When clinically feasible, recommend outpatient ultrasound or MRI to exclude a neoplasm. Pancreas: 1.6 x 1.6 cm cystic lesion at the pancreatic head. Possibly contiguous with the main duct. No pancreatic ductal dilatation. Spleen: Unremarkable. No splenomegaly. Adrenal glands: Unremarkable. No mass. Kidneys and ureters: Unremarkable. No solid mass. No hydronephrosis. Stomach and bowel: Moderate thickening of the gastric mucosa, a component of which is due to decompression. No bowel obstruction or acute inflammation.. Moderate colonic stool burden. Correlate for constipation. Appendix: No evidence of appendicitis. Intraperitoneal space: Moderate mesenteric edema. Trace ascites. Lymph nodes: Unremarkable. No enlarged lymph nodes. Urinary bladder: Gray catheter accounts for bladder gas. Reproductive: Unremarkable as visualized. Bones/joints: Intramedullary nail in the proximal right femur. Age indeterminate (acute appearing) comminuted, minimally displaced fracture of the right greater trochanter tip. Acute appearing comminuted, minimally displaced fracture of the left greater trochanter. Soft tissues: Moderate left hip soft tissue swelling and hematoma. Moderate anasarca. IMPRESSION: 1. Left superficial femoral artery is occluded from ostium along its entire visible proximal course, likely due to atherosclerosis. No acute traumatic vascular abnormality.. The left profunda femoris is patent. 2. Age indeterminate (acute appearing) comminuted, minimally displaced fracture of the right greater trochanter tip. 3. Acute appearing comminuted, minimally displaced fracture of the left greater trochanter. 4. Small cluster of nodules in the left lower lobe. Concerning for infectious (including atypical) versus inflammatory etiology. Recommend imaging follow-up to resolution. 5. Unremarkable gallbladder. There is mild cystic change in the liver immediately cephalad to the gallbladder. Nonspecific. Recommend clinical correlation. When clinically feasible, recommend outpatient ultrasound or MRI to exclude a neoplasm. 6. Full details in the body of the report.
--- NOTE | 2024-07-21 13:41 | XR_ITS ---
PROCEDURE INFORMATION: Exam: XR Left Knee Exam date and time: 07/21/2024 3:18 PM Age: 79 years old Clinical indication: Injury or trauma; Fall; Other: Pain; Additional info: Bruising TECHNIQUE: Imaging protocol: Radiologic exam of the left knee. Views: 3 views. COMPARISON: US ARTERIAL LOWER EXT REST 11/12/2022 1:35 PM FINDINGS: Bones/joints: The soft tissues demonstrate atherosclerotic calcific plaque disease in the femoral and popliteal arteries. No significant left knee joint effusion is present. Mild osteopenia. No acute fractures. Normal left knee. Soft tissues: See Bones/joints finding. IMPRESSION: 1. The soft tissues demonstrate atherosclerotic calcific plaque disease in the femoral and popliteal arteries. No significant left knee joint effusion is present. 2. Mild osteopenia. No acute fractures. Normal left knee.
--- NOTE | 2024-07-21 13:41 | XR_ITS ---
PROCEDURE INFORMATION: Exam: XR Left Hip Exam date and time: 07/21/2024 3:18 PM Age: 79 years old Clinical indication: Injury or trauma; Fall; Other: Pain; Additional info: Bruising TECHNIQUE: Imaging protocol: Radiologic exam of the left hip. Views: 2 or 3 views hip with pelvis when performed. COMPARISON: CT ANGIO ABDOMEN PELVIS 07/21/2024 3:12 PM FINDINGS: Bones/joints: Subtle comminuted, minimally displaced fracture of the tip of the right greater trochanter. Comminuted, minimally displaced fracture of the left greater trochanter. Intramedullary nail in the proximal right femur, without evidence of hardware loosening. Large left hip soft tissue swelling. No radiopaque foreign body or gas. Soft tissues: See Bones/joints finding. Organs: Contrast in the bladder. Gray catheter projects over the bladder. IMPRESSION: 1. Subtle comminuted, minimally displaced fracture of the tip of the right greater trochanter. 2. Comminuted, minimally displaced fracture of the left greater trochanter. 3. Large left hip soft tissue swelling. No radiopaque foreign body or gas.
--- NOTE | 2024-07-21 13:43 | XR_ITS ---
PROCEDURE INFORMATION: Exam: XR Left Femur Exam date and time: 07/21/2024 3:18 PM Age: 79 years old Clinical indication: Injury or trauma; Fall; Other: Pain; Additional info: Bruising/fall? TECHNIQUE: Imaging protocol: Radiologic exam of the left femur. Views: 2 views. COMPARISON: CT ANGIO ABDOMEN PELVIS 07/21/2024 3:12 PM FINDINGS: Bones/joints: Unremarkable. No acute fracture. Soft tissues: Atherosclerotic calcific plaque disease is seen in the femoral artery posteromedial to the left femur. IMPRESSION: No acute findings. Normal left femur.
--- NOTE | 2024-07-21 13:44 | CT_ITS ---
PROCEDURE INFORMATION: Exam: CTA Neck With Contrast Exam date and time: 07/21/2024 2:39 PM Age: 79 years old Clinical indication: Injury or trauma; Fall; Additional info: Confusion TECHNIQUE: Imaging protocol: Computed tomographic angiography of the neck with contrast. Exam focused on the cervical segments of the vasculature. 3D rendering (Not supervised by radiologist): MIP and/or 3D reconstructed images were created by the technologist. Radiation optimization: All CT scans at this facility use at least one of these dose optimization techniques: automated exposure control; mA and/or kV adjustment per patient size (includes targeted exams where dose is matched to clinical indication); or iterative reconstruction. Contrast material: ISOVUE; Contrast volume: 80 ml; Contrast route: INTRAVENOUS (IV); COMPARISON: CT CERVICAL SPINE WO CON 07/21/2024 2:24 PM FINDINGS: Right common carotid artery: No stenosis. No dissection or occlusion. Right internal carotid artery: There is moderate calcification of the right internal carotid origin with less than 50% compromise of the lumen. Right external carotid artery: No occlusion or stenosis of the origin. Left common carotid artery: No stenosis. No dissection or occlusion. Left internal carotid artery: There is moderate calcification of the left internal carotid origin with less than 50% compromise of the lumen. Left external carotid artery: No occlusion or stenosis of the origin. Right vertebral artery: No stenosis. No dissection or occlusion. Left vertebral artery: No stenosis. No dissection or occlusion. Thyroid: Multinodular changes of the thyroid are seen with no nodule larger than 1 cm. No follow up is indicated. Soft tissues: Normal. No significant soft tissue swelling. Bones/joints: A right convex spinal curve is observed in the cervical spine with a left convexity at the cervicothoracic junction.The spine demonstrates moderate degenerative changes at multiple levels. Lungs: The visualized portions of the lung apices are normal. IMPRESSION: 1. Multinodular changes of the thyroid are seen with no nodule larger than 1 cm. No follow up is indicated. 2. There is moderate calcification of the right internal carotid origin with less than 50% compromise of the lumen. 3. There is moderate calcification of the left internal carotid origin with less than 50% compromise of the lumen. 4. There are codominant vertebral arteries with no stenosis or dissection. REFERENCES: NASCET CRITERIA. The degree of stenosis in the cervical segment of the internal carotid artery is based on NASCET criteria. Normal is no stenosis. Mild is less than 50% stenosis. Moderate is 50-69% stenosis. Severe is 70% to 99% stenosis. Total occlusion is no detectable patent lumen.
[2024-07-21 13:50] LABS: Microscopic, Urine URINE MICROSCOPIC (MICROSCOPIC)
--- NOTE | 2024-07-21 13:52 | CT_ITS ---
PROCEDURE INFORMATION: Exam: CT Head Without Contrast Exam date and time: 07/21/2024 2:22 PM Age: 79 years old Clinical indication: Injury or trauma; Fall; Additional info: Confusion TECHNIQUE: Imaging protocol: Computed tomography of the head without contrast. Radiation optimization: All CT scans at this facility use at least one of these dose optimization techniques: automated exposure control; mA and/or kV adjustment per patient size (includes targeted exams where dose is matched to clinical indication); or iterative reconstruction. COMPARISON: CT HEAD/BRAIN WO CON 10/20/2023 3:44 PM FINDINGS: Brain: There is no evidence of intracranial hemorrhage. There are no areas of mass effect, edema or midline shift. There are diffuse indistinct areas of decreased attenuation involving the periventricular white matter likely secondary to chronic white matter microvascular changes. There is age-related cerebral volume loss responsible for prominence of the cortical sulci. Cerebral ventricles: There is mild proportionate ventricular dilatation believed secondary to age related cerebral volume loss. Paranasal sinuses: Visualized sinuses are unremarkable. No fluid levels. Mastoid air cells: Visualized mastoid air cells are well aerated. Bones/joints: Unremarkable. No acute fracture. Soft tissues: Unremarkable. IMPRESSION: No acute intracranial abnormalities.
--- NOTE | 2024-07-21 13:53 | CT_ITS ---
PROCEDURE INFORMATION: Exam: CT Thoracic Spine Without Contrast Exam date and time: 07/21/2024 2:26 PM Age: 79 years old Clinical indication: Injury or trauma; Fall TECHNIQUE: Imaging protocol: Computed tomography of the thoracic spine without contrast. Radiation optimization: All CT scans at this facility use at least one of these dose optimization techniques: automated exposure control; mA and/or kV adjustment per patient size (includes targeted exams where dose is matched to clinical indication); or iterative reconstruction. COMPARISON: CT THORACIC SPINE WO CON 05/23/2024 14:26 FINDINGS: Bones/joints: No acute fracture or subluxation of the spine. Degenerative changes of the spine. Osteopenia. Subacute left posterior 7th rib fracture. Soft tissues: Unremarkable. Vasculature: Atherosclerosis. Lungs: Mild atelectasis. Left apical subpleural cyst, 1.4 x 1 x 1 cm. IMPRESSION: No acute fracture or subluxation of the spine.
--- NOTE | 2024-07-21 13:53 | CT_ITS ---
PROCEDURE INFORMATION: Exam: CT Lumbar Spine Without Contrast Exam date and time: 07/21/2024 2:29 PM Age: 79 years old Clinical indication: Injury or trauma; Fall TECHNIQUE: Imaging protocol: Computed tomography of the lumbar spine without contrast. Radiation optimization: All CT scans at this facility use at least one of these dose optimization techniques: automated exposure control; mA and/or kV adjustment per patient size (includes targeted exams where dose is matched to clinical indication); or iterative reconstruction. COMPARISON: CT THORACIC SPINE WO CON 05/23/2024 14:26 FINDINGS: Bones/joints: No acute fracture. Multilevel degenerative change of the spine. Lumbar spine dextroscoliosis. 7 mm right lateral subluxation of L4 on L5, likely degenerative. Osteopenia. Gallbladder and biliary ducts: Cholelithiasis. Vasculature: Atherosclerosis. Soft tissues: Unremarkable. IMPRESSION: 1. No acute fracture. 2. Additional chronic/nonemergent findings as detailed above.
--- NOTE | 2024-07-21 13:54 | CT_ITS ---
PROCEDURE INFORMATION: Exam: CT Cervical Spine Without Contrast Exam date and time: 07/21/2024 2:24 PM Age: 79 years old Clinical indication: Injury or trauma; Fall TECHNIQUE: Imaging protocol: Computed tomography of the cervical spine without contrast. Radiation optimization: All CT scans at this facility use at least one of these dose optimization techniques: automated exposure control; mA and/or kV adjustment per patient size (includes targeted exams where dose is matched to clinical indication); or iterative reconstruction. COMPARISON: CT HEAD/BRAIN WO CON 07/21/2024 2:22 PM FINDINGS: Bones: There is prominent lateral tilt of cervical curvature to the patient's left some of which may be chronic in nature with superimposed muscle spasm (torticollis) to be ruled out clinically. There are mild spondylitic changes C5-C6 an asymmetric degenerative facet joint changes in the mid-lower cervical spine. There is no evidence of fracture, facet subluxation or spondylolisthesis. There is no severe stenosis of the central canal or neural foramina. Lungs: Lung apices are normal. Soft tissues: There are no prevertebral paraspinal soft tissue swelling detected. IMPRESSION: 1. Prominent lateral tilt of the cervical curvature that may in part be longstanding with superimposed muscle spasm (torticollis) to be excluded. 2. No acute bony abnormalities detected.
--- NOTE | 2024-07-21 13:55 | CT_ITS ---
PROCEDURE INFORMATION: Exam: CTA Chest With Contrast Exam date and time: 07/21/2024 3:12 PM Age: 79 years old Clinical indication: Injury or trauma; Fall; Additional info: Low o2 TECHNIQUE: Imaging protocol: Computed tomographic angiography of the chest with contrast. Exam focused on the arteries. 3D rendering (Not supervised by radiologist): MIP and/or 3D reconstructed images were created by the technologist. Radiation optimization: All CT scans at this facility use at least one of these dose optimization techniques: automated exposure control; mA and/or kV adjustment per patient size (includes targeted exams where dose is matched to clinical indication); or iterative reconstruction. Contrast material: ISOVUE; Contrast volume: 70 ml; Contrast route: INTRAVENOUS (IV); COMPARISON: CR XR CHEST PORTABLE 10/20/2023 3:41 PM FINDINGS: Pulmonary arteries: Small left pulmonary embolus: Non occluding Filling defect in a branch of the distal left pulmonary artery series 8, image 192, 193.. Aorta: No aneurysm of the aorta. No dissection of the aorta. Thyroid: Multiple small nodules in the thyroid. No follow-up required Lungs: Calcified granuloma in the left lower lobe. Minimal left basilar atelectasis. Multiple small pulmonary nodules in the posterior aspect of the right upper lobe. (Series 8, image 109- 127 and adjacent images. Differential includes infection and metastatic disease. Pleural spaces: Unremarkable. No pneumothorax. No pleural effusion. Heart: There is calcification of the aortic valve annulus. There is calcification of the mitral valve annulus. Coronary arteries: Coronary artery calcifications may indicate coronary artery disease. Lymph nodes: Unremarkable. No enlarged lymph nodes. Liver: 2.5 cm mass in the liver 25 Hounsfield units (series 8, image 321.). Gallbladder and biliary ducts: Cholecystectomy Stomach: The stomach is not distended. Gastric pathology cannot be ruled out. Bones/joints: Unremarkable. No acute fracture. Soft tissues: Unremarkable. IMPRESSION: 1. Small left pulmonary embolus: Non occluding Filling defect in a branch of the distal left pulmonary artery series 8, image 192, 193.. . 2. Multiple small pulmonary nodules in the posterior aspect of the right upper lobe. (Series 8, image 109- 127 and adjacent images. Differential includes infection and metastatic disease. 3. 2.5 cm mass in the right lobe of the liver 25 Hounsfield units (series 8, image 321.). Not clearly a cyst. Recommend liver MRI 4. The stomach is not distended. Gastric pathology cannot be ruled out. COMMENTS: Consistent with the [employer]'s Incidental Findings Committee white paper (J Am Daron Radiol 2015): In patients aged 35 years and older with an incidental thyroid nodule equal to or greater than 1.[address], MRI or extrathyroidal US, further evaluation with dedicated thyroid US is recommended for patients with normal life expectancy and without comorbidities. For smaller nodules without suspicious features, no further evaluation or follow up is recommended.
--- NOTE | 2024-07-21 13:59 | XR_ITS ---
PROCEDURE INFORMATION: Exam: XR Right Hand Exam date and time: 07/21/2024 3:18 PM Age: 79 years old Clinical indication: Injury or trauma; Fall; Laceration; Hand; Right TECHNIQUE: Imaging protocol: Radiologic exam of the right hand. Views: 3 or more views. COMPARISON: CR [id number] XR hand RT min 3V 06/21/2018 12:59 PM FINDINGS: Bones/joints: Mild chronic degenerative changes are seen in the distal interphalangeal joints of the thumb and 2nd through 5th fingers as well as in the 1st and 2nd carpometacarpal joints of the wrist. The metacarpophalangeal joints appear normal. Soft tissues: No soft tissue abnormality is identified. No soft tissue foreign bodies. A pulse oximeter is seen overlying the distal phalanx of the 3rd finger. IMPRESSION: 1. No soft tissue abnormality is identified. No soft tissue foreign bodies. A pulse oximeter is seen overlying the distal phalanx of the 3rd finger. 2. Mild chronic degenerative changes are seen in the distal interphalangeal joints of the thumb and 2nd through 5th fingers as well as in the 1st and 2nd carpometacarpal joints of the wrist. 3. The metacarpophalangeal joints appear normal.
[2024-07-21 14:01] LABS: Albumin Level 3.4 g/dl (3.5-5.0); Chloride 100 mmol/L (98-107); Potassium 3.8 mmoL/L (3.5-5.1); Sodium 134 mmol/L (136-145)
[2024-07-21 14:03] LABS: VBG Base Excess -2.7 mmol/L (-2.4-2.3); VBG Oxygen Saturation 60.1 % (50-70); VBG PO2 35.5 mmol/L (28-40); VBG Total CO2 23.1 mmol/L (23-27)
[2024-07-21 14:03] LABS: Blood Urea Nitrogen 62 mg/dl (7-17); Creatinine Clearance Estimated 39 mL/min (50-200); Estimated Glomerular Filt Rate 61 ml/min (>60); GFR (African American) 73 ML/MIN (>60)
[2024-07-21 14:04] LABS: Alanine Aminotransferase 86 U/L (12-78); Alkaline Phosphatase 107 U/L (38-126); Anion Gap 16.8 mEq/L (5-15); Aspartate Amino Transferase 83 U/L (14-36); Bilirubin,Total 4.4 mg/dl (0.2-1.3); Calcium 8.5 mg/dl (8.4-10.2); Carbon Dioxide 21 mmol/L (22.0-30.0); Globulin 1.7 g/dL (1.3-3.2); Glucose 313 mg/dl (74-100); Lipase 163 U/L (23-300); Total Protein,Serum 5.1 g/dl (6.3-8.2)
[2024-07-21 14:05] LABS: Lactate Venous 7.3 mmol/L (0.4-2.0)
[2024-07-21 14:06] LABS: Appearance,Urine CLEAR (Clear); Bilirubin,Urine Negative (Negative); Blood, Urine Negative (Negative); Color,Urine YELLOW (Yellow); Glucose,Urine (UA) 3+ (Negative); Ketones,Urine TRACE (Negative); Leukocyte Esterase,Urine TRACE (Negative); Nitrate,Urine Negative (Negative); Protein,Urine Negative (Negative); Urobilinogen,Urine 0.2 EU/dl (0.2)
[2024-07-21 14:07] LABS: Acetone, Serum (Rapid) None Detected (None Detect)
--- NOTE | 2024-07-21 14:12 | PC.NURSE ---
pt to ct scan via stretcher. Dr Aguilar did not want to wait on labs.
[2024-07-21 14:15] LABS: Ammonia 10 umol/L (9-30)
--- NOTE | 2024-07-21 14:20 | PC.NURSE ---
Allison at bedside to update pt's family
--- NOTE | 2024-07-21 14:27 | CT_ITS ---
PROCEDURE INFORMATION: Exam: CT Pelvis Without Contrast, Skeleton Exam date and time: 07/21/2024 2:31 PM Age: 79 years old Clinical indication: Injury or trauma; Fall; Additional info: Fall? , Large hematoma to L side and t/o body TECHNIQUE: Imaging protocol: Computed tomography of the pelvis without contrast. Exam focused on the skeleton. Radiation optimization: All CT scans at this facility use at least one of these dose optimization techniques: automated exposure control; mA and/or kV adjustment per patient size (includes targeted exams where dose is matched to clinical indication); or iterative reconstruction. COMPARISON: CT ABDOMEN PELVIS W CON 04/01/2018 00:05 FINDINGS: Vasculature: Atherosclerosis. Urinary bladder: Urinary bladder decompressed with a Gray catheter. Bones/joints: Acute fracture of the left femoral greater trochanter. Osteopenia. Partially imaged right hip hardware. Soft tissues: Left gluteal hematoma, 4.4 x 6.8 x 11.3 cm, with associated intramuscular and subcutaneous swelling. Blood products extend into the presacral space. Visualized left flank soft tissues and left thigh soft tissues are swollen. IMPRESSION: 1. Acute fracture of the left femoral greater trochanter. 2. Left gluteal hematoma, 4.4 x 6.8 x 11.3 cm, with associated intramuscular and subcutaneous swelling. Blood products extend into the presacral space. Visualized left flank soft tissues and left thigh soft tissues are swollen.
[2024-07-21 14:33] LABS: Basophils # 0.1 K/mm3 (0-0.2); Basophils % 0.3 % (0.1-2.0); Hematocrit 22.7 % (37.0-47.0); Hemoglobin 7.6 g/dL (12.2-16.2); Lymphocytes % 4.9 % (10-50); Mean Corpuscular HGB Conc 33.5 g/dL (31.8-35.4); Mean Corpuscular Volume 98.7 fl (81-99); Mean Platelet Volume 11.6 fl (7.4-10.4); Monocytes # 1.1 K/mm3 (0.1-1.0); Monocytes % 5.7 % (1.7-9.3); Neutrophils # 16.2 K/mm3 (1.8-7.8); Neutrophils % 82.3 % (37.0-80.0); Nucleated Red Blood Cells # 0.53 10^3/uL; Nucleated Red Blood Cells % 2.7 %; Platelet Count 188 K/mm3 (142-424); Red Cell Distribution Width-SD 51.9 fL; White Blood Count 19.6 K/mm3 (4.8-10.8)
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
[2024-07-21 14:52] LABS: MANUAL DIFFERENTIAL MANUAL DIFFERENTIAL (MANUAL DIFF)
[2024-07-21] MEDS: LACTATED RINGERS 1000ML 1,500 ML 750 ML IV (15:12)
[2024-07-21] MEDS: CEFEPIME HCL 2 GM in 0.9 % SODIUM CHLORIDE 100 ML IV (15:13)
[2024-07-21 15:19] LABS: Total Cells Counted 100
[2024-07-21] MEDS: VANCOMYCIN CONSULT REQUEST 1 EACH NOTAPPLIC (15:24)
[2024-07-21 15:26] LABS: Lymphocytes % 7 % (10-50); Monocytes % 3 % (2-9); Neutrophils % 88 % (42-76)
[2024-07-21 15:27] LABS: Anisocytosis 2+; Myelocytes % 2 (0-1); Nucleated Red Blood Cells 3; Platelet Estimate Normal; Polychromasia 1+
[2024-07-21 15:31] LABS: Microcytosis 1+
[2024-07-21 15:37] LABS: Creatine Kinase 100 U/L (30-135)
[2024-07-21 15:37] LABS: Howell-Jolly Bodies 1+; Pappenheimer Bodies 1+
[2024-07-21] MEDS: SODIUM CHLORIDE 0.9% 10ML SYR (RAD ONLY) 10 ML IV (15:57)
[2024-07-21] MEDS: IOPAMIDOL-370 (76%);100ML BOTTLE 200 ML IV (15:58)
[2024-07-21] MEDS: 0.9 % SODIUM CHLORIDE 50 ML VIAL 100 ML IV (15:58)
[2024-07-21] MEDS: METRONIDAZ/SOD CHL 500 MG/100 ML PIGGYBACK 100 MG IV (16:06)
--- NOTE | 2024-07-21 16:19 | PC.NURSE ---
and Stuart Valdivia APRN at bedside s/w pt's family and YARELI
[2024-07-21] MEDS: MORPHINE 2MG/ML SYRINGE 2 MG IV (16:33)
--- NOTE | 2024-07-21 16:33 | PC.NURSE ---
Stuart Valdivia APRN s/w DOYLE for critical findings of PE
[2024-07-21] MEDS: ONDANSETRON 4MG/2ML VIAL 4 MG IV (16:34)
--- NOTE | 2024-07-21 16:58 | P.HP_ITS ---
History of Present Illness *Admission Date: 07/21/24 *Reason for visit:: Confusion *History of present illness: 79-year-old female who presented from [facility] out of concern for confusion and failed treatment for UTI. Was being treated as an outpatient and not getting better over the past week. Was brought to the ER for evaluation. On presentation found to have large left-sided hematoma. Workup with elevated white count of 19. Patient tachycardic. Cultures obtained of both blood and urine. Urine suggestive of possible UTI. Imaging of hematoma shows rim- enhancing component concerning for infection. ER had conversations with family about goals, would like to trial antibiotics and see if patient gets better. Also like to focus on palliative care and keeping her comfortable at same time. Imaging obtained with x-rays and CT of pelvis showing bilateral trochanteric fractures. Large hematoma underlying left sided ecchymoses. Patient more confused at this time than baseline. Medicine consulted for admission. Initiated on vancomycin and Zosyn. On arrival to the floor, patient complaining of significant pain in left flank and gluteal region where she has large hematoma. She is afebrile. She is delirious and unable to answer questions meaningfully. Disoriented to situation and place. Most of history review of systems obtained from family at bedside [facility] Disclaimer: The information contained in this section may have been updated after the patient was seen, as this information can be updated by other users. Medical History (Updated 07/21/24 @ 21:54 by Liam Horne MD) Diabetes mellitus Diabetes type 2, controlled Dementia with behavioral disturbance Hyperthyroidism Agitation due to dementia Therapeutic misadventure Hypomagnesemia Hypokalemia Hypoglycemia associated with type 2 diabetes mellitus Leukopenia Rash Skin tag Hypokalemia Hypomagnesemia Atrial fibrillation with rapid ventricular response Iron deficiency anemia due to chronic blood loss Microcytic anemia Anemia Right knee pain Right leg pain Hypokalemia Abdominal wall abscess at site of surgical wound Coronary artery calcification seen on CAT scan Vitamin D deficiency Distal radius fracture Viral hepatitis C Multinodular goiter Claudication Bilateral leg weakness Macular degeneration Abnormal EKG Dyspnea Recurrent falls Atrial fibrillation HLD (hyperlipidemia) Carotid artery stenosis Osteoporosis Surgical History History of appendectomy History of bowel resection Family History Other COPD exacerbation Social History Smoking Status: Unknown if ever smoked years smoked: 50 smoking status stop date: 2015 second hand exposure: No alcohol intake: former counseling provided: none substance use type: marijuana current occupational status: retired Travel in the last 8 weeks?: None household members: none housing: house marital status: current occupational exposures/hazards: No caffeine: No Have you lived/traveled outside [place] in past 30 days?: No Contact w/someone who lives/traveled outside US past 30 days?: No Exposure to someone with infectious disease in past 14 days?: No Do you have a fever (greater than 100.4 F or 38 C)?: No Have you tested positive for COVID-19?: No Exposed to someone with COVID-19 in past 14 days?: No Do you have a sore throat?: No Do you have a cough?: No Do you have any weakness?: No Are you experiencing any nausea/vomitting?: No Do you have any diarrhea?: No Are you experiencing any unusual bleeding?: No Do you have any muscle aches/pain?: No Do you have any abdominal pain?: No Are you experiencing loss of taste or smell?: No Other Medical History Have you received the Flu Vaccine for this season: No Have you received the Pneumonia Vaccine: Yes Review of Systems Review of Systems Review of systems (narrative): 14 point review of systems performed, pertinent positives and negatives as per HPI Meds Home Medications and Allergies Home Medications ?Medication ?Instructions ?Recorded ?Confirmed ?Type digoxin 125 mcg (0.125 mg) tablet 125 mcg PO DAILY #30 tabs 04/12/24 07/21/24 Rx magnesium oxide 400 mg (241.3 mg 400 mg PO DAILY #30 tabs 04/13/24 07/21/24 Rx magnesium) tablet apixaban 5 mg tablet (Eliquis) 5 mg PO BID 05/26/24 07/21/24 History atorvastatin 10 mg tablet 10 mg PO HS 05/26/24 07/21/24 History cyanocobalamin (vitamin B-12) 1,000 mcg PO DAILY 05/26/24 07/21/24 History 1,000 mcg tablet dapagliflozin propanediol 10 mg 10 mg PO DAILY 05/26/24 07/21/24 History tablet (Farxiga) diltiazem HCl 240 mg 240 mg PO DAILY 05/26/24 07/21/24 History capsule,extended release 24 hr, controlled (DILT-XR) ferrous sulfate 325 mg (65 mg 325 mg PO DAILY 05/26/24 07/21/24 History iron) tablet (FeroSul) pantoprazole 40 mg tablet,delayed 40 mg PO DAILY #30 tabs 05/29/24 07/21/24 Rx release (Protonix) donepezil 5 mg tablet See Rx Instructions .Route 06/04/24 07/21/24 Rx .COMPLEX #90 tabs metformin 1,000 mg tablet 1,000 mg PO BID #180 tabs 07/09/24 07/21/24 Rx denosumab 60 mg/mL subcutaneous 60 mg SQ [id number] #1 mL 07/18/24 07/21/24 Rx syringe (Prolia) cephalexin 500 mg capsule 500 mg PO TID 07/21/24 07/21/24 History insulin lispro 100 unit/mL See Rx Instructions .Route .COMPLEX 07/21/24 07/21/24 History subcutaneous pen (Humalog KwikPen (U-100) Insulin) olanzapine 5 mg disintegrating 5 mg PO DAILY 07/21/24 07/21/24 History tablet New Prescriptions to Start Prescriptions: Allergies Allergy/AdvReac Type Severity Reaction Status Date / Time codeine (CODEINE) Allergy Unknown hallucinati Verified 07/04/24 11:50 ons Penicillins (PENICILLINS) Allergy Unknown Verified 07/04/24 11:50 lisinopril AdvReac Severe Cough Verified 07/04/24 11:50 Exam Data for Last 24 hours Vital signs and Labs for Last 24 Hours: Temp Pulse Resp BP Pulse Ox O2 Del Method O2 Flow Rate 97.7 F 81 14 119/37 L 99 Nasal Cannula 2 07/21/24 16:07/21/24 16:00 07/21/24 16:00 07/21/24 16:07/21/24 16:07/21/24 16:07/21/24 16:00 Laboratory Results - last 24 hr 07/21/24 13:28: VBG pH 7.40, VBG pCO2 36.0, VBG pO2 35.5, VBG HCO3 22.0 L, VBG Total CO2 23.1, VBG O2 Saturation 60.1, VBG Base Excess -2.7 L, VBG Lactic Acid 7.3 H 07/21/24 13:32: Sodium 134 L, Potassium 3.8, Chloride 100, Carbon Dioxide 21 L, Anion Gap 16.8 H, BUN 62 H, Creatinine 0.90, Estimated Creat Clear 39, Estimated GFR 61, Est GFR ( Amer) 73, Glucose 313 H, Calcium 8.5, Total Bilirubin 4.4 H, AST 83 H, ALT 86 H, Alkaline Phosphatase 107, Total Creatine Kinase 100, Total Protein 5.1 L, Albumin 3.4 L, Globulin 1.7, Albumin/Globulin Ratio 2.0 H, Lipase 163, Acetone Level None detected 07/21/24 13:35: WBC 19.6 H, RBC 2.30 L, Hgb 7.6 L, Hct 22.7 L, MCV 98.7, MCH 33.0 H, MCHC 33.5, RDW 19.0 H, Plt Count 188, MPV 11.6 H, Neut % (Auto) 82.3 H, Lymph % (Auto) 4.9 L, [place] % (Auto) 5.7, Eos % (Auto) 0.0 L, Baso % (Auto) 0.3, Neut # (Auto) 16.2 H, Lymph # (Auto) 1.0, [place] # (Auto) 1.1 H, Eos # (Auto) 0.0, Baso # (Auto) 0.1, Total Counted 100, Neutrophils % (Manual) 88 H, Lymphocytes % (Manual) 7 L, Monocytes % (Manual) 3, Myelocytes % 2 H, Nucleated RBCs 3, Platelet Estimate Normal, RBC Morphology Not Reportable, Polychromasia 1+, Anisocytosis 2+, Microcytosis 1+, Pappenheimer Bodies 1+, Gleason-[place] Bodies 1+, Ammonia 10 07/21/24 13:45: Urine Color Yellow, Urine Appearance Clear, Urine pH 6.0, Ur Specific [place] 1.010, Urine Protein Negative, Urine Glucose (UA) 3+, Urine Ketones Trace, Urine Blood Negative, Urine Nitrate Negative, Urine Bilirubin Negative, Urine Urobilinogen 0.2, Ur Leukocyte Esterase Trace, Urine RBC None, Urine WBC 10-20, Ur Squamous Epith Cells None, Urine Bacteria None I & O for Last 24 hours: Intake & Output 07/18/24 07/19/24 07/20/24 07/21/24 23:59 23:59 23:59 23:59 Weight 53.524 kg Constitutional Constitutional: moderate distress, thin, chronically ill appearing and agitated *Routine HEENT Exam Head: Present normocephalic Eye: Present EOMI and PERRL ENT: Present mucous membranes moist *Routine Neck Exam Neck: Present supple; Absent lymphadenopathy *Routine Respiratory Exam Respiratory: Present CTA bilaterally; Absent rhonchi, wheezes or crackles *Routine Cardiovascular Exam Cardiovascular: Present RRR *Routine Abdominal Exam Abdominal: Present soft and normoactive bowel sounds; Absent tenderness *Routine Rectal Exam Rectal:: deferred *Routine Genitalia Exam Genitalia:: deferred *Routine Extremities Exam Extremities: Present edema (Right ankle with 2+ edema. Mild erythema but no warmth.); Absent cyanosis or clubbing *Routine Skin Exam Skin: Present warm; Absent rash Comments: Skin tear dorsum of right hand; has very large hematoma left flank that tracks from lower rib cage down to the back of her left knee. Tender to palpation. Mild fluid collection overlying left hip. Deep purple with yellowing around the entire lesion. *Routine Neurological Exam Neurological: Present alert, altered mental status and moving all extremities Comments: Alert and awake. Communicating about pain. Disoriented to place and time. Routine Psychiatric Exam Psychiatric: Present normal affect and cooperative; Absent good insight Assessment and Plan *Assessment and plan (1) Sepsis: Status: Acute Category: Medical Code(s): A41.9 - Sepsis, unspecified organism (2) Acute blood loss anemia: Status: Acute Category: Medical Code(s): D62 - Acute posthemorrhagic anemia (3) Encephalopathy: Status: Acute Category: Medical Code(s): G93.40 - Encephalopathy, unspecified (4) Diabetes type 2, controlled: Status: Chronic Qualifiers: Diabetes mellitus complication status: with unspecified complications Diabetes mellitus termite helper insulin use: with nursing home use Qualified Code(s): E11.8 - Type 2 diabetes mellitus with unspecified complications; Z79.4 - terminal press operator (current) use of insulin Category: Medical Code(s): E11.9 - Type 2 diabetes mellitus without complications (5) HTN (hypertension): Status: Chronic Qualifiers: Hypertension type: essential hypertension Qualified Code(s): I10 - Essential (primary) hypertension Category: Medical Code(s): I10 - Essential (primary) hypertension (6) Atrial fibrillation: Status: Chronic Qualifiers: Atrial fibrillation type: paroxysmal Qualified Code(s): I48.0 - Paroxysmal atrial fibrillation Category: Medical Code(s): I48.91 - Unspecified atrial fibrillation (7) Dementia with behavioral disturbance: Status: Acute Category: Medical Code(s): F03.918 - Unspecified dementia, unspecified severity, with other behavioral disturbance (8) Frail elderly: Status: Acute Category: Medical Code(s): R54 - Age-related physical debility (9) Hematoma of left flank: Status: Acute Category: Medical Code(s): S30.1XXA - Contusion of abdominal wall, initial encounter Plan 79-year-old female who presented with altered mental status from [facility]. On workup, found to have elevated white count, tachycardia, confusion, suspected infection of urine or her left flank hematoma. Meeting sepsis criteria. Discussed case with ER physician, request admission for further treatment of her sepsis and goals of care discussion. I agreed to admit for further care. Discussed case with patient's family on arrival. Would like to try treating infection to see if patient improves over the next couple days. Also wants to focus on keeping her comfortable as she appears in a lot of pain. If she has improvement, will have further goals of care discussion. If does not improve in the coming days, would like to transition to hospice care. Problems addressed as follows: Sepsis Left flank hematoma Blood loss anemia -Tachycardic, leukocytosis, rim-enhancing hematoma concerning for infected hematoma as well as suspected UTI. White count elevated at 19.6. -Continue vancomycin and Zosyn 3.375 g every 6 hours. Monitor for toxicity. Repeat CBC, CMP, magnesium ordered for the morning to monitor kidney function -Hemoglobin 7.4, down from 14 2 weeks ago. Likely related to anticoagulation and large hematoma on left flank. Transfusion threshold hemoglobin less than 7 -Discontinue anticoagulation -Blood and urine cultures pending. - Urinalysis with negative nitrate, trace leuk esterase, 10-20 white cells but no bacteria. - Review of CT of pelvis shows bilateral trochanteric fractures per my review. Also a large fluid collection consistent with hematoma A-fib Hypertension Hyperlipidemia -Continuing diltiazem 240 mg daily. Discontinue Eliquis. Hold Lipitor.. -Continue digoxin 125 mcg daily. -Holding HCTZ due to concern for patient being slightly dehydrated/setting of sepsis Elevated uremia Electrolyte disturbances - BUN 62, creatinine 0.9. Potassium 3.8. Likely in the setting of large hematoma with degradation of blood. Liver enzymes also elevated with AST and ALT in the 80s and bilirubin of 4.4. Low concern for liver disease as she has no history of any liver disease. -Repeat CBC, CMP, magnesium ordered for the morning. Suspected hyperthyroidism: -Review of chart does not show antibodies for Graves', unsure what her diagnosis came from - TSH normal at 3, methimazole recently decreased last month to 2.5mg TID. Will hold methimazole during admission. Diabetes: - A1c at goal of 6.8 two mo ago.Tolerating Lantus, continue 8 units nightly. - Glucose 313 on admission. -Monitor fingerstick ACHS - sliding scale insulin ACHS. - Holding metformin and Farxiga Chronic diarrhea Status post bowel surgery for colon cancer -Fiber supplement daily Cognitive impairment: Sleep disturbance: - Mini-Mental performed October of last year with score of 19 out of 30. - Nephew has establish POA since last admission - More confused this admission. Initiate olanzapine 5 mg IM nightly - Morphine 4 mg every 4 hours IV for moderate to severe pain - Encourage redirection, encouraged a night routine. DNR/DNI Holding anticoagulation due to hematoma and blood loss anemia Regular diet
[2024-07-21] MEDS: VANCOMYCIN/WATER FOR INJ (PEG) 1.25 GM/250 ML PIGGYBACK IV (17:05)
--- NOTE | 2024-07-21 17:05 | PC.NURSE ---
Report filled with APS related to circumstances of injuries. [facility] who stated that there is no documentation of patient having a fall recently. Does state that they did xrays on the patient on 07/15 which were all negative. Per Jenise bruise on left side was the size of a fist 36 hours ago and that when she arrived to work today the bruise had extended down her side to her thigh. Per APS webid#[id number].
--- NOTE | 2024-07-21 17:15 | PC.NURSE ---
samira hooper spoke with house sup for bed assignment, pt has been accepted by hospital medicine
--- NOTE | 2024-07-21 17:42 | PC.NURSE ---
called report to rocael kat rn and answered all questions
[2024-07-21 18:05] LABS: Reflex Lactic Add Lactic Reflex
[2024-07-21] MEDS: MORPHINE 4MG/ML SYRINGE 4 MG IV ×2 (18:43→22:58)
[2024-07-21 19:15] LABS: Lactic Acid Follow Up (RFLX 1) 5.4 mmol/L (0.7-2.1)
[2024-07-21 19:56] LABS: POC Glucose,Bedside 200 (70-110)
--- NOTE | 2024-07-21 20:06 | PC.NURSE ---
per family request, all pt's bedrails are up. Provider notified. Pt is 1:1, see order per provider.
[2024-07-21] MEDS: OLANZapine 10 MG VIAL 5 MG IM (20:10)
[2024-07-21] MEDS: humaLOG 100 UNITS/ML 10ML VIAL (SSI) SUBCUT (20:14)
[2024-07-21 21:01] LABS: Reflex Lactic (2 hrs) Add Lactic Reflex
[2024-07-21 21:53] LABS: Lactic Acid Follow up (RFLX 2) 4.2 mmol/L (0.7-2.1)
[2024-07-22] VITALS (16 sets, daily range): BP systolic 94–136; BP diastolic 37–99; PULSE 72–150; RESP 16–18; TEMP 36.6–37.1; O2SAT 90–100; BMI 18.4
[2024-07-22] MEDS: MORPHINE 4MG/ML SYRINGE 4 MG IV ×4 (04:59→23:32)
--- NOTE | 2024-07-22 05:08 | PC.NURSE ---
V/S, patient disoriented x4. Pt has garbled speech, can't make out any words she's saying. Charge nurse notified of changes to patient overnight. Provider notified and asked to come to bedside. Pt's right arm started swelling more since beginning of shift. Both arms have began to weep. The right arm is leaking fluid from 3 holes on hand-Purulent drainage. Pt's fingers on her left hand have started to turn blue. Pt's color has become more jaundice since the beginning of shift. Pt had +1 pedal pulses, and +1 radial pulses. No new orders per provider. Pt is now on 4LNC from 2LNC satting high 90's. Provider notified of critical lab-lactic acid of 4.4. Pt has allowed nursing staff to turn her slightly Q2hrs. Pt was able to state she was experiencing pain, pt treated per MAY. Plan of care ongoing.
[2024-07-22 06:45] LABS: POC Glucose,Bedside 130 (70-110)
--- NOTE | 2024-07-22 07:23 | P.CONPHA_ITS ---
Pharmacy Consult Date: 07/22/24 Time: 07:23 Referring provider: DR. WHITE Reason for Consult:: VANCOMYCIN DOSING Allergies Allergy/AdvReac Type Severity Reaction Status Date / Time codeine (CODEINE) Allergy Unknown hallucinati Verified 07/04/24 11:50 ons Penicillins (PENICILLINS) Allergy Unknown Verified 07/04/24 11:50 lisinopril AdvReac Severe Cough Verified 07/04/24 11:50 Home Medications ?Medication ?Instructions ?Recorded ?Confirmed ?Type digoxin 125 mcg (0.125 mg) tablet 125 mcg PO DAILY #30 tabs 04/12/24 07/21/24 Rx magnesium oxide 400 mg (241.3 mg 400 mg PO DAILY #30 tabs 04/13/24 07/21/24 Rx magnesium) tablet apixaban 5 mg tablet (Eliquis) 5 mg PO BID 05/26/24 07/21/24 History atorvastatin 10 mg tablet 10 mg PO HS 05/26/24 07/21/24 History cyanocobalamin (vitamin B-12) 1,000 mcg PO DAILY 05/26/24 07/21/24 History 1,000 mcg tablet dapagliflozin propanediol 10 mg 10 mg PO DAILY 05/26/24 07/21/24 History tablet (Farxiga) diltiazem HCl 240 mg 240 mg PO DAILY 05/26/24 07/21/24 History capsule,extended release 24 hr, controlled (DILT-XR) ferrous sulfate 325 mg (65 mg 325 mg PO DAILY 05/26/24 07/21/24 History iron) tablet (FeroSul) pantoprazole 40 mg tablet,delayed 40 mg PO DAILY #30 tabs 05/29/24 07/21/24 Rx release (Protonix) donepezil 5 mg tablet See Rx Instructions .Route 06/04/24 07/21/24 Rx .COMPLEX #90 tabs metformin 1,000 mg tablet 1,000 mg PO BID #180 tabs 07/09/24 07/21/24 Rx denosumab 60 mg/mL subcutaneous 60 mg SQ [id number] #1 mL 07/18/24 07/21/24 Rx syringe (Prolia) cephalexin 500 mg capsule 500 mg PO TID 07/21/24 07/21/24 History insulin lispro 100 unit/mL See Rx Instructions .Route .COMPLEX 07/21/24 07/21/24 History subcutaneous pen (Humalog KwikPen (U-100) Insulin) olanzapine 5 mg disintegrating 5 mg PO DAILY 07/21/24 07/21/24 History tablet New Prescriptions to Start Prescriptions: Height: 1.63 m Weight: 48.988 kg Laboratory Results:: Laboratory Results - last 24 hr 07/21/24 13:28: VBG pH 7.40, VBG pCO2 36.0, VBG pO2 35.5, VBG HCO3 22.0 L, VBG Total CO2 23.1, VBG O2 Saturation 60.1, VBG Base Excess -2.7 L, VBG Lactic Acid 7.3 H 07/21/24 13:32: Sodium 134 L, Potassium 3.8, Chloride 100, Carbon Dioxide 21 L, Anion Gap 16.8 H, BUN 62 H, Creatinine 0.90, Estimated Creat Clear 39, Estimated GFR 61, Est GFR ( Amer) 73, Glucose 313 H, Calcium 8.5, Total Bilirubin 4.4 H, AST 83 H, ALT 86 H, Alkaline Phosphatase 107, Total Creatine Kinase 100, Total Protein 5.1 L, Albumin 3.4 L, Globulin 1.7, Albumin/Globulin Ratio 2.0 H, Lipase 163, Acetone Level None detected 07/21/24 13:35: WBC 19.6 H, RBC 2.30 L, Hgb 7.6 L, Hct 22.7 L, MCV 98.7, MCH 33.0 H, MCHC 33.5, RDW 19.0 H, Plt Count 188, MPV 11.6 H, Neut % (Auto) 82.3 H, Lymph % (Auto) 4.9 L, [place] % (Auto) 5.7, Eos % (Auto) 0.0 L, Baso % (Auto) 0.3, Neut # (Auto) 16.2 H, Lymph # (Auto) 1.0, [place] # (Auto) 1.1 H, Eos # (Auto) 0.0, Baso # (Auto) 0.1, Total Counted 100, Neutrophils % (Manual) 88 H, Lymphocytes % (Manual) 7 L, Monocytes % (Manual) 3, Myelocytes % 2 H, Nucleated RBCs 3, Platelet Estimate Normal, RBC Morphology Not Reportable, Polychromasia 1+, Anisocytosis 2+, Microcytosis 1+, Pappenheimer Bodies 1+, Gleason-[place] Bodies 1+, Ammonia 10 07/21/24 13:45: Urine Color Yellow, Urine Appearance Clear, Urine pH 6.0, Ur Specific [place] 1.010, Urine Protein Negative, Urine Glucose (UA) 3+, Urine Ketones Trace, Urine Blood Negative, Urine Nitrate Negative, Urine Bilirubin Negative, Urine Urobilinogen 0.2, Ur Leukocyte Esterase Trace, Urine RBC None, Urine WBC 10-20, Ur Squamous Epith Cells None, Urine Bacteria None 07/21/24 18:54: Lactate 5.4 H 07/21/24 19:37: POC Glucose 200 H 07/21/24 21:25: Lactate 4.2 H 07/22/24 06:30: POC Glucose 130 H Medical History: Medical History (Updated 07/21/24 @ 21:54 by Liam White MD) Diabetes mellitus Diabetes type 2, controlled Dementia with behavioral disturbance Hyperthyroidism Agitation due to dementia Therapeutic misadventure Hypomagnesemia Hypokalemia Hypoglycemia associated with type 2 diabetes mellitus Leukopenia Rash Skin tag Hypokalemia Hypomagnesemia Atrial fibrillation with rapid ventricular response Iron deficiency anemia due to chronic blood loss Microcytic anemia Anemia Right knee pain Right leg pain Hypokalemia Abdominal wall abscess at site of surgical wound Coronary artery calcification seen on CAT scan Vitamin D deficiency Distal radius fracture Viral hepatitis C Multinodular goiter Claudication Bilateral leg weakness Macular degeneration Abnormal EKG Dyspnea Recurrent falls Atrial fibrillation HLD (hyperlipidemia) Carotid artery stenosis Osteoporosis Assessment and Plan Assessment and plan all Dx Assessment and Plan for all problems:: Pharmacokinetic dosing service Objective: Patient: Floor: Age: 79 yo Serum creatinine: 0.90 mg/dL Height: 64.2 Inches Weight (kg): 49 Assessment: IBW (kg): 55.16 Dosing wt(kg): 49 Estimated Creatinine clearance (ml/min): 39.9 CRCL method: Cockcroft and Gault using ibw(default). Drug selected: Vancomycin Loading dose (mg): Vd (liters): 39.2 (factor used: 0.8 L/kg) Ab (hr-1): 0.038 Half life (hrs): 18.24 CLvanco=?? 1.490 L/hr Recommended dose: 750 mg Interval: 24 hrs Infusion time (hrs): 2.0 Predicted peak (mcg/mL): 30.8 Predicted trough (mcg/mL): 13.35 Total body weight is being used for vancomycin dosing. Recommendations: Give Vancomycin 750 mg q 24 hrs with an expected Cpeak of 30.8 mcg/ml and an expected Ctrough of 13.35 mcg/ml AUC 0-24 /MISTY Data: MISTY 0.5 mcg/mL:?? AUC/MISTY:? 1006.7 MISTY 1.0 mcg/mL:?? AUC/MISTY:? 503.4 --------- MISTY 1.5 mcg/mL:?? AUC/MISTY:? 335.6 MISTY 2.0 mcg/mL:?? AUC/MISTY:? 251.7 Thank you for the consult, will continue to follow. -MINNA PEARSON, ISAUROD
[2024-07-22] MEDS: DIGOXIN 0.125MG TABLET 125 MCG PO (09:06)
[2024-07-22] MEDS: DONEPEZIL 5MG TAB 5 MG PO (09:06)
[2024-07-22] MEDS: dilTIAZem ER 120MG CAPSULE 240 MG PO (09:09)
--- NOTE | 2024-07-22 09:14 | P.CONPHA_ITS ---
Pharmacy Intervention Comments: MEDICATION RECONCILIATION COMPLETED ON PATIENT USING MAR FROM [facility]. -MINNA PEARSON, ISAUROD
--- NOTE | 2024-07-22 09:14 | HMH.PHAINT1 ---
Pharmacy Intervention Comments: MEDICATION RECONCILIATION COMPLETED ON PATIENT USING MAR FROM [facility]. -MINNA PEARSON, ISAUROD
--- NOTE | 2024-07-22 10:26 | P.PN_ITS ---
Subjective *Date: 07/22/24 *Time: 17:05 Interval history: Patient agitated and delirious overnight. Necessitating one-on-one sitter. Quiring supplemental oxygen at 4 L. Poor p.o. intake. Family at bedside on rounds. Finally went to sleep early this morning and has slept most of the mo rning. Afebrile. Medical Exam Vital signs and Labs for Last 24 Hours: Vital Signs Temp Pulse Pulse Resp BP BP Pulse Ox 07/22/24 09:06 72 07/22/24 09:00 07/22/24 08:00 94 L 07/22/24 07:14 98.0 F 82 16 136/81 90 L 07/22/24 06:18 07/22/24 04:00 98.7 F 88 16 118/54 L 99 07/21/24 23:00 97.6 F 112 H 18 125/55 L 92 L 07/21/24 22:10 07/21/24 21:00 07/21/24 20:05 97.6 F 91 H 16 119/61 93 L 07/21/24 20:00 07/21/24 19:25 97.5 F L 80 16 115/46 L 88 L 07/21/24 18:56 07/21/24 18:28 97.7 F 101 H 14 100/40 L 95 07/21/24 18:26 07/21/24 17:43 97.3 F L 105 H 18 116/83 07/21/24 16:00 97.7 F 81 14 119/37 L 99 07/21/24 15:49 97.7 F 83 15 107/35 L 9 L 07/21/24 14:00 98.2 F 14 111/70 07/21/24 13:57 98.1 F 111 H 19 106/54 L 90 L O2 Del Method O2 Flow Rate 07/22/24 09:06 07/22/24 09:00 Nasal Cannula 4 07/22/24 08:00 Nasal Cannula 4 07/22/24 07:14 Nasal Cannula 4 07/22/24 06:18 Nasal Cannula 4 07/22/24 04:00 Nasal Cannula 4 07/21/24 23:00 Nasal Cannula 4 07/21/24 22:10 Nasal Cannula 4 07/21/24 21:00 Nasal Cannula 4 07/21/24 20:05 Nasal Cannula 4 07/21/24 20:00 Nasal Cannula 2 07/21/24 19:25 Nasal Cannula 4 07/21/24 18:56 Nasal Cannula 2 07/21/24 18:28 Nasal Cannula 2 07/21/24 18:26 Nasal Cannula 2 07/21/24 17:43 Room Air 07/21/24 16:00 Nasal Cannula 2 07/21/24 15:49 Nasal Cannula 2 07/21/24 14:00 07/21/24 13:57 Room Air Intake and Output 07/21/24 07/22/24 07/22/24 23:59 07:59 15:59 Intake Total 0 / 240 240 / 240 Output Total 250 / 370 340 / 340 0 / 340 Balance -250 / -370 -340 / -100 240 / -100 Intake: Intake, Oral Amount 0 / 240 240 / 240 Output: Output, Urine Amount 250 / 370 340 / 340 0 / 340 Other: Number of Unmeasured Voids 0 0 0 Weight 52.299 kg 48.988 kg Patient Weight 07/22/24 23:59 Weight 48.988 kg Laboratory Results - last 24 hr 07/21/24 13:28: VBG pH 7.40, VBG pCO2 36.0, VBG pO2 35.5, VBG HCO3 22.0 L, VBG Total CO2 23.1, VBG O2 Saturation 60.1, VBG Base Excess -2.7 L, VBG Lactic Acid 7.3 H 07/21/24 13:32: Sodium 134 L, Potassium 3.8, Chloride 100, Carbon Dioxide 21 L, Anion Gap 16.8 H, BUN 62 H, Creatinine 0.90, Estimated Creat Clear 39, Estimated GFR 61, Est GFR ( Amer) 73, Glucose 313 H, Calcium 8.5, Total Bilirubin 4.4 H, AST 83 H, ALT 86 H, Alkaline Phosphatase 107, Total Creatine Kinase 100, Total Protein 5.1 L, Albumin 3.4 L, Globulin 1.7, Albumin/Globulin Ratio 2.0 H, Lipase 163, Acetone Level None detected 07/21/24 13:35: WBC 19.6 H, RBC 2.30 L, Hgb 7.6 L, Hct 22.7 L, MCV 98.7, MCH 33.0 H, MCHC 33.5, RDW 19.0 H, Plt Count 188, MPV 11.6 H, Neut % (Auto) 82.3 H, Lymph % (Auto) 4.9 L, [place] % (Auto) 5.7, Eos % (Auto) 0.0 L, Baso % (Auto) 0.3, Neut # (Auto) 16.2 H, Lymph # (Auto) 1.0, [place] # (Auto) 1.1 H, Eos # (Auto) 0.0, Baso # (Auto) 0.1, Total Counted 100, Neutrophils % (Manual) 88 H, Lymphocytes % (Manual) 7 L, Monocytes % (Manual) 3, Myelocytes % 2 H, Nucleated RBCs 3, Platelet Estimate Normal, RBC Morphology Not Reportable, Polychromasia 1+, Anisocytosis 2+, Microcytosis 1+, Pappenheimer Bodies 1+, Gleason-Ellington Bodies 1+, Ammonia 10 07/21/24 13:45: Urine Color Yellow, Urine Appearance Clear, Urine pH 6.0, Ur Specific [place] 1.010, Urine Protein Negative, Urine Glucose (UA) 3+, Urine Ketones Trace, Urine Blood Negative, Urine Nitrate Negative, Urine Bilirubin Negative, Urine Urobilinogen 0.2, Ur Leukocyte Esterase Trace, Urine RBC None, Urine WBC 10-20, Ur Squamous Epith Cells None, Urine Bacteria None 07/21/24 18:54: Lactate 5.4 H 07/21/24 19:37: POC Glucose 200 H 07/21/24 21:25: Lactate 4.2 H 07/22/24 06:30: POC Glucose 130 H I & O for Labs for Last 24 Hours: Intake & Output 07/19/24 07/20/24 07/21/24 07/22/24 23:59 23:59 23:59 23:59 Intake Total 240 / 240 Output Total 250 / 370 340 / 340 Balance -250 / -370 -100 / -100 Weight 52.299 kg 48.988 kg Microbiology Reports for the Last 24 Hours: Microbiology 07/21/24 13:45 Urine,Clean Catch Urine Culture - Preliminary Constitutional: Present mild distress, thin, chronically ill appearing and somnolent Head: Present atraumatic and normocephalic Neck: Present normal inspection Respiratory: Present normal respiratory effort; Absent rhonchi, wheezes or crackles Cardiac: Present Regular Rate Comment:: Irregularly irregular GI: Present soft and normal bowel sounds; Absent distention or tenderness Comment:: Gray in place, will remove today Extremities: Present full ROM Comment:: Bilateral arms in Curlex wraps, clean dry and intact Skin: Present wounds and ecchymosis; Absent erythema Comment:: Skin tears on bilateral forearms sustained in her delirium last night; large bruise left flank from lower rib cage to back of left knee. Tender to palpation. Yellowing around Neuro: Present Grossly Intact and moves all extremities Comment:: Somnolent on exam. Assessment and Plan *Assessment and plan (1) Sepsis: Status: Acute Category: Medical Code(s): A41.9 - Sepsis, unspecified organism (2) Acute blood loss anemia: Status: Acute Category: Medical Code(s): D62 - Acute posthemorrhagic anemia (3) Encephalopathy: Status: Acute Category: Medical Code(s): G93.40 - Encephalopathy, unspecified (4) Diabetes type 2, controlled: Status: Chronic Qualifiers: Diabetes mellitus complication status: with unspecified complications Diabetes mellitus retirement insulin use: with termite treater use Qualified Code(s): E11.8 - Type 2 diabetes mellitus with unspecified complications; Z79.4 - termite technician (current) use of insulin Category: Medical Code(s): E11.9 - Type 2 diabetes mellitus without complications (5) HTN (hypertension): Status: Chronic Qualifiers: Hypertension type: essential hypertension Qualified Code(s): I10 - Essential (primary) hypertension Category: Medical Code(s): I10 - Essential (primary) hypertension (6) Atrial fibrillation: Status: Chronic Qualifiers: Atrial fibrillation type: paroxysmal Qualified Code(s): I48.0 - Paroxysmal atrial fibrillation Category: Medical Code(s): I48.91 - Unspecified atrial fibrillation (7) Dementia with behavioral disturbance: Status: Acute Category: Medical Code(s): F03.918 - Unspecified dementia, unspecified severity, with other behavioral disturbance (8) Frail elderly: Status: Acute Category: Medical Code(s): R54 - Age-related physical debility (9) Hematoma of left flank: Status: Acute Category: Medical Code(s): S30.1XXA - Contusion of abdominal wall, initial encounter Plan 79-year-old female who presented with altered mental status from [facility]. On workup, found to have elevated white count, tachycardia, confusion, suspected infection of urine or her left flank hematoma. Meeting sepsis criteria. Discussed case with ER physician, request admission for further treatment of her sepsis and goals of care discussion. I agreed to admit for further care. Discussed case with patient's family on arrival. Would like to try treating infection to see if patient improves over the next couple days. Also wants to focus on keeping her comfortable as she appears in a lot of pain. If she has improvement, will have further goals of care discussion. If does not improve in the coming days, would like to transition to hospice care. Problems addressed as follows: Sepsis Left flank hematoma Blood loss anemia -Tachycardic, leukocytosis, rim-enhancing hematoma concerning for infected hematoma as well as suspected UTI. White count elevated at 19.6 on admission -White count 12.5 today, hemoglobin dropped to 6.9. Transfusion threshold hemoglobin less than 7. Will transfuse 1 unit today -Continue vancomycin and Zosyn 3.375 g every 6 hours. Monitor for toxicity. Repeat CBC, CMP, magnesium ordered for the morning to monitor kidney function - Continue holding anticoagulation -Blood and urine cultures pending. - Urinalysis with negative nitrate, trace leuk esterase, 10-20 white cells but no bacteria. A-fib Hypertension Hyperlipidemia -Continuing diltiazem 240 mg daily. Holding Eliquis and Lipitor -Continue digoxin 125 mcg daily. -Holding HCTZ due to concern for patient being slightly dehydrated/setting of sepsis Elevated uremia Electrolyte disturbances - BUN 33, creatinine 0.6. Improved from admission. Potassium 3.9, magnesium 1.9. Bilirubin down from 4.4-3.8. - enzymes also elevated with AST and ALT in the 80s and bilirubin of 4.4. Low concern for liver disease as she has no history of any liver disease. Likely from blood degraded Suspected hyperthyroidism: -Review of chart does not show antibodies for Graves', unsure what her diagnosis came from - TSH normal at 3, methimazole recently decreased last month to 2.5mg TID. Will hold methimazole during admission. Diabetes: - A1c at goal of 6.8 two mos ago. - Glucose 130 on morning labs. Continue sliding scale insulin and fingersticks ACHS. Holding all other diabetes med Chronic diarrhea Status post bowel surgery for colon cancer -Fiber supplement daily Cognitive impairment: Sleep disturbance: - Mini-Mental performed October of last year with score of 19 out of 30. - Nephew has establish POA since last admission - More confused this admission. Initiate olanzapine 5 mg IM nightly - Morphine 4 mg every 4 hours IV for moderate to severe pain - Encourage redirection, encouraged a night routine. DNR/DNI Holding anticoagulation due to hematoma and blood loss anemia Regular diet
[2024-07-22 11:31] LABS: POC Glucose,Bedside 119 (70-110)
[2024-07-22] MEDS: CEFEPIME HCL 2 GM in 0.9 % SODIUM CHLORIDE 100 ML IV ×2 (12:06→22:33)
[2024-07-22 14:19] LABS: Basophils # 0.1 K/mm3 (0-0.2); Basophils % 0.5 % (0.1-2.0); Eosinophils # 0.1 Kmm3 (0.0-0.4); Eosinophils % 0.4 % (0.1-12.0); Hematocrit 23.4 % (37.0-47.0); Lymphocytes # 1.3 K/mm3 (0.7-4.5); Lymphocytes % 10.5 % (10-50); Mean Corpuscular HGB Conc 29.5 g/dL (31.8-35.4); Mean Corpuscular Hemoglobin 32.5 pg (27.0-31.2); Mean Corpuscular Volume 110.4 fl (81-99); Mean Platelet Volume 11.7 fl (7.4-10.4); Monocytes % 7.9 % (1.7-9.3); Neutrophils # 9.4 K/mm3 (1.8-7.8); Neutrophils % 75.4 % (37.0-80.0); Nucleated Red Blood Cells # 0.51 10^3/uL; Nucleated Red Blood Cells % 4.1 %; Platelet Count 150 K/mm3 (142-424); Red Blood Count 2.12 M/mm3 (4.20-5.40); Red Cell Distribution Width 20.1 % (11.5-17.5); Red Cell Distribution Width-SD 68.6 fL; White Blood Count 12.5 K/mm3 (4.8-10.8)
[2024-07-22 14:34] LABS: Hemoglobin 6.9 g/dL (12.2-16.2)
--- NOTE | 2024-07-22 14:37 | PC.NURSE ---
Pt moved to new room next to nurses station. 1:1 DC.
[2024-07-22 14:53] LABS: Albumin Level 2.9 g/dl (3.5-5.0); Chloride 108 mmol/L (98-107); Potassium 3.9 mmoL/L (3.5-5.1); Sodium 133 mmol/L (136-145)
[2024-07-22 14:56] LABS: Alanine Aminotransferase 57 U/L (12-78); Albumin/Globulin Ratio 1.5 (1.1-1.8); Alkaline Phosphatase 104 U/L (38-126); Anion Gap 7.9 mEq/L (5-15); Aspartate Amino Transferase 68 U/L (14-36); Bilirubin,Total 3.8 mg/dl (0.2-1.3); Blood Urea Nitrogen 33 mg/dl (7-17); Calcium 7.3 mg/dl (8.4-10.2); Carbon Dioxide 21 mmol/L (22.0-30.0); Creatinine Clearance Estimated 36 mL/min (50-200); Estimated Glomerular Filt Rate 97 ml/min (>60); GFR (African American) 117 ML/MIN (>60); Globulin 1.9 g/dL (1.3-3.2); Glucose 133 mg/dl (74-100); Magnesium 1.9 mg/dl (1.6-2.3); Total Protein,Serum 4.8 g/dl (6.3-8.2)
[2024-07-22 14:57] LABS: MANUAL DIFFERENTIAL MANUAL DIFFERENTIAL (MANUAL DIFF)
[2024-07-22 16:19] LABS: Total Cells Counted 100
[2024-07-22 16:20] LABS: Anisocytosis 2+; Corrected White Blood Count 11.5 K/mm3 (4.8-10.8); Lymphocytes % 24 % (10-50); Macrocytosis 1+; Metamyelocytes % 2 (0-1); Microcytosis 1+; Neutrophils % 74 % (42-76); Nucleated Red Blood Cells 9; Pappenheimer Bodies 1+; Platelet Estimate Normal; Polychromasia 1+
--- NOTE | 2024-07-22 16:47 | PC.NURSE ---
pt resting supine in bed. morning meds given in applesauce this morning and pt tolerated well. treadwell in place and draining an adequate amount of urine. see i &o. see nurse wound note regarding skin. pt medicated for pain once this shift after verbalization of discomfort. 1 unit of blood to be transfused. no needs at this time. call light within reach. bed alarm on for pt safety.
[2024-07-22] MEDS: VANCOMYCIN HCL 750 MG in 0.9 % SODIUM CHLORIDE 250 ML 125 MG IV (17:15)
[2024-07-22] MEDS: humaLOG 100 UNITS/ML 10ML VIAL (SSI) SUBCUT (17:32)
[2024-07-22] MEDS: OLANZapine 10 MG VIAL 5 MG IM (20:58)
[2024-07-22] MEDS: PANTOPRAZOLE 40MG TABLET 40 MG PO (20:59)
[2024-07-22 21:08] LABS: POC Glucose,Bedside 126 (70-110)
[2024-07-23] VITALS (7 sets, daily range): BP systolic 102–133; BP diastolic 46–77; PULSE 70–98; RESP 16–19; TEMP 36.2–36.9; O2SAT 91–100; BMI 19.4
[2024-07-23] MEDS: MORPHINE 4MG/ML SYRINGE 4 MG IV ×2 (05:44→14:42)
--- NOTE | 2024-07-23 06:47 | PC.NURSE ---
V/s, pt disoriented x4. Pt's pain related to hip fx treated per MAR. pt's anxiety treated per MAR. Pt was ripping things off towards mid shift, so mittens were placed on the pt's hands. Provider notified about pt getting agitated, provider came to bedside. Pt tolerated transfusion well, received 1 unit at beginning of shift. Pt tolerated IV ABX well. Pt still on 4LNC satting in 90's. PLan of care ongoing.
[2024-07-23 07:40] LABS: Basophils # 0.1 K/mm3 (0-0.2); Basophils % 0.7 % (0.1-2.0); Eosinophils # 0.1 Kmm3 (0.0-0.4); Eosinophils % 0.6 % (0.1-12.0); Hematocrit 32.3 % (37.0-47.0); Lymphocytes # 0.9 K/mm3 (0.7-4.5); Lymphocytes % 8.3 % (10-50); Mean Corpuscular HGB Conc 33.4 g/dL (31.8-35.4); Mean Corpuscular Hemoglobin 32.7 pg (27.0-31.2); Mean Corpuscular Volume 97.9 fl (81-99); Mean Platelet Volume 11.3 fl (7.4-10.4); Monocytes # 0.7 K/mm3 (0.1-1.0); Monocytes % 6.5 % (1.7-9.3); Neutrophils # 8.4 K/mm3 (1.8-7.8); Neutrophils % 78.6 % (37.0-80.0); Nucleated Red Blood Cells # 0.24 10^3/uL; Nucleated Red Blood Cells % 2.2 %; Platelet Count 129 K/mm3 (142-424); Red Cell Distribution Width 17.8 % (11.5-17.5); Red Cell Distribution Width-SD 50.8 fL; White Blood Count 10.7 K/mm3 (4.8-10.8)
[2024-07-23 07:46] LABS: Chloride 105 mmol/L (98-107); Hemoglobin 10.8 g/dL (12.2-16.2); Potassium 3.2 mmoL/L (3.5-5.1); Sodium 134 mmol/L (136-145)
[2024-07-23 07:48] LABS: Blood Urea Nitrogen 21 mg/dl (7-17); Creatinine Clearance Estimated 38 mL/min (50-200); Estimated Glomerular Filt Rate 119 ml/min (>60); GFR (African American) 144 ML/MIN (>60)
[2024-07-23 07:49] LABS: Alanine Aminotransferase 53 U/L (12-78); Albumin/Globulin Ratio 1.5 (1.1-1.8); Alkaline Phosphatase 107 U/L (38-126); Anion Gap 6.2 mEq/L (5-15); Aspartate Amino Transferase 62 U/L (14-36); Bilirubin,Total 5.1 mg/dl (0.2-1.3); Calcium 7.1 mg/dl (8.4-10.2); Carbon Dioxide 26 mmol/L (22.0-30.0); Glucose 116 mg/dl (74-100); Magnesium 1.6 mg/dl (1.6-2.3)
--- NOTE | 2024-07-23 07:59 | SW/DCPLANNER ---
Addendum entered by [facility] 07/25/24 13:52: POA would not like to make a decision regarding Hospice services at this time. Addendum entered by [facility] 07/25/24 13:47: POA is undecided on Hospice services at this time. I will continue to follow up w/ POA. I will also follow up Dr Ivory whom follows patient at [facility]. Per MD patient will return to [facility] today. Addendum entered by [facility] 07/25/24 09:27: I have updated patient's POA regarding APS referral. Addendum entered by [facility] 07/24/24 14:59: Tamme w/ APS at bedside to evaluate patient and will also be following up [facility]. Addendum entered by [facility] 07/24/24 11:12: CM received a phone call from APS staff (Peter) this AM stating that she will be investigating this afternoon. ED staff has documented that APS report was made once patient admitted to ED. Addendum entered by [facility] 07/23/24 14:27: Hold on Hospice referral at this time. Patient's family would like to continue to monitor patient and follow up tomorrow. CM will continue to follow up w/ patient and MD. Original Note: Patient currently resides at [facility] level of care. I will continue to follow up w/ Zulma from [facility] until patient is medically stable for discharge. Discharge date is unknown at this time. Per MD possible Hospice referral.
[2024-07-23] MEDS: dilTIAZem ER 120MG CAPSULE 240 MG PO (08:40)
[2024-07-23] MEDS: DIGOXIN 0.125MG TABLET 125 MCG PO (08:40)
[2024-07-23] MEDS: CEFEPIME HCL 2 GM in 0.9 % SODIUM CHLORIDE 100 ML IV (11:09)
[2024-07-23 11:18] LABS: POC Glucose,Bedside 99 (70-110)
[2024-07-23] MEDS: humaLOG 100 UNITS/ML 10ML VIAL (SSI) SUBCUT ×2 (15:51→21:45)
--- NOTE | 2024-07-23 17:00 | PC.NURSE ---
pt lying supine in bed talking to self. pt was pleasant this morning, having pleasant conversation with family and hospitalist. due to this interaction, hospitalist removed mitts from pt. around 1430 pt became increasingly agitated and aggressive towards staff, hitting, scratching, attempting to bite and shouting profanity. staff attempted to calm pt by redirecting, decreasing stimuli and verbally coaching pt, with little success. mitts placed back on pt for staff and pt safety. pt very agitated at this, pulling mitts off with legs and thrashing in the bed. pt verbalized pain, so pt was treated per may. pt requiring one on one sitting due to attempting to climb out of bed. pt now lying in bed singing. pt remains agitated with staff. bed alarm on for pt safety. call light within reach
[2024-07-23] MEDS: VANCOMYCIN HCL 750 MG in 0.9 % SODIUM CHLORIDE 250 ML 125 MG IV (17:30)
[2024-07-23 17:35] LABS: POC Glucose,Bedside 254 (70-110)
--- NOTE | 2024-07-23 19:57 | P.EN_ITS ---
Advance care planning note: Active diagnosis: Dementia, diabetes, hypertension, history of colon cancer, hypothyroid, A-fib, iron deficiency anemia CKD, falling, blood loss anemia, worsening delirium, sepsis The patient's active diagnoses are of sufficient risk that focused discussion on advanced care planning is indicated in order to allow the patient to thoughtfully consider personal goals of care; and, if situations arise that prevent the ability to personally give input, to ensure appropriate representation of their personal desires through documentation or informed surrogate decision makers. Discussion: Persons present and participating in discussion: Patient, nephew (POA), sister Discussion: Extensive discussion about patient's condition, memory, response so far to treatment, prognosis and risk for worsening decline. Discussed hospice versus returning to [place] if clinically improves. Family have strong concern about her recurring risk of falling and injury. Understand that we cannot restrain patient or prevent her from falling 100%. Discussed continuing antibiotics for now given response over the past 48 hours. Patient shows decline, would like to consult hospice. If she remains stable or improved somewhat, interested in returning back to nursing facility to attempt rehab as long as possible. Further decisions over the next day or 2 pending patient's clinical response Time spent: Total time spent [id number] in education and discussion directly related to advance care plannin minutes Liam Horne 07/23/24
--- NOTE | 2024-07-23 19:57 | EXP.ACUTE.PN ---
Subjective *Date: 07/23/24 *Time: 23:19 Interval history: Little bit more alert this morning but frankly confused and delirious. Pulling at lines, agitated with staff. Singing hymns and intermittently screaming out. Family at bedside in the afternoon, goals of care discussion. Initially on 4 L, weaned to room air. Afebrile. No nausea or vomiting. Eating intermittently Medical Exam Vital signs and Labs for Last 24 Hours: Vital Signs Temp Pulse Pulse Resp BP BP Pulse Ox 07/23/24 18:53 07/23/24 16:54 07/23/24 16:00 98.5 F 70 133/67 97 07/23/24 15:00 07/23/24 13:00 07/23/24 12:00 73 19 120/46 L 91 L 07/23/24 11:00 07/23/24 09:00 07/23/24 08:40 89 07/23/24 08:00 94 L 07/23/24 08:00 97.5 F L 89 19 102/50 L 98 07/23/24 06:44 07/23/24 05:00 07/23/24 03:48 97.2 F L 89 16 119/54 L 94 L 07/23/24 03:00 07/23/24 01:00 07/23/24 00:00 97.5 F L 82 17 131/52 L 96 07/22/24 23:00 07/22/24 21:32 98.2 F 150 H 18 125/99 H 99 07/22/24 20:51 07/22/24 20:00 98.4 F 89 16 94/60 L 96 07/22/24 20:00 07/22/24 20:00 98.4 F 89 16 94/60 L 96 O2 Del Method O2 Flow Rate 07/23/24 18:53 Nasal Cannula 4 07/23/24 16:54 Nasal Cannula 4 07/23/24 16:00 07/23/24 15:00 Room Air 07/23/24 13:00 Nasal Cannula 4 07/23/24 12:00 Nasal Cannula 07/23/24 11:00 Nasal Cannula 4 07/23/24 09:00 Nasal Cannula 4 07/23/24 08:40 07/23/24 08:00 Nasal Cannula 4 07/23/24 08:00 Nasal Cannula 07/23/24 06:44 Nasal Cannula 4 07/23/24 05:00 Nasal Cannula 4 07/23/24 03:48 Nasal Cannula 4 07/23/24 03:00 Nasal Cannula 4 07/23/24 01:00 Nasal Cannula 4 07/23/24 00:00 Nasal Cannula 4 07/22/24 23:00 Nasal Cannula 4 07/22/24 21:32 07/22/24 20:51 Nasal Cannula 4 07/22/24 20:00 Nasal Cannula 4 07/22/24 20:00 Nasal Cannula 4 07/22/24 20:00 Intake and Output 07/23/24 07/23/24 07/23/24 07:59 15:59 23:59 Intake Total 540 / 540 Output Total 0 / 0 0 / 0 Balance 0 / 540 540 / 540 Intake: Intake, Oral Amount 540 / 540 Output: Output, Urine Amount 0 / 0 0 / 0 Other: Number of Voids 0 Number of Unmeasured Voids 1 1 1 Weight 51.573 kg Patient Weight 07/23/24 23:59 Weight 51.573 kg Laboratory Results - last 24 hr 07/21/24 13:45: Urine Color Yellow, Urine Appearance Clear, Urine pH 6.0, Ur Specific [place] 1.010, Urine Protein Negative, Urine Glucose (UA) 3+, Urine Ketones Trace, Urine Blood Negative, Urine Nitrate Negative, Urine Bilirubin Negative, Urine Urobilinogen 0.2, Ur Leukocyte Esterase Trace, Urine RBC None, Urine WBC 10-20, Ur Squamous Epith Cells None, Urine Bacteria None 07/22/24 16:00: Crossmatch (AHG) See Detail 07/22/24 20:50: POC Glucose 126 H 07/23/24 07:08: WBC 10.7, RBC 3.30 L D, Hgb 10.8 L D, Hct 32.3 L, MCV 97.9, MCH 32.7 H, MCHC 33.4, RDW 17.8 H, Plt Count 129 L, MPV 11.3 H, Neut % (Auto) 78.6, Lymph % (Auto) 8.3 L, [place] % (Auto) 6.5, Eos % (Auto) 0.6, Baso % (Auto) 0.7, Neut # (Auto) 8.4 H, Lymph # (Auto) 0.9, [place] # (Auto) 0.7, Eos # (Auto) 0.1, Baso # (Auto) 0.1, Sodium 134 L, Potassium 3.2 L, Chloride 105, Carbon Dioxide 26, Anion Gap 6.2, BUN 21 H D, Creatinine 0.50 L, Estimated Creat Clear 38, Estimated GFR 119, Est GFR ( Amer) 144 D, Glucose 116 H, Calcium 7.1 L, Magnesium 1.6 D, Total Bilirubin 5.1 H, AST 62 H, ALT 53, Alkaline Phosphatase 107, Total Protein 5.0 L, Albumin 3.0 L, Globulin 2.0, Albumin/Globulin Ratio 1.5 07/23/24 11:11: POC Glucose 99 07/23/24 15:45: POC Glucose 254 H I & O for Labs for Last 24 Hours: Intake & Output 07/20/24 07/21/24 07/22/24 07/23/24 23:59 23:59 23:59 23:59 Intake Total 940 / 940 540 / 540 Output Total 250 / 370 1090 / 1090 0 / 0 Balance -250 / -370 -150 / -150 540 / 540 Weight 52.299 kg 48.988 kg 51.573 kg Microbiology Reports for the Last 24 Hours: Microbiology 07/21/24 13:50 Blood Blood Culture - Preliminary NO GROWTH AFTER 48 HOURS 07/21/24 13:57 Blood Blood Culture - Preliminary NO GROWTH AFTER 48 HOURS 07/21/24 13:45 Urine,Clean Catch Urine Culture - Preliminary Gram Positive Cocci Constitutional: Present mild distress, thin, chronically ill appearing and agitated Head: Present atraumatic and normocephalic Neck: Present normal inspection Respiratory: Present normal respiratory effort; Absent rhonchi, wheezes or crackles Cardiac: Present Regular Rate Comment:: Irregularly irregular GI: Present soft and normal bowel sounds; Absent distention or tenderness Extremities: Present full ROM Comment:: Bilateral arms in Curlex wraps, clean dry and intact Skin: Present wounds and ecchymosis; Absent erythema Comment:: Skin tears on bilateral forearms sustained in her delirium last night; large bruise left flank from lower rib cage to back of left knee. Tender to palpation. Yellowing around Neuro: Present Grossly Intact, alert, awake and moves all extremities Comment:: Somnolent on exam. Assessment and Plan *Assessment and plan (1) Sepsis: Status: Acute Category: Medical Code(s): A41.9 - Sepsis, unspecified organism (2) Acute blood loss anemia: Status: Acute Category: Medical Code(s): D62 - Acute posthemorrhagic anemia (3) Encephalopathy: Status: Acute Category: Medical Code(s): G93.40 - Encephalopathy, unspecified (4) Diabetes type 2, controlled: Status: Chronic Qualifiers: Diabetes mellitus complication status: with unspecified complications Diabetes mellitus penitentiary insulin use: with jigger crown pouncing machine operator use Qualified Code(s): E11.8 - Type 2 diabetes mellitus with unspecified complications; Z79.4 - long-term (current) use of insulin Category: Medical Code(s): E11.9 - Type 2 diabetes mellitus without complications (5) HTN (hypertension): Status: Chronic Qualifiers: Hypertension type: essential hypertension Qualified Code(s): I10 - Essential (primary) hypertension Category: Medical Code(s): I10 - Essential (primary) hypertension (6) Atrial fibrillation: Status: Chronic Qualifiers: Atrial fibrillation type: paroxysmal Qualified Code(s): I48.0 - Paroxysmal atrial fibrillation Category: Medical Code(s): I48.91 - Unspecified atrial fibrillation (7) Dementia with behavioral disturbance: Status: Acute Category: Medical Code(s): F03.918 - Unspecified dementia, unspecified severity, with other behavioral disturbance (8) Frail elderly: Status: Acute Category: Medical Code(s): R54 - Age-related physical debility (9) Hematoma of left flank: Status: Acute Category: Medical Code(s): S30.1XXA - Contusion of abdominal wall, initial encounter Plan 79-year-old female who presented with altered mental status from [facility]. On workup, found to have elevated white count, tachycardia, confusion, suspected infection of urine or her left flank hematoma. Meeting sepsis criteria. Discussed case with ER physician, request admission for further treatment of her sepsis and goals of care discussion. I agreed to admit for further care. Discussed case with patient's family on arrival. Would like to try treating infection to see if patient improves over the next couple days. Also wants to focus on keeping her comfortable as she appears in a lot of pain. If she has improvement, will have further goals of care discussion. If does not improve in the coming days, would like to transition to hospice care. Showing some mild improvement. Will monitor for another 48 hours. Likely discharge back to nursing facility for skilled care. Problems addressed as follows: Sepsis Left flank hematoma Blood loss anemia -Tachycardic, leukocytosis, rim-enhancing hematoma concerning for infected hematoma as well as suspected UTI. White count elevated at 19.6 on admission -White count normalized today to 10.7. Hemoglobin 10.8. - Transfusion threshold hemoglobin less than 7 -Continue vancomycin and Zosyn 3.375 g every 6 hours. Monitor for toxicity. Repeat CBC, CMP, magnesium ordered for the morning to monitor kidney function - Continue holding anticoagulation - Blood and urine cultures pending. A-fib Hypertension Hyperlipidemia -Continuing diltiazem 240 mg daily. Holding Eliquis and Lipitor -Continue digoxin 125 mcg daily. -Holding HCTZ due to concern for patient being slightly dehydrated/setting of sepsis Elevated uremia Electrolyte disturbances - BUN 21, creatinine 0.5. Magnesium 1.6, potassium 3.2. Bilirubin remains elevated at 5.1, consistent with hemolysis of hematoma -Repeat CBC, CMP, magnesium ordered for the morning. Suspected hyperthyroidism: -Review of chart does not show antibodies for Graves', unsure what her diagnosis came from - TSH normal at 3, methimazole recently decreased last month to 2.5mg TID. Will hold methimazole during admission. Diabetes: - A1c at goal of 6.8 two mos ago. - Glucose 116 on morning labs. Continue sliding scale insulin and fingersticks ACHS. Holding all other diabetes med Chronic diarrhea Status post bowel surgery for colon cancer -Fiber supplement daily Cognitive impairment: Sleep disturbance: - Mini-Mental performed October of last year with score of 19 out of 30. - Nephew has establish POA since last admission - More confused this admission. Initiate olanzapine 5 mg IM nightly - Morphine 4 mg every 4 hours IV for moderate to severe pain - Encourage redirection, encouraged a night routine. DNR/DNI Holding anticoagulation due to hematoma and blood loss anemia Regular diet
[2024-07-23] MEDS: OLANZapine 10 MG VIAL 5 MG IM (21:35)
[2024-07-23] MEDS: PANTOPRAZOLE 40MG TABLET 40 MG PO (21:36)
[2024-07-23] MEDS: DONEPEZIL 5MG TAB 5 MG PO (21:36)
[2024-07-23 21:49] LABS: POC Glucose,Bedside 178 (70-110)
[2024-07-24] VITALS (8 sets, daily range): BP systolic 105–120; BP diastolic 49–60; PULSE 74–121; RESP 16–20; TEMP 36.2–37.3; O2SAT 94–100; BMI 19.8
[2024-07-24] MEDS: CEFEPIME HCL 2 GM in 0.9 % SODIUM CHLORIDE 100 ML IV ×2 (00:10→10:39)
[2024-07-24] MEDS: MORPHINE 4MG/ML SYRINGE 4 MG IV ×3 (03:25→20:14)
[2024-07-24 05:34] LABS: POC Glucose,Bedside 101 (70-110)
[2024-07-24 06:10] LABS: Basophils % 0.4 % (0.1-2.0); Eosinophils # 0.1 Kmm3 (0.0-0.4); Hematocrit 30.9 % (37.0-47.0); Hemoglobin 10.3 g/dL (12.2-16.2); Lymphocytes # 0.8 K/mm3 (0.7-4.5); Lymphocytes % 8.2 % (10-50); Mean Corpuscular HGB Conc 33.3 g/dL (31.8-35.4); Mean Corpuscular Hemoglobin 32.7 pg (27.0-31.2); Mean Corpuscular Volume 98.1 fl (81-99); Mean Platelet Volume 11.7 fl (7.4-10.4); Monocytes # 0.5 K/mm3 (0.1-1.0); Monocytes % 5.2 % (1.7-9.3); Neutrophils # 7.6 K/mm3 (1.8-7.8); Neutrophils % 81.7 % (37.0-80.0); Nucleated Red Blood Cells # 0.05 10^3/uL; Nucleated Red Blood Cells % 0.5 %; Platelet Count 129 K/mm3 (142-424); Red Blood Count 3.15 M/mm3 (4.20-5.40); Red Cell Distribution Width 18.1 % (11.5-17.5); Red Cell Distribution Width-SD 59.1 fL; White Blood Count 9.3 K/mm3 (4.8-10.8)
[2024-07-24 06:21] LABS: POC Glucose,Bedside 184 (70-110)
[2024-07-24 06:29] LABS: Magnesium 1.6 mg/dl (1.6-2.3)
[2024-07-24 06:30] LABS: Alanine Aminotransferase 41 U/L (12-78); Albumin Level 2.7 g/dl (3.5-5.0); Albumin/Globulin Ratio 1.5 (1.1-1.8); Alkaline Phosphatase 87 U/L (38-126); Anion Gap 3.6 mEq/L (5-15); Aspartate Amino Transferase 48 U/L (14-36); Bilirubin,Total 4.3 mg/dl (0.2-1.3); Blood Urea Nitrogen 16 mg/dl (7-17); Calcium 7.1 mg/dl (8.4-10.2); Carbon Dioxide 29 mmol/L (22.0-30.0); Chloride 103 mmol/L (98-107); Creatinine Clearance Estimated 38 mL/min (50-200); Estimated Glomerular Filt Rate 119 ml/min (>60); GFR (African American) 144 ML/MIN (>60); Globulin 1.8 g/dL (1.3-3.2); Glucose 180 mg/dl (74-100); Sodium 133 mmol/L (136-145); Total Protein,Serum 4.5 g/dl (6.3-8.2)
[2024-07-24] MEDS: humaLOG 100 UNITS/ML 10ML VIAL (SSI) SUBCUT ×2 (06:47→16:45)
[2024-07-24 08:00] LABS: Potassium 2.6 mmoL/L (3.5-5.1)
[2024-07-24] MEDS: MAGNESIUM SULFATE IN WATER 2 GM/50 ML PIGGYBACK IV ×2 (08:49→09:40)
--- NOTE | 2024-07-24 09:24 | PC.NURSE ---
TECH NOTE; NURSE NOTIFIED OF HEART RATE FOR 0800 VITAL SIGNS Brian ELLER, SRNA
--- NOTE | 2024-07-24 09:33 | HMH.OTEV ---
OT Inpatient Evaluation Rehab OT IP Evaluation Start: 07/21/24 17:35 Freq: ONCE Status: Active Protocol: Document 07/24/24 09:29 LEONARDO (Rec: 07/24/24 09:32 [facility] [id number]) Rehab OT IP Assessment Subjective History Pt oriented to self. Pt's information she provided may not be trustworthy due to confusion. Pt admitted on 07/21 due to AMS, sepsis, and encephalopathy. History and physical: 79-year-old female who presented from [facility] out of concern for confusion and failed treatment for UTI. Was being treated as an outpatient and not getting better over the past week. Was brought to the ER for evaluation. On presentation found to have large left-sided hematoma. Workup with elevated white count of 19. Patient tachycardic. Cultures obtained of both blood and urine. Urine suggestive of possible UTI. Imaging of hematoma shows rim-enhancing component concerning for infection. ER had conversations with family about goals, would like to trial antibiotics and see if patient gets better. Also like to focus on palliative care and keeping her comfortable at same time. Imaging obtained with x-rays and CT of pelvis showing bilateral trochanteric fractures. Large hematoma underlying left sided ecchymoses. Patient more confused at this time than baseline. Medicine consulted for admission. Initiated on vancomycin and Zosyn. On arrival to the floor, patient complaining of significant pain in left flank and gluteal region where she has large hematoma. She is afebrile. She is delirious and unable to answer questions meaningfully. Disoriented to situation and place. Most of history review of systems obtained from family at bedside Subjective Pt reports prior to being in the hospital she lived with her sister. No steps in home. Pt claims she was independent with ADLs and used a walker during functional transfers. Objective Patient Orientation Person Right Upper Extremity Gross ROM Min Limitation <25% Left Upper Extremity Gross ROM Min Limitation <25% Shoulder ROM Limitations Muscle Weakness Elbow ROM Limitations Muscle Weakness Wrist Limitations of Range of Motion Muscle Weakness Bed Mobility bed mobility-scooting,bed mobility - supine/sit Assist Level Minimal x 2 (25% assist) Rehab OT IP prob,goals,plan Problems Date of Evaluation: 07/24/24 OT IP Problems Bed Mobility,Transfers,Balance ,Self care Rehab Potential Rehab Potential Fair Equipment Needs Assistive Devices Rolling / Wheeled Walker Plan OT intervention Plan Bed Mobility,Transfers,Balance ,Self care,Safety,Therapeutic Exercise OT Plan Frequency Daily Duration LOS Discharge Goals Bed Mobility Ability Assistance x1 Sit to Stand Chair Transfer Ability Moderate x 1 (50% assist) Chair Transfer Ability Moderate x 1 (50% assist) Chair Transfer Technique Stand Pivot Chair Transfer Assistive Devices Rolling Walker Feeding Ability Assist with Tray Set Up Lower Body Dressing Ability Moderate Assistance Upper Body Dressing Ability Moderate Assistance Bathing Ability Moderate Assistance Performing Toilet Hygiene Ability Moderate Assistance Overall Commode/Toilet Transfer Ability Moderate Assistance Commode/Toilet Transfer Technique Stand Pivot Discharge Plan OT Discharge Plan Pt will continue to be seen for OT services while at [facility]. Pt would benefit most from short term rehab at SNF following discharge from hospital in order to continue skilled therapy services. Eval Complexity Eval Charge Codes 64943 - Moderate Complexity PHYSICIAN CERTIFICATION: I certify the specified therapy services for Melissa Mendoza are required, authorized, and reviewed every 30 days.
--- NOTE | 2024-07-24 09:41 | PC.NURSE ---
patient refused PO morning meds this AM. patient took a sip of water, when trying to give patient applesauce she spit out the apple sauce and said she would not take anything you give me. i explained to the patient the importance of the medications and she was still refusing. bed alarm on, RR even and unlabored, resting with eyes closed. notified MD of med refusal
[2024-07-24] MEDS: DIGOXIN 0.125MG TABLET 125 MCG PO (10:03)
[2024-07-24] MEDS: dilTIAZem ER 120MG CAPSULE 240 MG PO (10:05)
--- NOTE | 2024-07-24 10:14 | PC.NURSE ---
PT TOOK MEDICATIONS AT THIS TIME WITH TUNA SANDWICH AND CHOCOLATE PUDDING. TOLERATED WELL.
--- NOTE | 2024-07-24 10:35 | HMH.PTEV ---
Physical Therapy Evaluation Rehab PT IP Evaluation Start: 07/21/24 17:35 Freq: ONCE Status: Active Protocol: Document 07/24/24 10:18 LALY (Rec: 07/24/24 10:35 LALY [id number]) Subjective/History History History 79-year-old female who presented from [facility] out of concern for confusion and failed treatment for UTI. Was being treated as an outpatient and not getting better over the past week. Was brought to the ER for evaluation. On presentation found to have large left-sided hematoma. Workup with elevated white count of 19. Patient tachycardic. Cultures obtained of both blood and urine. Urine suggestive of possible UTI. Imaging of hematoma shows rim-enhancing component concerning for infection. ER had conversations with family about goals, would like to trial antibiotics and see if patient gets better. Also like to focus on palliative care and keeping her comfortable at same time. Imaging obtained with x-rays and CT of pelvis showing bilateral trochanteric fractures. Large hematoma underlying left sided ecchymoses. Patient more confused at this time than baseline. Medicine consulted for admission. Initiated on vancomycin and Zosyn. Subjective Subjective Pt is a poor historian. Pt able to state name but not age, place, or situation. Pt reports she lives in a home with her [id number]. Pt pleasantly agreeable to sit EOB with PT and OT. New diagnosis of cancer in past 12 No [address]? [facility] How much help from another person do you currently need... Turning from your back to your side A little while in a flat bed without using bedrails? Moving from lying on back to sitting on A little the side of a flat bed without using bedrails? Moving to and from a bed to a chair ( A lot including a wheelchair)? Standing up from a chair using your arms A lot ? (e.g., wheelchair, bedside chair) Walking in hospital room? Total Climbing 3-5 steps with a railing? Total Mobility Score 12 Mobility Level [facility] Mobility Calculator Mobility 4 Move to chair/ commode Rehab PT IP Eval Objective Appearance Patient Behavior Appropriate,Confused Patient Orientation Person Difficulty following instructions moderate Speech Pattern Patient Baseline Ambulation Patient Able to Ambulate No Balance Ability to Arise Able, uses arms to help Sitting Balance Leans or slides in chair Dynamic Sitting Balance Ability Fair Transfers Bed Transfer Ability Minimal x 2 (25% assist) Rehab PT IP prob,goals,plan Problems Date of Evaluation: 07/24/24 PT IP Problems Bed Mobility,Transfers,Gait, Balance,Self care,Safety Rehab Potential Rehab Potential Good Plan PT Intervention Plan Bed Mobility,Transfers,Gait, Balance,Self care,Safety, Therapeutic Exercise Other Intervention Plan 1-2 times PT Plan Frequency Daily Duration LOS Discharge Goals Bed Transfer Ability Minimal x 1 (25% assist) Sit to Stand Chair Transfer Ability Moderate x 2 (50% assist) Discharge Plan PT Discharge Plan Initial PT evaluation performed. Mobility and evaluation limited by cognition and pain. Pt would benefit from skilled acute care PT while at [facility]. Pt most appropriate for rehab placement upon d/c from [facility]. Eval Complexity Eval Charge Codes 66771 - Moderate Complexity PHYSICIAN CERTIFICATION: I certify the specified therapy services for Melissa Mendoza are required, authorized, and reviewed every 30 days.
[2024-07-24 10:54] LABS: POC Glucose,Bedside 144 (70-110)
[2024-07-24] MEDS: KCl 10mEq/100ml 100 ML 100 MEQ IV (11:14)
[2024-07-24] MEDS: POLYETHYLENE GLYCOL 3350 17 GM PACKET PO (11:28)
[2024-07-24] MEDS: POTASSIUM CHLORIDE 20MEQ TAB 40 MEQ PO ×3 (11:28→20:16)
[2024-07-24] MEDS: VANCOMYCIN HCL 750 MG in 0.9 % SODIUM CHLORIDE 250 ML 125 MG IV (16:28)
[2024-07-24 16:41] LABS: POC Glucose,Bedside 310 (70-110)
[2024-07-24 17:17] LABS: Vancomycin,Trough 5.5 ug/mL (5.0-10.0)
--- NOTE | 2024-07-24 18:23 | PC.NURSE ---
patient has been pleasantly confused this shift with a few episodes of confusion and combativeness. mitts currently on patient for safety, 2 fingers are able to fit under mits. patient has tolerated PO potassium replacement with chocolate pudding. bed alarm in place, bed low and locked. plan of care ongoing.
[2024-07-24] MEDS: PANTOPRAZOLE 40MG TABLET 40 MG PO (20:16)
[2024-07-24] MEDS: DONEPEZIL 5MG TAB 5 MG PO (20:21)
--- NOTE | 2024-07-24 21:33 | P.PN_ITS ---
Subjective *Date: 07/24/24 *Time: 21:33 Interval history: Patient continues to be confused, agitated though family states this is improving. Opioids also likely contributing, though will need pain control for hematoma. Started nightly Zyprexa. Continue vancomycin for MRSA UTI. Exam Data for Last 24 hours Vital signs and Labs for Last 24 Hours: Temp Pulse Resp BP Pulse Ox O2 Del Method O2 Flow Rate 99.2 F 74 16 119/58 L 98 Room Air 4 07/24/24 20:00 07/24/24 20:00 07/24/24 20:00 07/24/24 20:00 07/24/24 20:00 07/24/24 20:00 07/24/24 12:00 Laboratory Results - last 24 hr 07/23/24 05:20: POC Glucose 101 07/23/24 21:41: POC Glucose 178 H 07/24/24 05:16: WBC 9.3, RBC 3.15 L, Hgb 10.3 L, Hct 30.9 L, MCV 98.1, MCH 32.7 H, MCHC 33.3, RDW 18.1 H, Plt Count 129 L, MPV 11.7 H, Neut % (Auto) 81.7 H, Lymph % (Auto) 8.2 L, [place] % (Auto) 5.2, Eos % (Auto) 1.0, Baso % (Auto) 0.4, Neut # (Auto) 7.6, Lymph # (Auto) 0.8, [place] # (Auto) 0.5, Eos # (Auto) 0.1, Baso # (Auto) 0.0, Sodium 133 L, Potassium 2.6 L*, Chloride 103, Carbon Dioxide 29, Anion Gap 3.6 L, BUN 16, Creatinine 0.50 L, Estimated Creat Clear 38, Estimated GFR 119, Est GFR ( Amer) 144, Glucose 180 H D, Calcium 7.1 L, Magnesium 1.6, Total Bilirubin 4.3 H, AST 48 H, ALT 41, Alkaline Phosphatase 87, Total Protein 4.5 L, Albumin 2.7 L, Globulin 1.8, Albumin/Globulin Ratio 1.5 07/24/24 06:12: POC Glucose 184 H 07/24/24 10:46: POC Glucose 144 H 07/24/24 16:21: Vancomycin Trough 5.5 07/24/24 16:25: POC Glucose 310 H* I & O for Last 24 hours: Intake & Output 07/21/24 07/22/24 07/23/24 07/24/24 23:59 23:59 23:59 23:59 Intake Total 940 / 940 540 / 880 620 / 620 Output Total 250 / 370 1090 / 1090 0 / 0 0 / 0 Balance -250 / -370 -150 / -150 540 / 880 620 / 620 Weight 52.299 kg 48.988 kg 51.573 kg 52.57 kg Microbiology Reports for the Last 24 Hours: Microbiology 07/21/24 13:45 Urine,Clean Catch Urine Culture - Final Staphylococcus aureus Constitutional Constitutional: no acute distress *Routine HEENT Exam Head: Present normocephalic Eye: Present EOMI and PERRL ENT: Present mucous membranes moist *Routine Neck Exam Neck: Present supple; Absent lymphadenopathy *Routine Respiratory Exam Respiratory: Present CTA bilaterally *Routine Cardiovascular Exam Cardiovascular: Present RRR *Routine Abdominal Exam Abdominal: Present soft and normoactive bowel sounds; Absent tenderness *Routine Extremities Exam Extremities: Absent cyanosis, clubbing or edema Comments: Diffuse left leg hematoma. Without significant tenderness. *Routine Skin Exam Skin: Present warm; Absent rash *Routine Neurological Exam Neurological: Present alert Assessment and Plan *Assessment and plan (1) Sepsis: Status: Acute Category: Medical Code(s): A41.9 - Sepsis, unspecified organism (2) Acute blood loss anemia: Status: Acute Category: Medical Code(s): D62 - Acute posthemorrhagic anemia (3) Encephalopathy: Status: Acute Category: Medical Code(s): G93.40 - Encephalopathy, unspecified (4) Diabetes type 2, controlled: Status: Chronic Qualifiers: Diabetes mellitus nursing home insulin use: with keno terminal operator use Diabetes mellitus complication status: with unspecified complications Qualified Code(s): E11.8 - Type 2 diabetes mellitus with unspecified complications; Z79.4 - termite control servicer (current) use of insulin Category: Medical Code(s): E11.9 - Type 2 diabetes mellitus without complications (5) HTN (hypertension): Status: Chronic Qualifiers: Hypertension type: essential hypertension Qualified Code(s): I10 - Essential (primary) hypertension Category: Medical Code(s): I10 - Essential (primary) hypertension (6) Atrial fibrillation: Status: Chronic Qualifiers: Atrial fibrillation type: paroxysmal Qualified Code(s): I48.0 - Paroxysmal atrial fibrillation Category: Medical Code(s): I48.91 - Unspecified atrial fibrillation (7) Dementia with behavioral disturbance: Status: Acute Category: Medical Code(s): F03.918 - Unspecified dementia, unspecified severity, with other behavioral disturbance (8) Frail elderly: Status: Acute Category: Medical Code(s): R54 - Age-related physical debility (9) Hematoma of left flank: Status: Acute Category: Medical Code(s): S30.1XXA - Contusion of abdominal wall, initial encounter Plan 79-year-old female who presented with altered mental status from [facility]. On workup, found to have elevated white count, tachycardia, confusion, suspected infection of urine or her left flank hematoma. Meeting sepsis criteria. Discussed case with ER physician, request admission for further treatment of her sepsis and goals of care discussion. I agreed to admit for further care. Discussed case with patient's family on arrival. Would like to try treating infection to see if patient improves over the next couple days. Also wants to focus on keeping her comfortable as she appears in a lot of pain. If she has improvement, will have further goals of care discussion. If does not improve in the coming days, would like to transition to hospice care. Showing some mild improvement. Will monitor for another 48 hours. Likely discharge back to nursing facility for skilled care. Problems addressed as follows: Sepsis #MRSA UTI Left flank hematoma Blood loss anemia -Tachycardic, leukocytosis, rim-enhancing hematoma concerning for infected hematoma as well as suspected UTI. White count elevated at 19.6 on admission -White count normalized today to 9.3. Hemoglobin 9.3. - Transfusion threshold hemoglobin less than 7 -Continue vancomycin. Monitor for toxicity. Repeat CBC, CMP, magnesium ordered for the morning to monitor kidney function - Continue holding anticoagulation in setting of hematoma. - Urine culture growing MRSA, blood culture NGTD. #Delirium Cognitive impairment: Sleep disturbance: - Mini-Mental performed October of last year with score of 19 out of 30. - Nephew has establish POA since last admission - More confused this admission. Initiate olanzapine 5 mg IM nightly - Morphine 4 mg every 4 hours IV for moderate to severe pain - Encourage redirection, encouraged a night routine. A-fib Hypertension Hyperlipidemia -Continuing diltiazem 240 mg daily. Holding Eliquis and Lipitor -Continue digoxin 125 mcg daily. -Holding HCTZ due to concern for patient being slightly dehydrated/setting of sepsis Suspected hyperthyroidism: -Review of chart does not show antibodies for Graves', unsure what her diagnosis came from - TSH normal at 3, methimazole recently decreased last month to 2.5mg TID. Will hold methimazole during admission. Diabetes: - A1c at goal of 6.8 two mos ago. - Glucose 116 on morning labs. Continue sliding scale insulin and fingersticks ACHS. Holding all other diabetes med Chronic diarrhea Status post bowel surgery for colon cancer -Fiber supplement daily DNR/DNI Holding anticoagulation due to hematoma and blood loss anemia Regular diet
[2024-07-24] MEDS: OLANZapine 10 MG VIAL 5 MG IM (22:58)
[2024-07-25] MEDS: MORPHINE 4MG/ML SYRINGE 4 MG IV (02:20)
[2024-07-25 03:45] LABS: POC Glucose,Bedside 111 (70-110)
[2024-07-25 04:00] VITALS: BP 137/69; PULSE 94; RESP 16; TEMP 36.7; O2SAT 97; BMI 19.8
[2024-07-25 05:37] LABS: POC Glucose,Bedside 153 (70-110)
[2024-07-25 05:54] LABS: Basophils % 0.2 % (0.1-2.0); Eosinophils # 0.1 Kmm3 (0.0-0.4); Eosinophils % 1.2 % (0.1-12.0); Hematocrit 30.8 % (37.0-47.0); Hemoglobin 10.1 g/dL (12.2-16.2); Immature Granulocytes % 2.4 %; Lymphocytes # 0.8 K/mm3 (0.7-4.5); Lymphocytes % 9.7 % (10-50); Mean Corpuscular HGB Conc 32.8 g/dL (31.8-35.4); Mean Corpuscular Hemoglobin 32.4 pg (27.0-31.2); Mean Corpuscular Volume 98.7 fl (81-99); Mean Platelet Volume 10.9 fl (7.4-10.4); Monocytes # 0.6 K/mm3 (0.1-1.0); Neutrophils # 6.8 K/mm3 (1.8-7.8); Neutrophils % 79.5 % (37.0-80.0); Nucleated Red Blood Cells # 0.03 10^3/uL; Nucleated Red Blood Cells % 0.4 %; Platelet Count 136 K/mm3 (142-424); Red Blood Count 3.12 M/mm3 (4.20-5.40); Red Cell Distribution Width 18.4 % (11.5-17.5); Red Cell Distribution Width-SD 63.3 fL; White Blood Count 8.5 K/mm3 (4.8-10.8)
[2024-07-25 06:00] LABS: Albumin Level 3.2 g/dl (3.5-5.0); Chloride 110 mmol/L (98-107); Potassium 4.7 mmoL/L (3.5-5.1); Sodium 137 mmol/L (136-145)
[2024-07-25 06:03] LABS: Alanine Aminotransferase 41 U/L (12-78); Albumin/Globulin Ratio 1.7 (1.1-1.8); Alkaline Phosphatase 97 U/L (38-126); Anion Gap 3.7 mEq/L (5-15); Aspartate Amino Transferase 49 U/L (14-36); Bilirubin,Total 5.6 mg/dl (0.2-1.3); Blood Urea Nitrogen 15 mg/dl (7-17); Carbon Dioxide 28 mmol/L (22.0-30.0); Creatinine Clearance Estimated 38 mL/min (50-200); Estimated Glomerular Filt Rate 119 ml/min (>60); GFR (African American) 144 ML/MIN (>60); Globulin 1.9 g/dL (1.3-3.2); Glucose 147 mg/dl (74-100); Total Protein,Serum 5.1 g/dl (6.3-8.2)
[2024-07-25 06:04] LABS: Calcium 7.8 mg/dl (8.4-10.2); Magnesium 2.1 mg/dl (1.6-2.3)
--- NOTE | 2024-07-25 08:40 | EXP.PHA.CONS ---
Pharmacy Consult Date: 07/25/24 Time: 08:42 Referring provider: DR JOSEPH Reason for Consult:: VANCOMYCIN TROUGH LEVEL OBTAINED Allergies Allergy/AdvReac Type Severity Reaction Status Date / Time codeine (CODEINE) Allergy Unknown hallucinati Verified 07/04/24 11:50 ons Penicillins (PENICILLINS) Allergy Unknown Verified 07/04/24 11:50 lisinopril AdvReac Severe Cough Verified 07/04/24 11:50 Home Medications ?Medication ?Instructions ?Recorded ?Confirmed ?Type digoxin 125 mcg (0.125 mg) tablet 125 mcg PO DAILY #30 tabs 04/12/24 07/21/24 Rx magnesium oxide 400 mg (241.3 mg 400 mg PO DAILY #30 tabs 04/13/24 07/21/24 Rx magnesium) tablet apixaban 5 mg tablet (Eliquis) 5 mg PO BID 05/26/24 07/21/24 History atorvastatin 10 mg tablet 10 mg PO HS 05/26/24 07/21/24 History cyanocobalamin (vitamin B-12) 1,000 mcg PO DAILY 05/26/24 07/21/24 History 1,000 mcg tablet dapagliflozin propanediol 10 mg 10 mg PO DAILY 05/26/24 07/21/24 History tablet (Farxiga) diltiazem HCl 240 mg 240 mg PO BID 05/26/24 07/22/24 History capsule,extended release 24 hr, controlled (DILT-XR) ferrous sulfate 325 mg (65 mg 325 mg PO DAILY 05/26/24 07/21/24 History iron) tablet (FeroSul) pantoprazole 40 mg tablet,delayed 40 mg PO DAILY #30 tabs 05/29/24 07/21/24 Rx release (Protonix) metformin 1,000 mg tablet 1,000 mg PO BID #180 tabs 07/09/24 07/21/24 Rx denosumab 60 mg/mL subcutaneous 60 mg SQ [id number] #1 mL 07/18/24 07/21/24 Rx syringe (Prolia) cephalexin 500 mg capsule 500 mg PO TID 07/21/24 07/21/24 History insulin lispro 100 unit/mL See Rx Instructions .Route .COMPLEX 07/21/24 07/21/24 History subcutaneous pen (Humalog KwikPen (U-100) Insulin) olanzapine 5 mg disintegrating 5 mg PO BID 07/21/24 07/22/24 History tablet donepezil 5 mg tablet 5 mg PO HS 07/22/24 07/22/24 History New Prescriptions to Start Prescriptions: Height: 1.63 m Weight: 52.702 kg Laboratory Results:: Laboratory Results - last 24 hr 07/24/24 10:46: POC Glucose 144 H 07/24/24 16:21: Vancomycin Trough 5.5 07/24/24 16:25: POC Glucose 310 H* 07/24/24 20:12: POC Glucose 111 H 07/24/24 21:11: Vancomycin Peak 12.0 07/25/24 05:06: POC Glucose 153 H 07/25/24 05:07: WBC 8.5, RBC 3.12 L, Hgb 10.1 L, Hct 30.8 L, MCV 98.7, MCH 32.4 H, MCHC 32.8, RDW 18.4 H, Plt Count 136 L, MPV 10.9 H, Neut % (Auto) 79.5, Lymph % (Auto) 9.7 L, [place] % (Auto) 7.0, Eos % (Auto) 1.2, Baso % (Auto) 0.2, Neut # (Auto) 6.8, Lymph # (Auto) 0.8, [place] # (Auto) 0.6, Eos # (Auto) 0.1, Baso # (Auto) 0.0, Sodium 137, Potassium 4.7 D, Chloride 110 H, Carbon Dioxide 28, Anion Gap 3.7 L, BUN 15, Creatinine 0.50 L, Estimated Creat Clear 38, Estimated GFR 119, Est GFR ( Amer) 144, Glucose 147 H, Calcium 7.8 L, Magnesium 2.1 D, Total Bilirubin 5.6 H, AST 49 H, ALT 41, Alkaline Phosphatase 97, Total Protein 5.1 L, Albumin 3.2 L D, Globulin 1.9, Albumin/Globulin Ratio 1.7 Medical History: Medical History (Updated 07/21/24 @ 21:54 by Liam Horne MD) Diabetes mellitus Diabetes type 2, controlled Dementia with behavioral disturbance Hyperthyroidism Agitation due to dementia Therapeutic misadventure Hypomagnesemia Hypokalemia Hypoglycemia associated with type 2 diabetes mellitus Leukopenia Rash Skin tag Hypokalemia Hypomagnesemia Atrial fibrillation with rapid ventricular response Iron deficiency anemia due to chronic blood loss Microcytic anemia Anemia Right knee pain Right leg pain Hypokalemia Abdominal wall abscess at site of surgical wound Coronary artery calcification seen on CAT scan Vitamin D deficiency Distal radius fracture Viral hepatitis C Multinodular goiter Claudication Bilateral leg weakness Macular degeneration Abnormal EKG Dyspnea Recurrent falls Atrial fibrillation HLD (hyperlipidemia) Carotid artery stenosis Osteoporosis Assessment and Plan Assessment and plan all Dx Assessment and Plan for all problems:: Pharmacokinetic dosing service Weight: 52.702 Kilograms Vancomycin single level analysis: Current dose being given: 750 mg Current dosing interval: 24 hrs Current infusion time (hrs): 2 Single level Trough Data: Trough level obtained: 5.5 mcg/ml Timing of trough - # of hrs before next dose: 0.5 Hrs Desired peak: 35 mcg/ml Desired trough: 12.5 mcg/ml Diagnosis: SEPSIS Estimated PK Parameters: New rate constant (iliana): 0.066 hr-1 Half-life: 10.50 Hours Vd from levels: 36.89 Liters (0.7 L/kg) CLvanco=?? 2.435 L/hr Estimated New Dose and Interval Recommended dose: 946.9 mg Recommended interval: 17.6 Hrs Recommendations: Give Vancomycin 1000 mg q 18 hrs. Infuse over 2 hrs Expected Cpeak: 36.5 mcg/mL Expected Ctrough: 12.7 mcg/mL AUC 0-24 /MISTY Data: MISTY 0.5 mcg/mL:?? AUC/MISTY:? 1095.1 MISTY 1.0 mcg/mL:?? AUC/MISTY:? 547.6 Thank you for the consult
[2024-07-25] MEDS: DIGOXIN 0.125MG TABLET 125 MCG PO (09:38)
[2024-07-25] MEDS: POLYETHYLENE GLYCOL 3350 17 GM PACKET PO (09:38)
[2024-07-25] MEDS: dilTIAZem ER 120MG CAPSULE 240 MG PO (09:38)
--- NOTE | 2024-07-25 10:01 | DIET.NUTRFU ---
Meal intake is inconsistent, nursing reported consumed a whole tuna salad sandwich yesterday and some pudding and todays breakfast shows improvement at 75%. Ensure was started with meals to help meet needs. Patient is from [place], diet is regular with [employer]. She was started on Miralax secondary to no BM, will continue to monitor.
--- NOTE | 2024-07-25 10:24 | EXP.PHA.PN ---
Subjective *Date: 07/25/24 *Time: 10:24 Medical Exam Vital signs and Labs for Last 24 Hours: Vital Signs Temp Pulse Resp BP Pulse Ox O2 Del Method O2 Flow Rate 07/25/24 08:46 Room Air 07/25/24 08:00 Room Air 07/25/24 07:00 Room Air 07/25/24 05:00 Room Air 07/25/24 04:00 98.0 F 94 H 16 137/69 97 Room Air 07/25/24 03:00 Room Air 07/25/24 01:00 Room Air 07/24/24 23:00 Room Air 07/24/24 21:00 Room Air 07/24/24 20:00 Room Air 07/24/24 20:00 99.2 F 74 16 119/58 L 98 Room Air 07/24/24 19:00 Nasal Cannula 07/24/24 17:00 Nasal Cannula 07/24/24 16:00 75 16 120/60 98 07/24/24 15:00 Nasal Cannula 07/24/24 13:00 Nasal Cannula 07/24/24 12:00 97.8 F 81 16 118/57 L 98 Nasal Cannula 4 07/24/24 11:00 Nasal Cannula Intake and Output 07/24/24 07/25/24 07/25/24 23:59 07:59 15:59 Intake Total 160 / 740 376 / 496 120 / 496 Output Total 0 / 0 0 / 0 0 / 0 Balance 160 / 740 376 / 496 120 / 496 Intake: Intake, Oral Amount 160 / 640 376 / 496 120 / 496 Output: Output, Urine Amount 0 / 0 0 / 0 0 / 0 Other: Number of Unmeasured Voids 1 1 0 Weight 52.702 kg 52.702 kg Patient Weight 07/25/24 23:59 Weight 52.702 kg Laboratory Results - last 24 hr 07/24/24 10:46: POC Glucose 144 H 07/24/24 16:21: Vancomycin Trough 5.5 07/24/24 16:25: POC Glucose 310 H* 07/24/24 20:12: POC Glucose 111 H 07/24/24 21:11: Vancomycin Peak 12.0 07/25/24 05:06: POC Glucose 153 H 07/25/24 05:07: WBC 8.5, RBC 3.12 L, Hgb 10.1 L, Hct 30.8 L, MCV 98.7, MCH 32.4 H, MCHC 32.8, RDW 18.4 H, Plt Count 136 L, MPV 10.9 H, Neut % (Auto) 79.5, Lymph % (Auto) 9.7 L, [place] % (Auto) 7.0, Eos % (Auto) 1.2, Baso % (Auto) 0.2, Neut # (Auto) 6.8, Lymph # (Auto) 0.8, [place] # (Auto) 0.6, Eos # (Auto) 0.1, Baso # (Auto) 0.0, Sodium 137, Potassium 4.7 D, Chloride 110 H, Carbon Dioxide 28, Anion Gap 3.7 L, BUN 15, Creatinine 0.50 L, Estimated Creat Clear 38, Estimated GFR 119, Est GFR ( Amer) 144, Glucose 147 H, Calcium 7.8 L, Magnesium 2.1 D, Total Bilirubin 5.6 H, AST 49 H, ALT 41, Alkaline Phosphatase 97, Total Protein 5.1 L, Albumin 3.2 L D, Globulin 1.9, Albumin/Globulin Ratio 1.7 I & O for Labs for Last 24 Hours: Intake & Output 07/22/24 07/23/24 07/24/24 07/25/24 23:59 23:59 23:59 23:59 Intake Total 940 / 940 540 / 880 620 / 740 496 / 496 Output Total 1090 / 1090 0 / 0 0 / 0 0 / 0 Balance -150 / -150 540 / 880 620 / 740 496 / 496 Weight 48.988 kg 51.573 kg 52.57 kg 52.702 kg Microbiology Reports for the Last 24 Hours: Microbiology 07/21/24 13:45 Urine,Clean Catch Urine Culture - Final Staphylococcus aureus The patient's infection will respond to the chosen ABx?: Yes (URINE CX = MRSA, BLOOD CX = NO GROWTH, AFEBRILE OVER 24 HR) Is the patient receiving the right drug, dose, and route?: Yes Could a more targeted ABx be ordered?: No
[2024-07-25] MEDS: OLANZapine 10 MG VIAL 5 MG IM (12:14)
[2024-07-25] MEDS: VANCOMYCIN HCL 1,000 MG in 0.9 % SODIUM CHLORIDE 250 ML 125 MG IV (12:15)
--- NOTE | 2024-07-25 12:50 | PC.NURSE ---
Melissa Carlsonm 1945urrent Medications Digoxin (Digoxin 0.125mg Tablet) 125 mcg PO DAILY [facility] Stop: 08/21/24 08:59 Last Admin: 07/25/24 09:38 Dose: 125 mcg Diltiazem HCl (Diltiazem Er 120mg Capsule) 240 mg PO DAILY [facility] Stop: 08/21/24 08:59 Last Admin: 07/25/24 09:38 Dose: 240 mg Donepezil HCl (Donepezil 5mg Tab) 5 mg PO HS [facility] Stop: 08/22/24 20:59 Last Admin: 07/24/24 20:21 Dose: 5 mg Vancomycin HCl 1,000 mg/ (Sodium Chloride) 250 mls @ 125 mls/hr IV Q18H [facility] Stop: 08/04/24 10:59 Last Admin: 07/25/24 12:15 Dose: 125 mls/hr Insulin Human Lispro (Humalog 100 Units/Ml 10ml Vial (Ssi)) 0 unit SUBCUT ACHS [facility]; Protocol Stop: 08/20/24 20:59 Last Admin: 07/25/24 12:15 Dose: Not Given Morphine Sulfate (Morphine 4mg/Ml Syringe) 4 mg IV Q4HP PRN PRN Reason: Moderate to Severe Pain (4-10) Stop: 08/20/24 18:29 Last Admin: 07/25/24 02:20 Dose: 4 mg Olanzapine (Olanzapine 10 Mg Vial) 5 mg IM HS [facility] Stop: 08/23/24 21:34 Last Admin: 07/24/24 22:58 Dose: 5 mg Pantoprazole Sodium (Pantoprazole 40mg Tablet) 40 mg PO HS [facility] Stop: 08/21/24 20:59 Last Admin: 07/24/24 20:16 Dose: 40 mg Polyethylene Glycol (Polyethylene Glycol 3350 17 Gm Packet) 17 gm PO DAILY [facility] Stop: 08/23/24 11:14 Last Admin: 07/25/24 09:38 Dose: 17 gm Sodium Chloride (Sodium Chloride 0.9% 10ml Flush Syringe) 10 ml IV NEEDED PRN PRN Reason: Maintain IV Site Stop: 08/20/24 22:54
--- NOTE | 2024-07-25 12:57 | P.DS_ITS ---
General Admission date:: 07/21/24 HPI HPI HPI: 79-year-old female who presented from [facility] out of concern for confusion and failed treatment for UTI. Was being treated as an outpatient and not getting better over the past week. Was brought to the ER for evaluation. On presentation found to have large left-sided hematoma. Workup with elevated white count of 19. Patient tachycardic. Cultures obtained of both blood and urine. Urine suggestive of possible UTI. Imaging of hematoma shows rim- enhancing component concerning for infection. ER had conversations with family about goals, would like to trial antibiotics and see if patient gets better. Also like to focus on palliative care and keeping her comfortable at same time. Imaging obtained with x-rays and CT of pelvis showing bilateral trochanteric fractures. Large hematoma underlying left sided ecchymoses. Patient more confused at this time than baseline. Medicine consulted for admission. Initiated on vancomycin and Zosyn. On arrival to the floor, patient complaining of significant pain in left flank and gluteal region where she has large hematoma. She is afebrile. She is delirious and unable to answer questions meaningfully. Disoriented to situation and place. Most of history review of systems obtained from family at bedside Hospital Course Hospital Course Hospital Course: Melissa Mendoza is a 79-year-old female who presented with syncopal event concerning for hypoglycemia in the setting of poor oral intake, worsening dementia and continuing her diabetic regimen including insulin at home. No further hypoglycemic events during admission. #Sepsis #MRSA UTI #Left flank, lower extremity hematoma #Blood loss anemia - Tachycardic, leukocytosis, rim-enhancing hematoma concerning for infected hematoma as well as MRSA UTI. Initial WBC 19.6. ? Hematoma likely due to a fall at nursing facility. ? Sepsis gradually improved with vancomycin, cefepime for 5 days. ? Left flank, lower extremity hematoma pain also improved with morphine. Has not needed it on this discharge. Initial hemoglobin 7.6, improved to 10.1. ? Patient continues to be confused and sometimes agitated that is most likely a representation of her dementia and hospital-acquired delirium. See below. #Delirium #Cognitive impairment: #Sleep disturbance: - Mini-Mental performed October of last year with score of 19 out of 30. - Nephew has establish POA since last admission - More confused this admission. Initiate olanzapine 5 mg IM twice daily with improvement of symptoms. - Encourage redirection, encouraged a night routine. ? Discharged with IM olanzapine 5 mg twice daily. Unfortunately, patient cannot reliably tolerate p.o. medications due to agitation at this time. #A-fib #Hypertension #Hyperlipidemia - Continuing diltiazem 240 mg daily, digoxin 125 mcg, Lipitor 10 mg daily. Discontinue hydrochlorothiazide, metoprolol. ? Discontinue Eliquis due to hematoma as above. #Moderate dementia #Cognitive impairment #Sleep disturbance #UTI - Mini-Mental performed October of last year with score of 19 out of 30 indicating moderate dementia. Patient has been intermittently confused and agitated (resulting in mild self-induced abrasions over arms and legs) during hospitalization, likely induced by UTI, sundowning, and hospital-acquired delirium. Improving. - Family concerned about her ability to continue to live independently given her need for assistance with ADLs and her worsening dementia. Patient previously discharged with hospice care to [facility], however patient did not have a good experience there per family. Family is not interested in hospice at this time, but will reconsider once patient returns to [facility]. [facility] graciously accepted patient for the services. #Suspected hyperthyroidism: - Review of chart does not show antibodies for Graves', unsure what her diagnosis came from ? Discontinue methimazole. #Diabetes - No further hypoglycemia - Hemoglobin A1c increased to 9.0%. ? Started Lantus 10 units nightly, may need to be further adjusted. #Chronic diarrhea - Status post bowel surgery for colon cancer - Psyllium husk as needed. Discontinue metformin as above. Total time spent on discharge: 31 minutes on chart review, counseling, documentation, and direct care with patient. Exam Data for Last 24 hours Vital signs and Labs for Last 24 Hours: Temp Pulse Resp BP Pulse Ox O2 Del Method O2 Flow Rate 98.0 F 94 H 16 137/69 97 Room Air 4 07/25/24 04:00 07/25/24 04:00 07/25/24 04:00 07/25/24 04:00 07/25/24 04:00 07/25/24 11:00 07/24/24 12:00 Laboratory Results - last 24 hr 07/24/24 16:21: Vancomycin Trough 5.5 07/24/24 16:25: POC Glucose 310 H* 07/24/24 20:12: POC Glucose 111 H 07/24/24 21:11: Vancomycin Peak 12.0 07/25/24 05:06: POC Glucose 153 H 07/25/24 05:07: WBC 8.5, RBC 3.12 L, Hgb 10.1 L, Hct 30.8 L, MCV 98.7, MCH 32.4 H, MCHC 32.8, RDW 18.4 H, Plt Count 136 L, MPV 10.9 H, Neut % (Auto) 79.5, Lymph % (Auto) 9.7 L, [place] % (Auto) 7.0, Eos % (Auto) 1.2, Baso % (Auto) 0.2, Neut # (Auto) 6.8, Lymph # (Auto) 0.8, [place] # (Auto) 0.6, Eos # (Auto) 0.1, Baso # (Auto) 0.0, Sodium 137, Potassium 4.7 D, Chloride 110 H, Carbon Dioxide 28, Anion Gap 3.7 L, BUN 15, Creatinine 0.50 L, Estimated Creat Clear 38, Estimated GFR 119, Est GFR ( Amer) 144, Glucose 147 H, Calcium 7.8 L, Magnesium 2.1 D, Total Bilirubin 5.6 H, AST 49 H, ALT 41, Alkaline Phosphatase 97, Total Protein 5.1 L, Albumin 3.2 L D, Globulin 1.9, Albumin/Globulin Ratio 1.7 I & O for Last 24 hours: Intake & Output 07/22/24 07/23/24 07/24/24 07/25/24 23:59 23:59 23:59 23:59 Intake Total 940 / 940 540 / 880 620 / 740 496 / 496 Output Total 1090 / 1090 0 / 0 0 / 0 0 / 0 Balance -150 / -150 540 / 880 620 / 740 496 / 496 Weight 48.988 kg 51.573 kg 52.57 kg 52.702 kg Microbiology Reports for the Last 24 Hours: Microbiology 07/21/24 13:45 Urine,Clean Catch Urine Culture - Final Staphylococcus aureus Constitutional Constitutional: no acute distress *Routine HEENT Exam Head: Present normocephalic Eye: Present EOMI and PERRL ENT: Present mucous membranes moist *Routine Neck Exam Neck: Present supple; Absent lymphadenopathy *Routine Respiratory Exam Respiratory: Present CTA bilaterally *Routine Cardiovascular Exam Cardiovascular: Present RRR *Routine Abdominal Exam Abdominal: Present soft and normoactive bowel sounds; Absent tenderness *Routine Extremities Exam Extremities: Absent cyanosis, clubbing or edema Comments: Diffuse left leg hematoma. Without significant tenderness. *Routine Skin Exam Skin: Present warm; Absent rash *Routine Neurological Exam Neurological: Present alert Results Data Completed and Pending Labs on day of discharge: Labs from last 24 hours 07/25/24 07/25/24 07/24/24 05:07 05:06 21:11 WBC 8.5 RBC 3.12 L Hgb 10.1 L Hct 30.8 L MCV 98.7 MCH 32.4 H MCHC 32.8 RDW 18.4 H Plt Count 136 L MPV 10.9 H Neut % (Auto) 79.5 Lymph % (Auto) 9.7 L [place] % (Auto) 7.0 Eos % (Auto) 1.2 Baso % (Auto) 0.2 Neut # (Auto) 6.8 Lymph # (Auto) 0.8 [place] # (Auto) 0.6 Eos # (Auto) 0.1 Baso # (Auto) 0.0 Sodium 137 Potassium 4.7 D Chloride 110 H Carbon Dioxide 28 Anion Gap 3.7 L BUN 15 Creatinine 0.50 L Estimated Creat Clear 38 Estimated GFR 119 Est GFR ( Amer) 144 Glucose 147 H POC Glucose 153 H Calcium 7.8 L Magnesium 2.1 D Total Bilirubin 5.6 H AST 49 H ALT 41 Alkaline Phosphatase 97 Total Protein 5.1 L Albumin 3.2 L D Globulin 1.9 Albumin/Globulin Ratio 1.7 Vancomycin Peak 12.0 Vancomycin Trough 07/24/24 07/24/24 07/24/24 20:12 16:25 16:21 WBC RBC Hgb Hct MCV MCH MCHC RDW Plt Count MPV Neut % (Auto) Lymph % (Auto) [place] % (Auto) Eos % (Auto) Baso % (Auto) Neut # (Auto) Lymph # (Auto) [place] # (Auto) Eos # (Auto) Baso # (Auto) Sodium Potassium Chloride Carbon Dioxide Anion Gap BUN Creatinine Estimated Creat Clear Estimated GFR Est GFR ( Amer) Glucose POC Glucose 111 H 310 H* Calcium Magnesium Total Bilirubin AST ALT Alkaline Phosphatase Total Protein Albumin Globulin Albumin/Globulin Ratio Vancomycin Peak Vancomycin Trough 5.5 Preliminary micro results at discharge 07/21/24 13:50 Blood Culture - Preliminary Blood NO GROWTH AFTER 48 HOURS 07/21/24 13:57 Blood Culture - Preliminary Blood NO GROWTH AFTER 48 HOURS DS: Diagnosis Discharge Diagnosis (1) Sepsis: Status: Acute Code(s): A41.9 - Sepsis, unspecified organism (2) Acute blood loss anemia: Status: Acute Code(s): D62 - Acute posthemorrhagic anemia (3) Encephalopathy: Status: Acute Code(s): G93.40 - Encephalopathy, unspecified (4) Diabetes type 2, controlled: Status: Chronic Code(s): E11.9 - Type 2 diabetes mellitus without complications Qualifiers: Diabetes mellitus terminal computer operator insulin use: with terminal computer operator use Diabetes mellitus complication status: with unspecified complications Qualified Code(s): E11.8 - Type 2 diabetes mellitus with unspecified complications; Z79.4 - terminal computer operator (current) use of insulin (5) HTN (hypertension): Status: Chronic Code(s): I10 - Essential (primary) hypertension Qualifiers: Hypertension type: essential hypertension Qualified Code(s): I10 - Essential (primary) hypertension (6) Atrial fibrillation: Status: Chronic Code(s): I48.91 - Unspecified atrial fibrillation Qualifiers: Atrial fibrillation type: paroxysmal Qualified Code(s): I48.0 - Paroxysmal atrial fibrillation (7) Dementia with behavioral disturbance: Status: Acute Code(s): F03.918 - Unspecified dementia, unspecified severity, with other behavioral disturbance (8) Frail elderly: Status: Acute Code(s): R54 - Age-related physical debility (9) Hematoma of left flank: Status: Acute Code(s): S30.1XXA - Contusion of abdominal wall, initial encounter Meds Home Medications and Allergies Home Medications ?Medication ?Instructions ?Recorded ?Confirmed ?Type digoxin 125 mcg (0.125 mg) tablet 125 mcg PO DAILY #30 tabs 04/12/24 07/21/24 Rx magnesium oxide 400 mg (241.3 mg 400 mg PO DAILY #30 tabs 04/13/24 07/21/24 Rx magnesium) tablet atorvastatin 10 mg tablet 10 mg PO HS 05/26/24 07/21/24 History cyanocobalamin (vitamin B-12) 1,000 mcg PO DAILY 05/26/24 07/21/24 History 1,000 mcg tablet diltiazem HCl 240 mg 240 mg PO BID 05/26/24 07/22/24 History capsule,extended release 24 hr, controlled (DILT-XR) ferrous sulfate 325 mg (65 mg 325 mg PO DAILY 05/26/24 07/21/24 History iron) tablet (FeroSul) pantoprazole 40 mg tablet,delayed 40 mg PO DAILY #30 tabs 05/29/24 07/21/24 Rx release (Protonix) denosumab 60 mg/mL subcutaneous 60 mg SQ [id number] #1 mL 07/18/24 07/21/24 Rx syringe (Prolia) insulin lispro 100 unit/mL See Rx Instructions .Route .COMPLEX 07/21/24 07/21/24 History subcutaneous pen (Humalog KwikPen (U-100) Insulin) donepezil 5 mg tablet 5 mg PO HS 07/22/24 07/22/24 History insulin glargine 100 unit/mL (3 10 unit (0.1 mL) SQ HS #15 mL 07/25/24 Rx mL) subcutaneous pen (Lantus Solostar U-100 Insulin) olanzapine 10 mg intramuscular 5 mg IM BID 30 days #2 ea 07/25/24 Rx solution New Prescriptions to Start Prescriptions: insulin glargine [Lantus Solostar U-100 Insulin] Kiko Costello olanzapine Kiko Costello Allergies Allergy/AdvReac Type Severity Reaction Status Date / Time codeine (CODEINE) Allergy Unknown hallucinati Verified 07/04/24 11:50 ons Penicillins (PENICILLINS) Allergy Unknown Verified 07/04/24 11:50 lisinopril AdvReac Severe Cough Verified 07/04/24 11:50 Discharge Plan Disposition Patient Disposition: Xfer SNF Condition: Fair Discharge Order Discharge Orders: Discharge Order (Routine); Ordered 07/25/24 Ordered By: Kiko Costello Follow up Plan Follow up with: Ludwig Ivory MD [Primary Care Provider] - 07/31/24 10:20 am Prescriptions/Medication Reconciliation: New olanzapine 10 mg Recon Soln 5 mg IM BID 30 Days Qty: 2 0RF insulin glargine [Lantus Solostar U-100 Insulin] 100 unit/mL (3 mL) insulin pen 10 unit SQ HS Qty: 15 0RF Continued digoxin 125 mcg (0.125 mg) tablet 125 mcg PO DAILY Qty: 30 5RF magnesium oxide 400 mg (241.3 mg magnesium) tablet 400 mg PO DAILY Qty: 30 5RF Prolia 60 mg/mL syringe 60 mg SQ [id number] Qty: 1 2RF diltiazem HCl [DILT-XR] 240 mg capsule,ext.rel 24h degradable 240 mg PO BID Patient Comments: TAKE ONE CAPSULE BY MOUTH TWICE DAILY atorvastatin 10 mg tablet 10 mg PO HS cyanocobalamin (vitamin B-12) 1,000 mcg tablet 1,000 mcg PO DAILY Patient Comments: TAKE ONE TABLET BY MOUTH EVERY DAY ferrous sulfate [FeroSul] 325 mg (65 mg iron) tablet 325 mg PO DAILY Patient Comments: TAKE ONE TABLET BY MOUTH EVERY DAY pantoprazole [Protonix] 40 mg tablet,delayed release (DR/EC) 40 mg PO DAILY Qty: 30 0RF insulin lispro [Humalog KwikPen Insulin] 100 unit/mL insulin pen See Rx Instructions .ROUTE .COMPLEX Rx Instructions: PER SLIDING SCALE AT [facility] donepezil 5 mg tablet 5 mg PO HS Discontinued metformin 1,000 mg tablet 1,000 mg PO BID Qty: 180 3RF Eliquis 5 mg tablet 5 mg PO BID dapagliflozin propanediol [Farxiga] 10 mg tablet 10 mg PO DAILY cephalexin 500 mg capsule 500 mg PO TID olanzapine 5 mg tablet,disintegrating 5 mg PO BID Problem Reconciliation Problems Reviewed?: Yes Patient Discharge Instructions Patient Instructions: Anemia, DI for Pulmonary Embolism, DI for Hip Fracture, DI for Sepsis -- Adult, DI for Encephalopathy, DI for Altered Mental Status Print Language: Macedonian Providers Primary Care Provider: Ludwig Ivory Admit Provider: Liam Horne Attending Provider: Liam Horne
[2024-07-25 13:37] LABS: Free T4 (Free Thyroxine) 1.28 ng/dl (0.78-2.19)
[2024-07-25 13:51] LABS: Thyroid Stimulating Hormone 3.16 uIU/mL (0.465-4.68)
--- NOTE | 2024-07-25 14:03 | PC.NURSE ---
Report called to [facility]. EMS notified.
== END 2024-07-25 14:31 | DRG 871 ==
LOC: ER 17:23 → 2ND 17:39
PROVIDERS: Nurse Practitioner Family; Student in an Organized Health Care Education/Training Program; Admitting Provider Internal Medicine Adolescent Medicine; Emergency Provider Student in an Organized Health Care Education/Training Program; PCP Family Medicine; Visit Provider Internal Medicine Adolescent Medicine
DX: A41.9 Sepsis, unspecified organism (principal); I26.99 Other pulmonary embolism without acute cor pulmonale; S72.111A Displaced fracture of greater trochanter of right femur, initial encounter for closed fracture; S72.112A Displaced fracture of greater trochanter of left femur, initial encounter for closed fracture; N39.0 Urinary tract infection, site not specified; F05 Delirium due to known physiological condition; D62 Acute posthemorrhagic anemia; Z16.11 Resistance to penicillins; F03.B11 Unspecified dementia, moderate, with agitation; D68.32 Hemorrhagic disorder due to extrinsic circulating anticoagulants; E05.90 Thyrotoxicosis, unspecified without thyrotoxic crisis or storm; E78.5 Hyperlipidemia, unspecified; I48.91 Unspecified atrial fibrillation; K52.9 Noninfective gastroenteritis and colitis, unspecified; B95.7 Other staphylococcus as the cause of diseases classified elsewhere; R55 Syncope and collapse; W19.XXXA Unspecified fall, initial encounter; Y92.129 Unspecified place in nursing home as the place of occurrence of the external cause; I10 Essential (primary) hypertension; S70.02XA Contusion of left hip, initial encounter; E80.6 Other disorders of bilirubin metabolism; E11.649 Type 2 diabetes mellitus with hypoglycemia without coma; R74.01 Elevation of levels of liver transaminase levels; Z83.6 Family history of other diseases of the respiratory system; Z88.0 Allergy status to penicillin; Z88.5 Allergy status to narcotic agent; Z88.8 Allergy status to other drugs, medicaments and biological substances; Z79.899 Other long term (current) drug therapy; Z79.4 Long term (current) use of insulin; Z79.84 Long term (current) use of oral hypoglycemic drugs; Z87.891 Personal history of nicotine dependence; Z66 Do not resuscitate; Z90.49 Acquired absence of other specified parts of digestive tract; Z91.81 History of falling
CPT/HCPCS: 36415; 70450; 70496; 70498; 71045; 71275; 72125; 72128; 72131; 72192; 73130; 73502; 73552; 73562; 74174; 80053; 80202; 81001; 82009; 82140; 82550; 82803; 82962; 83605; 83690; 83735; 84439; 84443; 85007; 85025; 86850; 87040; 87086; 87088; 87186; 93005; 97162; 97166; 97530; 99291; J2270; J2405; J3370; J3372; J3475; J3480; J7050; J7120; P9016; Q9967

== ENCOUNTER 2024-08-04 18:09 | Inpatient (IN) | payer MEDICARE, MEDICAID, SELFPAY ==
[2024-08-04] VITALS (45 sets, daily range): BP systolic 51–142; BP diastolic 31–97; PULSE 101–140; RESP 14–40; TEMP 36.6–38.8; O2SAT 90–99; BMI 17.4
--- OUTSIDE RECORDS SUMMARY | 2024-08-04 18:13 | XMS_ITS ---
Author Organization Unknown TREATMENT PLAN [facility] Start Date Provider Encounter for Check-up [phone] [facility]
--- NOTE | 2024-08-04 18:30 | ED_ITS ---
<Statement entered by Renzo Pina MD - 08/05/24 00:08> I was consulted by the EMILY, and we discussed the complexity of the problems being addressed. I approved the treatment and management plan for this patient's care in the emergency department, thus performing a substantive portion of the medical decision making. In totality patient has septic shock, leukopenia, metabolic derangement, significant lactic acidosis with compensatory respiratory alkalosis, yeast in the urine concerning for fungemia, subcutaneous emphysema in the left leg concerning for necrotizing soft tissue infection. Patient is on broad-spectrum antibiotics and family wants to pursue medical management but no aggressive surgical management. She does have a filling defect in her left atrium however has decreased fibrinogen and thrombocytopenia anticoagulation will likely be harmful to patient will be deferred at this time. I think patient will benefit from continued goals of care discussion tomorrow with family. Renzo Pina MD Discharge Plan Disposition Patient Disposition: Admitted Condition: Critical Clinical Impressions Clinical Impression: Septic shock, Leukopenia, Thrombocytopenia, Atrial fibrillation with rapid ventricular response, Coagulopathy, Lactic acidosis, Yeast cystitis Discharge ED Provider: Renzo Pina General Adult HPI <CHERELLE Keys - Last Filed: 08/05/24 00:00> General Chief complaint: Altered Mental Status Stated complaint: AMS/FBS is elevated Time Seen by Provider: 08/04/24 18:30 History of Present Illness HPI narrative: Patient presents from a local care home for multiple complaints. Patient at baseline has a history of dementia chronic atrial fibrillation not on anticoagulants currently but previously on Xarelto, hypertension hyperlipidemia. I saw the patient in May of this year where she was noted to have an ALVINO. At that time patient was living independently on her [place]. However at the time of discharge patient was placed in [facility] and power of tax associate attorney was obtained by her nephew. At some point patient had a fall at the care home and was noted to have a nonoperable left intertrochanteric fracture on the left along with hematoma in her dependent left side. She was sent back to [facility] initially on hospice. That was later rescinded by the family as hospice was not visiting and they felt that [facility] was able to provide more services than hospice at that point. In the last week patient has had a rapid decline and reportedly had a urinary tract infection but was noted today to be unresponsive tachycardic and febrile. Last known well was sometime yesterday. Her sister visited her today and she was unresponsive which is not her normal baseline. There was no report of chest pain shortness of breath fever chills hemoptysis hematochezia melena nausea vomiting diarrhea. Related Data Home Medications ?Medication ?Instructions ?Recorded ?Confirmed atorvastatin 10 mg tablet 10 mg PO HS 05/26/24 07/21/24 cyanocobalamin (vitamin B-12) 1,000 mcg PO DAILY 05/26/24 07/21/24 1,000 mcg tablet diltiazem HCl 240 mg 240 mg PO BID 05/26/24 07/22/24 capsule,extended release 24 hr, controlled (DILT-XR) ferrous sulfate 325 mg (65 mg 325 mg PO DAILY 05/26/24 07/21/24 iron) tablet (FeroSul) insulin lispro 100 unit/mL See Rx Instructions .Route .COMPLEX 07/21/24 07/21/24 subcutaneous pen (Humalog KwikPen (U-100) Insulin) donepezil 5 mg tablet 5 mg PO HS 07/22/24 07/22/24 insulin glargine 100 unit/mL 15 unit SQ DAILY 08/01/24 08/01/24 subcutaneous solution Previous Rx's ?Medication ?Instructions ?Recorded digoxin 125 mcg (0.125 mg) tablet 125 mcg PO DAILY #30 tabs 04/12/24 magnesium oxide 400 mg (241.3 mg 400 mg PO DAILY #30 tabs 04/13/24 magnesium) tablet pantoprazole 40 mg tablet,delayed 40 mg PO DAILY #30 tabs 05/29/24 release (Protonix) denosumab 60 mg/mL subcutaneous 60 mg SQ [id number] #1 mL 07/18/24 syringe (Prolia) hydrocodone 5 mg-acetaminophen 325 1 tab PO QID #120 tabs 07/25/24 mg tablet olanzapine 10 mg intramuscular 5 mg IM BID 30 days #2 ea 07/25/24 solution Allergies Allergy/AdvReac Type Severity Reaction Status Date / Time codeine (CODEINE) Allergy Unknown hallucinati Verified 08/01/24 16:08 ons Penicillins (PENICILLINS) Allergy Unknown Verified 08/01/24 16:08 lisinopril AdvReac Severe Cough Verified 08/01/24 16:08 PFSH <CHERELLE Keys - Last Filed: 08/05/24 00:00> [facility] Disclaimer: The information contained in this section may have been updated after the patient was seen, as this information can be updated by other users. Medical History (Updated 08/04/24 @ 21:46 by CHERELLE Keys) Diabetes mellitus Diabetes type 2, controlled Dementia with behavioral disturbance Hyperthyroidism Agitation due to dementia Therapeutic misadventure Hypomagnesemia Hypokalemia Hypoglycemia associated with type 2 diabetes mellitus Leukopenia Rash Skin tag Hypokalemia Hypomagnesemia Atrial fibrillation with rapid ventricular response Iron deficiency anemia due to chronic blood loss Microcytic anemia Anemia Right knee pain Right leg pain Hypokalemia Abdominal wall abscess at site of surgical wound Coronary artery calcification seen on CAT scan Vitamin D deficiency Distal radius fracture Viral hepatitis C Multinodular goiter Claudication Bilateral leg weakness Macular degeneration Abnormal EKG Dyspnea Recurrent falls Atrial fibrillation HLD (hyperlipidemia) Carotid artery stenosis Osteoporosis Surgical History History of appendectomy History of bowel resection Family History Other COPD exacerbation Social History Smoking Status: Never smoker years smoked: 50 smoking status stop date: 2015 second hand exposure: No alcohol intake: former counseling provided: none substance use type: marijuana current occupational status: retired Travel in the last 8 weeks?: None household members: none housing: house marital status: current occupational exposures/hazards: No caffeine: No Have you lived/traveled outside [place] in past 30 days?: No Contact w/someone who lives/traveled outside US past 30 days?: No Exposure to someone with infectious disease in past 14 days?: No Do you have a fever (greater than 100.4 F or 38 C)?: No Have you tested positive for COVID-19?: No Exposed to someone with COVID-19 in past 14 days?: No Do you have a sore throat?: No Do you have a cough?: No Do you have any weakness?: No Do you have any diarrhea?: No Are you experiencing any unusual bleeding?: No Do you have any muscle aches/pain?: No Do you have any abdominal pain?: No Are you experiencing loss of taste or smell?: No Other Medical History Have you received the Flu Vaccine for this season: No Have you received the Pneumonia Vaccine: Yes <CHERELLE Keys - Last Filed: 08/05/24 00:00> ROS Obtained: Yes Systems reviewed as appropriate & no additional complaints except as documented Physical Exam <CHERELLE Keys - Last Filed: 08/05/24 00:00> General General appearance: obtunded Respiratory Respiratory exam: Present normal lung sounds bilaterally Cardiovascular Cardiovascular exam: Present tachycardia and irregular rhythm Neurological Exam Neurological exam: Absent alert or oriented X3 Medical Decision Making <CHERELLE Keys - Last Filed: 08/05/24 00:00> Medical Records Medical records reviewed: Yes I reviewed the patient's medical records. Screening: Per USPSTF and CDC recommendations, given the prevalence of disease in our region, it is our hospital?s policy to screen for HIV and viral Hepatitis for all patients aged 18 and over and those with ongoing risk factors. Federico Inquiry Pt receiving controlled substance: No Vital Signs: 08/04/24 18:46 08/04/24 19:00 08/04/24 19:38 Temperature 102 F H Temperature Source Rectal Pulse Rate 129 H 106 H Pulse Rate [Right] 140 H Respiratory Rate 26 H 29 H 32 H Blood Pressure 91/40 L 99/60 L Blood Pressure [Left Arm] 93/38 L Blood Pressure Mean [Left Arm] 56 Blood Pressure Source Blood Pressure Position 02 Sat by Pulse Oximetry 92 L 97 93 L Oxygen Delivery Method 08/04/24 20:00 08/04/24 20:25 08/04/24 20:30 Temperature Temperature Source Pulse Rate 101 H Pulse Rate [Right] Respiratory Rate 20 26 H 31 H Blood Pressure 89/31 L 86/38 L 99/33 L Blood Pressure [Left Arm] Blood Pressure Mean [Left Arm] Blood Pressure Source Blood Pressure Position 02 Sat by Pulse Oximetry 96 Oxygen Delivery Method 08/04/24 20:35 08/04/24 20:40 08/04/24 20:45 Temperature Temperature Source Pulse Rate Pulse Rate [Right] Respiratory Rate 28 H 27 H 21 Blood Pressure 99/37 L 107/63 L 107/35 L Blood Pressure [Left Arm] Blood Pressure Mean [Left Arm] Blood Pressure Source Blood Pressure Position 02 Sat by Pulse Oximetry Oxygen Delivery Method 08/04/24 20:50 08/04/24 20:56 08/04/24 21:01 Temperature Temperature Source Pulse Rate Pulse Rate [Right] Respiratory Rate 15 40 H 21 Blood Pressure 116/57 L 83/46 L 109/48 L Blood Pressure [Left Arm] Blood Pressure Mean [Left Arm] Blood Pressure Source Blood Pressure Position 02 Sat by Pulse Oximetry Oxygen Delivery Method 08/04/24 21:01 08/04/24 21:05 08/04/24 21:06 Temperature Temperature Source Pulse Rate Pulse Rate [Right] Respiratory Rate 23 Blood Pressure 88/50 L 99/48 L 89/52 L Blood Pressure [Left Arm] Blood Pressure Mean [Left Arm] Blood Pressure Source Blood Pressure Position 02 Sat by Pulse Oximetry Oxygen Delivery Method 08/04/24 21:10 08/04/24 21:16 08/04/24 21:20 Temperature Temperature Source Pulse Rate Pulse Rate [Right] Respiratory Rate 26 H 35 H 26 H Blood Pressure 92/49 L 96/63 L 92/45 L Blood Pressure [Left Arm] Blood Pressure Mean [Left Arm] Blood Pressure Source Blood Pressure Position 02 Sat by Pulse Oximetry Oxygen Delivery Method 08/04/24 21:27 08/04/24 21:32 08/04/24 21:36 Temperature Temperature Source Pulse Rate Pulse Rate [Right] Respiratory Rate 23 23 26 H Blood Pressure 66/48 L 142/82 H 91/51 L Blood Pressure [Left Arm] Blood Pressure Mean [Left Arm] Blood Pressure Source Blood Pressure Position 02 Sat by Pulse Oximetry Oxygen Delivery Method 08/04/24 21:40 08/04/24 21:46 08/04/24 21:56 Temperature Temperature Source Pulse Rate Pulse Rate [Right] Respiratory Rate 29 H 22 24 Blood Pressure 91/67 L 90/44 L 102/66 L Blood Pressure [Left Arm] Blood Pressure Mean [Left Arm] Blood Pressure Source Blood Pressure Position 02 Sat by Pulse Oximetry Oxygen Delivery Method 08/04/24 22:01 08/04/24 22:06 08/04/24 22:11 Temperature Temperature Source Pulse Rate Pulse Rate [Right] Respiratory Rate 21 24 28 H Blood Pressure 120/70 104/37 L 51/37 L Blood Pressure [Left Arm] Blood Pressure Mean [Left Arm] Blood Pressure Source Blood Pressure Position 02 Sat by Pulse Oximetry Oxygen Delivery Method 08/04/24 22:15 08/04/24 22:16 08/04/24 22:21 Temperature Temperature Source Pulse Rate Pulse Rate [Right] Respiratory Rate 27 H 24 28 H Blood Pressure 71/45 L 96/67 L 113/70 Blood Pressure [Left Arm] Blood Pressure Mean [Left Arm] Blood Pressure Source Blood Pressure Position 02 Sat by Pulse Oximetry Oxygen Delivery Method 08/04/24 22:25 08/04/24 22:44 08/04/24 22:51 Temperature Temperature Source Pulse Rate 123 H Pulse Rate [Right] Respiratory Rate 20 22 24 Blood Pressure 117/97 H 126/57 L 128/55 L Blood Pressure [Left Arm] Blood Pressure Mean [Left Arm] Blood Pressure Source Blood Pressure Position 02 Sat by Pulse Oximetry 99 Oxygen Delivery Method 08/04/24 22:56 08/04/24 23:00 08/04/24 23:06 Temperature Temperature Source Pulse Rate Pulse Rate [Right] Respiratory Rate 26 H 21 23 Blood Pressure 124/54 L 123/71 121/68 Blood Pressure [Left Arm] Blood Pressure Mean [Left Arm] Blood Pressure Source Blood Pressure Position 02 Sat by Pulse Oximetry Oxygen Delivery Method 08/04/24 23:11 08/04/24 23:16 08/04/24 23:20 Temperature Temperature Source Pulse Rate Pulse Rate [Right] Respiratory Rate 21 14 14 Blood Pressure 107/72 L 121/57 L 102/63 L Blood Pressure [Left Arm] Blood Pressure Mean [Left Arm] Blood Pressure Source Blood Pressure Position 02 Sat by Pulse Oximetry Oxygen Delivery Method 08/04/24 23:26 08/04/24 23:31 08/04/24 23:34 Temperature 97.9 F Temperature Source Oral Pulse Rate 140 H Pulse Rate [Right] Respiratory Rate 25 H 24 20 Blood Pressure 113/58 L 123/58 L 124/78 Blood Pressure [Left Arm] Blood Pressure Mean [Left Arm] Blood Pressure Source Automatic Cuff Blood Pressure Position Supine 02 Sat by Pulse Oximetry Oxygen Delivery Method Room Air 08/04/24 23:36 08/04/24 23:40 08/04/24 23:45 Temperature Temperature Source Pulse Rate Pulse Rate [Right] Respiratory Rate 22 25 H 28 H Blood Pressure 115/71 113/65 108/63 L Blood Pressure [Left Arm] Blood Pressure Mean [Left Arm] Blood Pressure Source Blood Pressure Position 02 Sat by Pulse Oximetry Oxygen Delivery Method Lab Data Lab results reviewed: Yes I reviewed the patient's lab results. Lab Results 08/04/24 18:29: WBC 2.1 L, RBC 3.38 L, Hgb 11.0 L, Hct 34.8 L, MCV 103.0 H, MCH 32.5 H, MCHC 31.6 L, RDW 17.3, Plt Count 47 L*, MPV 12.4 H, Neut % (Auto) 88.2 H , Lymph % (Auto) 6.1 L, Person % (Auto) 4.7, Eos % (Auto) 0.5, Baso % (Auto) 0.5, Neut # (Auto) 1.9, Lymph # (Auto) 0.1 L, Person # (Auto) 0.1, Eos # (Auto) 0.0, Baso # (Auto) 0.0, Total Counted 50, Neutrophils % (Manual) 80 H, Band Neutrophils % 6.0, Lymphocytes % (Manual) 8 L, Monocytes % (Manual) 6, Platelet Estimate Marked decrease, Poikilocytosis 1+, Anisocytosis 1+, Microcytosis 1+, Macrocytosis 1+, Ovalocytes 1+, PT 13.7 H, INR 1.26 H, APTT 25.1, Fibrinogen 71 L, D-Dimer 2.45 H, Sodium 134 L, Potassium 3.8, Chloride 106, Carbon Dioxide 21 L, Anion Gap 10.8, BUN 22 H, Creatinine 0.50 L, Estimated Creat Clear 32, Estimated GFR 119, Est GFR ( Amer) 144, Glucose 273 H, Calcium 7.6 L, T otal Bilirubin 2.8 H, AST 64 H, ALT 43, Alkaline Phosphatase 75, Total Protein 4.5 L, Albumin 2.7 L, Globulin 1.8, Albumin/Globulin Ratio 1.5, Lipase 13 L, Procalcitonin 1.51, Acetone Level None detected 08/04/24 18:37: VBG pH 7.43 H, VBG pCO2 29.8 L, VBG pO2 58.1 H, VBG HCO3 19.2 L, VBG Total CO2 20.1 L, VBG O2 Saturation 90.7 H, VBG Base Excess -5.2 L, VBG Lactic Acid 6.4 H 08/04/24 21:04: Urine Color Yellow, Urine Appearance Slightly cloudy, Urine pH 7.0, Ur Specific [place] 1.015, Urine Protein Trace, Urine Glucose (UA) 3+, Urine Ketones Trace, Urine Blood Negative, Urine Nitrate Negative, Urine Bilirubin Negative, Urine Urobilinogen 2.0, Ur Leukocyte Esterase Negative, Urine RBC None, Urine WBC 3-5, Ur Squamous Epith Cells None, Urine Bacteria None, Urine Yeast 4+ 08/04/24 18:29 08/04/24 18:29 Orders (Tests/Meds): ED MEDICATIONS Generic Name Dose Route Start Last Admin Trade Name Freq PRN Reason Stop Dose Admin Norepinephrine Bitartrate 8 mg 258 mls @ 3.87 mls/hr 08/04/24 20:16 08/04/24 21:06 / Sodium Chloride IV 09/03/24 20:15 6 mcg/min .Q24H MARTIR 11.61 mls/hr Titration Protocol 2 MCG/MIN Fluconazole 400 mg in 200 mls @ 400 mls/hr 08/04/24 21:45 08/04/24 21:47 Diflucan 400mg/200ml Premix Ivpb IV 08/11/24 21:44 400 mls/hr Q24H MARTIR Administration Levofloxacin/Dextrose 250 mg in 50 mls @ 100 mls/hr 08/04/24 23:15 Levaquin 250mg/50ml Premix IV 08/14/24 23:14 Q24H MARTIR Clindamycin Phosphate 600 mg in 50 mls @ 100 mls/hr 08/04/24 23:15 Clindamycin 600mg/50ml D5w Premix IV 08/14/24 23:14 Q8H MARTIR Metronidazole 500 mg in 100 mls @ 100 mls/hr 08/05/24 12:00 Flagyl 500mg/100ml Ivpb IV 08/15/24 11:59 Q12H [facility] Miscellaneous 1 each 08/04/24 19:00 08/04/24 19:27 Vancomycin Consult Request NOTAPPLIC 09/03/24 18:59 Not Given CONSULT PHARMACY [facility] Miscellaneous 1 each 08/04/24 23:30 Vancomycin Consult Request NOTAPPLIC 09/03/24 23:29 CONSULT PHARMACY [facility] Sodium Chloride 10 ml 08/04/24 19:24 08/04/24 19:32 Sodium Chloride 0.9% 10ml Syr (Rad Only) IV 09/03/24 19:23 10 ml NEEDED PRN Administration Maintain IV Site Discontinued Medications Generic Name Dose Route Start Last Admin Trade Name Jory PRN Reason Stop Dose Admin Fentanyl Citrate 50 mcg 08/04/24 20:17 08/04/24 22:24 Fentanyl 100mcg/2ml Vial IV 08/04/24 20:18 Not Given ONCE ONE Sodium Chloride 1,000 mls @ 999 mls/hr 08/04/24 18:34 08/04/24 19:13 Sod Chlor 0.9% 1000ml Bag IV 08/04/24 19:34 999 mls/hr .Q1H1M ONE Administration Levofloxacin/Dextrose 750 mg in 150 mls @ 100 mls/hr 08/04/24 19:00 08/04/24 22:19 Levofloxacin 750mg/150ml Premix IV 08/14/24 18:59 100 mls/hr Q24H MARTIR Administration Sodium Chloride 1,500 mls @ 750 mls/hr 08/04/24 18:54 08/04/24 19:00 Sod Chlor 0.9% 1000ml Bag 30 ml/kg infuse over 2 hr (1500 ml) 08/04/24 20:53 750 mls/hr IV Administration .Q2H ONE Vancomycin HCl 1,000 mg/ 250 mls @ 125 mls/hr 08/04/24 19:00 08/04/24 19:13 Sodium Chloride IV 08/04/24 20:59 125 mls/hr ONCE ONE Administration Metronidazole 500 mg in 100 mls @ 100 mls/hr 08/04/24 19:14 08/04/24 19:30 Flagyl 500mg/100ml Ivpb IV 08/04/24 20:13 100 mls/hr ONCE ONE Administration Magnesium Sulfate 2 gm in 50 mls @ 50 mls/hr 08/04/24 19:15 08/04/24 19:41 Magnesium Sulfate 2gm/50ml Premix IV 08/04/24 20:14 50 mls/hr ONCE ONE Administration Calcium Gluconate/Sodium Chloride 2 gm in 100 mls @ 50 mls/hr 08/04/24 19:36 08/04/24 21:28 Calcium Gluconate 2,000mg/100ml Nacl Premix IV 08/04/24 21:35 50 mls/hr ONCE ONE Administration Iopamidol 70 ml 08/04/24 19:24 08/04/24 19:31 Iopamidol-370 (76%);100ml Bottle IV 08/04/24 19:25 70 ml ONCE ONE Administration Sodium Chloride 40 ml 08/04/24 19:24 08/04/24 19:31 0.9 % Sodium Chloride 50 Ml Vial IV 08/04/24 19:25 40 ml ONCE ONE Administration ORDERS Category Date Time Status CT abdomen pelvis w con Stat Cat Scan 08/04/24 18:[address] angio chest PE protocol Stat Cat Scan 08/04/24 18:[address] head/brain wo con Stat Cat Scan 08/04/24 19:10 Completed POCUS Point of Care (ER Only) Stat Exams 08/04/24 18:55 Completed Acetone, Serum (Rapid) Stat Lab 08/04/24 18:29 Completed CBC w/Auto Diff [Complete Blood Count Auto Diff] Stat Lab 08/04/24 18:29 Completed CMP [Comprehensive Metabolic Panel] Stat Lab 08/04/24 18:29 Completed D-Dimer Stat Lab 08/04/24 18:29 Completed Fibrinogen Stat Lab 08/04/24 18:29 Completed Lactic Acid Follow Up (RFLX 1) Stat Lab 08/04/24 23:00 Ordered Lactic Acid Stat Lab 08/04/24 18:35 Ordered Lipase Stat Lab 08/04/24 18:29 Completed PT INR [Prothrombin Time INR] Stat Lab 08/04/24 18:29 Completed PTT [Activated Partial Thrombo Time] Stat Lab 08/04/24 18:29 Completed Peripheral Smear Review Stat Lab 08/04/24 18:29 Received Procalcitonin Stat Lab 08/04/24 18:29 Completed UA [Urinalysis and Microscopic] Stat Lab 08/04/24 21:04 Completed Blood Culture Stat Micro 08/04/24 18:40 Received VBG [Venous Blood Gas] Stat RT 08/04/24 18:37 Completed Tissue Perfus/Sepsis Re-Eval Sepsis Re-Evaluation Performed: No Date Performed: 08/04/24 Time Performed: 22:00 Medical Decision Narrative: In summary patient is a 79-year-old female who presents to the emergency department for evaluation of altered mental status fever and rapid heart rate. Patient is hemodynamically unstable with a blood pressure of 93/38 heart rate is 140 what appears to be atrial fibrillation with RVR on the bedside monitor breathing 26 times a minute satting at 92% on room air with a temperature of 102 on arrival]. Physical exam is remarkable for a cachectic appearing unwell appearing critically ill-appearing 79-year-old female. She arrives in a position is only responsive to painful stimuli. Glascow coma score is a 1 ? 2 ? 5. Patient has severe ecchymosis in the left side of her body including the left flank left lower extremity and various pressure wounds as well as evidence of ecthyma. She has cachexia and skin tenting. Pupils are reactive to light but she does not open eyes to pain. She makes incomprehensible sounds to noxious stimuli. She does move all 4 extremities. Breath sounds clear and equal bilaterally to the bases without adventitious sounds abdomen soft with no rebound or guarding no pain.. Differential diagnosis includes sepsis versus urinary tract infection versus pneumonia versus PE versus DVT versus electrolyte abnormality versus protein calorie malnutrition versus stroke etc. Initial workup will be conducted with hematologic labs urinalysis CT of the head without contrast CTA of the chest abdomen pelvis urinalysis blood cultures. Initial interventions include sepsis bolus prophylactic antibiotics blood cultures obtained with vancomycin and Levaquin given the patient's penicillin allergy and Flagyl. Initial workup reviewed by me shows leukopenia with a white count of 2.1 hemoglobin and hematocrit 11 and 34.8 respectively platelets are 47 absolute neutrophil count is 1.9 INR is 1.26 fibrinogen is 71 D-dimer is 2.45 VBG shows a pH of 7.43 pCO2 of 29.8 VBG lactic acid of 6.4, glucose is 273 calcium 7.6 with an albumin of 2.7 lipase is 13 procalcitonin 1.51 urinalysis shows 3+ glucose trace ketones blood nitrate and leukocyte Estrace negative and microscopic exam shows no red blood cells 3-5 white cells and 4+ budding yeast my informal interpretation of her CT scans show no acute intracranial processes, she appears to have a left atrial thrombus, she appears to have gas in the left inguinal canal adjacent to the left femur fracture, she has a large rectal stool ball, with some sigmoid and descending colon mural thickening without evidence of stranding. Patient did not respond to sepsis bolus and Levophed was initiated. Given her funguria fluconazole was added. We initially were not able to reach the family so we made initial contact with [facility] transfer [facility] regarding patient MCCORMACK and management and preparation of potential transfer. I ultimately was able to make contact with her nephew who is her power of tax associate attorney and we had a shared decision making and goals of care discussion. Her sister and her nephew are not interested in super aggressive care and are not interested in transfer to a tertiary care facility as they are very realistic that patient's ultimate underlying dementia is progressive given her functional decline. They are supportive of medication management however patient is a DNR/DNI and they are only interested in making her comfortable. Given this I had interactive discussion with hospital medicine here regarding patient presentation MCCORMACK and management as well as goals of care of the family and she will be admitted for further evaluation and care. Procedure: Procedure performed by Renzo Pina. Procedure performed was ultrasound-guided IV. Using linear probe the left basilic vein was cannulated with a long ultrasound-guided 18-gauge IV. Vessel cannula was patent. Images were not saved for permanent archive. Patient tolerated procedure well there were no immediate complications. <Renzo Pina MD - Last Filed: 08/04/24 22:30> Vital Signs: 08/04/24 18:46 08/04/24 19:00 08/04/24 19:38 Temperature 102 F H Temperature Source Rectal Pulse Rate 129 H 106 H Pulse Rate [Right] 140 H Respiratory Rate 26 H 29 H 32 H Blood Pressure 91/40 L 99/60 L Blood Pressure [Left Arm] 93/38 L Blood Pressure Mean [Left Arm] 56 Blood Pressure Source Blood Pressure Position 02 Sat by Pulse Oximetry 92 L 97 93 L Oxygen Delivery Method 08/04/24 20:00 08/04/24 20:25 08/04/24 20:30 Temperature Temperature Source Pulse Rate 101 H Pulse Rate [Right] Respiratory Rate 20 26 H 31 H Blood Pressure 89/31 L 86/38 L 99/33 L Blood Pressure [Left Arm] Blood Pressure Mean [Left Arm] Blood Pressure Source Blood Pressure Position 02 Sat by Pulse Oximetry 96 Oxygen Delivery Method 08/04/24 20:35 08/04/24 20:40 08/04/24 20:45 Temperature Temperature Source Pulse Rate Pulse Rate [Right] Respiratory Rate 28 H 27 H 21 Blood Pressure 99/37 L 107/63 L 107/35 L Blood Pressure [Left Arm] Blood Pressure Mean [Left Arm] Blood Pressure Source Blood Pressure Position 02 Sat by Pulse Oximetry Oxygen Delivery Method 08/04/24 20:50 08/04/24 20:56 08/04/24 21:01 Temperature Temperature Source Pulse Rate Pulse Rate [Right] Respiratory Rate 15 40 H 21 Blood Pressure 116/57 L 83/46 L 109/48 L Blood Pressure [Left Arm] Blood Pressure Mean [Left Arm] Blood Pressure Source Blood Pressure Position 02 Sat by Pulse Oximetry Oxygen Delivery Method 08/04/24 21:01 08/04/24 21:05 08/04/24 21:06 Temperature Temperature Source Pulse Rate Pulse Rate [Right] Respiratory Rate 23 Blood Pressure 88/50 L 99/48 L 89/52 L Blood Pressure [Left Arm] Blood Pressure Mean [Left Arm] Blood Pressure Source Blood Pressure Position 02 Sat by Pulse Oximetry Oxygen Delivery Method 08/04/24 21:10 08/04/24 21:16 08/04/24 21:20 Temperature Temperature Source Pulse Rate Pulse Rate [Right] Respiratory Rate 26 H 35 H 26 H Blood Pressure 92/49 L 96/63 L 92/45 L Blood Pressure [Left Arm] Blood Pressure Mean [Left Arm] Blood Pressure Source Blood Pressure Position 02 Sat by Pulse Oximetry Oxygen Delivery Method 08/04/24 21:27 08/04/24 21:32 08/04/24 21:36 Temperature Temperature Source Pulse Rate Pulse Rate [Right] Respiratory Rate 23 23 26 H Blood Pressure 66/48 L 142/82 H 91/51 L Blood Pressure [Left Arm] Blood Pressure Mean [Left Arm] Blood Pressure Source Blood Pressure Position 02 Sat by Pulse Oximetry Oxygen Delivery Method 08/04/24 21:40 08/04/24 21:46 08/04/24 21:56 Temperature Temperature Source Pulse Rate Pulse Rate [Right] Respiratory Rate 29 H 22 24 Blood Pressure 91/67 L 90/44 L 102/66 L Blood Pressure [Left Arm] Blood Pressure Mean [Left Arm] Blood Pressure Source Blood Pressure Position 02 Sat by Pulse Oximetry Oxygen Delivery Method 08/04/24 22:01 08/04/24 22:06 08/04/24 22:11 Temperature Temperature Source Pulse Rate Pulse Rate [Right] Respiratory Rate 21 24 28 H Blood Pressure 120/70 104/37 L 51/37 L Blood Pressure [Left Arm] Blood Pressure Mean [Left Arm] Blood Pressure Source Blood Pressure Position 02 Sat by Pulse Oximetry Oxygen Delivery Method 08/04/24 22:15 08/04/24 22:16 08/04/24 22:21 Temperature Temperature Source Pulse Rate Pulse Rate [Right] Respiratory Rate 27 H 24 28 H Blood Pressure 71/45 L 96/67 L 113/70 Blood Pressure [Left Arm] Blood Pressure Mean [Left Arm] Blood Pressure Source Blood Pressure Position 02 Sat by Pulse Oximetry Oxygen Delivery Method 08/04/24 22:25 08/04/24 22:44 08/04/24 22:51 Temperature Temperature Source Pulse Rate 123 H Pulse Rate [Right] Respiratory Rate 20 22 24 Blood Pressure 117/97 H 126/57 L 128/55 L Blood Pressure [Left Arm] Blood Pressure Mean [Left Arm] Blood Pressure Source Blood Pressure Position 02 Sat by Pulse Oximetry 99 Oxygen Delivery Method 08/04/24 22:56 08/04/24 23:00 08/04/24 23:06 Temperature Temperature Source Pulse Rate Pulse Rate [Right] Respiratory Rate 26 H 21 23 Blood Pressure 124/54 L 123/71 121/68 Blood Pressure [Left Arm] Blood Pressure Mean [Left Arm] Blood Pressure Source Blood Pressure Position 02 Sat by Pulse Oximetry Oxygen Delivery Method 08/04/24 23:11 08/04/24 23:16 08/04/24 23:20 Temperature Temperature Source Pulse Rate Pulse Rate [Right] Respiratory Rate 21 14 14 Blood Pressure 107/72 L 121/57 L 102/63 L Blood Pressure [Left Arm] Blood Pressure Mean [Left Arm] Blood Pressure Source Blood Pressure Position 02 Sat by Pulse Oximetry Oxygen Delivery Method 08/04/24 23:26 08/04/24 23:31 08/04/24 23:34 Temperature 97.9 F Temperature Source Oral Pulse Rate 140 H Pulse Rate [Right] Respiratory Rate 25 H 24 20 Blood Pressure 113/58 L 123/58 L 124/78 Blood Pressure [Left Arm] Blood Pressure Mean [Left Arm] Blood Pressure Source Automatic Cuff Blood Pressure Position Supine 02 Sat by Pulse Oximetry Oxygen Delivery Method Room Air 08/04/24 23:36 08/04/24 23:40 08/04/24 23:45 Temperature Temperature Source Pulse Rate Pulse Rate [Right] Respiratory Rate 22 25 H 28 H Blood Pressure 115/71 113/65 108/63 L Blood Pressure [Left Arm] Blood Pressure Mean [Left Arm] Blood Pressure Source Blood Pressure Position 02 Sat by Pulse Oximetry Oxygen Delivery Method Lab Data Lab Results 08/04/24 18:29: WBC 2.1 L, RBC 3.38 L, Hgb 11.0 L, Hct 34.8 L, MCV 103.0 H, MCH 32.5 H, MCHC 31.6 L, RDW 17.3, Plt Count 47 L*, MPV 12.4 H, Neut % (Auto) 88.2 H , Lymph % (Auto) 6.1 L, Person % (Auto) 4.7, Eos % (Auto) 0.5, Baso % (Auto) 0.5, Neut # (Auto) 1.9, Lymph # (Auto) 0.1 L, Person # (Auto) 0.1, Eos # (Auto) 0.0, Baso # (Auto) 0.0, Total Counted 50, Neutrophils % (Manual) 80 H, Band Neutrophils % 6.0, Lymphocytes % (Manual) 8 L, Monocytes % (Manual) 6, Platelet Estimate Marked decrease, Poikilocytosis 1+, Anisocytosis 1+, Microcytosis 1+, Macrocytosis 1+, Ovalocytes 1+, PT 13.7 H, INR 1.26 H, APTT 25.1, Fibrinogen 71 L, D-Dimer 2.45 H, Sodium 134 L, Potassium 3.8, Chloride 106, Carbon Dioxide 21 L, Anion Gap 10.8, BUN 22 H, Creatinine 0.50 L, Estimated Creat Clear 32, Estimated GFR 119, Est GFR ( Amer) 144, Glucose 273 H, Calcium 7.6 L, T otal Bilirubin 2.8 H, AST 64 H, ALT 43, Alkaline Phosphatase 75, Total Protein 4.5 L, Albumin 2.7 L, Globulin 1.8, Albumin/Globulin Ratio 1.5, Lipase 13 L, Procalcitonin 1.51, Acetone Level None detected 08/04/24 18:37: VBG pH 7.43 H, VBG pCO2 29.8 L, VBG pO2 58.1 H, VBG HCO3 19.2 L, VBG Total CO2 20.1 L, VBG O2 Saturation 90.7 H, VBG Base Excess -5.2 L, VBG Lactic Acid 6.4 H 08/04/24 21:04: Urine Color Yellow, Urine Appearance Slightly cloudy, Urine pH 7.0, Ur Specific [place] 1.015, Urine Protein Trace, Urine Glucose (UA) 3+, Urine Ketones Trace, Urine Blood Negative, Urine Nitrate Negative, Urine Bilirubin Negative, Urine Urobilinogen 2.0, Ur Leukocyte Esterase Negative, Urine RBC None, Urine WBC 3-5, Ur Squamous Epith Cells None, Urine Bacteria None, Urine Yeast 4+ Orders (Tests/Meds): ED MEDICATIONS Generic Name Dose Route Start Last Admin Trade Name Jory PRN Reason Stop Dose Admin Norepinephrine Bitartrate 8 mg 258 mls @ 3.87 mls/hr 08/04/24 20:16 08/04/24 21:06 / Sodium Chloride IV 09/03/24 20:15 6 mcg/min .Q24H MARTIR 11.61 mls/hr Titration Protocol 2 MCG/MIN Fluconazole 400 mg in 200 mls @ 400 mls/hr 08/04/24 21:45 08/04/24 21:47 Diflucan 400mg/200ml Premix Ivpb IV 08/11/24 21:44 400 mls/hr Q24H MARTIR Administration Levofloxacin/Dextrose 250 mg in 50 mls @ 100 mls/hr 08/04/24 23:15 Levaquin 250mg/50ml Premix IV 08/14/24 23:14 Q24H MARTIR Clindamycin Phosphate 600 mg in 50 mls @ 100 mls/hr 08/04/24 23:15 Clindamycin 600mg/50ml D5w Premix IV 08/14/24 23:14 Q8H MARTIR Metronidazole 500 mg in 100 mls @ 100 mls/hr 08/05/24 12:00 Flagyl 500mg/100ml Ivpb IV 08/15/24 11:59 Q12H [facility] Miscellaneous 1 each 08/04/24 19:00 08/04/24 19:27 Vancomycin Consult Request NOTAPPLIC 09/03/24 18:59 Not Given CONSULT PHARMACY [facility] Miscellaneous 1 each 08/04/24 23:30 Vancomycin Consult Request NOTAPPLIC 09/03/24 23:29 CONSULT PHARMACY [facility] Sodium Chloride 10 ml 08/04/24 19:24 08/04/24 19:32 Sodium Chloride 0.9% 10ml Syr (Rad Only) IV 09/03/24 19:23 10 ml NEEDED PRN Administration Maintain IV Site Discontinued Medications Generic Name Dose Route Start Last Admin Trade Name Jory PRN Reason Stop Dose Admin Fentanyl Citrate 50 mcg 08/04/24 20:17 08/04/24 22:24 Fentanyl 100mcg/2ml Vial IV 08/04/24 20:18 Not Given ONCE ONE Sodium Chloride 1,000 mls @ 999 mls/hr 08/04/24 18:34 08/04/24 19:13 Sod Chlor 0.9% 1000ml Bag IV 08/04/24 19:34 999 mls/hr .Q1H1M ONE Administration Levofloxacin/Dextrose 750 mg in 150 mls @ 100 mls/hr 08/04/24 19:00 08/04/24 22:19 Levofloxacin 750mg/150ml Premix IV 08/14/24 18:59 100 mls/hr Q24H MARTIR Administration Sodium Chloride 1,500 mls @ 750 mls/hr 08/04/24 18:54 08/04/24 19:00 Sod Chlor 0.9% 1000ml Bag 30 ml/kg infuse over 2 hr (1500 ml) 08/04/24 20:53 750 mls/hr IV Administration .Q2H ONE Vancomycin HCl 1,000 mg/ 250 mls @ 125 mls/hr 08/04/24 19:00 08/04/24 19:13 Sodium Chloride IV 08/04/24 20:59 125 mls/hr ONCE ONE Administration Metronidazole 500 mg in 100 mls @ 100 mls/hr 08/04/24 19:14 08/04/24 19:30 Flagyl 500mg/100ml Ivpb IV 08/04/24 20:13 100 mls/hr ONCE ONE Administration Magnesium Sulfate 2 gm in 50 mls @ 50 mls/hr 08/04/24 19:15 08/04/24 19:41 Magnesium Sulfate 2gm/50ml Premix IV 08/04/24 20:14 50 mls/hr ONCE ONE Administration Calcium Gluconate/Sodium Chloride 2 gm in 100 mls @ 50 mls/hr 08/04/24 19:36 08/04/24 21:28 Calcium Gluconate 2,000mg/100ml Nacl Premix IV 08/04/24 21:35 50 mls/hr ONCE ONE Administration Iopamidol 70 ml 08/04/24 19:24 08/04/24 19:31 Iopamidol-370 (76%);100ml Bottle IV 08/04/24 19:25 70 ml ONCE ONE Administration Sodium Chloride 40 ml 08/04/24 19:24 08/04/24 19:31 0.9 % Sodium Chloride 50 Ml Vial IV 08/04/24 19:25 40 ml ONCE ONE Administration ORDERS Category Date Time Status CT abdomen pelvis w con Stat Cat Scan 08/04/24 18:[address] angio chest PE protocol Stat Cat Scan 08/04/24 18:[address] head/brain wo con Stat Cat Scan 08/04/24 19:10 Completed POCUS Point of Care (ER Only) Stat Exams 08/04/24 18:55 Completed Acetone, Serum (Rapid) Stat Lab 08/04/24 18:29 Completed CBC w/Auto Diff [Complete Blood Count Auto Diff] Stat Lab 08/04/24 18:29 Completed CMP [Comprehensive Metabolic Panel] Stat Lab 08/04/24 18:29 Completed D-Dimer Stat Lab 08/04/24 18:29 Completed Fibrinogen Stat Lab 08/04/24 18:29 Completed Lactic Acid Follow Up (RFLX 1) Stat Lab 08/04/24 23:00 Ordered Lactic Acid Stat Lab 08/04/24 18:35 Ordered Lipase Stat Lab 08/04/24 18:29 Completed PT INR [Prothrombin Time INR] Stat Lab 08/04/24 18:29 Completed PTT [Activated Partial Thrombo Time] Stat Lab 08/04/24 18:29 Completed Peripheral Smear Review Stat Lab 08/04/24 18:29 Received Procalcitonin Stat Lab 08/04/24 18:29 Completed UA [Urinalysis and Microscopic] Stat Lab 08/04/24 21:04 Completed Blood Culture Stat Micro 08/04/24 18:40 Received VBG [Venous Blood Gas] Stat RT 08/04/24 18:37 Completed ECG Data Tracing #1: Independently interpreted by me rate is 136, rhythm is irregular, atrial fibrillation with rapid ventricular sponsor, no ST elevation in anatomical contiguous leads, Q waves in the septal leads redemonstrated from May EKG Medical Decision Narrative: In summary patient is a [age, sex] who presents to the emergency department for evaluation of [complaint]. Patient is [hemodynamically stable/unstable] upon arrival, [febrile/afebrile]. [Unremarkable physical exam, nonfocal exam versus focal remarkable exam]. Differential diagnosis includes [DDx]. Initial workup will be conducted with [hematologic labs, imaging, respiratory swab, describe workup]. Initial interventions include [crystalloid bolus, medications, p.o. challenge, etc.] initial workup reviewed by me [hematologic labs are remarkable for... Imaging remarkable for... Urinalysis remarkable for]. Upon repeat evaluation [patient had acceptable resolution of symptoms, had persistent pain for which additional interventions were conducted (describe interventions), tolerated p.o., was ambulatory, etc.]. Given this [patient is appropriate for discharge at this time and will be discharged with a prescription for... The case was discussed with hospital medicine regarding management and they will admit the patient their service for continued evaluation at this time... Etc.] Procedure: Procedure performed by Renzo Pina. Procedure performed was ultrasound-guided IV. Using linear probe the left basilic vein was cannulated with a long ultrasound-guided 18-gauge IV. Vessel cannula was patent. Images were not saved for permanent archive. Patient tolerated procedure well there were no immediate complications. Critical Care <CHERELLE Keys - Last Filed: 08/05/24 00:00> Critical Care Time Critical Care Time: Yes Attestation: On 08/04/24, the high probability of a clinically significant, sudden or life threatening deterioration of the following system(s) required my full and direct attention, intervention and personal management. The time I documented below is in addition to time spent performing reported procedures but includes the following listed in this critical care notation. Total Time Total Critical Care Time: 80
--- NOTE | 2024-08-04 18:34 | CT_ITS ---
PROCEDURE INFORMATION: Exam: CTA Chest With Contrast Exam date and time: 08/04/2024 7:31 PM Age: 79 years old Clinical indication: Shortness of breath; Additional info: Tachycardia and fever TECHNIQUE: Imaging protocol: Computed tomographic angiography of the chest with contrast. Exam focused on the arteries. 3D rendering (Not supervised by radiologist): MIP and/or 3D reconstructed images were created by the technologist. Radiation optimization: All CT scans at this facility use at least one of these dose optimization techniques: automated exposure control; mA and/or kV adjustment per patient size (includes targeted exams where dose is matched to clinical indication); or iterative reconstruction. Contrast material: ISOVUE; Contrast volume: 75 ml; Contrast route: INTRAVENOUS (IV); COMPARISON: CT ANGIO CHEST PE PROTOCOL 07/21/2024 3:12 PM FINDINGS: Pulmonary arteries: Exclusion of pulmonary emboli is limited due to motion artifact. There is heterogeneous contrast attenuation of visualized pulmonary arteries, more pronounced in the subsegmental vessels and likely related to contrast bolus. This limits the detection of pulmonary emboli in the small and peripheral pulmonary arterial branches. As seen, no large or central pulmonary emboli. Previously described small thrombus within a distal left pulmonary artery subsegmental branch is difficult to evaluate on current exam due to motion artifact. Distinguishing peripheral small emboli from motion artifact is not possible on this exam. Aorta: The thoracic aorta demonstrates moderate atherosclerotic calcification. There is no evidence of aortic dissection, leak, rupture, or other acute vascular pathology. There is no evidence of an aortic aneurysm. Thyroid: The visualized thyroid gland is normal. Lungs: No focal areas of consolidation. There is mild subpleural atelectasis of the dependent portions of the left lower lobe There is a subpleural nodular density in the posterosuperior right upper lobe measuring 6.8 mm. This is best seen on series 5, image 28. There is subpleural atelectasis of the dependent portions of the left lower lobe. Previously described small nodules in the posterior aspect of the right upper lobe have nearly completely resolved. There is a pulmonary parenchymal calcification consistent with remote granulomatous organism exposure. Pleural spaces: There are no pleural effusions. No pneumothorax. Heart: The heart is mildly enlarged. There is a trace amount of pericardial fluid. There is calcification of the mitral valve annulus. There is a 15 x 9 mm hypodense filling defect within the left lateral aspect of the left atrium suspicious for thrombus, not seen previously. Coronary arteries: There is moderate atherosclerotic calcification of the coronary arteries. Lymph nodes: No enlarged lymph nodes. Intraperitoneal space: Findings within the upper abdomen are described in the associated CT of the abdomen and pelvis report from the same date and time. Please reference that report for additional information. Bones/joints: The thoracic spine demonstrates mild degenerative changes at multiple levels. There is no evidence of acute fracture. Soft tissues: Mild diffuse soft tissue edema is present in the mid to lower chest suggesting anasarca. Other findings: Motion artifact does moderately limit the sensitivity of this examination. IMPRESSION: 1. Exclusion of pulmonary emboli is limited due to motion artifact and heterogeneous contrast attenuation of visualized pulmonary arteries. As seen, no large or central pulmonary emboli. Exclusion of small and peripheral emboli is possible due to motion artifact. 2. 15 x 9 mm new ovoid hypodense filling defect within the left lateral aspect of the left atrium suspicious for thrombus since prior study 07/21/2024. 3. Previously described small nodules in the posterior aspect of the right upper lobe have nearly completely resolved. 4. Mild cardiomegaly. For patients at low risk (minimal or absent history of smoking and of other known risk factors), recommend CT Chest at 6-12 months, then consider CT Chest at 18-24 months. For patients at high risk (history of smoking or of other known risk factors), recommend CT Chest at 6-12 months, then [address] Chest at 18-24 months. (Reference: Kerri) References: Obedhojohn H, et al. Guidelines for Management of Incidental Pulmonary Nodules Detected on CT Images: From the Fleischner Society 2017. Radiology. 2017;284(1):228-243. THIS REPORT CONTAINS FINDINGS THAT MAY BE CRITICAL TO PATIENT CARE. The findings were verbally communicated via telephone conference with Chandana Guerrero at 9:50 PM EDT on 08/04/2024. The findings were acknowledged and understood.
--- NOTE | 2024-08-04 18:46 | ECG_ITS ---
APPROVED REPORT Exam: Resting ECG HR:136 bpm ECG Measurements Heart Rate 136 AXES QRSd 73 QRS 85 QT 274 T -44 QTc 353 Conclusion ATRIAL FIBRILLATION WITH RAPID VENTRICULAR RESPONSE LOW QRS VOLTAGE IN EXTREMITY LEADS [QRS DEFLECTION < 0.5 mV IN LIMB LEADS] SEPTAL MYOCARDIAL INFARCTION , PROBABLY OLD [40+ ms Q WAVE IN V1/V2] MODERATE T-WAVE ABNORMALITY, CONSIDER INFERIOR ISCHEMIA [-0.1+ mV T-WAVE IN II/aVF] No STEMI Electronically signed by : FRANCO LAZO, 08/05/2024 06:17:39
[2024-08-04 18:51] LABS: Basophils % 0.5 % (0.1-2.0); Eosinophils % 0.5 % (0.1-12.0); Hematocrit 34.8 % (37.0-47.0); Immature Granulocytes # 0 10^3uL; Immature Granulocytes % 0 %; Lymphocytes # 0.1 K/mm3 (0.7-4.5); Lymphocytes % 6.1 % (10-50); Mean Corpuscular HGB Conc 31.6 g/dL (31.8-35.4); Mean Corpuscular Hemoglobin 32.5 pg (27.0-31.2); Mean Platelet Volume 12.4 fl (7.4-10.4); Monocytes # 0.1 K/mm3 (0.1-1.0); Monocytes % 4.7 % (1.7-9.3); Neutrophils # 1.9 K/mm3 (1.8-7.8); Neutrophils % 88.2 % (37.0-80.0); Nucleated Red Blood Cells # 0 10^3/uL; Nucleated Red Blood Cells % 0 %; Red Blood Count 3.38 M/mm3 (4.20-5.40); Red Cell Distribution Width 17.3 % (11.5-17.5); Red Cell Distribution Width-SD 65.3 fL; White Blood Count 2.1 K/mm3 (4.8-10.8)
--- NOTE | 2024-08-04 18:54 | CT_ITS ---
PROCEDURE INFORMATION: Exam: CT Abdomen And Pelvis With Contrast Exam date and time: 08/04/2024 7:31 PM Age: 79 years old Clinical indication: Abdominal pain; Additional info: Severe sepsis TECHNIQUE: Imaging protocol: Computed tomography of the abdomen and pelvis with contrast. 3D rendering (Not supervised by radiologist): MIP and/or 3D reconstructed images were created by the technologist. Radiation optimization: All CT scans at this facility use at least one of these dose optimization techniques: automated exposure control; mA and/or kV adjustment per patient size (includes targeted exams where dose is matched to clinical indication); or iterative reconstruction. Contrast material: ISOVUE; Contrast volume: 75 ml; Contrast route: IV; COMPARISON: CT ANGIO ABDOMEN PELVIS 07/21/2024 3:12 PM FINDINGS: Lungs: There is a pulmonary parenchymal calcification consistent with remote granulomatous organism exposure. Pleural spaces: There are no pleural effusions. Heart: There is calcification of the mitral valve annulus. There is a trace amount of pericardial fluid. Coronary arteries: There is severe atherosclerotic calcification of the coronary arteries. Liver: There is a 2.5 cm hepatic cyst. There are a few adjacent subcentimeter hepatic hypodensities which are too small to adequately characterize. Gallbladder and biliary ducts: There has been a cholecystectomy. There is a mild, expected degree of common bile duct dilation. Pancreas: There is diffuse atrophy of the pancreatic parenchyma. There is an ovoid hypodensity in the pancreatic head measuring approximately 2.5 x 1.5 x 1.6 cm. This appears stable from prior study. The remainder of the pancreas appears mildly atrophic and not optimally evaluated due to motion artifact. Spleen: The spleen demonstrates punctate calcifications, consistent with remote granulomatous organism exposure. Adrenal glands: The adrenal glands are normal. Kidneys and ureters: There is diffuse bilateral renal cortical thinning, consistent with chronic renal insufficiency. There is a 6 mm nonobstructing right renal collecting system calcification versus vascular calcification. A renal arterial vascular calcification is also present on the left. Stomach and bowel: Apparent gastric mural thickening could be on the basis of incomplete distension but cannot exclude gastritis or other inflammatory or infiltrative process. Correlate clinically. The duodenum is unremarkable. There is mildly excessive colonic stool content. There is mild apparent mural thickening involving the distal colon which could be due to incomplete distension versus colitis/inflammatory bowel disease or other inflammatory/infiltrative processes including neoplasm or ischemia excluded in the appropriate setting. Correlate clinically. Apparent mural thickening involving the anorectal region is poorly visualized. Correlate clinically. Can not exclude proctitis or other inflammatory/infiltrative processes in the appropriate clinical setting. Unopacified loops of small bowel are within range of normal. Appendix: No evidence of appendicitis. Intraperitoneal space: No evidence of intraperitoneal free air. There is a small amount of free fluid in the left perisplenic region. Vasculature: The aorta and iliac arteries demonstrate severe atherosclerotic calcification. The aorta is mildly tortuous. Prominent mesenteric vascular calcifications are present. There are mildly prominent collateral vessels in the anterior mid abdomen anterior to the aorta and IVC. These appear stable. Previously described moderate stenosis of the origin of the right common iliac artery is not as well visualized on current exam but likely stable. Previously described mild to moderate stenosis of the right common femoral artery is not as well visualized as on prior study. Previously described occlusion of the left superficial femoral artery is not optimally visualized on current exam. Lymph nodes: No enlarged lymph nodes. Urinary bladder: Small amount of air within the urinary bladder. Correlate clinically. Urinary bladder is otherwise within range of normal. Reproductive: The uterus is either atrophic or absent. No adnexal masses. Bones/joints: There is a [id number] convex right lumbar scoliosis.The thoracolumbar spine demonstrates moderate degenerative changes at multiple levels. Patient is status post ORIF of the proximal right femur. Streak artifact limits evaluation of adjacent structures. No gross are identified. Previously described fracture of the left greater trochanter is stable. Age indeterminate fracture of the right greater trochanteric tip is stable. Soft tissues: There is hazy and diffuse fat stranding of the visualized subcutaneous tissues suggesting diffuse edema/anasarca. Small foci of subcutaneous emphysema are present within the left inguinal canal paralleling the vasculature. Correlate clinically. While this could reflect iatrogenic change can not exclude infection/necrotizing fasciitis in the appropriate clinical setting. Previously described left hip soft tissue swelling and hematoma is not optimally visualized and included on the current study. Visualized portions appear mildly decreased. Other findings: Motion artifact does moderately limit the sensitivity of this examination. Findings within the lower chest are described in the associated CT of the chest report from the same date and time. Please reference that report for additional information. IMPRESSION: 1. Study quality limited due to significant motion artifact. 2. Small foci of subcutaneous emphysema within the proximal left leg and inguinal canal paralleling the vasculature suggesting air within vessels. Correlate clinically. While this could reflect iatrogenic change can not exclude infection/necrotizing fasciitis in the appropriate clinical setting. 3. Stable ovoid hypodensity in the pancreatic head measuring approximately 2.5 x 1.5 x 1.6 cm suggesting cystic process. Findings could represent a pseudocyst related to remote pancreatitis, sidebranch dilation related to chronic pancreatitis, or a cystic neoplasm. Recommend dedicated cross-sectional imaging of the patient's condition permits. 4. Apparent mild and stable mural thickening involving the anorectal region is not optimally visualized due to incomplete distension. Correlate clinically. Can not exclude proctitis or other inflammatory/infiltrative processes in the appropriate clinical setting. 5. Mild apparent mural thickening involving the distal colon could be due to incomplete distension versus colitis/inflammatory bowel disease or other inflammatory/infiltrative processes including neoplasm or ischemia excluded in the appropriate setting. Correlate clinically. 6. Hazy and diffuse fat stranding of the visualized subcutaneous tissues suggesting diffuse edema/anasarca. 7. Apparent gastric mural thickening could be on the basis of incomplete distension but cannot exclude gastritis or other inflammatory or infiltrative process. Correlate clinically. 8. Mild constipation. 9. Previously described acute comminuted intertrochanteric fracture of the left femur is incompletely visualized.
[2024-08-04 18:58] LABS: VBG Base Excess -5.2 mmol/L (-2.4-2.3); VBG HCO3 19.2 mmol/L (23-30); VBG Oxygen Saturation 90.7 % (50-70); VBG PCO2 29.8 mmol/L (35-51); VBG PH 7.43 mmol/L (7.31-7.41); VBG PO2 58.1 mmol/L (28-40); VBG Total CO2 20.1 mmol/L (23-27)
[2024-08-04 18:59] LABS: Lactate Venous 6.4 mmol/L (0.4-2.0)
--- NOTE | 2024-08-04 18:59 | PC.NURSE ---
spoke with Pts POA who wants us to do all intervention except cpr and intubation.
[2024-08-04] MEDS: 0.9 % SODIUM CHLORIDE 1000ML 1,500 ML 750 ML IV (19:00)
[2024-08-04 19:04] LABS: Alanine Aminotransferase 43 U/L (12-78); Albumin Level 2.7 g/dl (3.5-5.0); Albumin/Globulin Ratio 1.5 (1.1-1.8); Alkaline Phosphatase 75 U/L (38-126); Anion Gap 10.8 mEq/L (5-15); Aspartate Amino Transferase 64 U/L (14-36); Bilirubin,Total 2.8 mg/dl (0.2-1.3); Blood Urea Nitrogen 22 mg/dl (7-17); Calcium 7.6 mg/dl (8.4-10.2); Carbon Dioxide 21 mmol/L (22.0-30.0); Chloride 106 mmol/L (98-107); Creatinine Clearance Estimated 32 mL/min (50-200); Estimated Glomerular Filt Rate 119 ml/min (>60); GFR (African American) 144 ML/MIN (>60); Globulin 1.8 g/dL (1.3-3.2); Glucose 273 mg/dl (74-100); Platelet Count 47 K/mm3 (142-424); Potassium 3.8 mmoL/L (3.5-5.1); Sodium 134 mmol/L (136-145); Total Protein,Serum 4.5 g/dl (6.3-8.2)
[2024-08-04 19:05] LABS: MANUAL DIFFERENTIAL MANUAL DIFFERENTIAL (MANUAL DIFF)
--- NOTE | 2024-08-04 19:10 | CT_ITS ---
PROCEDURE INFORMATION: Exam: CT Head Without Contrast Exam date and time: 08/04/2024 7:25 PM Age: 79 years old Clinical indication: Altered mental status/memory loss; Additional info: Encephalopathy TECHNIQUE: Imaging protocol: Computed tomography of the head without contrast. Radiation optimization: All CT scans at this facility use at least one of these dose optimization techniques: automated exposure control; mA and/or kV adjustment per patient size (includes targeted exams where dose is matched to clinical indication); or iterative reconstruction. COMPARISON: CT ANGIO HEAD 07/21/2024 2:39 PM FINDINGS: Brain: No hemorrhage. Underlying periventricular white matter changes and parenchymal cortical volume loss. No mass effect. Cerebral ventricles: No ventriculomegaly. Paranasal sinuses: Visualized sinuses are unremarkable. No fluid levels. Mastoid air cells: Visualized mastoid air cells are well aerated. Bones: Unremarkable. No acute fracture. Soft tissues: Unremarkable. IMPRESSION: No acute intracranial abnormality.
[2024-08-04] MEDS: VANCOMYCIN HCL 1,000 MG in 0.9 % SODIUM CHLORIDE 250 ML 125 MG IV (19:13)
[2024-08-04] MEDS: 0.9 % SODIUM CHLORIDE 1000ML 1,000 ML 999 ML IV (19:13)
[2024-08-04 19:30] LABS: Activated Partial Thrombo Time 25.1 seconds (22.8-30.6); INR 1.26 (0.9-1.1); Prothrombin Time 13.7 seconds (10.1-12.5)
[2024-08-04] MEDS: METRONIDAZ/SOD CHL 500 MG/100 ML PIGGYBACK 100 MG IV (19:30)
[2024-08-04 19:31] LABS: Procalcitonin 1.51 ng/mL (0.0-2.0)
[2024-08-04] MEDS: IOPAMIDOL-370 (76%);100ML BOTTLE 70 ML IV (19:31)
[2024-08-04] MEDS: 0.9 % SODIUM CHLORIDE 50 ML VIAL 40 ML IV (19:31)
[2024-08-04 19:32] LABS: D-Dimer 2.45 ug/mL (0.0-0.5)
[2024-08-04] MEDS: SODIUM CHLORIDE 0.9% 10ML SYR (RAD ONLY) 10 ML IV (19:32)
[2024-08-04] MEDS: MAGNESIUM SULFATE IN WATER 2 GM/50 ML PIGGYBACK IV (19:41)
[2024-08-04 19:43] LABS: Acetone, Serum (Rapid) None Detected (None Detect)
[2024-08-04 19:46] LABS: Lipase 13 U/L (23-300)
[2024-08-04 19:47] LABS: Fibrinogen 71 mg/dL (229.9-363.5)
--- NOTE | 2024-08-04 19:51 | PC.NURSE ---
Took critical lab result from Elyssa. (Fibrogenin 71 )
[2024-08-04 20:07] LABS: Lymphocytes % 8 % (10-50); Monocytes % 6 % (2-9); Neutrophils % 80 % (42-76); Total Cells Counted 50
[2024-08-04 20:08] LABS: Anisocytosis 1+; Macrocytosis 1+; Microcytosis 1+; Platelet Estimate Marked Decrease
[2024-08-04 20:13] LABS: Ovalocytes 1+; Poikilocytosis 1+
[2024-08-04] MEDS: NOREPINEPHRINE BITARTRATE 8 MG in 0.9 % SODIUM CHLORIDE 250 ML 3.87 MG IV (20:56)
--- NOTE | 2024-08-04 21:06 | PC.NURSE ---
Patient has multiple open areas on ankles, lower legs, feet, arms elbows and knuckles. Also has purple skin on legs back feet groin hips and abdominal area
[2024-08-04 21:09] LABS: Microscopic, Urine URINE MICROSCOPIC (MICROSCOPIC)
[2024-08-04 21:24] LABS: Bilirubin,Urine Negative (Negative); Blood, Urine Negative (Negative); Color,Urine YELLOW (Yellow); Glucose,Urine (UA) 3+ (Negative); Ketones,Urine TRACE (Negative); Leukocyte Esterase,Urine Negative (Negative); Nitrate,Urine Negative (Negative); Protein,Urine TRACE (Negative); Specific Gravity, Urine 1.015 (1.005-1.030)
[2024-08-04] MEDS: CALCIUM GLUC IN NACL, ISO-OSM 2 GM/100 ML BAG IV (21:28)
[2024-08-04 21:31] LABS: Appearance,Urine Slightly Cloudy (Clear)
[2024-08-04 21:37] LABS: Yeast,Urine 4+ /lpf
[2024-08-04] MEDS: FLUCONAZOLE IN NACL,ISO-OSM 400 MG/200 ML BAG IV (21:47)
[2024-08-04] MEDS: LEVOFLOXACIN/D5W 750 MG/150 ML 750 MG/150 ML PIGGYBACK 100 MG IV (22:19)
[2024-08-04 23:00] LABS: Reflex Lactic Add Lactic Reflex
--- NOTE | 2024-08-04 23:50 | PC.NURSE ---
Waiting for ICU to come down to get patient
[2024-08-05] VITALS (22 sets, daily range): BP systolic 70–110; BP diastolic 34–75; PULSE 51–157; RESP 16–32; TEMP 37.1–37.9; O2SAT 78–96
--- NOTE | 2024-08-05 00:50 | P.HP_ITS ---
<Statement entered by Liam Horne MD - 08/05/24 10:59> Rounded on patient after nurse practitioner. Personally examined and interviewed patient. Agree with exam findings and care plan as documented. History of Present Illness *Admission Date: 08/04/24 *Reason for visit:: Altered mental status *History of present illness: This is a 79-year-old female with past medical history of chronic atrial fibrillation not on anticoagulation but previously on Xarelto, hypertension, hyperlipidemia, dementia who presents from [facility] for further evaluation of altered mental status. Of note on prior hospitalization she was noted to have significant intert rochanteric fracture with substantial hematoma of her left flank. She initially was on hospice after that admission and [facility] but revoked by family as hospice was not seeing her very often [facility] and [facility] was able to attend to her needs. Per nephew who provides collateral she has been doing well up until a few days ago when she became febrile. She was being treated for a urinary tract infection at [facility] but became unresponsive, tachycardic and febrile today. On arrival patient was obtunded, hypotensive, tachycardic and febrile to 102. Broad workup obtained and notable for septic shock requiring Levophed administration. Lab work notable for white blood cell count of 2.1, platelet count of 47,000, INR of 1.26, D-dimer of 2.45, fibrinogen of 71 lactic acid of 6.4 on VBG, procalcitonin of 1.5, urinalysis positive for +[address] abdomen pelvis imaging notable for gastric mural thickening, mural thickening involving the distal colon as well as stable thickening around the anorectal region. Also small foci of subcutaneous emphysema within the left proximal leg and inguinal canal paralleling the vasculature suggesting air within the vessels that could represent infection/necrotizing fasciitis. Also notable for previously described intratrochanteric fracture of the left femur. CT imaging notable for 15 mm x 9 mm new opioid hypodense filling defect within the lateral aspect of the left atrium suspicious for thrombus. Given the critical nature of her disease process, ED provider did offer transfer for higher level of care but ultimately nephew/POA declined transfer. He is aware of patient's critical nature and that many of these findings would be more fit for tertiary care facility. On hospitalization, goals of care had with Kg/POA and he is understanding of patient's critical status and that she likely will not survive hospitalization. She is a DNR/DNI but he would like to proceed with hemodynamic support and IV antibiotics for now with likelihood of transitioning later to comfort care. [facility] Disclaimer: The information contained in this section may have been updated after the patient was seen, as this information can be updated by other users. Medical History (Updated 08/05/24 @ 01:05 by ASHLEY Alejandra) Diabetes mellitus Diabetes type 2, controlled Dementia with behavioral disturbance Hyperthyroidism Agitation due to dementia Therapeutic misadventure Hypomagnesemia Hypokalemia Hypoglycemia associated with type 2 diabetes mellitus Leukopenia Rash Skin tag Hypokalemia Hypomagnesemia Atrial fibrillation with rapid ventricular response Iron deficiency anemia due to chronic blood loss Microcytic anemia Anemia Right knee pain Right leg pain Hypokalemia Abdominal wall abscess at site of surgical wound Coronary artery calcification seen on CAT scan Vitamin D deficiency Distal radius fracture Viral hepatitis C Multinodular goiter Claudication Bilateral leg weakness Macular degeneration Abnormal EKG Dyspnea Recurrent falls Atrial fibrillation HLD (hyperlipidemia) Carotid artery stenosis Osteoporosis Surgical History History of appendectomy History of bowel resection Family History Other COPD exacerbation Social History Smoking Status: Never smoker years smoked: 50 smoking status stop date: 2015 second hand exposure: No alcohol intake: former counseling provided: none substance use type: marijuana current occupational status: retired Travel in the last 8 weeks?: None household members: none housing: house marital status: current occupational exposures/hazards: No caffeine: No Have you lived/traveled outside [place] in past 30 days?: No Contact w/someone who lives/traveled outside [place] past 30 days?: No Exposure to someone with infectious disease in past 14 days?: No Do you have a fever (greater than 100.4 F or 38 C)?: No Have you tested positive for COVID-19?: No Exposed to someone with COVID-19 in past 14 days?: No Do you have a sore throat?: No Do you have a cough?: No Do you have any weakness?: No Do you have any diarrhea?: No Are you experiencing any unusual bleeding?: No Do you have any muscle aches/pain?: No Do you have any abdominal pain?: No Are you experiencing loss of taste or smell?: No Other Medical History Have you received the Flu Vaccine for this season: No Have you received the Pneumonia Vaccine: Yes Review of Systems Review of Systems Review of systems:: unable to obtain Meds Home Medications and Allergies Home Medications ?Medication ?Instructions ?Recorded ?Confirmed ?Type digoxin 125 mcg (0.125 mg) tablet 125 mcg PO DAILY #30 tabs 04/12/24 07/21/24 Rx magnesium oxide 400 mg (241.3 mg 400 mg PO DAILY #30 tabs 04/13/24 07/21/24 Rx magnesium) tablet atorvastatin 10 mg tablet 10 mg PO HS 05/26/24 07/21/24 History cyanocobalamin (vitamin B-12) 1,000 mcg PO DAILY 05/26/24 07/21/24 History 1,000 mcg tablet diltiazem HCl 240 mg 240 mg PO BID 05/26/24 07/22/24 History capsule,extended release 24 hr, controlled (DILT-XR) ferrous sulfate 325 mg (65 mg 325 mg PO DAILY 05/26/24 07/21/24 History iron) tablet (FeroSul) pantoprazole 40 mg tablet,delayed 40 mg PO DAILY #30 tabs 05/29/24 07/21/24 Rx release (Protonix) denosumab 60 mg/mL subcutaneous 60 mg SQ [id number] #1 mL 07/18/24 07/21/24 Rx syringe (Prolia) insulin lispro 100 unit/mL See Rx Instructions .Route .COMPLEX 07/21/24 07/21/24 History subcutaneous pen (Humalog KwikPen (U-100) Insulin) donepezil 5 mg tablet 5 mg PO HS 07/22/24 07/22/24 History hydrocodone 5 mg-acetaminophen 325 1 tab PO QID #120 tabs 07/25/24 Rx mg tablet olanzapine 10 mg intramuscular 5 mg IM BID 30 days #2 ea 07/25/24 Rx solution insulin glargine 100 unit/mL 15 unit SQ DAILY 08/01/24 08/01/24 History subcutaneous solution New Prescriptions to Start Prescriptions: Allergies Allergy/AdvReac Type Severity Reaction Status Date / Time codeine (CODEINE) Allergy Unknown hallucinati Verified 08/01/24 16:08 ons Penicillins (PENICILLINS) Allergy Unknown Verified 08/01/24 16:08 lisinopril AdvReac Severe Cough Verified 08/01/24 16:08 Exam Data for Last 24 hours Vital signs and Labs for Last 24 Hours: Temp Pulse Resp BP Pulse Ox O2 Del Method 97.9 F 140 H 28 H 108/63 L 99 Room Air 08/04/24 23:34 08/04/24 23:34 08/04/24 23:45 08/04/24 23:45 08/04/24 22:44 08/04/24 23:34 Laboratory Results - last 24 hr 08/04/24 18:29: WBC 2.1 L, RBC 3.38 L, Hgb 11.0 L, Hct 34.8 L, MCV 103.0 H, MCH 32.5 H, MCHC 31.6 L, RDW 17.3, Plt Count 47 L*, MPV 12.4 H, Neut % (Auto) 88.2 H , Lymph % (Auto) 6.1 L, [place] % (Auto) 4.7, Eos % (Auto) 0.5, Baso % (Auto) 0.5, Neut # (Auto) 1.9, Lymph # (Auto) 0.1 L, [place] # (Auto) 0.1, Eos # (Auto) 0.0, Baso # (Auto) 0.0, Total Counted 50, Neutrophils % (Manual) 80 H, Band Neutrophils % 6.0, Lymphocytes % (Manual) 8 L, Monocytes % (Manual) 6, Platelet Estimate Marked decrease, Poikilocytosis 1+, Anisocytosis 1+, Microcytosis 1+, Macrocytosis 1+, Ovalocytes 1+, PT 13.7 H, INR 1.26 H, APTT 25.1, Fibrinogen 71 L, D-Dimer 2.45 H, Sodium 134 L, Potassium 3.8, Chloride 106, Carbon Dioxide 21 L, Anion Gap 10.8, BUN 22 H, Creatinine 0.50 L, Estimated Creat Clear 32, Estimated GFR 119, Est GFR ( Amer) 144, Glucose 273 H, Calcium 7.6 L, Total Bilirubin 2.8 H, AST 64 H, ALT 43, Alkaline Phosphatase 75, Total Protein 4.5 L, Albumin 2.7 L, Globulin 1.8, Albumin/Globulin Ratio 1.5, Lipase 13 L, Procalcitonin 1.51, Acetone Level None detected 08/04/24 18:37: VBG pH 7.43 H, VBG pCO2 29.8 L, VBG pO2 58.1 H, VBG HCO3 19.2 L, VBG Total CO2 20.1 L, VBG O2 Saturation 90.7 H, VBG Base Excess -5.2 L, VBG Lactic Acid 6.4 H 08/04/24 21:04: Urine Color Yellow, Urine Appearance Slightly cloudy, Urine pH 7.0, Ur Specific [place] 1.015, Urine Protein Trace, Urine Glucose (UA) 3+, Urine Ketones Trace, Urine Blood Negative, Urine Nitrate Negative, Urine Bilirubin Negative, Urine Urobilinogen 2.0, Ur Leukocyte Esterase Negative, Urine RBC None, Urine WBC 3-5, Ur Squamous Epith Cells None, Urine Bacteria None, Urine Yeast 4+ I & O for Last 24 hours: Intake & Output 08/02/24 08/03/24 08/04/24 08/05/24 23:59 23:59 23:59 23:59 Intake Total 0.967 / 0.967 Balance 0.967 / 0.967 Weight 43.091 kg Constitutional Constitutional: thin, cachectic, chronically ill appearing, disheveled and somnolent *Routine HEENT Exam Head: Present normocephalic Eye: Present EOMI ENT: Present mucous membranes dry *Routine Neck Exam Neck: Present supple and full ROM *Routine Respiratory Exam Respiratory: Present accessory muscle use *Routine Cardiovascular Exam Cardiovascular: Present irregularly irregular (Atrial fibrillation with RVR) *Routine Abdominal Exam Abdominal: Present soft and normoactive bowel sounds *Routine Rectal Exam Rectal:: deferred *Routine Genitalia Exam Genitalia:: deferred *Routine Extremities Exam Extremities: Present edema and extremity cold to touch Comments: Significant lower extremity nonpitting edema as well as ecchymosis *Routine Skin Exam Skin: Present petechiae, wounds (See media) and ecchymosis *Routine Neurological Exam Neurological: Present altered mental status and moving all extremities Assessment and Plan *Assessment and plan (1) Septic shock: Status: Acute Category: Medical Code(s): A41.9 - Sepsis, unspecified organism; R65.21 - Severe sepsis with septic shock (2) Yeast cystitis: Status: Acute Category: Medical Code(s): B37.41 - Candidal cystitis and urethritis (3) Coagulopathy: Status: Acute Category: Medical Code(s): D68.9 - Coagulation defect, unspecified (4) Atrial fibrillation with rapid ventricular response: Status: Acute Category: Medical Code(s): I48.91 - Unspecified atrial fibrillation (5) Thrombocytopenia: Status: Acute Category: Medical Code(s): D69.6 - Thrombocytopenia, unspecified (6) Leukopenia: Status: Acute Category: Medical Code(s): D72.819 - Decreased white blood cell count, unspecified (7) Diabetes mellitus: Status: Acute Qualifiers: Diabetes mellitus complication status: without complication Diabetes mellitus 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 Hypotensive despite IV fluid bolus for sepsis Multiple concerns for infection including possible necrotizing fasciitis overlying left hip and yeast acute cystitis (Covering for gram -/+, [place] consistent with necrotizing fasciitis pattern, PCN allergic) Continue broad-spectrum coverage including Flagyl, Levaquin, vancomycin, fluconazole Follow-up urine culture Follow-up blood culture Procalcitonin elevated 1.51 #Atrial fibrillation with RVR Not on AC given substantial ecchymosis on prior hospitalization Did have initial improvement in heart rate in the ER to the 1 teens after fever control Continues with heart rate in the 130s to 140s Will give slow IV push Cardizem at this time Monitor for decompensation #Thrombocytopenia Substantial reduction in platelets from 136,000 to 47,000 in 10 days Questionable sepsis etiology although fibrinogen is low Possible early DIC Hold AC #Cardiac thrombus Filling defect within the left lateral aspect of the left atrium Spoke at length with POA regarding thrombocytopenia and need for anticoagulation for cardiac thrombus, given high risk for bleeding with thrombocytopenia and likely poor outcome for this hospitalization, will defer anticoagulation at this time. #DM 2 Continue basal bolus insulin regimen #Metabolic encephalopathy Secondary to above disease processes. Continue to reorient as needed. Continue infection workup and treatment #Intractable pain Narcotics as needed Goals of care conversation ongoing with nephew/YARELI Saul. This speak with him regarding her critical nature. He has spoke with his and likely patient will transition to comfort but he is not ready for that this evening. States he would like for her to continue treatment for her possible infections and hemodynamic support with Levophed for her blood pressure. Does understand the critical nature of cardiac thrombus and not receiving anticoagulation. Also understands best course of action for possible necrotizing fasciitis would be a Ortho/surgical consult for possible debridement. They do not wish to pursue aggressive measures with thrombectomy or surgical debridement of possible necrotizing fasciitis. Did offer comfort measures overnight tonight but ultimately they would like her to receive full medical treatment for infection and blood pressure, but is DNR/DNI.
--- NOTE | 2024-08-05 01:29 | PC.NURSE ---
Pt arrived to unit at 1513
[2024-08-05] MEDS: LEVOFLOXACIN/D5W 250 MG/50 ML PIGGYBACK 100 MG IV (01:35)
[2024-08-05] MEDS: 0.9 % SODIUM CHLORIDE 1000ML 1,000 ML 125 ML IV (01:35)
[2024-08-05] MEDS: CLINDAMYCIN PHOSPHATE/D5W 600 MG/50 ML PIGGYBACK 100 MG IV (01:38)
[2024-08-05] MEDS: ACETAMINOPHEN 1,000MG/100ML VIAL 1000 MG IV (01:38)
[2024-08-05] MEDS: FENTANYL 100MCG/2ML VIAL 50 MCG IV ×3 (01:41→07:49)
[2024-08-05] MEDS: dilTIAZem 25MG/5ML VIAL 5 MG IV (01:42)
[2024-08-05] MEDS: dilTIAZem HCL 100 MG in 0.9 % SODIUM CHLORIDE 100 ML IV (02:10)
[2024-08-05 03:59] LABS: Lactic Acid 5.8 mmol/L (0.7-2.1)
[2024-08-05] MEDS: 0.9 % SODIUM CHLORIDE 1000ML 1,000 ML 999 ML IV (04:19)
--- NOTE | 2024-08-05 05:57 | EXP.EVENT.NO ---
Ms. Mendoza has increasing pressor requirements and A-fib with RVR refractory to diltiazem drip. Patient now with blood pressure of 69/40. Spoke with Kg/YARELI multiple times throughout the evening regarding her care. At this point, we have discussed escalation of care again and YARELI understands that adding more blood pressure support would likely not increase patient's likelihood of survival. She appears extremely uncomfortable and agitated and blood pressure is precluding many medications to alleviate discomfort. He is understanding of this and states that he does want her to be comfortable. Have agreed to not escalate care further and despite low blood pressure, provide patient with IV pain medication for comfort and anxiety. Informed them that they would probably benefit from coming up to the hospital sooner rather than later given her current state.
[2024-08-05 06:36] LABS: VBG Base Excess -12.2 mmol/L (-2.4-2.3); VBG HCO3 14.1 mmol/L (23-30); VBG Oxygen Saturation 74.7 % (50-70); VBG PCO2 29.2 mmol/L (35-51); VBG PO2 42.7 mmol/L (28-40)
[2024-08-05 06:41] LABS: Lactate Venous 7.7 mmol/L (0.4-2.0)
[2024-08-05 06:50] LABS: Albumin Level 2.1 g/dl (3.5-5.0); Chloride 112 mmol/L (98-107); Sodium 136 mmol/L (136-145)
[2024-08-05 06:51] LABS: Potassium 3.4 mmoL/L (3.5-5.1)
[2024-08-05 06:53] LABS: Alanine Aminotransferase 45 U/L (12-78); Albumin/Globulin Ratio 1.2 (1.1-1.8); Anion Gap 11.4 mEq/L (5-15); Aspartate Amino Transferase 99 U/L (14-36); Basophils % 2.4 % (0.1-2.0); Blood Urea Nitrogen 26 mg/dl (7-17); Carbon Dioxide 16 mmol/L (22.0-30.0); Creatinine Clearance Estimated 32 mL/min (50-200); Eosinophils % 4.8 % (0.1-12.0); Estimated Glomerular Filt Rate 81 ml/min (>60); GFR (African American) 98 ML/MIN (>60); Globulin 1.8 g/dL (1.3-3.2); Hemoglobin 11.5 g/dL (12.2-16.2); Immature Granulocytes # 0.61 10^3uL; Immature Granulocytes % 72.6 %; Lymphocytes # 0.1 K/mm3 (0.7-4.5); Lymphocytes % 7.1 % (10-50); Mean Corpuscular HGB Conc 31.1 g/dL (31.8-35.4); Mean Corpuscular Hemoglobin 32.8 pg (27.0-31.2); Mean Corpuscular Volume 105.4 fl (81-99); Mean Platelet Volume 12.9 fl (7.4-10.4); Monocytes # 0.1 K/mm3 (0.1-1.0); Neutrophils # 0.1 K/mm3 (1.8-7.8); Neutrophils % 7.1 % (37.0-80.0); Nucleated Red Blood Cells # 0.04 10^3/uL; Nucleated Red Blood Cells % 4.8 %; Red Blood Count 3.51 M/mm3 (4.20-5.40); Red Cell Distribution Width 17.5 % (11.5-17.5); Red Cell Distribution Width-SD 69.4 fL; Total Protein,Serum 3.9 g/dl (6.3-8.2)
[2024-08-05 06:54] LABS: Alkaline Phosphatase 58 U/L (38-126); Bilirubin,Total 2.9 mg/dl (0.2-1.3); Calcium 7.1 mg/dl (8.4-10.2); Glucose 95 mg/dl (74-100); Magnesium 1.8 mg/dl (1.6-2.3)
[2024-08-05 06:58] LABS: INR 1.48 (0.9-1.1)
[2024-08-05 07:01] LABS: Platelet Count 28 K/mm3 (142-424); White Blood Count 0.8 K/mm3 (4.8-10.8)
[2024-08-05 07:02] LABS: MANUAL DIFFERENTIAL MANUAL DIFFERENTIAL (MANUAL DIFF)
[2024-08-05 07:25] LABS: NT Pro Brain Natriuretic Pep. 25400 pg/mL (0-450)
--- NOTE | 2024-08-05 08:29 | EXP.PHA.CONS ---
Pharmacy Consult Date: 08/05/24 Time: 08:29 Referring provider: DR WHITE Reason for Consult:: VANCOMYCIN DOSING CONSULT Allergies Allergy/AdvReac Type Severity Reaction Status Date / Time codeine (CODEINE) Allergy Unknown hallucinati Verified 08/05/24 02:37 ons Penicillins (PENICILLINS) Allergy Unknown Rash Verified 08/05/24 02:37 lisinopril AdvReac Severe Cough Verified 08/05/24 02:37 Home Medications ?Medication ?Instructions ?Recorded ?Confirmed ?Type digoxin 125 mcg (0.125 mg) tablet 125 mcg PO DAILY #30 tabs 04/12/24 07/21/24 Rx magnesium oxide 400 mg (241.3 mg 400 mg PO DAILY #30 tabs 04/13/24 07/21/24 Rx magnesium) tablet atorvastatin 10 mg tablet 10 mg PO HS 05/26/24 07/21/24 History cyanocobalamin (vitamin B-12) 1,000 mcg PO DAILY 05/26/24 07/21/24 History 1,000 mcg tablet diltiazem HCl 240 mg 240 mg PO BID 05/26/24 07/22/24 History capsule,extended release 24 hr, controlled (DILT-XR) ferrous sulfate 325 mg (65 mg 325 mg PO DAILY 05/26/24 07/21/24 History iron) tablet (FeroSul) pantoprazole 40 mg tablet,delayed 40 mg PO DAILY #30 tabs 05/29/24 07/21/24 Rx release (Protonix) denosumab 60 mg/mL subcutaneous 60 mg SQ [id number] #1 mL 07/18/24 07/21/24 Rx syringe (Prolia) insulin lispro 100 unit/mL See Rx Instructions .Route .COMPLEX 07/21/24 07/21/24 History subcutaneous pen (Humalog KwikPen (U-100) Insulin) donepezil 5 mg tablet 5 mg PO HS 07/22/24 07/22/24 History hydrocodone 5 mg-acetaminophen 325 1 tab PO QID #120 tabs 07/25/24 Rx mg tablet olanzapine 10 mg intramuscular 5 mg IM BID 30 days #2 ea 07/25/24 Rx solution insulin glargine 100 unit/mL 15 unit SQ DAILY 08/01/24 08/01/24 History subcutaneous solution New Prescriptions to Start Prescriptions: Height: 1.57 m Weight: 43.091 kg Laboratory Results:: Laboratory Results - last 24 hr 08/04/24 18:29: WBC 2.1 L, RBC 3.38 L, Hgb 11.0 L, Hct 34.8 L, MCV 103.0 H, MCH 32.5 H, MCHC 31.6 L, RDW 17.3, Plt Count 47 L*, MPV 12.4 H, Neut % (Auto) 88.2 H, Lymph % (Auto) 6.1 L, Centre % (Auto) 4.7, Eos % (Auto) 0.5, Baso % (Auto) 0.5, Neut # (Auto) 1.9, Lymph # (Auto) 0.1 L, Centre # (Auto) 0.1, Eos # (Auto) 0.0, Baso # (Auto) 0.0, Total Counted 50, Neutrophils % (Manual) 80 H, Band Neutrophils % 6.0, Lymphocytes % (Manual) 8 L, Monocytes % (Manual) 6, Platelet Estimate Marked decrease, Poikilocytosis 1+, Anisocytosis 1+, Microcytosis 1+, Macrocytosis 1+, Ovalocytes 1+, PT 13.7 H, INR 1.26 H, APTT 25.1, Fibrinogen 71 L, D-Dimer 2.45 H, Sodium 134 L, Potassium 3.8, Chloride 106, Carbon Dioxide 21 L, Anion Gap 10.8, BUN 22 H, Creatinine 0.50 L, Estimated Creat Clear 32, Estimated GFR 119, Est GFR ( Amer) 144, Glucose 273 H, Calcium 7.6 L, Total Bilirubin 2.8 H, AST 64 H, ALT 43, Alkaline Phosphatase 75, Total Protein 4.5 L, Albumin 2.7 L, Globulin 1.8, Albumin/Globulin Ratio 1.5, Lipase 13 L, Procalcitonin 1.51, Acetone Level None detected 08/04/24 18:37: VBG pH 7.43 H, VBG pCO2 29.8 L, VBG pO2 58.1 H, VBG HCO3 19.2 L, VBG Total CO2 20.1 L, VBG O2 Saturation 90.7 H, VBG Base Excess -5.2 L, VBG Lactic Acid 6.4 H 08/04/24 21:04: Urine Color Yellow, Urine Appearance Slightly cloudy, Urine pH 7.0, Ur Specific [place] 1.015, Urine Protein Trace, Urine Glucose (UA) 3+, Urine Ketones Trace, Urine Blood Negative, Urine Nitrate Negative, Urine Bilirubin Negative, Urine Urobilinogen 2.0, Ur Leukocyte Esterase Negative, Urine RBC None, Urine WBC 3-5, Ur Squamous Epith Cells None, Urine Bacteria None, Urine Yeast 4+ 08/05/24 03:27: Lactate 5.8 H 08/05/24 06:30: WBC 0.8 L* D, RBC 3.51 L, Hgb 11.5 L, Hct 37.0, MCV 105.4 H, MCH 32.8 H, MCHC 31.1 L, RDW 17.5, Plt Count 28 L* D, MPV 12.9 H, Neut % (Auto) 7.1 L, Lymph % (Auto) 7.1 L, Centre % (Auto) 6.0, Eos % (Auto) 4.8, Baso % (Auto) 2.4 H, Neut # (Auto) 0.1 L*, Lymph # (Auto) 0.1 L, Centre # (Auto) 0.1, Eos # (Auto) 0.0, Baso # (Auto) 0.0, PT 16.0 H, INR 1.48 H, APTT 47.0 H, Sodium 136, Potassium 3.4 L, Chloride 112 H, Carbon Dioxide 16 L, Anion Gap 11.4, BUN 26 H, Creatinine 0.70 D, Estimated Creat Clear 32, Estimated GFR 81, Est GFR ( Amer) 98 D, Glucose 95 D, Calcium 7.1 L, Phosphorus 2.0 L, Magnesium 1.8, Total Bilirubin 2.9 H, AST 99 H D, ALT 45, Alkaline Phosphatase 58, NT-Pro-B Natriuret Pep 24311 H, Total Protein 3.9 L, Albumin 2.1 L D, Globulin 1.8, Albumin/Globulin Ratio 1.2 08/05/24 06:31: VBG pH 7.30 L, VBG pCO2 29.2 L, VBG pO2 42.7 H, VBG HCO3 14.1 L, VBG Total CO2 15.0 L, VBG O2 Saturation 74.7 H, VBG Base Excess -12.2 L, VBG Lactic Acid 7.7 H Medical History: Medical History (Updated 08/05/24 @ 01:05 by ASHLEY Alejandra) Diabetes mellitus Diabetes type 2, controlled Dementia with behavioral disturbance Hyperthyroidism Agitation due to dementia Therapeutic misadventure Hypomagnesemia Hypokalemia Hypoglycemia associated with type 2 diabetes mellitus Leukopenia Rash Skin tag Hypokalemia Hypomagnesemia Atrial fibrillation with rapid ventricular response Iron deficiency anemia due to chronic blood loss Microcytic anemia Anemia Right knee pain Right leg pain Hypokalemia Abdominal wall abscess at site of surgical wound Coronary artery calcification seen on CAT scan Vitamin D deficiency Distal radius fracture Viral hepatitis C Multinodular goiter Claudication Bilateral leg weakness Macular degeneration Abnormal EKG Dyspnea Recurrent falls Atrial fibrillation HLD (hyperlipidemia) Carotid artery stenosis Osteoporosis Assessment and Plan Assessment and plan all Dx Assessment and Plan for all problems:: Pharmacokinetic dosing service Objective: Age: 79 yo Serum creatinine: 0.7 mg/dL Height: 62.0 Inches Weight (kg): 43.091 Diagnosis: SEPSIS/NECROTIZING FASCIITIS Assessment: IBW (kg): 50.10 Dosing wt(kg): 43.091 Estimated Creatinine clearance (ml/min): 45.1 CRCL method: Cockcroft and Gault using ibw(default). Drug selected: Vancomycin Loading dose (mg): 1000 MG Vd (liters): 32.3 (factor used: 0.75 L/kg) Ab (hr-1): 0.042 Half life (hrs): 16.50 CLvanco=?? 1.357 L/hr Recommended dose: 750 mg Interval: 24 hrs Infusion time (hrs): 2.0 Predicted peak (mcg/mL): 35.1 Predicted trough (mcg/mL): 13.93 Total body weight is being used for vancomycin dosing. Recommendations: Give Vancomycin 750 mg q 24 hrs with an expected Cpeak of 35.1 mcg/ml and an expected Ctrough of 13.93 mcg/ml TO START 08/05/24 AT 1900, PATIENT GIVEN ONE TIME LOADING DOSE OF VANCOMYCIN 1000 MG IV 08/04/24 AT 19:13. AUC 0-24 /MISTY Data: MISTY 0.5 mcg/mL:?? AUC/MISTY:? 1105.4 MISTY 1.0 mcg/mL:?? AUC/MISTY:? 552.7 --------- MISTY 1.5 mcg/mL:?? AUC/MISTY:? 368.5 MISTY 2.0 mcg/mL:?? AUC/MISTY:? 276.3 Thank you for the consult
--- NOTE | 2024-08-05 08:36 | PC.NURSE ---
Dr. Horne @ bedside discussing POC w/ pt's POA
[2024-08-05] MEDS: LORazepam 2MG/ML VIAL 1 MG IV (08:58)
[2024-08-05 09:12] LABS: Anisocytosis 1+; Eosinophils % 8 % (0-3); Lymphocytes % 32 % (10-50); Macrocytosis 2+; Monocytes % 8 % (2-9); Neutrophils % 48 % (42-76); Platelet Estimate Marked Decrease; Poikilocytosis 1+; Total Cells Counted 25
[2024-08-05 09:13] LABS: Ovalocytes 1+
--- NOTE | 2024-08-05 09:33 | PC.NURSE ---
0840 - Pt now comfort care. Dania admission specialist paged per family request. Courtesy jace brought to room by dietary. Family @ bedside. No needs voiced @ this time. 0900 - Dilt off at this time. Levo titrated to half dose @ 14 mcg/kg/min per MD v/o 30 - Levo off @ this time. 0936 - Dania Massey returned phone call @ this time and will be coming to see pt and family.
[2024-08-05] MEDS: MORPHINE 4MG/ML SYRINGE 4 MG IV (10:13)
--- NOTE | 2024-08-05 10:17 | PC.NURSE ---
1005 - Dania @ bedside w/ family.
--- NOTE | 2024-08-05 12:25 | P.DN_ITS ---
Pronouncement Note Date and Time of Date of : 08/05/24 Time of : 12:18 PCOD Preliminary cause of : Septic shock due to Escherichia coli Contributing Factors (1) Septic shock: (2) Yeast cystitis: (3) Coagulopathy: (4) Atrial fibrillation with rapid ventricular response: (5) Thrombocytopenia: (6) Leukopenia: (7) Diabetes mellitus: (8) Encephalopathy: (9) E coli bacteremia: Summary Additional details: 79-year-old female with worsening dementia, A-fib, frequent falls, multiple recent admissions secondary to anemia from large left-sided hematoma. Presented in septic shock to the ER. Blood cultures returned positive for E. coli. After goals of care discussion with family, decision to transition to comfort measures and de-escalate care. Patient passed peacefully shortly after de-escalating fluids, antibiotics, vasopressors. Family at bedside. Hospital course as follows: #Severe sepsis with septic shock #Acute cystitis-yeast #Necrotizing fasciitis Presented with septic shock. Initiated on broad-spectrum antibiotics after cultures obtained. Urine positive for candiduria, blood cultures returned positive in less than 24 hours for E. coli. Patient remained hypotensive and needed high doses of norepinephrine. Remained frankly unstable. Multiple concerns for infection including possible necrotizing fasciitis overlying left hip, candiduria, E. coli bacteremia. After discussion of goals of care and decision to transition to comfort measures, discontinued Flagyl, Levaquin, vanco mycin and fluconazole. #Atrial fibrillation with RVR Not on AC given substantial ecchymosis on prior hospitalization. Did have initial improvement in heart rate in the ER to the 110s after fever control. Continues with heart rate in the 130s to 140s. Administered slow Cardizem push and over necessitated norepinephrine for septic shock. #Thrombocytopenia/DIC: Substantial reduction in platelets from 136,000 to 47,000 in 10 days. Repeat levels on morning of of 28,000. Consistent with DIC. #Cardiac thrombus Filling defect within the left lateral aspect of the left atrium. Spoke at length with POA regarding thrombocytopenia and need for anticoagulation for cardiac thrombus, given high risk for bleeding with thrombocytopenia and likely poor outcome for this hospitalization, will defer anticoagulation at this time. #DM 2: Continued basal bolus regimen. #Metabolic encephalopathy: Secondary to above disease processes. Continue to reorient as needed. Remains frankly encephalopathic. #Intractable pain: Transitions to IV morphine 4 mg as needed every 2 hours. Comfortable at end-of-life Goals of care conversation ongoing with nephew/POA Kg. This speak with him regarding her critical nature. After much discussion with POA and patient's sister, decision made to discontinue treatment for sepsis in light of the futile nature given her bacteremia, concern for necrotizing fasciitis, sepsis, encephalopathy. Transitioned to comfort care. Started on morphine and Ativan. Levophed, antibiotics, fluids discontinued. Patient became unresponsive and was comfortable after treatment with Ativan and morphine. Passed comfortably within the next few hours. Family at bedside. Patient DNR/DNI from admission Additional Data Confirmation of : no pulse, no respirations, no heart sounds and pupils fixed and dilated Family: at bedside Attending/PCP notified?: Yes Attending physician: Liam Horne MD Was code activated?: No Autopsy should be considered if:: Unknown or unanticipated medical complications Cause is not known with certainty on clinical grounds Would allay concerns of the public/family regarding Unexplained/unexpected apparently natural and not subject to a forensic medical jurisdiction DOA Within 24 hours of admission Sustained or apparently sustained injury while in the hospital Result of high risk, infectious and contagious disease Obstetric and pediatric arising from environmental or occupational hazard Unexplained/unexpected from dental, medical, or surgical diagnostic procedures and/or therapies Would disclose a known or suspected illness which also may have a bearing on survivors or recipients of transplanted organs Autopsy requested?: No Inappropriate situation passport application examiner notified?: Yes Organ bank notified?: Yes Advance directives: No
--- NOTE | 2024-08-05 12:34 | PC.NURSE ---
1218 - Noted asystole on tele. Nurse @ bedside to assess pt, family @ bedside as well. No audible cardiac activity noted, no pulse found. notified and called to bedside. Family grieving appropriately. No needs @ this time. 1227 - [facility] contacted, spoke to Anna Hernandez Pt r/o for organ donation. Case # [id number]
--- NOTE | 2024-08-05 12:42 | PC.NURSE ---
Prn Occupational Therapist paged @ this time
[2024-08-05 20:43] LABS: POC Glucose,Bedside 112 (70-110)
[2024-08-05 20:43] LABS: POC Glucose,Bedside 82 (70-110)
[2024-08-06 19:13] LABS: Peripheral Smear Review Scanned Result
== END 2024-08-05 14:40 | disposition expired | DRG 871 ==
LOC: ER 21:46 → ICU 08-05 01:57
PROVIDERS: Nurse Practitioner Acute Care; Physician Assistant; Admitting Provider Internal Medicine Adolescent Medicine; Emergency Provider Emergency Medicine; Visit Provider Internal Medicine Adolescent Medicine
DX: A41.51 Sepsis due to Escherichia coli [E. coli] (principal); D65 Disseminated intravascular coagulation [defibrination syndrome]; G93.41 Metabolic encephalopathy; R65.21 Severe sepsis with septic shock; M72.6 Necrotizing fasciitis; B37.41 Candidal cystitis and urethritis; D68.9 Coagulation defect, unspecified; I48.20 Chronic atrial fibrillation, unspecified; F03.911 Unspecified dementia, unspecified severity, with agitation; R64 Cachexia; Z68.1 Body mass index [BMI] 19.9 or less, adult; E87.4 Mixed disorder of acid-base balance; Z66 Do not resuscitate; E11.9 Type 2 diabetes mellitus without complications; I10 Essential (primary) hypertension; E78.5 Hyperlipidemia, unspecified; M81.0 Age-related osteoporosis without current pathological fracture; I65.29 Occlusion and stenosis of unspecified carotid artery; G89.29 Other chronic pain; I51.3 Intracardiac thrombosis, not elsewhere classified; R29.6 Repeated falls; L89.152 Pressure ulcer of sacral region, stage 2; Z88.5 Allergy status to narcotic agent; Z88.0 Allergy status to penicillin; Z88.8 Allergy status to other drugs, medicaments and biological substances; Z79.4 Long term (current) use of insulin; Z90.49 Acquired absence of other specified parts of digestive tract; Z82.5 Family history of asthma and other chronic lower respiratory diseases; Z79.891 Long term (current) use of opiate analgesic; Z79.899 Other long term (current) drug therapy; Z51.5 Encounter for palliative care
CPT/HCPCS: 36415; 51702; 70450; 71275; 74177; 80053; 81001; 82009; 82803; 82962; 83605; 83690; 83735; 83880; 84100; 84145; 85007; 85025; 85378; 85384; 85610; 85730; 87040; 87077; 87186; 93005; 99291; 99292; J0131; J0736; J1956; J2060; J2270; J3010; J3370; J3475; J7030; J7050; Q9967